=== PATIENT | male | born 1955 | race Hispanic/Latino ===

== ENCOUNTER 2021-12-05 01:24 | Inpatient (IN) | payer OTHER, SELFPAY ==
[2021-12-05] VITALS (15 sets, daily range): BP systolic 96–116; BP diastolic 55–67; PULSE 57–97; RESP 16–18; TEMP 36.2–37.3; O2SAT 12–100; BMI 24.6
--- NOTE | ~2021-12-05 | MR_ITS ---
EXAMINATION: MR brain/brain stem wo con DATE: 12/05/2021 15:30 INDICATION: Aphasia TECHNIQUE: Magnetic resonance imaging (MRI) of the brain and brainstem was performed without intraven ous contrast. Sequences included sagittal and axial T1-weighted SE, axial diffusion-weighted FS SE, a xial T2*-weighted GRE, axial T2-weighted FLAIR, and axial T2-weighted FSE. Apparent diffusion coeffic ient (ADC) maps were created. COMPARISON: Head CT dated 12/05/2021 FINDINGS: Increased white matter T2 signal along the margins of a large region of encephalomalacia in left occi pital lobe consistent with chronic infarct in the left posterior cerebral artery vascular distributio n. There are no areas of restricted diffusion to suggest acute infarction. No intracranial hemorrhage or abnormal intracranial mass lesion. There are a few additional scattered foci of of nonspecific in creased T2-weighted signal intensity in the cerebral white matter, predominantly involving the deep a nd periventricular white matter. There are no intraparenchymal signal abnormalities seen on the other pulse sequences. The ventricles are symmetric and normal in size. There are no abnormal extra-axial fluid collections. Flow voids are seen in the cerebral arteries on the T2-weighted sequences consiste nt with their expected patency. Mild mucoperiosteal thickening in the paranasal sinuses. Tiny bilater al mastoid effusions. Orbits are normal. IMPRESSION: 1. Large region of encephalomalacia involving the left occipital lobe. No acute intracranial process. 2. Mild scattered nonspecific white matter T2 hyperintensity which is within normal limits for age an d may represent sequela of chronic small vessel ischemic disease. Reviewed, dictated and finalized at location A. IMPRESSION: 1. Large region of encephalomalacia involving the left occipital lobe. No acute intracranial process. 2. Mild scattered nonspecific white matter T2 hyperintensity which is within no rmal limits for age and may represent sequela of chronic small vessel ischemic disease.
--- NOTE | ~2021-12-05 | CT_ITS ---
EXAMINATION: CT brain wo con INDICATION: Seizure COMPARISON: None TECHNIQUE: Standard unenhanced head CT. The dose-length product (DLP) was 681.00 mGy-cm. The mA was a djusted according to patient size. Iterative reconstruction technique was employed. FINDINGS: There is no acute intraparenchymal hemorrhage. No evidence of mass lesion. No evidence of a cute infarction. There is an old infarct of the left occipital lobe. There is mild periventricular an d subcortical hypodensity probably related to small vessel ischemic disease. There is mild prominence of the sulci and ventricles related to cerebral atrophy. Intracranial calcified cerebral atheroscler osis is noted. There are no extra-axial collections. There is no mass effect or midline shift. The or bits and soft tissues are unremarkable. There is mild mucosal thickening of the paranasal sinuses. IMPRESSION: 1. No acute intracranial abnormality. 2. Age related findings. Reviewed, dictated and finalized at location A.
--- NOTE | ~2021-12-05 | XR_ITS ---
EXAMINATION: XR chest 1V portable INDICATION: Cough TECHNIQUE: Portable AP chest at 0347 hours COMPARISON: None available FINDINGS: There are minimal airspace opacities of the lung bases. There is no pleural effusion or pne umothorax. The cardiomediastinal silhouette is normal. IMPRESSION: 1. Minimal bibasilar airspace opacities, consistent with atelectasis versus pneumonia. Reviewed, dictated and finalized at location A. IMPRESSION: 1. Minimal bibasilar airspace opacities, consistent with atelectasis versus pne umonia.
--- NOTE | 2021-12-05 01:30 | ECG_ITS ---
Measurements Intervals [place] Rate: 101 P: 66 CT: 177 QRS: -19 QRSD: 104 T: 91 QT: 339 QTc: 439 Interpretive Statements SINUS TACHYCARDIA POSSIBLE LEFT ATRIAL ENLARGEMENT INCOMPLETE RIGHT BUNDLE BRANCH BLOCK LOW QRS VOLTAGE- DIFFUSE LEADS INFERIOR INFARCT, AGE INDETERMINATE ANTERIOR INFARCT, AGE INDETERMINATE BORDERLINE ST-T WAVE ABNORMALITY- LAT/HIGH LAT LEADS BASELINE WANDER- V6 ABNORMAL ECG Electronically Signed On 12-05-2021 9:17:25 CDT by Ric Ratliff D.O.
--- NOTE | 2021-12-05 01:35 | ED.GENADULT ---
HPI - General Adult General Chief complaint: Seizure Stated complaint: SEIZURE Source: family, EMS and RN notes reviewed Mode of arrival: ambulatory Limitations: no limitations History of Present Illness HPI narrative: 66-year-old male with history of CVA and seizure presented [facility] the [facility] department [facility] after having a prolonged seizure. EMS states that the patient had been seizing for approximately 10 minutes prior to their arrival. Patient was treated with 5 of Valium and his tonic-clonic seizures did stop. Patient was extremely diaphoretic and was hypoxic during transport. Patient was placed on 15 L by nonrebreather and this did help his oxygenation. Patient has a prior history of CVA with right-sided deficit. longterm states that patient's baseline he is normally alert and able to have conversations in [place]. Related Data Home Medications Medication Instructions Recorded Confirmed acetaminophen 650 mg PO Q6H PRN 12/05/21 12/05/21 aspirin 81 mg PO DAILY 12/05/21 12/05/21 atorvastatin 80 mg PO HS 12/05/21 12/05/21 calcitriol 0.25 mcg PO WEEKLY 12/05/21 12/05/21 carvedilol 6.25 mg PO BID 12/05/21 12/05/21 citalopram 20 mg PO DAILY 12/05/21 12/05/21 ergocalciferol (vitamin D2) 1,250 mcg PO WEEKLY 12/05/21 12/05/21 [Vitamin D2] levetiracetam 2,000 mg PO BID 12/05/21 12/05/21 lisinopril 10 mg PO DAILY 12/05/21 12/05/21 metformin 500 mg PO DAILY 12/05/21 12/05/21 Allergies Allergy/AdvReac Type Severity Reaction Status Date / Time No Known Allergies Allergy Verified 12/05/21 05:26 Review of Systems Review of Systems: Patient answers yes to all questions ROS unobtainable: Yes unobtainable due to medical condition PMFSH Social History Social History Smoking status: Unknown if ever smoked Alcohol intake: unknown Substance use: unknown Spiritual care concerns: No Exam Narrative: APPEARANCE: Upon arrival patient was diaphoretic with decreased responsiveness. HEAD: normocephalic, atraumatic. EYES: PERRLA/EOMI, conjunctivae clear. NOSE: Normal no drainage EARS:TMS clear with good light reflex. THROAT: Pharynx clear, no exudate. NECK: Supple. No adenopathy, no masses. RESPIRATORY: Airway patent, respirations nonlabored. Clear to auscultation bilaterally, no rales, rhonchi, wheezing. CARDIOVASCULAR: Regular rate and rhythm without murmurs rubs or gallops. ABDOMINAL: Soft, nontender, nondistended, normal bowel sounds MUSCULOSKELETAL: Moves all extremities. NEURO: Postictal upon arrival but did have increased alertness. Does move all limbs SKIN: Warm, dry. Normal Color Course Course Emergency Course: Patient continues to say yes to every question. Attempted to use the training executive and patient says okay and yes to every question. longterm states that the patient is normally conversive in [place]. Due to the patient possibly having a prolonged postictal phase case was discussed and patient was accepted for admission. Neurology was consulted. Consultations Consultation #1: Dr. Phillips was consulted for the prolonged postictal phase after the seizure. He agreed with Siria beasley. He was also comfortable with the plan for the MRI later today. Dr. Phillips will see the patient as consult. Vital Signs Vital signs: Vital Signs Temperature 97.1 F L 12/05/21 01:27 Pulse Rate 97 12/05/21 01:27 Respiratory Rate 17 12/05/21 01:27 Blood Pressure 96/64 L 12/05/21 01:27 Pulse Oximetry 94 12/05/21 01:27 Temperature 98.6 F 12/05/21 04:55 Pulse Rate 78 12/05/21 04:55 Respiratory Rate 18 12/05/21 04:55 Blood Pressure 109/55 L 12/05/21 04:55 Pulse Oximetry 97 12/05/21 04:55 Medical Decision Making Vital Signs Vital Signs: Vital Signs Temperature 97.1 F L 12/05/21 01:27 Pulse Rate 97 12/05/21 01:27 Respiratory Rate 17 12/05/21 01:27 Blood Pressure 96/64 L 12/05/21 01:27 Pulse Oximetry 94 12/05/21 01:27 Tem
[2021-12-05] MEDS: levETIRAcetam 1000MG/NACL100ML 1,000 MG/100 ML BAG 400 MG IVPB (01:39)
[2021-12-05 02:04] LABS: Alanine Aminotransferase 27 U/L (6-50); Albumin Level 4.2 g/dL (3.5-5.1); Alkaline Phosphatase 62 U/L (38-126); Anion Gap 14 mmol/L (8-16); Aspartate Amino Transferase 32 U/L (17-59); Bilirubin,Total 0.5 mg/dL (0.2-1.3); Blood Urea Nitrogen 15 mg/dL (9-20); Carbon Dioxide 19 mmol/L (22-30); Chloride 105 mmol/L (98-107); Estimated CRCL calculation 72 ml/min; Estimated Glomerular Filt Rate > 60; Glucose 140 mg/dL (65-110); Potassium 4.9 mmol/L (3.4-5.0); Sodium 138 mmol/L (137-145)
[2021-12-05 02:17] LABS: Lactic Acid Reflex 8.2 mmol/L (0.7-2.0)
[2021-12-05] MEDS: SODIUM CHLORIDE 0.9% IV 1,000 ML 999 ML IV CONT ×2 (02:24→02:25)
[2021-12-05 02:47] LABS: Basophils Percent Auto 0.2 % (0.2-1.2); Eosinophils Absolute Auto 0.2 K/mm3 (0-0.3); Eosinophils Percent Auto 1.8 % (0-4.4); Hemoglobin 11.9 g/dL (14.0-18.0); Immature Granulocyte Absolute 0.06 K/mm3 (0.00-0.031); Immature Granulocyte Percent A 0.7 % (0-0.5); Immature Platelet Fraction Pct 9.7 % (0.9-11.2); Lymphocytes Percent Auto 8.4 % (18.3-44.2); Mean Corpuscular HGB Conc 31.3 g/dl (32-36); Mean Corpuscular Hemoglobin 29.6 pg (26-34); Mean Corpuscular Volume 94.5 fl (80-100); Mean Platelet Volume 11.8 fl (7.4-10.4); Monocytes Absolute Auto 0.4 K/mm3 (0.1-0.6); Monocytes Percent Auto 4.2 % (2.6-8.5); Neutrophils Absolute Auto 7.1 K/mm3 (1.3-6.7); Neutrophils Percent Auto 84.7 % (45.5-73.1); Platelet Count Result 134 k/mm3 (150-375); Red Blood Count 4.02 M/mm3 (4.6-6.20); Red Cell Distribution Width 13.3 % (11.5-14.5); White Blood Count 8.4 K/mm3 (4.5-10.0)
[2021-12-05 02:49] LABS: Bacteria Urine Trace /hpf; Mucus Urine Rare /lpf; Squamous Epithelial Cell Urine Rare /hpf (Few)
[2021-12-05 02:50] LABS: Add Urine Microscopic? YES; Appearance Urine Clear (Clear); Bilirubin Urine Negative (Negative); Blood Urine 1+ (Negative); Color Urine Yellow (Yellow); Glucose Urine UA Negative (Negative); Ketones Urine Negative (Negative); Leukocyte Esterase Ur Negative LEU/UL (Negative); Nitrate Urine Negative (Negative); Protein Urine 3+ mg/dL (Negative); Specific Grav Ur >= 1.030 (1.001-1.035); Urobilinogen Urine 0.2 mg/dL (<2.0); pH Urine 5.5 (5.0-9.0)
--- NOTE | 2021-12-05 03:27 | PC.NURSE ---
Pt progressively weaned from non rebreather down to room air at this time. Oxygen saturation in the high 90's on room air.
--- NOTE | 2021-12-05 03:41 | PM.IMHP ---
H&P: HPI History of Present Illness Date/Time: 12/05/21 03:41 Chief Complaint: Altered mental status. Narrative: This is a 66-year-old male with past medical history significant for stroke, right-sided hemiparesis, seizure disorder. Patient id lives at a half-way and he was found actively seizing with tonic clonic activity. Patient seized for approximately 10 minutes until EMS arrived and he was given 5 mg of Valium and was brought to our emergency room. Patient initially post ictal but now awake and alert and following commands however patient unable to give any information states mostly okay to all questions. Preliminary workup was significant for a lactic acid of 8. Rest of the preliminary workup has been essentially nonrevealing. In emergency room patient was loaded with Keppra. Decision has been made to place the patient in observation for further evaluation, management and treatment. Review of Systems Review of Systems: ROS unobtainable: Yes other (Patient seems to have aphasia unable to give any history) Meds Vital Signs Vital Signs - 24 hr 12/05/21 01:27 12/05/21 01:36 12/05/21 02:23 Temperature 97.1 F L Pulse Rate 97 83 Respiratory Rate 17 18 Blood Pressure 96/64 L 100/65 Pulse Oximetry 94 12 L 96 12/05/21 03:17 12/05/21 03:26 Temperature Pulse Rate 71 Respiratory Rate 16 Blood Pressure 116/67 Pulse Oximetry 100 98 Exam Narrative: Laying in a stretcher. Const: General: cooperative, comfortable, no acute distress, well developed, alert, awake and ill appearing chronically Nutritional Appearance: average body habitus Orientation/consciousness: oriented to person and oriented to place Other: Aphasia. Right-sided hemiplegia HENMT: Head: normal to inspection, normocephalic and atraumatic Ears: hearing grossly normal bilaterally General nose exam: Normal external nose present Face and sinus: normal facial exam Mouth: Yes Normal oral and palatal mucosa present Teeth and gingiva: edentulous Eyes: General: appearance normal, both eyes and all related structures Alignment and Position: alignment normal Sclera: sclerae normal Pupils: Equal, round and reactive pupils present EOM: EOMs intact bilaterally Neck: Neck: normal visual inspection, full ROM, no lymphadenopathy, supple and no JVD Thyroid: thyroid normal Lymphatic: no lymphadenopathy noted Resp: Effort & Inspection: normal respiratory effort and able to speak in complete sentences Auscultation: clear to auscultation bilaterally, no crackles, no rales, no rhonchi and no wheezes Cardio: Jugular venous distension: no JVD Rate: regular rate Rhythm: regular rhythm Heart sounds: S1 normal heart sound present and S2 normal heart sound present GI: Inspection: normal to inspection GI Palp: Yes Soft to palpation, No Tenderness to palpation present (GI), No Guarding due to palpation present (GI) and Yes No hepatosplenomegaly present : General: Yes deferred Skin: Rashes: no rashes Wounds: no wounds Neuro: General: oriented to person and oriented to place Cranial nerves: Yes CN's II-XII intact bilaterally and Yes Equal, round and reactive pupils present Cognition (Neuro): normal cognition Speech: aphasia and Expressive aphasia present Gait exam (Neuro): Unable to assess gait Motor exam (neuro): Other motor observations present (Right-sided hemiplegia) Extrem: General: normal to inspection, full ROM, no joint enlargement and no pedal edema H&P: Results Labs Labs: Short CBC 12/05/21 Range/Units 02:37 WBC 8.4 (4.5-10.0) K/mm3 Hgb 11.9 L (14.0-18.0) g/dL Hct 38.0 L (42.0-52.0) % Plt Count 134 L (150-375) k/mm3 BMP 12/05/21 01:43 Sodium 138 Potassium 4.9 Chloride 105 Carbon Dioxide 19 L BUN 15 Creatinine 0.90 Glucose 140 H Calcium 9.0 Liver Function 12/05/21 Range/Units 01:43 Total Bilirubin 0.5 (0.2-1.3) mg/dL AST 32 (17-59) U/L ALT 27 (6-50) U/L Alkaline Phosphata
[2021-12-05 04:33] LABS: SARS-CoV-2 RNA PCR Negative
--- NOTE | 2021-12-05 04:48 | ADMGEN ---
This patient, Maldonado Macedo, was admitted to 3 [facility] Surg Room 324-01. Patient/family oriented to hospital policies and general routines including ID bracelet, bed and alarms, visiting hours, pain management, procedures, bathroom and other care routines, personal items, smoking policy, room service/diet, and visiting hours. Information on how to activate the Rapid Response Team has been discussed. Patient/Family are encouraged to report perceived risks to care and to ask questions if they do not understand what they are told or what they should do.
[2021-12-05 04:49] LABS: Reflex Lactic Acid Yes or No Add Lactic
[2021-12-05] MEDS: SODIUM CHLORIDE 0.9% IV 1,000 ML 125 ML IV CONT ×2 (05:02→14:21)
[2021-12-05 06:00] LABS: Lactic Acid 1.2 mmol/L (0.7-2.0)
[2021-12-05 08:14] LABS: Glucose Point of Care 109 mg/dl (65-105)
[2021-12-05] MEDS: levETIRAcetam 500 MG TABLET 2000 MG PO ×2 (10:14→21:01)
[2021-12-05] MEDS: carvediloL 6.25 MG TABLET PO ×2 (10:14→21:01)
[2021-12-05 12:02] LABS: Glucose Point of Care 85 mg/dl (65-105)
--- NOTE | 2021-12-05 14:30 | PC.NURSE ---
call placed to [facility] for records if facility has and documentation on a pacemaker. nurse stated unable to find anything like that due to pt being new still to facility. nurse gave a number from previous discharge of [phone]. another nurse noted that although no documentation on a pacemaker pt does have loop recorder noted in chart, but no documentation on it.
[2021-12-05 17:00] LABS: Glucose Point of Care 95 mg/dl (65-105)
--- NOTE | 2021-12-05 20:32 | PM.IMPN ---
Progress Note: A&P Assessment and Plan (1) Seizure: Code(s): R56.9 - Unspecified convulsions <Bri Serna PA-C - Last Filed: 12/05/21 20:41> Status: Acute <Bri Serna PA-C - Last Filed: 12/05/21 20:41> Assessment and Plan: CT head showed no abnormalities. Patient was loaded with Keppra in the ER. We have continued his home medications and Keppra Vital signs have been stable, labs all within normal limits today. Neurology consult is pending, and we do appreciate their recommendations. Records have been requested from the senior care regarding patient's pacemaker to determine if he is able to undergo MRI. Seizure precautions Some proteinuria and blood noted in the urine, urine culture pending. <Bri Serna PA-C - Last Filed: 12/05/21 20:41> (2) Aphasia: Code(s): R47.01 - Aphasia <Bri Serna PA-C - Last Filed: 12/05/21 20:41> Status: Acute <Bri Serna PA-C - Last Filed: 12/05/21 20:41> Assessment and Plan: Patient has aphasia, and answers only 'yes' or 'okay' to all questions. He follows commands during my exam today. Plan as above. <Bri Serna PA-C - Last Filed: 12/05/21 20:41> (3) Hemiplegia affecting right dominant side: Code(s): G81.91 - Hemiplegia, unspecified affecting right dominant side <Bri Serna PA-C - Last Filed: 12/05/21 20:41> Status: Acute <Bri Serna PA-C - Last Filed: 12/05/21 20:41> Assessment and Plan: Continue cardiac telemetry, neuro checks q.4 hours. Fall precautions as above <Bri Serna PA-C - Last Filed: 12/05/21 20:41> Subjective Date/time seen: 12/05/21 20:32 66-year-old male with past medical history significant for stroke, right-sided hemiparesis, seizure disorder. Patient was found actively seizing for approximately 10 minutes with tonic clonic activity, which was broken after administration of 5 mg of Valium. Patient is alert following commands however he answers only okay and yes to all questions in both [place] and [place] today. Per report provided did to the nursing staff, this is a deviation from his baseline where he is normally conversational in [place]. We have continued his home medications today. CT head showed no acute abnormalities, MRI is pending. Per the nursing staff, patient may have a pacemaker device. They are requesting information on this device to determine if we can MRI. <Bri Serna PA-C - Last Filed: 12/05/21 20:41> Review of Systems Review of Systems: All systems reviewed & are unremarkable except as noted in HPI and below <Bri Serna PA-C - Last Filed: 12/05/21 20:41> Exam Narrative: Laying in a stretcher. <Bri Serna PA-C Last Filed: 12/05/21 20:41> Const: General: cooperative, comfortable, no acute distress, well developed, alert, awake and ill appearing chronically <Bri Serna PA-C Last Filed: 12/05/21 20:41> Nutritional Appearance: average body habitus <Bri Serna PA-C Last Filed: 12/05/21 20:41> Orientation/consciousness: oriented to person and oriented to place <Bri Serna PA-C Last Filed: 12/05/21 20:41> Other: Aphasia. Right-sided hemiplegia <Bri Serna PA-C Last Filed: 12/05/21 20:41> HENMT: Head: normal to inspection, normocephalic and atraumatic <Bri Serna PA-C Last Filed: 12/05/21 20:41> Ears: hearing grossly normal bilaterally <Bri Serna PA-C - Last Filed: 12/05/21 20:41> General nose exam: Normal external nose present <Bri Serna PA-C - Last Filed: 12/05/21 20:41> Face and sinus: normal facial exam <Bri Serna PA-C Last Filed: 12/05/21 20:41> Mouth: Yes Normal oral and palatal mucosa present <Bri Serna PA-C - Last Filed: 12/05/21 20:41> Teeth and gingiva: edentulous <Bri Serna PA-C - Last Filed: 12/05/21 20:41> Eyes: General: appearance normal, both eyes and al
[2021-12-05] MEDS: ATORVASTATIN 40 MG TABLET 80 MG PO (21:01)
[2021-12-05 21:52] LABS: Glucose Point of Care 94 mg/dl (65-105)
[2021-12-06] VITALS (9 sets, daily range): BP systolic 117–133; BP diastolic 58–66; PULSE 50–60; RESP 16–18; TEMP 36.4–37.2; O2SAT 97–99
[2021-12-06] MEDS: SODIUM CHLORIDE 0.9% IV 1,000 ML 125 ML IV CONT ×3 (00:53→16:37)
[2021-12-06 07:17] LABS: Basophils Percent Auto 0.5 % (0.2-1.2); Eosinophils Absolute Auto 0.1 K/mm3 (0-0.3); Hematocrit 34.8 % (42.0-52.0); Hemoglobin 10.8 g/dL (14.0-18.0); Immature Granulocyte Absolute 0.02 K/mm3 (0.00-0.031); Immature Granulocyte Percent A 0.5 % (0-0.5); Lymphocytes Absolute Auto 1.77 K/mm3 (0.9-3.2); Lymphocytes Percent Auto 41.2 % (18.3-44.2); Mean Corpuscular Volume 96.7 fl (80-100); Mean Platelet Volume 12.1 fl (7.4-10.4); Monocytes Absolute Auto 0.4 K/mm3 (0.1-0.6); Monocytes Percent Auto 8.6 % (2.6-8.5); Neutrophils Percent Auto 46.2 % (45.5-73.1); Red Cell Distribution Width 13.2 % (11.5-14.5); White Blood Count 4.3 K/mm3 (4.5-10.0)
[2021-12-06 07:27] LABS: Alanine Aminotransferase 18 U/L (6-50); Alkaline Phosphatase 51 U/L (38-126); Anion Gap 2 mmol/L (8-16); Aspartate Amino Transferase 29 U/L (17-59); Bilirubin,Total 0.6 mg/dL (0.2-1.3); Blood Urea Nitrogen 12 mg/dL (9-20); Calcium 7.9 mg/dL (8.4-10.2); Carbon Dioxide 24 mmol/L (22-30); Chloride 111 mmol/L (98-107); Estimated CRCL calculation 80 ml/min; Estimated Glomerular Filt Rate > 60; Glucose 78 mg/dL (65-110); Platelet Count Result 91 k/mm3 (150-375); Sodium 137 mmol/L (137-145)
[2021-12-06] MEDS: levETIRAcetam 500 MG TABLET 2000 MG PO (08:17)
[2021-12-06] MEDS: ASPIRIN 81 MG CHEWABLE TABLET PO (08:18)
[2021-12-06] MEDS: CITALOPRAM HYDROBROMIDE 20 MG TABLET PO (08:18)
[2021-12-06 08:27] LABS: Glucose Point of Care 81 mg/dl (65-105)
[2021-12-06 10:14] LABS: Creatine Kinase 206 U/L (55-170)
[2021-12-06 12:02] LABS: Glucose Point of Care 94 mg/dl (65-105)
[2021-12-06] MEDS: lisinopriL 10 MG TABLET PO (12:47)
--- NOTE | 2021-12-06 14:15 | WPDNEURCNPN ---
Assessment and Plan Additional Plan 1 status post left hemispheric stroke with right hemiparesis 2 focal seizure with secondary generalization 3 patient receiving Keppra 2000 mg q.12 hours scheduled continued as such with all the seizure precaution Consult date: 12/06/21 HPI: Maldonado Macedo is a 66 year old male admitted to the hospital through the emergency room for the complaints of seizure on transfer from the local correction patient was noted least seizing for [id number] prior to their arrival as per the EMS he received 5 mg of Valium when the generalized tonic clonic activity stopped but he was noted lead diaphoretic and was placed on 15L of oxygen non breather , patient has been receiving levetiracetam 2000 mg b.i.d. reportedly he is not allergic to any medication, initial vital signs were stable though the blood pressure was on the lower side and the routine lab was normal except lactic acid of 8.2, brain MRI has documented large region of encephalomalacia involving the left occipital lobe without evidence of bleed and chest x-ray is negative as well with no aspiration, routine labs without leukocytosis hemoglobin 10.8 platelet count 91 BMP normal and starts COVID negative Review of Systems Review of Systems: All systems reviewed & are unremarkable except as noted in HPI and below PMFSH Social History Social History Smoking status: Unknown if ever smoked Alcohol intake: unknown Substance use: unknown Spiritual care concerns: No Meds Home Medications and Allergies Home Medications Medication Instructions Recorded Confirmed Type acetaminophen 650 mg PO Q6H PRN 12/05/21 12/05/21 History aspirin 81 mg PO DAILY 12/05/21 12/05/21 History atorvastatin 80 mg PO HS 12/05/21 12/05/21 History calcitriol 0.25 mcg PO WEEKLY 12/05/21 12/05/21 History carvedilol 6.25 mg PO BID 12/05/21 12/05/21 History citalopram 20 mg PO DAILY 12/05/21 12/05/21 History ergocalciferol (vitamin D2) 1,250 mcg PO WEEKLY 12/05/21 12/05/21 History [Vitamin D2] levetiracetam 2,000 mg PO BID 12/05/21 12/05/21 History lisinopril 10 mg PO DAILY 12/05/21 12/05/21 History metformin 500 mg PO DAILY 12/05/21 12/05/21 History Allergies Allergy/AdvReac Type Severity Reaction Status Date / Time No Known Allergies Allergy Verified 12/05/21 05:26 Vital Signs Vital Signs - 24 hr 12/05/21 16:00 12/05/21 20:00 12/05/21 21:01 Temperature Pulse Rate 65 57 L 66 Respiratory Rate Blood Pressure Pulse Oximetry 97 12/05/21 22:00 12/06/21 00:00 12/06/21 04:00 Temperature 37.3 C Pulse Rate 66 57 L 53 L Respiratory Rate 16 Blood Pressure 108/55 L Pulse Oximetry 97 12/06/21 06:00 12/06/21 08:00 12/06/21 08:18 Temperature 36.4 C Pulse Rate 60 50 L 50 L Respiratory Rate 16 16 Blood Pressure 117/58 L Pulse Oximetry 99 97 12/06/21 08:22 Temperature Pulse Rate Respiratory Rate Blood Pressure Pulse Oximetry 97 Exam Narrative: revealed him to be awake alert cooperative in no obvious acute distress, head normocephalic with no cranial bruit, ear nose throat examination normal, neck supple with no cervical bruit no thyromegaly no lymphadenopathy, heart regular with no murmur, lungs clear to auscultation with no rhonchi or crepitations, abdomen is soft with no organomegaly with normal bowel sounds, neurological examination revealed him to have normal mental status difficulties in speech pupils round regular feels the vision work questionably live with a field cut on the right side extraocular movements are full face symmetrical tongue midline uvula midline motor examination revealed him to have right hemiparesis with hyperreflexia upgoing plantar Results Labs CBC & Chem 7: 12/06/21 06:34 12/06/21 06:34 Labs: Short CBC 12/06/21 Range/Units 06:34 WBC 4.3 L (4.5-10.0) K/mm3 Hgb 10.8 L (14.0-18.0) g/dL Hct 34
--- NOTE | 2021-12-06 15:19 | PC.NURSE ---
rayne: kayli soto, model LNQ11, serial number: [id number]
--- NOTE | 2021-12-06 15:55 | PM.DS ---
DS: Admitting Diagnosis Discharge Date 12/06/21 1600 <Bri Serna PA-C - Last Filed: 12/06/21 16:07> Admitting Diagnosis Prolonged seizure <Bri Serna PA-C - Last Filed: 12/06/21 16:07> DS: Discharge Diagnosis Discharge Diagnosis (1) Seizure: Code(s): R56.9 - Unspecified convulsions <Bri Serna PA-C - Last Filed: 12/06/21 16:07> Status: Acute <Bri Serna PA-C - Last Filed: 12/06/21 16:07> Assessment and Plan: CT head showed no abnormalities. 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 No acute intracranial process Patient was loaded with Keppra in the ER, will continue his 2000 mg p.o. b.i.d. Keppra upon discharge. Vital signs have been stable, labs all within normal limits today aside from mild pancytopenia and mildly elevated CK, which is to be expected after prolonged seizure activity. Neurology consulted this was a focal seizure with secondary generalization status post left hemispheric stroke with right hemiparesis. He advised to continue current Keppra dosage after discharge Seizure precautions upon discharge Will follow-up with urine culture results Follow up with primary care for repeat CBC <Bri Serna PA-C - Last Filed: 12/06/21 16:07> (2) Aphasia: Code(s): R47.01 - Aphasia <Bri Serna PA-C - Last Filed: 12/06/21 16:07> Status: Acute <Bri Serna PA-C - Last Filed: 12/06/21 16:07> Assessment and Plan: This has resolved as of today, patient is fully conversational and answers all questions in full sentences. He is AO to person, place, time. Plan as above. <Bri Serna PA-C - Last Filed: 12/06/21 16:07> DS: Summary Hospital Course Reason for hospitalization: Focal seizure with secondary generalization <Bri Serna PA-C - Last Filed: 12/06/21 16:07> Hospital Course: See above for full hospital course <Bri Serna PA-C - Last Filed: 12/06/21 16:07> Status at Discharge Overall status at discharge: patient is progressing back to baseline <Bri Serna PA-C - Last Filed: 12/06/21 16:07> Time Spent with Patient Time attestation: Total time spent providing and/or coordinating discharge services: 35 minutes <Bri Serna PA-C - Last Filed: 12/06/21 16:07> Time spent: Greater than 30 minutes <Bri Serna PA-C - Last Filed: 12/06/21 16:07> Exam Narrative: Patient is sitting upright bed smiling. <Bri Serna PA-C - Last Filed: 12/06/21 16:07> Const: General: cooperative, comfortable, no acute distress, well developed, alert, awake and ill appearing chronically <Bri Serna PA-C - Last Filed: 12/06/21 16:07> Nutritional Appearance: average body habitus <Bri Serna PA-C - Last Filed: 12/06/21 16:07> Orientation/consciousness: oriented to person and oriented to place <Bri Serna PA-C - Last Filed: 12/06/21 16:07> Other: Aphasia. Right-sided hemiplegia <Bri Serna PA-C - Last Filed: 12/06/21 16:07> HENMT: Head: normal to inspection, normocephalic and atraumatic <Bri Serna PA-C - Last Filed: 12/06/21 16:07> Ears: hearing grossly normal bilaterally <Bri Serna PA-C - Last Filed: 12/06/21 16:07> General nose exam: Normal external nose present <Bri Serna PA-C - Last Filed: 12/06/21 16:07> Face and sinus: normal facial exam <Bri Serna PA-C - Last Filed: 12/06/21 16:07> Mouth: Yes Normal oral and palatal mucosa present <Bri Serna PA-C - Last Filed: 12/06/21 16:07> Teeth and gingiva: edentulous <JOCELYNE Mcdonald Last Filed: 12/06/21 16:07> Eyes: General: appearance normal, both eyes and all related structures <JOCELYNE Mcdonald Last Filed: 12/06/21 16:07> Alignment and Position: alignment normal <JOCELYNE Mcdonald Last Filed: 12/06/21 16:07> Sclera: sclerae normal <JOCELYNE Mcdonald Filed:
--- NOTE | 2021-12-06 16:21 | PC.NURSE ---
calling report to [facility]
--- NOTE | 2021-12-06 16:27 | PC.NURSE ---
Report called to Tami at [facility].
[2021-12-06 16:33] LABS: Glucose Point of Care 89 mg/dl (65-105)
--- NOTE | 2021-12-06 16:35 | PC.NURSE ---
covid swab sent to lab for analysis.
[2021-12-06 16:55] LABS: EDCOVIDSCREEN Negative (Negative)
--- NOTE | 2021-12-06 17:42 | PC.NURSE ---
UC was collected per computer 12/05/21 see microbiology labs
--- NOTE | 2021-12-06 18:22 | PC.NURSE ---
awaiting ambulance for transport back to [facility].
--- NOTE | 2021-12-10 06:32 | PC.NURSE ---
Urine cx shows mixed genital ginger. Dr. Ant lin.
== END 2021-12-06 19:43 | DRG 57 ==
LOC: ANHED 01:35 → ANH3MEDSUR 04:16
PROVIDERS: Admitting Provider Internal Medicine; Emergency Provider Emergency Medicine; PCP Pediatrics Neonatal-Perinatal Medicine; Visit Provider Student in an Organized Health Care Education/Training Program
DX: I69.398 Other sequelae of cerebral infarction (principal); R47.01 Aphasia; I69.351 Hemiplegia and hemiparesis following cerebral infarction affecting right dominant side; D61.818 Other pancytopenia; G40.409 Other generalized epilepsy and epileptic syndromes, not intractable, without status epilepticus; G93.89 Other specified disorders of brain; Z20.822 Contact with and (suspected) exposure to COVID-19; E11.9 Type 2 diabetes mellitus without complications; I10 Essential (primary) hypertension; Z79.84 Long term (current) use of oral hypoglycemic drugs; Z79.82 Long term (current) use of aspirin
CPT/HCPCS: 36415; 51701; 70450; 70551; 71045; 80053; 81001; 82550; 82948; 83605; 85025; 85055; 87086; 87088; 87426; 93005; 96361; 96365; 99285; A9270; C9803; G0378; G0379; J1953; J7030; U0003; U0005

== ENCOUNTER 2022-03-25 10:39 | Outpatient (CLI) | payer OTHER, SELFPAY ==
--- NOTE | ~2022-03-25 | XR_ITS ---
XR shoulder RT min 2V DATE: 03/25/2022 11:03 INDICATION: Right shoulder pain. No known injury. TECHNIQUE: 4 views COMPARISON: None FINDINGS: Osteopenia. There is moderate right glenohumeral osteoarthritis including joint space narrowing and spurring of t he humeral head and glenoid process. Normal alignment at the glenohumeral and acromioclavicular joint s. No fracture, dislocation, periosteal reaction or bone destruction or abnormal soft tissue calcificati on of the right shoulder is noted. IMPRESSION: Moderate right glenohumeral osteoarthritis Osteopenia Reviewed, dictated and finalized at location B.
--- NOTE | ~2022-03-25 | US_ITS ---
EXAMINATION: US soft tissue head and neck DATE: 03/25/2022 11:21 INDICATION: MASS OF NECK . TECHNIQUE: Grayscale and Doppler ultrasound images of the neck soft tissues were obtained. COMPARISON: None. FINDINGS: The area of the palpable mass in the region of the left submandibular gland was interrogate d. No cystic or solid mass. Left submandibular gland measures 3.7 x 1.6 x 3.7 cm. The right submandib ular gland with similar in size. No lymphadenopathy. IMPRESSION: No sonographic abnormality detected in the area of clinical concern. Reviewed, dictated and finalized at location K.
== END 2022-03-25 10:40 | disposition home or self-care (01) ==
PROVIDERS: PCP Pediatrics Neonatal-Perinatal Medicine; Visit Provider Physician Assistant
DX: M19.011 Primary osteoarthritis, right shoulder (principal); M85.811 Other specified disorders of bone density and structure, right shoulder
CPT/HCPCS: 73030; 76536

== ENCOUNTER 2022-05-12 16:37 | Emergency (ER) | payer OTHER, SELFPAY ==
[2022-05-12] VITALS (16 sets, daily range): BP systolic 93–116; BP diastolic 58–65; PULSE 70–97; RESP 11–18; TEMP 36.2; O2SAT 89–100
--- NOTE | ~2022-05-12 | XR_ITS ---
EXAMINATION: XR chest 1V portable Exam Date/Time: 05/12/2022 17:28 CDT HISTORY: SEIZURE-LIKE ACTIVITY . POOR HISTORIAN. HX CVA AND SEIZURES Comparison: 12/05/2021. RESULT: Lines, tubes, and devices: None. Lungs and pleura: Low volumes with crowding. Linear bibasilar opacities, commonly attributed to atel ectasis. Cardiomediastinal silhouette: Stable. Other: No acute osseous or upper abdominal finding. IMPRESSION: No acute cardiopulmonary process. Reviewed, dictated and finalized at location K.
--- NOTE | ~2022-05-12 | CT_ITS ---
EXAMINATION: CT brain wo con DATE: 05/12/2022 19:27 INDICATION: Seizure, weakness, hx CVA and seizures . TECHNIQUE: Computed tomography (CT) of the head was performed without intravenous contrast. The mA wa s adjusted according to patient size. Iterative reconstruction technique was employed. The dose-lengt h product was 605.33 mGy-cm. COMPARISON: 12/05/2021 FINDINGS: No acute intracranial hemorrhage or extra-axial fluid collection. No hydrocephalus, mass, or herniation. No acute ischemic infarct. Unremarkable dural venous sinus attenuation. No acute osseous abnormality. Minimal aerated secretions in the right posterior ethmoid air cells, air-fluid level in the right max illary sinus, remaining aerated spaces are clear. Mild atrophy and chronic white matter change. Mild atherosclerotic intracranial calcification. Old le ft occipital infarct. IMPRESSION: No acute intracranial process. Right maxillary and right posterior ethmoid sinus findings may reflect acute sinusitis in the appropriate clinical context. Reviewed, dictated and finalized at location K. IMPRESSION: No acute intracranial process. Right maxillary and right posterior ethmoid sinu s findings may reflect acute sinusitis in the appropriate clinical context.
--- NOTE | 2022-05-12 16:52 | ECG_ITS ---
Measurements Intervals [place] Rate: 85 P: 65 ND: 183 QRS: -48 QRSD: 105 T: 90 QT: 366 QTc: 437 Interpretive Statements SINUS RHYTHM WITH SINUS ARRHYTHMIA LOW QRS VOLTAGE [QRS DEFLECTION < 0.5/1.0 mV IN LIMB/CHEST LEADS] INFERIOR MYOCARDIAL INFARCTION , PROBABLY OLD [40+ ms Q WAVE AND/OR ST/T ABNORMALITY IN II/aVF] ANTEROLATERAL MYOCARDIAL INFARCTION , PROBABLY RECENT [40+ ms Q WAVE IN I/aVL/V3-V6] ACUTE [place] ABNORMAL EKG Electronically Signed On 05-13-2022 9:25:45 CDT by Connor Espinoza M.D.
[2022-05-12 17:02] LABS: Basophils Percent Auto 0.4 % (0.2-1.2); Eosinophils Absolute Auto 0.4 K/mm3 (0-0.3); Eosinophils Percent Auto 3.4 % (0-4.4); Hematocrit 41.5 % (42.0-52.0); Hemoglobin 13.5 g/dL (14.0-18.0); Immature Granulocyte Absolute 0.09 K/mm3 (0.00-0.031); Immature Granulocyte Percent A 0.9 % (0-0.5); Lymphocytes Absolute Auto 1.22 K/mm3 (0.9-3.2); Lymphocytes Percent Auto 11.9 % (18.3-44.2); Mean Corpuscular HGB Conc 32.5 g/dl (32-36); Mean Corpuscular Hemoglobin 30.5 pg (26-34); Mean Corpuscular Volume 93.7 fl (80-100); Mean Platelet Volume 10.8 fl (7.4-10.4); Monocytes Absolute Auto 0.4 K/mm3 (0.1-0.6); Neutrophils Absolute Auto 8.1 K/mm3 (1.3-6.7); Neutrophils Percent Auto 79.4 % (45.5-73.1); Platelet Count Result 188 k/mm3 (150-375); Red Blood Count 4.43 M/mm3 (4.6-6.20); Red Cell Distribution Width 13.2 % (11.5-14.5); White Blood Count 10.2 K/mm3 (4.5-10.0)
[2022-05-12 17:12] LABS: Alanine Aminotransferase 43 U/L (6-50); Albumin Level 4.5 g/dL (3.5-5.1); Alkaline Phosphatase 61 U/L (38-126); Anion Gap 14 mmol/L (8-16); Aspartate Amino Transferase 42 U/L (17-59); Bilirubin,Total 0.7 mg/dL (0.2-1.3); Blood Urea Nitrogen 23 mg/dL (9-20); Calcium 9.3 mg/dL (8.4-10.2); Carbon Dioxide 20 mmol/L (22-30); Chloride 104 mmol/L (98-107); Estimated CRCL calculation 75 ml/min; Estimated Glomerular Filt Rate > 60; Glucose 132 mg/dL (65-110); Potassium 4.8 mmol/L (3.4-5.0); Sodium 138 mmol/L (137-145)
--- NOTE | 2022-05-12 18:19 | ED.SEIZURE ---
HPI - Seizure General Chief Complaint: Seizure Stated Complaint: seizure activity Time Seen by Provider: 05/12/22 18:15 Source: EMS and RN notes reviewed Mode of arrival: EMS Limitations: clinical condition History of Present Illness HPI Narrative: 66 years old white male came from long-term by ambulance because of seizure-like activity. The nurse was working by patient room and noted that the patient is jerking all over lasted up to 1 minute then resolved then comes back again. 4-5 times prior to arrival to the emergency room. Patient did not has his regular Keppra today. Currently patient is awake, aphasic, does not look in pain or distress. He is indicating that he is feeling good and he does not have any complaint History of right hemiplegia and aphasia and seizures on Keppra 2 g twice daily Seizure History: Yes Related Data Home Medications Medication Instructions Recorded Confirmed acetaminophen 650 mg tablet 650 mg PO Q6H PRN Pain 12/05/21 12/05/21 aspirin 81 mg chewable tablet 81 mg PO DAILY 12/05/21 12/05/21 atorvastatin 80 mg tablet 80 mg PO HS 12/05/21 12/05/21 calcitriol 0.25 mcg capsule 0.25 mcg PO WEEKLY 12/05/21 12/05/21 carvedilol 6.25 mg tablet 6.25 mg PO BID 12/05/21 12/05/21 citalopram 20 mg tablet 20 mg PO DAILY 12/05/21 12/05/21 ergocalciferol (vitamin D2) 1,250 1,250 mcg PO WEEKLY 12/05/21 12/05/21 mcg (50,000 unit) capsule (Vitamin D2) levetiracetam 1,000 mg tablet 2,000 mg PO BID 12/05/21 12/05/21 lisinopril 10 mg tablet 10 mg PO DAILY 12/05/21 12/05/21 metformin 500 mg tablet 500 mg PO DAILY 12/05/21 12/05/21 Allergies Allergy/AdvReac Type Severity Reaction Status Date / Time No Known Allergies Allergy Verified 05/12/22 16:58 Review of Systems Review of Systems: All systems reviewed & are unremarkable except as noted in HPI and below PMFSH Social History Social History Smoking status: Unknown if ever smoked Alcohol intake: unknown Substance use: unknown Spiritual care concerns: No Exam Narrative: General appearance: Well-developed, well-nourished Skin: Normal color Head: Normocephalic, nontraumatic Eyes: Clear conjunctiva ENT: Oropharynx normal, ears normal, nose normal Neck: Supple, nontender Chest and respiratory: Airway patent, no respiratory distress, no accessory muscle use Heart: Regular rate/rhythm Abdomen: Soft, nontender, no organomegaly, quiet bowel sounds Vascular: Normal peripheral pulses, normal capillary refill. 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 Patient has been in our emergency room for few hours without even 1 seizure. 1 g of Keppra IV given. Consultations Consultation #1: Dr. Phillips Continue home medications Date: 05/12/22 Time: 21:24 Vital Signs Vital signs: Vital Signs Temperature 36.2 C L 05/12/22 16:48 Pulse Rate 97 05/12/22 16:48 Respiratory Rate 18 05/12/22 16:48 Blood Pressure 93/65 L 05/12/22 16:48 Pulse Oximetry 93 05/12/22 16:48 Oxygen Delivery Room Air 05/12/22 16:48 Temperature 36.2 C L 05/12/22 16:48 Pulse Rate 97 05/12/22 16:48 Respiratory Rate 18 05/12/22 16:48 Blood Pressure 93/65 L 05/12/22 16:48 Pulse Oximetry 93 05/12/22 16:48 Oxygen Delivery Room Air 05/12/22 16:48 MDM - Seizure Lab Data Result diagrams: 05/12/22 16:57 05/12/22 16:58 Labs: Lab Results 05/12/22 05/12/22 05/12/22 Range/Units 16:5
[2022-05-12] MEDS: levETIRAcetam 1000MG/NACL100ML 1,000 MG/100 ML BAG 400 MG IVPB (18:30)
[2022-05-12 19:56] LABS: Add Urine Microscopic? YES; Appearance Urine Cloudy (Clear); Bilirubin Urine Negative (Negative); Blood Urine Negative (Negative); Color Urine Yellow (Yellow); Glucose Urine UA Negative (Negative); Ketones Urine Trace mg/dL (Negative); Leukocyte Esterase Ur Negative LEU/UL (Negative); Mucus Urine Rare /lpf; Nitrate Urine Negative (Negative); Protein Urine 2+ mg/dL (Negative); Squamous Epithelial Cell Urine Rare /hpf (Few); Urobilinogen Urine Negative mg/dL (<2.0); WBC Urine 0-3 /hpf
[2022-05-12] MEDS: levETIRAcetam 500 MG TABLET 2000 MG PO (22:11)
[2022-05-15 15:16] LABS: Levetiracetam Keppra 22.4
== END 2022-05-12 22:10 ==
PROVIDERS: Emergency Provider Emergency Medicine; PCP Pediatrics Neonatal-Perinatal Medicine
DX: R56.9 Unspecified convulsions (principal); Z79.82 Long term (current) use of aspirin; Z79.84 Long term (current) use of oral hypoglycemic drugs; R94.31 Abnormal electrocardiogram [ECG] [EKG]
CPT/HCPCS: 36415; 70450; 71045; 80053; 80177; 81001; 85025; 93005; 96365; 99284; A9270; J1953

== ENCOUNTER 2022-11-17 17:30 | Observation (INO) | payer OTHER, SELFPAY ==
[2022-11-17] VITALS (27 sets, daily range): BP systolic 131–186; BP diastolic 64–110; PULSE 67–83; RESP 15–20; TEMP 36.1–36.8; O2SAT 87–98; BMI 30.9; BMI 29.2
--- NOTE | ~2022-11-17 | CT_ITS ---
EXAMINATION: CT brain wo con DATE: 11/17/2022 18:53 INDICATION: seizure . TECHNIQUE: Computed tomography (CT) of the head was performed without intravenous contrast. The mA wa s adjusted according to patient size. Iterative reconstruction technique was employed. The dose-lengt h product was 605.33 mGy-cm. COMPARISON: 05/12/2022. FINDINGS: No acute intracranial hemorrhage or extra-axial fluid collection. No hydrocephalus, mass, or herniation. No acute ischemic infarct. Unremarkable dural venous sinus attenuation. No acute osseous abnormality. Minimal left inferior frontal and bilateral maxillary sinus mucosal thickening, the remaining aerated spaces are clear. Old left occipital infarct. Atherosclerotic intracranial calcifications. Mild atrophy and chronic whi te matter change. IMPRESSION: No acute intracranial process. Reviewed, dictated and finalized at location K.
--- NOTE | ~2022-11-17 | XR_ITS ---
EXAMINATION: XR chest 1V portable Exam Date/Time: 11/17/2022 19:22 CDT HISTORY: seizure Comparison: 05/12/2022. RESULT: Lines, tubes, and devices: None. Lungs and pleura: Low volumes with mild crowding. Minimal streaky bibasilar atelectasis/scar. Cardiomediastinal silhouette: Stable. Persistent left hemidiaphragm elevation. Other: No acute osseous or upper abdominal finding. IMPRESSION: No acute cardiopulmonary process. Reviewed, dictated and finalized at location K.
[2022-11-17] MEDS: LORazepam INJ (*CRX) 2 MG/ML VIAL ×2 (18:37→18:49)
[2022-11-17] MEDS: levETIRAcetam 1000MG/NACL100ML 1,000 MG/100 ML BAG 400 MG IVPB ×2 (18:38→19:22)
--- NOTE | 2022-11-17 18:39 | PC.NURSE ---
Pt received 1mg of Ativan IM and 2mg of Ativan IV per EDP verbal order for active seizure.
--- NOTE | 2022-11-17 18:40 | ED.GENADULT ---
HPI - General Adult General Chief complaint: Seizure Stated complaint: seizure Time Seen by Provider: 11/17/22 18:12 History of Present Illness HPI narrative: 67-year-old male with history of seizures presented to the emergency department for evaluation of seizures. Patient was at [facility], seizure was unwitnessed but patient was postictal when they went to evaluate him. Upon arrival to the ED patient did have a seizure that involve right eye deviation and right arm spasm. Patient was treated with 1 IM Ativan prior to establishing an IV and once an IV was established he was treated with 2 mg of IV Ativan and 1 g of IV Keppra. Patient had not yet received his evening dose of Keppra per the senior living. Past medical history is positive for stroke, right-sided hemiparesis and seizures Related Data Home Medications Medication Instructions Recorded Confirmed atorvastatin 80 mg tablet 80 mg PO HS 12/05/21 11/17/22 calcitriol 0.25 mcg capsule 0.25 mcg PO WEEKLY 12/05/21 11/17/22 carvedilol 6.25 mg tablet 6.25 mg PO BID 12/05/21 11/17/22 citalopram 20 mg tablet 10 mg PO DAILY 12/05/21 11/17/22 levetiracetam 1,000 mg tablet 2,000 mg PO BID 12/05/21 11/17/22 lisinopril 10 mg tablet 10 mg PO DAILY 12/05/21 11/17/22 acetaminophen 325 mg tablet 650 mg PO Q6H PRN Pain 11/17/22 11/17/22 acetaminophen 650 mg 650 mg PO Q8H 11/17/22 11/17/22 tablet,extended release (Arthritis Pain Relief (acetaminophen) ER) aspirin 81 mg chewable tablet 81 mg PO DAILY 11/17/22 11/17/22 cholecalciferol (vitamin D3) 125 125 mcg PO DAILY 11/17/22 11/17/22 mcg (5,000 unit) tablet lorazepam 2 mg/mL injection 0.5 mg IV ONCE PRN Seizure Activity 11/17/22 11/17/22 solution Allergies Allergy/AdvReac Type Severity Reaction Status Date / Time No Known Allergies Allergy Verified 05/12/22 16:58 Review of Systems Review of Systems: ROS unobtainable: Yes unobtainable due to medical condition PMFSH Social History Social History Smoking status: Unknown if ever smoked Alcohol intake: unknown Substance use: unknown Spiritual care concerns: No Exam Narrative: APPEARANCE: Somnolent and postictal on arrival. HEAD: normocephalic, atraumatic. EYES: PERRLA/EOMI, conjunctivae clear. NOSE: Normal no drainage EARS:TMS clear with good light reflex. THROAT: Pharynx clear, no exudate. NECK: Supple. No adenopathy, no masses. RESPIRATORY: Airway patent, respirations nonlabored. Clear to auscultation bilaterally, no rales, rhonchi, wheezing. CARDIOVASCULAR: Regular rate and rhythm without murmurs rubs or gallops. ABDOMINAL: Soft, nontender, nondistended, normal bowel sounds MUSCULOSKELETAL: Moves all extremities. Strength/ROM intact, No edema, No calf tenderness. NEURO: Patient did develop right eye deviation and right arm spasm which resolved with administration of Ativan and Keppra SKIN: Warm, dry. Normal Color Course Course Emergency Course: 67-year-old male presented emerged department for evaluation of seizure. Patient had a prolonged seizure in the emergency department prior to establishing an IV. Once patient was treated with IV Ativan and IV Keppra the seizure did resolve. Patient's head CT was negative for acute intracranial abnormality. Patient's x-ray showed no evidence pneumonia UA showed no evidence of urinary tract infection. Patient was afebrile with no leukocytosis. Patient did have elevated lactic acid and pneumonia but these were both collected while he was actively seizing. Prior to going to the floor patient became more alert and appropriate. Patient declined having any pain and was responsive to voice. Case discussed with hospitalist patient was admitted to the IMU for intractable seizure. Vital Signs Vital signs: Vital Signs Temperature 98.2 F 11/17/22 17:37 Pulse Rate 74 11/17/22 17:37 Respiratory Rate 18 11/17/22 17:37 Blood Pressure 171/96 H
[2022-11-17 18:43] LABS: Basophils Absolute Auto 0.1 K/mm3 (0.0-0.1); Basophils Percent Auto 0.6 % (0.2-1.2); Eosinophils Absolute Auto 0.4 K/mm3 (0-0.3); Eosinophils Percent Auto 5.1 % (0-4.4); Hemoglobin 14.2 g/dL (14.0-18.0); Immature Granulocyte Absolute 0.12 K/mm3 (0.00-0.031); Immature Granulocyte Percent A 1.4 % (0-0.5); Lymphocytes Absolute Auto 2.93 K/mm3 (0.9-3.2); Lymphocytes Percent Auto 34.2 % (18.3-44.2); Mean Corpuscular HGB Conc 32.3 g/dl (32-36); Mean Corpuscular Hemoglobin 29.9 pg (26-34); Mean Corpuscular Volume 92.6 fl (80-100); Mean Platelet Volume 10.8 fl (7.4-10.4); Monocytes Absolute Auto 0.5 K/mm3 (0.1-0.6); Monocytes Percent Auto 5.8 % (2.6-8.5); Neutrophils Absolute Auto 4.5 K/mm3 (1.3-6.7); Neutrophils Percent Auto 52.9 % (45.5-73.1); Platelet Count Result 173 k/mm3 (150-375); Red Blood Count 4.75 M/mm3 (4.6-6.20); Red Cell Distribution Width 12.3 % (11.5-14.5); White Blood Count 8.6 K/mm3 (4.5-10.0)
[2022-11-17 19:01] LABS: Ammonia 60 umol/L (9-30)
[2022-11-17 19:04] LABS: Albumin Level 5.1 g/dL (3.5-5.1); Alkaline Phosphatase 53 U/L (38-126); Anion Gap 19 mmol/L (8-16); Aspartate Amino Transferase 30 U/L (17-59); Bilirubin,Total 0.5 mg/dL (0.2-1.3); Blood Urea Nitrogen 17 mg/dL (9-20); Calcium 9.1 mg/dL (8.4-10.2); Carbon Dioxide 19 mmol/L (22-30); Chloride 102 mmol/L (98-107); Estimated CRCL calculation 102 ml/min; Estimated Glomerular Filt Rate > 60; Glucose 126 mg/dL (65-110); Potassium 3.9 mmol/L (3.4-5.0); Sodium 140 mmol/L (137-145)
[2022-11-17 19:05] LABS: Alanine Aminotransferase 32 U/L (6-50)
[2022-11-17 19:06] LABS: Lactic Acid Reflex 8.5 mmol/L (0.7-2.0)
[2022-11-17 19:23] LABS: INR 1.1; Prothrombin Time 13.6 Seconds (11.1-14.7)
[2022-11-17 19:24] LABS: Partial Thromboplastin Time 29.1 SECONDS (22.3-36.8)
[2022-11-17 19:30] LABS: Thyroid Stimulating Hormone 0.516 uIU/mL (0.465-4.680)
--- NOTE | 2022-11-17 20:08 | PM.IMHP ---
H&P: HPI History of Present Illness Date/Time: 11/17/22 20:08 Chief Complaint: Seizure Narrative: This is a 67-year-old male residential resident past medical history significant for stroke, right-sided hemiplegia, seizure disorder, patient was brought for evaluation to the emergency room after he was found unresponsive post ictal in his room unwitnessed seizure while in the emergency room patient had a prolonged seizure episode. Patient was loaded with Keppra at the time of my visit he was arousable he was able to follow commands but patient has aphasia as baseline unable to communicate clearly but very interactive. Preliminary workup was significant for lactic acid 8.5. A CT of the head was reported as: EXAMINATION: CT brain wo con DATE: 11/17/2022 18:53 INDICATION: seizure . TECHNIQUE: Computed tomography (CT) of the head was performed without intravenous contrast. The mA was adjusted according to patient size. Iterative reconstruction technique was employed. The dose-length product was 605.33 mGy-cm. COMPARISON: 05/12/2022. FINDINGS: No acute intracranial hemorrhage or extra-axial fluid collection. No hydrocephalus, mass, or herniation. No acute ischemic infarct. Unremarkable dural venous sinus attenuation. No acute osseous abnormality. Minimal left inferior frontal and bilateral maxillary sinus mucosal thickening, the remaining aerated spaces are clear. Old left occipital infarct. Atherosclerotic intracranial calcifications. Mild atrophy and chronic white matter change. IMPRESSION:? No acute intracranial process. Chest x-ray was reported as: EXAMINATION:? XR chest 1V portable Exam Date/Time:? 11/17/2022 19:22 CDT HISTORY: seizure ? Comparison:? 05/12/2022. RESULT: Lines, tubes, and devices:? None. Lungs and pleura:? Low volumes with mild crowding. Minimal streaky bibasilar atelectasis/scar. Cardiomediastinal silhouette:? Stable. Persistent left hemidiaphragm elevation. Other:? No acute osseous or upper abdominal finding. ? IMPRESSION: No acute cardiopulmonary process. Patient is been placed in observation for further evaluation management and treatment. Review of Systems Review of Systems: ROS unobtainable: Yes unobtainable due to medical condition (Aphasia in the setting of post ictal stage) PMFSH Social History Social History Smoking status: Unknown if ever smoked Alcohol intake: unknown Substance use: unknown Spiritual care concerns: No Meds Home Medications and Allergies Home Medications Medication Instructions Recorded Confirmed Type acetaminophen 650 mg tablet 650 mg PO Q6H PRN Pain 12/05/21 12/05/21 History atorvastatin 80 mg tablet 80 mg PO HS 12/05/21 12/05/21 History calcitriol 0.25 mcg capsule 0.25 mcg PO WEEKLY 12/05/21 12/05/21 History carvedilol 6.25 mg tablet 6.25 mg PO BID 12/05/21 12/05/21 History citalopram 20 mg tablet 20 mg PO DAILY 12/05/21 12/05/21 History levetiracetam 1,000 mg tablet 2,000 mg PO BID 12/05/21 12/05/21 History lisinopril 10 mg tablet 10 mg PO DAILY 12/05/21 12/05/21 History aspirin 81 mg chewable tablet 81 mg PO DAILY 11/17/22 11/17/22 History cholecalciferol (vitamin D3) 125 125 mcg PO DAILY 11/17/22 11/17/22 History mcg (5,000 unit) tablet Allergies Allergy/AdvReac Type Severity Reaction Status Date / Time No Known Allergies Allergy Verified 05/12/22 16:58 Vital Signs Vital Signs - 24 hr 11/17/22 17:37 11/17/22 17:43 11/17/22 17:43 Temperature 98.2 F Pulse Rate 74 72 Respiratory Rate 18 Blood Pressure 171/96 H Pulse Oximetry 95 95 Oxygen Delivery Room Air Room Air Oxygen Flow Rate 11/17/22 18:52 11/17/22 18:52 11/17/22 18:16 Temperature Pulse Rate 70 Respiratory Rate 16 Blood Pressure 186/84 H Pulse Oximetry 87 L 96 98 Oxygen Delivery Room Air Nasal Cannula Oxygen Flow Rate 4 11/17/22 18:35 Temperature Pulse Rate 83 Res
[2022-11-17] MEDS: SODIUM CHLORIDE 0.9% IV 1,000 ML 100 ML IV CONT (20:25)
[2022-11-17 20:35] LABS: Appearance Urine Clear (Clear); Bacteria Urine None Seen /hpf; Bilirubin Urine Negative (Negative); Blood Urine 1+ (Negative); Color Urine Yellow (Yellow); Glucose Urine UA Negative (Negative); Ketones Urine Negative (Negative); Leukocyte Esterase Ur Negative LEU/UL (Negative); Need Manual Microscopic Reviewed; Nitrate Urine Negative (Negative); Non Pathogenic Casts 0-2; Protein Urine 3+ mg/dL (Negative); Specific Grav Ur 1.019 (1.001-1.035); Squamous Epithelial Cell Urine None seen /hpf (Few); WBC Urine 0-5 /hpf; pH Urine 5.5 (5.0-9.0)
[2022-11-17 20:37] LABS: Add Urine Microscopic? YES
[2022-11-17 20:47] LABS: Glucose Point of Care 139 mg/dl (65-105)
--- NOTE | 2022-11-17 21:01 | ADMGEN ---
This patient, Maldonado Schuler, was admitted to IMU Room 206-02. Patient/family oriented to hospital policies and general routines including ID bracelet, bed and alarms, visiting hours, pain management, procedures, bathroom and other care routines, personal items, smoking policy, room service/diet, and visiting hours. Information on how to activate the Rapid Response Team has been discussed. Patient/Family are encouraged to report perceived risks to care and to ask questions if they do not understand what they are told or what they should do.
[2022-11-17 21:40] LABS: Reflex Lactic Acid Yes or No Add Lactic
[2022-11-17 22:21] LABS: Lactic Acid 1.1 mmol/L (0.7-2.0)
[2022-11-18] VITALS (13 sets, daily range): BP systolic 98–138; BP diastolic 51–65; PULSE 61–74; RESP 6–20; TEMP 36.1–36.6; O2SAT 95–97
[2022-11-18] MEDS: SODIUM CHLORIDE 0.9% IV 1,000 ML 100 ML IV CONT ×2 (07:20→17:07)
[2022-11-18] MEDS: levETIRAcetam 500 MG TABLET 2000 MG PO ×2 (08:38→17:04)
[2022-11-18] MEDS: CHOLECALCIFEROL 1,000 UNITS TABLET 5000 UNITS PO (08:40)
[2022-11-18] MEDS: CITALOPRAM HYDROBROMIDE 10 MG TABLET PO (08:41)
[2022-11-18] MEDS: carvediloL 6.25 MG TABLET PO ×2 (08:41→17:04)
[2022-11-18] MEDS: lisinopriL 10 MG TABLET PO (08:41)
[2022-11-18] MEDS: ASPIRIN 81 MG CHEWABLE TABLET PO (08:41)
--- NOTE | 2022-11-18 11:43 | PM.IMPN ---
Progress Note: A&P Assessment and Plan (1) Breakthrough seizure: Code(s): G40.919 - Epilepsy, unspecified, intractable, without status epilepticus Status: Acute Assessment and Plan: Placed in observation in IMU Loaded with Keppra CT of the head reviewed Seizure precautions Neurology consult (2) Hemiplegia affecting right dominant side: Code(s): G81.91 - Hemiplegia, unspecified affecting right dominant side Status: Acute Assessment and Plan: Fall precautions Round the clock turning schedule (3) Seizure: Code(s): R56.9 - Unspecified convulsions Status: Acute Assessment and Plan: Continue home meds (4) Aphasia: Code(s): R47.01 - Aphasia Status: Acute Assessment and Plan: Patient at baseline has aphasia Supportive care Subjective Date/time seen: 11/18/22 11:43 No complaints Exam Narrative: Patient is laying in a stretcher Const: General: cooperative, comfortable, no acute distress, well developed, patient obtunded, average body habitus and other (Post ictal however easily arousable) Nutritional Appearance: average body habitus Orientation/consciousness: oriented to person, patient oriented x3 and patient obtunded HENMT: Head: normal to inspection, normocephalic and atraumatic Ears: hearing grossly normal bilaterally Face/Nose/Sinus: normal facial exam Face and sinus: normal facial exam Eyes: General: appearance normal, both eyes and all related structures Pupils: Equal, round and reactive pupils present EOM: EOMs intact bilaterally Neck: Neck: full ROM, no lymphadenopathy and no JVD Thyroid: thyroid normal Lymphatic: no lymphadenopathy noted Resp: Effort & Inspection: normal respiratory effort and able to speak in complete sentences Auscultation: clear to auscultation bilaterally Cardio: Jugular venous distension: no JVD Rate: regular rate Rhythm: regular rhythm Heart sounds: S1 normal heart sound present and S2 normal heart sound present : General: Yes deferred Skin: Rashes: no rashes Wounds: no wounds Neuro: General: oriented to person, patient oriented x3, patient obtunded, Unable to assess gait and other (Easily arousable follows commands) Cranial nerves: Yes CN's II-XII intact bilaterally and Yes Equal, round and reactive pupils present Cognition (Neuro): normal cognition Speech: Expressive aphasia present Gait exam (Neuro): Unable to assess gait Motor exam (neuro): Other motor observations present (Right-sided higinio plegia) Extrem: General: normal to inspection, full ROM, no joint enlargement and no pedal edema Objective Data Vital Signs Vital Signs: Vital Signs - 24 hr 11/17/22 17:37 11/17/22 17:43 11/17/22 17:43 Temperature 98.2 F Pulse Rate 74 72 Respiratory Rate 18 Blood Pressure 171/96 H Pulse Oximetry 95 95 Oxygen Delivery Room Air Room Air Oxygen Flow Rate 11/17/22 18:52 11/17/22 18:52 11/17/22 18:16 Temperature Pulse Rate 70 Respiratory Rate 16 Blood Pressure 186/84 H Pulse Oximetry 87 L 96 98 Oxygen Delivery Room Air Nasal Cannula Oxygen Flow Rate 4 11/17/22 18:35 11/17/22 18:36 11/17/22 18:53 Temperature Pulse Rate 83 83 73 Respiratory Rate 16 17 15 Blood Pressure 147/82 H Pulse Oximetry 97 Oxygen Delivery Oxygen Flow Rate 11/17/22 18:54 11/17/22 19:00 11/17/22 19:01 Temperature Pulse Rate 75 76 75 Respiratory Rate 19 17 16 Blood Pressure 142/75 H 150/71 H Pulse Oximetry Oxygen Delivery Oxygen Flow Rate 11/17/22 19:15 11/17/22 19:16 11/17/22 19:30 Temperature Pulse Rate 73 72 71 Respiratory Rate 16 16 19 Blood Pressure 134/77 Pulse Oximetry Oxygen Delivery Oxygen Flow Rate 11/17/22 19:31 11/17/22 19:45 11/17/22 19:46 Temperature Pulse Rate 76 73 Respiratory Rate 17 17 17 Blood Pressure 132/110 H 133/83 Pulse Oximetry Oxygen Delivery Oxygen Flow Rate 11/17/22 20:00
[2022-11-18] MEDS: ACETAMINOPHEN 325 MG TABLET 650 MG PO ×2 (14:41→21:42)
--- NOTE | 2022-11-18 14:42 | WPDNEURCNPN ---
Consult date: 11/18/22 HPI: Maldonado Schuler is a 67 year old male admitted to the hospital through the emergency room for the evaluation of seizures. Patient is at: [facility] where seizure was witnessed but by the time he was brought to the emergency room he was postictal he was documented to had deviation of the right eye and right upper extremity spasms and received Ativan before stab bracing the IV then he given 2 mg of IV and 1 g of Keppra in the ER he has been on multiple medications which include carvedilol 6.25 mg b.i.d., citalopram 10 mg daily, levetiracetam 2000 mg b.i.d., lisinopril 10 mg daily, Ativan 81 mg daily, examination in the emergency room was generally nonfocal except he was in postictal condition his vital signs were stable with blood pressure 171/96 routine lab studies were normal with lactic acid 8.5 and serum ammonia of [address] scan of the head for the bleed negative chest x-ray and current medications include Keppra 2000 mg twice a day in addition to other medications and seizure precaution. [facility] Family History Family History Other Unknown family medical history Social History Social History Smoking packs per day: 0.5 Smoking cigarettes per day: 10.0 Years smoked: 55 Smoking pack-years: 27.50 Smoking status: Current every day smoker Tobacco type: cigarettes Second hand tobacco smoke exposure: No Alcohol intake: unknown Substance use: unknown Substance use type: does not use Lack of Transportation: No Lack of Food: Never True Current Housing: I Have Housing Concerned About Future Housing: No Difficulty Paying Gas/Electric Bills: No Difficulty Paying for Meds: No Currently Unemployed: No Education: Don't Know Difficulty w/ Childcare or Family Care: No Spiritual care concerns: No Meds Home Medications and Allergies Home Medications Medication Instructions Recorded Confirmed Type atorvastatin 80 mg tablet 80 mg PO HS 12/05/21 11/17/22 History calcitriol 0.25 mcg capsule 0.25 mcg PO WEEKLY 12/05/21 11/17/22 History carvedilol 6.25 mg tablet 6.25 mg PO BID 12/05/21 11/17/22 History citalopram 20 mg tablet 10 mg PO DAILY 12/05/21 11/17/22 History levetiracetam 1,000 mg tablet 2,000 mg PO BID 12/05/21 11/17/22 History lisinopril 10 mg tablet 10 mg PO DAILY 12/05/21 11/17/22 History acetaminophen 325 mg tablet 650 mg PO Q6H PRN Pain 11/17/22 11/17/22 History acetaminophen 650 mg 650 mg PO Q8H 11/17/22 11/17/22 History tablet,extended release (Arthritis Pain Relief (acetaminophen) ER) aspirin 81 mg chewable tablet 81 mg PO DAILY 11/17/22 11/17/22 History cholecalciferol (vitamin D3) 125 125 mcg PO DAILY 11/17/22 11/17/22 History mcg (5,000 unit) tablet lorazepam 2 mg/mL injection 0.5 mg IV ONCE PRN Seizure Activity 11/17/22 11/17/22 History solution Allergies Allergy/AdvReac Type Severity Reaction Status Date / Time No Known Allergies Allergy Verified 05/12/22 16:58 Vital Signs Vital Signs - 24 hr 11/17/22 17:37 11/17/22 17:43 11/17/22 17:43 Temperature 36.8 C Pulse Rate 74 72 Respiratory Rate 18 Blood Pressure 171/96 H Pulse Oximetry 95 95 Oxygen Delivery Room Air Room Air Oxygen Flow Rate 11/17/22 18:52 11/17/22 18:52 11/17/22 18:16 Temperature Pulse Rate 70 Respiratory Rate 16 Blood Pressure 186/84 H Pulse Oximetry 87 L 96 98 Oxygen Delivery Room Air Nasal Cannula Oxygen Flow Rate 4 11/17/22 18:35 11/17/22 18:36 11/17/22 18:53 Temperature Pulse Rate 83 83 73 Respiratory Rate 16 17 15 Blood Pressure 147/82 H Pulse Oximetry 97 Oxygen Delivery Oxygen Flow Rate 11/17/22 18:54 11/17/22 19:00 11/17/22 19:01 Temperature Pulse Rate 75 76 75 Respiratory Rate 19 17 16 Blood Pressure 142/75 H 150/71 H Pulse Oximetry Oxygen Delivery Oxygen Flow Rate
--- NOTE | 2022-11-18 15:46 | PC.NURSE ---
This patient, Maldonado Schuler, was transferred to [ [id number]] on 11/18/22 at 1540. Personal belongings sent with patient. Report given to [ALMA Hinson @ 1475 ]. Appropriate documentation sent with patient.
[2022-11-18] MEDS: ATORVASTATIN 40 MG TABLET 80 MG PO (20:04)
[2022-11-19] MEDS: SODIUM CHLORIDE 0.9% IV 1,000 ML 100 ML IV CONT (03:14)
[2022-11-19] MEDS: ACETAMINOPHEN 325 MG TABLET 650 MG PO ×2 (05:12→13:02)
[2022-11-19 05:48] VITALS: BP 135/73; PULSE 60; RESP 18; TEMP 36.1; O2SAT 97
[2022-11-19 08:41] VITALS: PULSE 60
[2022-11-19] MEDS: carvediloL 6.25 MG TABLET PO (08:41)
[2022-11-19] MEDS: lisinopriL 10 MG TABLET PO (08:41)
[2022-11-19] MEDS: CITALOPRAM HYDROBROMIDE 10 MG TABLET PO (08:41)
[2022-11-19] MEDS: levETIRAcetam 500 MG TABLET 2000 MG PO (08:41)
[2022-11-19] MEDS: CHOLECALCIFEROL 1,000 UNITS TABLET 5000 UNITS PO (08:41)
[2022-11-19] MEDS: ASPIRIN 81 MG CHEWABLE TABLET PO (08:42)
--- NOTE | 2022-11-19 10:24 | PM.DS ---
DS: Admitting Diagnosis Discharge Date November 19, 2022 Admitting Diagnosis Seizure DS: Discharge Diagnosis Discharge Diagnosis (1) Breakthrough seizure: Code(s): G40.919 - Epilepsy, unspecified, intractable, without status epilepticus Status: Acute Assessment and Plan: Placed in observation in IMU Loaded with Keppra CT of the head reviewed Seizure precautions Neurology consult (2) Hemiplegia affecting right dominant side: Code(s): G81.91 - Hemiplegia, unspecified affecting right dominant side Status: Acute Assessment and Plan: Fall precautions Round the clock turning schedule (3) Seizure: Code(s): R56.9 - Unspecified convulsions Status: Acute Assessment and Plan: Continue home meds (4) Aphasia: Code(s): R47.01 - Aphasia Status: Acute Assessment and Plan: Patient at baseline has aphasia Supportive care DS: Summary Hospital Course Hospital Course: Admitted for seizure, continue anti seizure medication. FU with neurology Time Spent with Patient Time attestation: Total time spent providing and/or coordinating discharge services: Exam Narrative: Patient is laying in a stretcher Const: General: cooperative, comfortable, no acute distress, well developed, patient obtunded, average body habitus and other (Post ictal however easily arousable) Nutritional Appearance: average body habitus Orientation/consciousness: oriented to person, patient oriented x3 and patient obtunded HENMT: Head: normal to inspection, normocephalic and atraumatic Ears: hearing grossly normal bilaterally Face/Nose/Sinus: normal facial exam Face and sinus: normal facial exam Eyes: General: appearance normal, both eyes and all related structures Pupils: Equal, round and reactive pupils present EOM: EOMs intact bilaterally Neck: Neck: full ROM, no lymphadenopathy and no JVD Thyroid: thyroid normal Lymphatic: no lymphadenopathy noted Resp: Effort & Inspection: normal respiratory effort and able to speak in complete sentences Auscultation: clear to auscultation bilaterally Cardio: Jugular venous distension: no JVD Rate: regular rate Rhythm: regular rhythm Heart sounds: S1 normal heart sound present and S2 normal heart sound present : General: Yes deferred Skin: Rashes: no rashes Wounds: no wounds Neuro: General: oriented to person, patient oriented x3, patient obtunded, Unable to assess gait and other (Easily arousable follows commands) Cranial nerves: Yes CN's II-XII intact bilaterally and Yes Equal, round and reactive pupils present Cognition (Neuro): normal cognition Speech: Expressive aphasia present Gait exam (Neuro): Unable to assess gait Motor exam (neuro): Other motor observations present (Right-sided higinio plegia) Extrem: General: normal to inspection, full ROM, no joint enlargement and no pedal edema Discharge Plan Discharge Attending physician on discharge: Rodger Quigley Consulting providers: Saima Deleon Discharging Clinician: Rodger Quigley Patient Disposition: Home, Self-Care Activity: no preference Diet: as tolerated Patient Instructions: Antibiotic Form, How to Stop Smoking (ED) Stand Alone Forms: General Discharge Information Follow-up/Referrals: Saima Deleon MD [Physician] - Discharge Medications: Continued aspirin 81 mg Tablet,Chewable 81 mg PO DAILY cholecalciferol (vitamin D3) 125 mcg (5,000 unit) Tablet 125 mcg PO DAILY acetaminophen 325 mg Tablet 650 mg PO Q6H PRN (Reason: Pain) Rx Instructions: pain or temp acetaminophen [Arthritis Pain Relief (acetam)] 650 mg Tablet Extended Release 650 mg PO Q8H lorazepam 2 mg/mL Solution 0.5 mg IV ONCE PRN (Reason: Seizure Activity) Rx Instructions: administer 5-20 minutes before start of surgery/procedure as a single dose citalopram 20 mg Tablet 10 mg PO DAILY lisinopril 10 mg Tablet 10 m
[2022-11-19 12:21] LABS: EDCOVIDSCREEN Negative (Negative)
== END 2022-11-19 13:35 | disposition home or self-care (01) ==
LOC: ANHED 20:07 → ANHIMU 11-18 05:05 → ANH3MEDSUR 11-19 10:24 → ANHIMU 11-20 09:52
PROVIDERS: Admitting Provider Internal Medicine; Emergency Provider Emergency Medicine; PCP Internal Medicine; Visit Provider Chiropractor
DX: G40.919 Epilepsy, unspecified, intractable, without status epilepticus (principal); I69.351 Hemiplegia and hemiparesis following cerebral infarction affecting right dominant side; R47.01 Aphasia; Z20.822 Contact with and (suspected) exposure to COVID-19; F17.210 Nicotine dependence, cigarettes, uncomplicated; R40.0 Somnolence; I67.2 Cerebral atherosclerosis; R90.82 White matter disease, unspecified; G31.9 Degenerative disease of nervous system, unspecified; J18.9 Pneumonia, unspecified organism; R74.02 Elevation of levels of lactic acid dehydrogenase [LDH]; Z79.1 Long term (current) use of non-steroidal anti-inflammatories (NSAID); Z79.82 Long term (current) use of aspirin; Z79.899 Other long term (current) drug therapy
CPT/HCPCS: 36415; 70450; 71045; 80053; 81001; 82140; 82948; 83605; 84443; 85025; 85610; 85730; 87426; 96365; 96366; 96375; 99285; A9270; C9803; G0378; J1953; J2060; J7030

== ENCOUNTER 2023-11-13 21:24 | Emergency (ER) | payer OTHER, SELFPAY ==
--- NOTE | ~2023-11-13 | XR_ITS ---
EXAMINATION: XR chest 1V portable DATE: 11/13/2023 21:46 INDICATION: Seizure. TECHNIQUE: A single frontal view of the chest was obtained. COMPARISON: None. FINDINGS: There is mild atelectasis in the lower lung zones. No pleural effusion or pneumothorax. The heart size is normal. IMPRESSION: 1. Mild atelectasis in the lower lung zones. Reviewed, dictated and finalized at location E.
[2023-11-13 21:28] VITALS: BP 134/85; PULSE 99; RESP 23; TEMP 36.6; O2SAT 95
--- NOTE | 2023-11-13 21:30 | ED.SEIZURE ---
HPI - Seizure General Chief Complaint: Seizure Stated Complaint: seizure Time Seen by Provider: 11/13/23 21:24 History of Present Illness HPI Narrative: Patient is a 68-year-old male with history of seizure who presents ER after having a seizure at [facility]. Unknown last dose of antiepileptic medication to. While he was having seizure at the shelter we gave him 1 mg of Ativan. When EMS arrived his still seizing. He had a total of 7 minutes of seizure. They gave him 15 mg of Versed to help break the seizure. He did have brief apnea for 1-2 minutes where they placed a nasal trumpet and provided bag. No history of trauma or infection. EMS reports patient's seizure activity involve the right upper extremity jerking and change in mental status. This appears consistent with his previous seizure history when reviewing his admission from 1 year ago. Seizure History: Yes Related Data Home Medications Medication Instructions Recorded Confirmed atorvastatin 80 mg tablet 80 mg PO HS 12/05/21 11/17/22 calcitriol 0.25 mcg capsule 0.25 mcg PO WEEKLY 12/05/21 11/17/22 carvedilol 6.25 mg tablet 6.25 mg PO BID 12/05/21 11/17/22 citalopram 20 mg tablet 10 mg PO DAILY 12/05/21 11/17/22 levetiracetam 1,000 mg tablet 2,000 mg PO BID 12/05/21 11/17/22 lisinopril 10 mg tablet 10 mg PO DAILY 12/05/21 11/17/22 acetaminophen 325 mg tablet 650 mg PO Q6H PRN Pain 11/17/22 11/17/22 acetaminophen 650 mg 650 mg PO Q8H 11/17/22 11/17/22 tablet,extended release (Arthritis Pain Relief (acetaminophen) ER) aspirin 81 mg chewable tablet 81 mg PO DAILY 11/17/22 11/17/22 cholecalciferol (vitamin D3) 125 125 mcg PO DAILY 11/17/22 11/17/22 mcg (5,000 unit) tablet lorazepam 2 mg/mL injection 0.5 mg IV ONCE PRN Seizure Activity 11/17/22 11/17/22 solution Allergies Allergy/AdvReac Type Severity Reaction Status Date / Time No Known Allergies Allergy Verified 05/12/22 16:58 Review of Systems Review of Systems: ROS unobtainable: Yes unobtainable due to medical condition [facility] Past Medical History Medical History (Updated 11/14/23 @ 00:51 by Bartolo Boothe MD) Epilepsy Hyperlipidemia Hypertension Family History Family History Other Unknown family medical history Social History Social History Smoking packs per day: 0.5 Smoking cigarettes per day: 10.0 Years smoked: 55 Smoking pack-years: 27.50 Smoking status: Current every day smoker Tobacco type: cigarettes Second hand tobacco smoke exposure: No Alcohol intake: unknown Substance use: unknown Substance use type: does not use Lack of Transportation: No Lack of Food: Never True Current Housing: I Have Housing Concerned About Future Housing: No Difficulty Paying Gas/Electric Bills: No Difficulty Paying for Meds: No Currently Unemployed: No Education: Don't Know Difficulty w/ Childcare or Family Care: No Spiritual care concerns: No Exam Narrative: GENERAL: Chronically ill-appearing, obese, and in no acute distress. HEAD: Normocephalic, atraumatic. EYES: PERRL and EOMI. ENT: Nares clear, no rhinorrhea or epistaxis. Mucous membranes moist. NECK: Supple. CHEST: Clear to auscultation. No respiratory distress. HEART: Regular rate and rhythm. Normal peripheral pulses. ABDOMEN: Soft, nontender, nondistended. EXTREMITIES: Normal range of motion. No edema. SKIN: Warm, dry, no rash. NEURO: Sedated, tries to speak with very minor stimuli when rubbing chest. Moves all extremities. Course Course Emergency Course: Patient is now waking up. He is moving his right side and speaking. Will continue to observe him and seizure-free and then discharged back to the facility. His urine does have bacteria and a few white blood cells so he will be started on antibiotic. Vital Signs Vital signs: Vital Signs Dow
[2023-11-13] MEDS: SODIUM CHLORIDE 0.9% IV 1,000 ML 999 ML IV CONT (21:50)
--- NOTE | 2023-11-13 22:00 | PC.NURSE ---
[facility] RN states the patient received his Keppra at 2034; 2000 mg PO. Patient also received 1 mg Ativan IM at 2044 due to seizure activity.
[2023-11-13 22:50] LABS: Basophils Percent Auto 0.2 % (0.2-1.2); Eosinophils Absolute Auto 0.4 K/mm3 (0-0.3); Eosinophils Percent Auto 4.1 % (0-4.4); Hematocrit 36.9 % (42.0-52.0); Immature Granulocyte Absolute 0.08 K/mm3 (0.00-0.031); Immature Granulocyte Percent A 0.9 % (0-0.5); Lymphocytes Absolute Auto 1.74 K/mm3 (0.9-3.2); Lymphocytes Percent Auto 19.4 % (18.3-44.2); Mean Corpuscular HGB Conc 32.5 g/dl (32-36); Mean Corpuscular Hemoglobin 29.8 pg (26-34); Mean Corpuscular Volume 91.6 fl (80-100); Monocytes Absolute Auto 0.5 K/mm3 (0.1-0.6); Monocytes Percent Auto 5.3 % (2.6-8.5); Neutrophils Absolute Auto 6.3 K/mm3 (1.3-6.7); Neutrophils Percent Auto 70.1 % (45.5-73.1); Platelet Count Result 160 k/mm3 (150-375); Red Blood Count 4.03 M/mm3 (4.6-6.20); Red Cell Distribution Width 12.2 % (11.5-14.5)
[2023-11-13 23:04] LABS: Alanine Aminotransferase 22 U/L (6-50); Alkaline Phosphatase 64 U/L (38-126); Anion Gap 5 mmol/L (4-12); Aspartate Amino Transferase 22 U/L (17-59); Bilirubin,Total 0.5 mg/dL (0.2-1.3); Blood Urea Nitrogen 17 mg/dL (9-20); Calcium 9.1 mg/dL (8.4-10.2); Carbon Dioxide 25 mmol/L (22-30); Chloride 108 mmol/L (98-107); Estimated Glomerular Filt Rate > 60; Glucose 150 mg/dL (65-110); Potassium 4.5 mmol/L (3.4-5.0); Sodium 138 mmol/L (137-145)
[2023-11-13 23:07] VITALS: BP 126/74; PULSE 78; RESP 20; O2SAT 97
--- NOTE | 2023-11-13 23:07 | PC.NURSE ---
While starting IV this RN noted that pt right arm was flaccid with no response to pain. EDP notified and EDP tells me that this is normal for the patient. Will continue to monitor.
[2023-11-13 23:35] LABS: Appearance Urine Clear (Clear); Bacteria Urine 3+ /hpf; Bilirubin Urine Negative (Negative); Blood Urine 1+ (Negative); Color Urine Yellow (Yellow); Glucose Urine UA Negative (Negative); Ketones Urine Negative (Negative); Leukocyte Esterase Ur Negative LEU/UL (Negative); Nitrate Urine Negative (Negative); Non Pathogenic Casts 0-2; Protein Urine 2+ mg/dL (Negative); RBC Urine 0-2 /hpf (0-2); Specific Grav Ur 1.021 (1.001-1.035); Squamous Epithelial Cell Urine None Seen /hpf (Few); Urobilinogen Urine 0.2 mg/dL (<2.0); pH Urine 5.5 (5.0-9.0)
[2023-11-13 23:41] LABS: Add Urine Microscopic? YES
--- NOTE | 2023-11-14 00:13 | PC.NURSE ---
I was informed by another RN that this pt woke up confused and removed his IV and all monitoring equipment. Upon arrival to room bleeding has been controlled from IV site by said RN. Pt more alert now but still not answering questions appropriately. EDP aware.
[2023-11-14 00:14] VITALS: BP 135/75; PULSE 78; RESP 18; O2SAT 99
[2023-11-14] MEDS: cefuroxime axetiL 250 MG TABLET 500 MG PO (01:13)
[2023-11-14 01:16] VITALS: BP 139/68; PULSE 75; RESP 16; O2SAT 99
== END 2023-11-14 04:14 | disposition home or self-care (01) ==
PROVIDERS: Emergency Provider Emergency Medicine
DX: G40.909 Epilepsy, unspecified, not intractable, without status epilepticus (principal); N39.0 Urinary tract infection, site not specified; E78.5 Hyperlipidemia, unspecified; I10 Essential (primary) hypertension; Z79.82 Long term (current) use of aspirin; F17.210 Nicotine dependence, cigarettes, uncomplicated
CPT/HCPCS: 36415; 71045; 80053; 81001; 85025; 87086; 96360; 99283; A9270; J7030

== ENCOUNTER 2024-11-08 16:27 | Emergency (ER) | payer OTHER, SELFPAY ==
[2024-11-08] VITALS (68 sets, daily range): BP systolic 72–173; BP diastolic 57–94; PULSE 39–88; RESP 15–24; TEMP 36.7; O2SAT 95–100
--- NOTE | ~2024-11-08 | XR_ITS ---
XR chest ET placement Ordering provider: David Lambert MD History: 69 years Male with . s/p tube adjustment . Comparison: 11/08/2024 FINDINGS: MEDIASTINUM: The cardiac silhouette is slightly enlarged. Endotracheal tube is seen above the geovani by about 4.5 cm. Nasogastric tube is extending into the stomach. LUNGS: No pneumothorax. Blunting of the left costophrenic angle with adjacent opacity suggestive of a telectasis versus focal pneumonia with minimal effusion. OTHER: No free air under the diaphragm. IMPRESSION: Normal position of endotracheal tube. Left basilar atelectasis versus pneumonia with minimal effusion near to the costophrenic angle. Reviewed, dictated and finalized at location A. IMPRESSION: Normal position of endotracheal tube. Left basilar atelectasis versus pneumonia with minimal effusion near to the cos tophrenic angle.
--- NOTE | ~2024-11-08 | XR_ITS ---
XR abdomen gastric tube insert Ordering provider: David Garner History: . OG PLACEMENT. REVIEWED BY DR GARNER. . Comparison: None. FINDINGS/impression: Nasogastric tube with the tip in the body of the stomach. Distended stomach with gases is noted. Reviewed, dictated and finalized at location A.
--- NOTE | ~2024-11-08 | XR_ITS ---
XR chest port-a-cath/central Ordering provider: David Lambert MD History: 69 years Male with . central line placement . Comparison: November 08, 2024 FINDINGS: MEDIASTINUM: The cardiac silhouette is not enlarged. Endotracheal and nasogastric tubes unchanged fro m previous examination. Left central line with the tip overlying superior vena cava. LUNGS: No pneumothorax. Minimal effusion the left costophrenic angle with adjacent atelectasis. OTHER: No free air under the diaphragm. IMPRESSION: Left central line with the tip overlying the superior vena cava. Other appearances are unchanged from previous examination. Reviewed, dictated and finalized at location A. IMPRESSION: Left central line with the tip overlying the superior vena cava. Other appearan rocio are unchanged from previous examination.
--- NOTE | ~2024-11-08 | CT_ITS ---
History: Seizure PROCEDURE: CT head without contrast. COMPARISON: 05/12/2022 TECHNIQUE: Axial imaging of the head performed from the skull base to the vertex without IV contrast. Sagittal a nd coronal reformations obtained. DLP: 681 mGy-cm FINDINGS: Encephalomalacia and gliosis within the left occipital lobe with ex vacuo dilatation of the posterior horn of the left lateral ventricle. The remainder of the ventricles are otherwise normal in size, shape and position. There is no mass, mass effect or midline shift. There is no abnormal extra-axial fluid collection or intracranial hemorrhage. Visualized paranasal sinuses are clear. The mastoid air cells are well aerated. No acute displaced fractures within the overlying cranium. Impression: Prior cerebral infarction within the left occipital lobe (unchanged) without acute intracranial hemor rhage or suspicious mass effect. Reviewed, dictated and finalized at location A. Impression: Prior cerebral infarction within the left occipital lobe (unchanged) without ac [place] intracranial hemorrhage or suspicious mass effect.
--- NOTE | ~2024-11-08 | XR_ITS ---
XR chest ET placement Ordering provider: David Garner MD History: 69 years Male with . ETT PLACEMEMT. REVIEWED BY DR GARNER. . Comparison: November 13, 2023 FINDINGS: MEDIASTINUM: The cardiac silhouette is slightly enlarged. Endotracheal tube is seen with the position not well demonstrated in the relation with the geovani. A repeat exam with more penetration is advise d. Nasogastric tube is seen with the tip in the stomach. Prominent both gris. LUNGS: No infiltrates, effusions or pneumothorax. OTHER: No free air under the diaphragm. IMPRESSION: Position of the endotracheal tube is not clear and may be in the esophagus or in the trachea. A repea t exam with more penetration is advised. No acute cardiopulmonary pathology. Reviewed, dictated and finalized at location A. IMPRESSION: Position of the endotracheal tube is not clear and may be in the esophagus or i n the trachea. A repeat exam with more penetration is advised. No acute cardiopulmonary pathology.
[2024-11-08] MEDS: LORazepam INJ (*CRX) 2 MG/ML VIAL IV PUSH (16:33)
[2024-11-08] MEDS: levETIRAcetam 1000MG/NACL100ML 1,000 MG/100 ML BAG 100 MG (16:35)
[2024-11-08] MEDS: levETIRAcetam 1500MG/NACL100ML 1,500 MG/100 ML BAG 100 MG (16:36)
--- NOTE | 2024-11-08 16:40 | ED.GENADULT ---
HPI - General Adult General Chief complaint: Seizure Stated complaint: seizures Time Seen by Provider: 11/08/24 16:40 History of Present Illness HPI narrative: This is a 69-year-old male with history of seizure disorder and CVA presenting for seizures. EMS was called and found in actively seizing. Patient was having his typical seizure which is a focal tonic clonic seizure of the right arm and neck. He received 10 mg of Valium from EMS with out resolution of the seizure. He did become apneic at that time and required to be bagged. When he arrived here he was being bagged and provide no information to the interview. Seizure time at arrival had been 40 minutes. Related Data Home Medications ?Medication ?Instructions ?Recorded ?Confirmed ?Last Taken ?Type atorvastatin 80 mg tablet 80 mg PO HS 12/05/21 11/17/22 Unknown History calcitriol 0.25 mcg capsule 0.25 mcg PO WEEKLY 12/05/21 11/17/22 Unknown History carvedilol 6.25 mg tablet 6.25 mg PO BID 12/05/21 11/17/22 Unknown History citalopram 20 mg tablet 10 mg PO DAILY 12/05/21 11/17/22 Unknown History levetiracetam 1,000 mg tablet 2,000 mg PO BID 12/05/21 11/17/22 Unknown History lisinopril 10 mg tablet 10 mg PO DAILY 12/05/21 11/17/22 Unknown History acetaminophen 325 mg tablet 650 mg PO Q6H PRN Pain 11/17/22 11/17/22 Unknown History acetaminophen 650 mg 650 mg PO Q8H 11/17/22 11/17/22 Unknown History tablet,extended release (Arthritis Pain Relief (acetaminophen) ER) aspirin 81 mg chewable tablet 81 mg PO DAILY 11/17/22 11/17/22 Unknown History cholecalciferol (vitamin D3) 125 125 mcg PO DAILY 11/17/22 11/17/22 Unknown History mcg (5,000 unit) tablet lorazepam 2 mg/mL injection 0.5 mg IV ONCE PRN Seizure Activity 11/17/22 11/17/22 Unknown History solution Allergies Allergy/AdvReac Type Severity Reaction Status Date / Time No Known Allergies Allergy Verified 05/12/22 16:58 [facility] Past Medical History Medical History (Updated 11/08/24 @ 19:59 by David Lambert MD) Epilepsy Hyperlipidemia Hypertension Family History Family History Other Unknown family medical history Social History Social History Smoking packs per day: 0.5 Smoking cigarettes per day: 10.0 Years smoked: 55 Smoking pack-years: 27.50 Smoking status: Current every day smoker Tobacco type: cigarettes Second hand tobacco smoke exposure: No Alcohol intake: unknown Substance use: unknown Substance use type: does not use Lack of Transportation: No Lack of Food: Never True Current Housing: I Have Housing Concerned About Future Housing: No Difficulty Paying Gas/Electric Bills: No Difficulty Paying for Meds: No Currently Unemployed: No Education: Don't Know Difficulty w/ Childcare or Family Care: No Spiritual care concerns: No Exam Narrative: APPEARANCE: Patient is actively seizing, not responding to questions or pain Head: atraumatic. EYES: EOMI, NOSE: Atraumatic NECK: Trachea midline RESPIRATORY: Apneic, actively being bagged CARDIOVASCULAR: RRR, ABDOMINAL: Non-distended MUSCULOSKELETAl: No obvious deformities NEURO: Seizing Tonic clonic movements of the right arm and neck SKIN:: Warm, dry. Normal color PSYCHIATRIC: Unresponsive Course Vital Signs Vital signs: Vital Signs Pulse Oximetry 100 11/08/24 16:29 Oxygen Delivery BiPAP 11/08/24 16:29 Pulse Rate 75 11/08/24 18:41 Respiratory Rate 18 11/08/24 18:41 Blood Pressure 91/64 L 11/08/24 18:41 Pulse Oximetry 97 11/08/24 18:41 Oxygen Delivery Mechanical Ventilation 11/08/24 17:40 Fraction of Inspired Oxygen 30 11/08/24 17:40 Medical Decision Making [facility] Narrative Medical decision making narrative: -Course: 61-year-old male presenting in status epilepticus. He had been seizing for 40 minutes by time he arrived in the emergency department. He had received 10 mg of Valium from EMS. He was loaded with 4500 mg of Keppra. He was given another 4 mg of Ativan. He was then intubated using etomidate and succinate for status epilepticus. Patient was then sedated using propofol and fentanyl drip. Workup significant for white count 11.11. Hemoglobin 12.7. Kidney function at baseline. Potassium 5.1 without EKG changes. Urine with 6-10 white blood cells trace leuk esterase. Chest x-ray with atelectasis versus consolidation. Will be started on ceftriaxone and doxy to cover UTI or possible pneumonia. ABG @ 16/450/40/5 - 7.3/48.2/143.5/23.5 . Metabolic acidosis with hypoxia. Oxygen decreased to 30%. Respiratory rate increased to 18. On re-evaluation patient's heart rate and blood pressure have normalized. Patient was hypotensive despite 2 L of normal saline. A left subclavian placed without complication and norepi is on standby. Patient was accepted by Dr. Green at [facility] Neuro ICU. Vital Signs Vital Signs: Vital Signs Pulse Oximetry 100 11/08/24 16:29 Oxygen Delivery BiPAP 11/08/24 16:29 Pulse Rate 75 11/08/24 18:41 Respiratory Rate 18 11/08/24 18:41 Blood Pressure 91/64 L 11/08/24 18:41 Pulse Oximetry 97 11/08/24 18:41 Oxygen Delivery Mechanical Ventilation 11/08/24 17:40 Fraction of Inspired Oxygen 30 11/08/24 17:40 Lab Data 11/08/24 18:11 11/08/24 18:11 Labs: Lab Results 11/08/24 11/08/24 Range/Units 16:59 18:11 WBC 11.1 H (4.5-10.0) K/mm3 RBC 4.35 L (4.6-6.20) M/mm3 Hgb 12.7 L (14.0-18.0) g/dL Hct 39.8 L (42.0-52.0) % MCV 91.5 (80-100) fl MCH 29.2 (26-34) pg MCHC 31.9 L (32-36) g/dl RDW 12.7 (11.5-14.5) % Plt Count 198 (150-375) k/mm3 MPV 11.1 H (7.4-10.4) fl Immature Gran % (Auto) 0.6 H (0-0.5) % Neut % (Auto) 77.1 H (45.5-73.1) % Lymph % (Auto) 16.3 L (18.3-44.2) % Brantley % (Auto) 3.9 (2.6-8.5) % Eos % (Auto) 1.8 (0-4.4) % Baso % (Auto) 0.3 (0.2-1.2) % Lymph # (Auto) 1.82 (0.9-3.2) K/mm3 Brantley # (Auto) 0.4 (0.1-0.6) K/mm3 Eos # (Auto) 0.2 (0-0.3) K/mm3 Baso # (Auto) 0.0 (0.0-0.1) K/mm3 Abs Immat Gran (auto) 0.07 H (0.00-0.031) K/mm3 Absolute Neuts (auto) 8.6 H (1.3-6.7) K/mm3 Absolute Nucleated RBC 0.000 (0.0-0.012) K/mm3 Nucleated RBC % 0.0 (0.0-0.2) % PT 13.5 (11.1-14.7) Seconds INR 1.0 APTT 28.8 (22.3-36.8) Seconds Minute Volume Not Reportable Vent Mode Cmv Tidal Volume 450 ml PEEP 5 cmH2O Peak Inspir Pressure Not Reportable Pressure Support Not Reportable Sodium 136 L (137-145) mmol/L Potassium 5.1 H (3.4-5.0) mmol/L Chloride 105 (98-107) mmol/L Carbon Dioxide 23 (22-30) mmol/L Anion Gap 8 (4-12) mmol/L BUN 20 (9-20) mg/dL Creatinine 0.92 (0.7-1.3) mg/dL Estim Creat Clear Calc Not Reportable Estimated GFR > 60 (59 - ) Glucose 139 H (65-110) mg/dL Lactic Acid 1.2 (0.7-2.0) mmol/L Calcium 9.0 (8.4-10.2) mg/dL Phosphorus 3.2 (2.5-4.5) mg/dL Magnesium 1.7 (1.6-2.3) mg/dL Total Bilirubin 1.0 (0.2-1.3) mg/dL AST 29 (17-59) U/L ALT 27 (6-50) U/L Alkaline Phosphatase 65 (38-126) U/L Total Creatine Kinase 86 (55-170) U/L Total Protein 7.0 (6.3-8.2) g/dL Albumin 4.4 (3.5-5.1) g/dL Triglycerides 110 (<150) mg/dL Lipase 138 (23-300) U/L Urine Color Yellow (Yellow) Urine Appearance Clear (Clear) Urine pH 5.5 (5.0-9.0) Ur Specific [place] 1.012 (1.001-1.035) Urine Protein 1+ H (Negative) mg/dL Urine Glucose (UA) Negative (Negative) mg/dL Urine Ketones Negative (Negative) mg/dL Ur Blood (Man) 2+ H (Negative) Urine Nitrate Negative (Negative) Urine Bilirubin Negative (Negative) Urine Urobilinogen 1.0 (<2.0) mg/dL Leukocyte Esterase Rfl Trace H (Negative) CHRISTIAN/UL Urine RBC 6-10 H (0-2) /hpf Urine WBC 6-10 H (0-3) /hpf Ur Squamous Epith Cells None seen (Few) /hpf Urine Bacteria 1+ H /hpf Urine Casts 0-2 Urine Opiates Screen Negative (Negative) Urine Methadone Screen Negative (Negative) Ur Barbiturates Screen Negative (Negative) Ur Phencyclidine Scrn Negative (Negative) Ur Amphetamine Screen Negative (Negative) U Benzodiazepines Scrn Negative (Negative) Urine Cocaine Screen Negative (Negative) U Cannabinoids Screen Negative (Negative) Influenza A (RT-PCR) Negative (Negative) Influenza B (RT-PCR) Negative (Negative) RSV (RT-PCR) Negative (Negative) SARS-CoV-2 RNA (RT-PCR) Negative (Negative) ABG Data ABG results: 11/08/24 16:59 Puncture Site Left radial ABG pH 7.306 L ABG pCO2 48.2 H ABG pO2 143.5 H ABG PO2/FiO2 Ratio 2.87 ABG HCO3 23.5 ABG O2 Saturation 98.6 ABG O2 Content 19.0 ABG Base Excess -3.1 A-a Gradient 158.8 Oxyhemoglobin 96.8 Total Hemoglobin 13.8 O2 Delivery Device Ventilator O2 Liters/Min Not Reportable Vent Rate 16 FiO2 50 Discharge Plan Discharge Clinical Impression: Seizure, Status epilepticus Patient Disposition: Acute Care Hospital Condition: Guarded Prognosis Patient Language: Belarusian Prescriptions: No Action aspirin 81 mg Tablet,Chewable 81 mg PO DAILY cholecalciferol (vitamin D3) 125 mcg (5,000 unit) Tablet 125 mcg PO DAILY acetaminophen 325 mg Tablet 650 mg PO Q6H PRN (Reason: Pain) Rx Instructions: pain or temp acetaminophen [Arthritis Pain Relief (acetam)] 650 mg Tablet Extended Release 650 mg PO Q8H lorazepam 2 mg/mL Solution 0.5 mg IV ONCE PRN (Reason: Seizure Activity) Rx Instructions: administer 5-20 minutes before start of surgery/procedure as a single dose citalopram 20 mg Tablet 10 mg PO DAILY lisinopril 10 mg Tablet 10 mg PO DAILY calcitriol 0.25 mcg Capsule 0.25 mcg PO WEEKLY Rx Instructions: administer on Friday atorvastatin 80 mg Tablet 80 mg PO HS carvedilol 6.25 mg Tablet 6.25 mg PO BID levetiracetam 1,000 mg Tablet 2,000 mg PO BID cefuroxime axetil 500 mg tablet 500 mg PO BID Qty: 14 0RF Follow-up/Referrals: PHYSICIAN,MOLD SANDER [Non-Staff] -
[2024-11-08] MEDS: HYDROmorphone HCL INJ (*CRX) 1 MG/ML SYR (16:46)
[2024-11-08] MEDS: PROPOFOL IV EMULSION 100 ML 20.16 MG IV CONT (16:47)
[2024-11-08] MEDS: LORazepam INJ (*CRX) 2 MG/ML VIAL (16:50)
[2024-11-08] MEDS: FENTANYL 2,500MCG/NS250ML(*CRX 2,500 MCG/250 ML BAG IV CONT (16:55)
[2024-11-08 17:12] LABS: Alveolar/Arterial O2 Gradient 158.8 mmHg; Base Excess ABG -3.1 mEq/l (+/-2.0); Fractional Inspired Oxygen 50 %; HCO3 ABG 23.5 mEq/l (22.0-26.0); Oxygen Saturation ABG 98.6 % (95.0-100.0); Oxyhemoglobin 96.8 % THb (90.0-100.0); PCO2 ABG 48.2 mmHg (35.0-45.0); PO2 ABG 143.5 mmHg (80.0-100.0); PO2 FiO2 Ratio Arterial Blood 2.87 %; Total Hemoglobin 13.8 g/dL (12.0-18.0); pH ABG 7.306 (7.350-7.450)
[2024-11-08 17:47] LABS: Device VENTILATOR; Modified Allen's Test Pass; Site Drawn LEFT RADIAL
[2024-11-08 17:48] LABS: Arterial Blood Gas PEEP 5 cmH2O; Arterial Blood Gas Tidal Volume 450 ml; Arterial Blood Gas Vent Mode CMV; Arterial Blood Gas Ventilator rate 16 /MIN
--- OUTSIDE RECORDS SUMMARY | 2024-11-08 17:50 | XMS_ITS | Clinical Summary ---
Author Organization [facility] Address [address] [place] [address] Care Team Providers Care Button Decorating Machine Operator Name Role Phone Nieves Patterson MD Unavailable [phone] Britney Woods RN Unavailable [phone] Marlene Mendoza PA-C Primary Care Provider Source Comments [facility],non-owned Affiliates and Associated Physician Practices is amultiple site organization consisting of ambulatory clinics and hospital sitesin [place], [place], [place] and [place]. This disclosure is being madepursuant to the Care Everywhere program and may not contain all information available regarding this patient. Last updated 18.[facility] Medications * Be aware that medications may not be up to date on this document. Alwaysverify current medications with the patient. atorvastatin (LIPITOR) 80 MG tablet Take 1 Tab by mouth at bedtime. 30 Tab 0 5 Active carvedilol (COREG) 6.25 MG tablet Take 1 Tab by mouth 2 times daily with morning and evening meal. 60 Tab 0 5 Active nicotine (NICODERM CQ) 21 MG/24HR patchIndication s:Nicotine Dependence Apply 1 patch to skin once daily Reasons: Nicotine Addiction Active levETIRAcetam (KEPPRA) 1000 MG tablet Take 1.5 tablets by mouth 2 times daily 60 tablet 3 7 Active pyridoxine 50 MG Take 2 tablets by mouth once daily 30 tablet 7 Active aspirin (ASPIRIN) 81 MG tablet Take 1 tablet by mouth once daily 60 tablet 2 7 Active lacosamide (VIMPAT) 100 MG tablet Take 1 tablet by mouth 2 times daily 60 tablet 2 7 Active levETIRAcetam (KEPPRA) 750 MG tablet Take 2 tablets by mouth 2 times daily 60 tablet 1 9 Active lisinopril (PRINIVIL; ZESTRIL) 10 MG tablet Take 1 tablet by mouth once daily 9 Active atorvastatin (LIPITOR) 40 MG tablet Take 1 tablet by mouth at bedtime 9 Active aspirin (ASPIRIN) 81 MG chew tablet Take 1 tablet by mouth once daily 9 Active carvedilol (COREG) 6.25 MG tablet Take 1 tablet by mouth 2 times daily with morning and evening meal 9 Active Active Problems Problem Noted Date Diagnosed Date Seizures 05/17/2019 Partial idiopathic epilepsy with seizures of localized onset, not intractable, without status epilepticus 06/04/2017 CAD (coronary artery disease) 12/23/2014 Assessment & Plan (12/24/2014 11:11 AM CDT): Has moderate to large infarct on apex and anterior wall on marley scan. No ischemia. - on asprin, statin, BB - might need cath outpatient Mural thrombus of heart 12/22/2014 Assessment & Plan (12/26/2014 10:55 AM CDT): With focal akinesis of ventricular wall suggesting a recent NE resulting in mural thrombus. INR 2.2 today and is therapeutic. - discontinue lovenox - will discharge of 5mg of warfarin - will need INR check on Friday on discahrge Systolic heart failure 12/22/2014 Assessment & Plan (12/24/2014 11:10 AM CDT): EF 40% with focal akinesis. Marley scan shows no ischemia but moderate to large area of infarct on apical and anterior wall. Euvolemic. - started on coreg and deirdre. Increased lisinopril to 10mg. Left occipital stroke 12/21/2014 Assessment & Plan (12/26/2014 10:55 AM CDT): Presented with headache and R homonymous hemianopsia with macular sparing. MRI confirmed L occipital stroke. Echo shows mural thrombus which is likely cause of stroke. Therapeutic on warfarin HTN (hypertension) 12/21/2014 Assessment & Plan (12/22/2014 2:38 PM CDT): - consulted [facility] for assistance obtaining primary care Smoker 12/21/2014 Assessment & Plan (12/21/2014 5:25 AM CDT): 40 pack/year smoking hx. Pt counseled and states ready to quit. Type 2 diabetes mellitus 12/21/2014 Assessment & Plan (12/26/2014 10:54 AM CDT): Blood glucose 197 at admission. Pt previously not diagnosed with DM. hgba1c 10.6. - SSI - DM education - started on lantus 15U -> increased to 20U-> 25 U - startting on metformin on discharge Immunizations Immunization Administration Dates Next Due INFLUENZA VACCINE, QUADR. (F LUZONE; FLULAVAL; FLUARIX; AFLURIA QUADRIVALENT; 6MO+), 0.5 ML (IIV4) 06/07/2017 PNEUMOCOCCAL PPSV23 12/22/2014 Social History Tobacco Use Types Packs/Day Years Used Date Smoking Tobacco: Every Day Cigarettes 1 40 Smokeless Tobacco: Never Tobacco Cessation:Ready to Q uit: No; Counseling Given: Yes Alcohol Use Standard Drinks/Week Comments No 0 (1 standard drink = 0.6 oz pur e alcohol) Sex and Gender Information Value Date Recorded Sex Assigned at Not on file Legal Sex Male 8:45 PM CDT Gender Identity Not on file Sexual Orientation Not on file Last Filed Vital Signs Vital Sign Reading Time Taken Comments Blood Pressure 113/67 05/19/2019 7:44 PM CDT Pulse 67 05/19/2019 7:44 PM CDT Temperature 37.4 C (99.3 F) 05/19/2019 7:44 PM CDT Respiratory Rate 18 05/19/2019 7:44 PM CDT Oxygen Saturation 99% 05/19/2019 7:44 PM CDT Inhaled Oxygen Concentration - - Weight 80.4 kg (177 lb 3.2 oz) 05/18/2019 2:18 A M CDT Height 172.7 cm (5' 8 ) 06/04/2017 7:35 AM LEARNING DESIGN SPECIALIST Body Mass Index 26.94 06/04/2017 7:35 AM LEARNING DESIGN SPECIALIST Plan of Treatment Health Maintenance Due Date Last Done Comments COLOGUARD (AGES 45-75) - COLON CA SCREENING 1955 COLON MONITORING 1955 COLONOSCOPY - COLON CA SCREENING 1956 CT COLONOGRAPHY - COLON CA SCREENING 1955 Colorectal Cancer Screening 1955 FIT - COLON CA SCREENING 1955 FLEX SIG - COLON CA SCREENING 1955 MEDICARE AWV 12 MONTHS 1955 HEPATITIS C SCREENING 07/09/1974 DTAP/TDAP/TD VACCINES (1 - Tdap) 1975 ZOSTER VACCINE (1 of 2) 2006 PNEUMOCOCCAL VACCINE 50+ (2 of 2 - PCV) 12/23/2015 12/22/2014 DIABETES RETINOPATHY SCREENING 08/06/2019 DIABETES-FOOT EXAM WITH MONOFILAMENT 08/06/2019 DIABETES-HGB A1C 10/10/2020 04/12/2020, , 05/23/2018, Additional history exists AAA SCREENING 2021 DIABETES-SERUM CREATININE 06/14/20222020, 06/14/2021, 04/13/2020, Additional history exists COVID-19 VACCINE ( - season) 2024 DEPRESSION SCREENING 07/28/2024 DIABETES - URINE PROTEIN SCREENING 07/28/2024 INFLUENZA VACCINE (Season Ended) 2025 06/07/2017 Respiratory Syncytial Virus (RSV) Vaccine Pt: or over 60 yrs (1 - 1-dose 75+ series) 2031 HEPATITIS B VACCINE Aged Out No longe r eligible based on patient's age to complete this topic HIB VACCINE Aged Out No longer eligi ble based on patient's age to complete this topic HPV VACCINE Aged Out No longer eligi ble based on patient's age to complete this topic MENINGOCOCCAL (Group B) VACCINE SHARED DECISION-MAKING Aged Out No longer eligible based on patient's age to complete this topic MENINGOCOCCAL GROUPS A/C/Y/W VACCINE Aged Out No longer eligible based on patient's age to complete this topic Procedures Procedure Name Priority Date/Time Associated Diagnosis Comments BASIC METABOLIC PANEL (CALCIUM TOTAL) Routine 05/19/2019 7:00 AM CDT HEMOGLOBIN A1C ZENOBIA 05/18/2019 4:41 AM CDT Seizures Type 2 diabetes mellitus without complication, without long-term current use of insulin from Last 3 Months or Most Recently Relevant to Health Maintenance Results * (ABNORMAL) BASIC METABOLIC PANEL (CALCIUM TOTAL) (05/19/2019 7:00 AM CDT) BUN 12 7 - 26 mg/dL 05/19/2019 8:06 AM [facility] Creatinine 0.8 0.6 - 1.2 mg/dL 05/19/2019 8:06 AM [facility] Sodium 142 136 - 145 mmol/L 05/19/2019 8:06 AM [facility] Potassium 3.6 3.5 - 4.5 mmol/L 05/19/2019 8:06 AM [facility] Chloride 110(H) 98 - 107 mmol/L 05/19/2019 8:06 AM [facility] CO2 25 22 - 29 mmol/L 05/19/2019 8:06 AM [facility] Glucose 85 70 - 115 mg/dL 05/19/2019 8:06 AM [facility] Calcium 8.6 8.4 - 10.2 mg/dL 05/19/2019 8:06 AM [facility] Anion Gap 11 8 - 18 05/19/2019 8:06 AM [facility] BUN/Creatinine Ratio 15 7 - 23 05/19/2019 8:06 AM [facility] Osmolality Calculated 293 270 - 300 mOsm/kg 05/19/2019 8:06 AM [facility] eGFR >60 >60 mL/min/1.7 3 m2 05/19/2019 8:06 AM [facility] Blood BLOOD SPECIMEN / Unknown Lab Venipuncture / Unknown 05/19/2019 7:00 AM CDT 05/19/2019 7:40 AM CDT Vinny Oconnor MD LAB - CHEMISTRY ORDERABLES Final Result [facility] [address] [phone] * HEMOGLOBIN A1C (05/18/2019 4:41 AM CDT) Hemoglobin A1c 4.4 4.4 - 6.3 % 05/18/2019 10:45 AM CDT [facility] Estimated Average Glucose 80 mg/dL 05/18/2019 10:45 AM CDT [facility] Comment: HbA1c Interpretation: Treatment target values recommended by ADA and other clinical organizations should be used to evaluate metabolic control in patients. Treatment Target Values: Normal : < 5.7% Pre-diabetes: 5.7-6.4% Diabetes: Equal to or greater than 6.5% Reference: [place] [employer] Association Standards of Care in Diabetes -2014 In patients 70 years and older consider HbA1c target range of 7.0-7.5% Reference: Diabetes Mellitus in Older People: Position Statement on behalf of the International Association of Gerontology and Geriatrics (IAGG), the Diabetes Working Alliance Party for Older People (EDWPOP), and the International Task Force of Experts in Diabetes. Leonel Meraz, et al. J [place] [employer] Association. 2012 Test results diagnostic of diabetes should be repeated for confirmation. The Sebia Capillary 2 assay for the measurement of HbA1c is a National Glycohemoglobin Standardization Program (NGSP)certified method. Blood BLOOD SPECIMEN / Unknown Lab Venipuncture / Unknown 05/18/2019 4:41 AM CDT 05/18/2019 5:13 AM CDT us Vinny Oconnor MD LAB - CHEMISTRY ORDERABLES Final Result [address] [phone] from Last 3 Months or Most Recently Relevant to Health Maintenance Insurance MEDICARE MEDICAID [place] BENEFIT - [place] MEDICARE [facility] MEDICARE ADVANTAGE GENERIC * Guarantor: MALDONADO HARMON Account Type Relation to Patient Date of Phone Billing Address Personal/Family 1955 [address] [place] [id number] MEDICAID - OUT OF STATE MEDICAID LIMITED BENEFIT - [place] MEDICARE SELF PAY NO INSURANCE Member Subscriber Plan / Payer (Ef fective for All Dates) Name:Maldonado Harmon Relation to Subscriber:Self Name:Maldonado Harmon Payer ID:Not on file Group ID:Not on file Type:Self Pay Address: [place], [place] MEDICAID - PENDING MEDICAID - PENDING Advance Directives * Full Code (Latest Code Status on File) Date Activated Date Inactivated Comments 05/17/2019 7:41 PM 05/20/2019 1:57 AM * Full Code Date Activated Date Inactivated Comments 05/17/2019 7:37 PM 05/17/2019 7:41 PM * Full Code Date Activated Date Inactivated Comments 06/04/2017 8:26 AM 06/07/2017 1:22 PM * Full Code Date Activated Date Inactivated Comments 12/21/2014 2:55 AM 12/26/2014 4:55 PM Care Teams Button Decorating Machine Operator Relationship Specialty Start Date End Date Marlene Mendoza PA-C [address] [place] [phone] PCP - General 11/14/21 Nieves Patterson MD [address] [place] [phone] Family Medicine 05/25/19 Britney Woods RN Office Coordinator Receptionist 12/21/14
--- OUTSIDE RECORDS SUMMARY | 2024-11-08 17:51 | XMS_ITS | CONTINUITY OF CARE DOCUMENT ---
Author Name ivonne, ivonne Address Unknown Organization [facility] Address [address] [place] [address] Phone [phone] Care Team Providers Care Polymer Scientist Name Role Phone Kali CHARLES, Fabian Unavailable SIERRA AMADO MD Unavailable SIERRA AMADO MD Unavailable PROBLEMS Condition Status Date Provider Notes Cancer - lung active Darlin Duran S/P [employer] (MRI Safe) REVEAL/LinQ active Darlin Duran Stroke active Fabian Bass MD HTN active Fabian Bass MD Diabetes mellitus active Fabian Bass MD CVA active Fabian Bass MD Hyperlipidemia active Fabian Bass MD Cardiomyopathy ef 50% active Fabian Krishna Seizure disorder active Fabian Bsas MD ENCOUNTERS Date Type Provider Location Encounter Diag nosis - In-person encounter Office Visit Fabian Bass MD [facility] Cardiomyopathy ef 50% - In-person encounter Office Visit Fabian Bass MD [facility] Seizure disorder - In-person encounter Office Visit Fabian Bass MD [facility] - In-person encounter Office Visit Fabian Bass MD [facility] Cardiomyopathy ef 50% - In-person encounter Office Visit Fabian Bass MD [facility] HTNDiabetes mellitusCVAHyperlipidemia VITAL SIGNS Date Observation Value Provider Body Mass Index (Ratio) 28.20 kg/m2 Cortes Bass MD blood pressure, diastolic 74 mm[Hg] Zana Figueroa blood pressure, systolic 130 mm[Hg] Princess Figueroa oxygen saturation, oximetry 98 % Jadyn Figueroa pulse rate 62 /min Jadyn James blood pressure, resting Yes Alberto Figueroa weight E&M 191 [lb_av] Jadyn James height E&M 69 [in_i] Jadyn James Body Mass Index (Ratio) 26.58 kg/m2 Cortes Bass MD blood pressure, cuff size regular Cy ruperto Srivastava blood pressure, diastolic 70 mm[Hg] Cy ruperto Srivastava blood pressure, systolic 120 mm[Hg] Shell scot Atif oxygen saturation, oximetry 97 % Bhavna Srivastava respiratory rate E&M 16 /min Bhavna Srivastava pulse rate 87 /min Bhavna Campbel l weight E&M 180 [lb_av] Bhavna Campbel l height E&M 69 [in_i] Bhavna Campbel l Body Mass Index (Ratio) 25.54 kg/m2 Cortes Bass MD blood pressure, cuff size regular Ke rri Eugeniouenenfkasia blood pressure, diastolic 79 mm[Hg] Ke rri Gruenenfkasia blood pressure, systolic 143 mm[Hg] Germania De La O oxygen saturation, oximetry 98 % Massiel De La O respiratory rate E&M 18 /min Massiel kulkarni pulse rate 69 /min Massiel Allen lder weight E&M 173 [lb_av] Massiel Allen lder height E&M 69 [in_i] Massiel Allen lder Body Mass Index (Ratio) 25.90 kg/m2 Cortes Bass MD blood pressure, diastolic 63 mm[Hg] Nehemiah Romero blood pressure, systolic 113 mm[Hg] Ann Marie Romero oxygen saturation, oximetry 97 % Jacki Romero respiratory rate E&M 18 /min Sepideh Romero pulse rate 73 /min Jacki encarnacion weight E&M 175.4 [lb_av] Jacki bustamanteon height E&M 69 [in_i] Jacki encarnacion Body Mass Index (Ratio) 25.69 kg/m2 Chaparro Woodard blood pressure, cuff size regular Ke rri Jairon blood pressure, diastolic 80 mm[Hg] Ke rri Jairon blood pressure, systolic 118 mm[Hg] Germania De La O oxygen saturation, oximetry 97 % Massiel De La O respiratory rate E&M 18 /min Massiel kulkarni pulse rate 77 /min Massiel Allen lder weight E&M 174 [lb_av] Massiel Allen lder height E&M 69 [in_i] Massiel Allen lder ALLERGIES No Known Drug Allergies RESULTS Date Observation Value Provider Reference Range Interpretation Location international normalized ratio (INR) 1.4 Massiel De La O Normal prothrombin time (patient) 16.6 s Massiel De La O HISTORY OF MEDICATION USE Medication Status Instructions Dates Provider Indications Com ments METFORMIN HCL 500 MG ORAL TABLET active TAke 1 tablet twice daily Bhavna Srivastava LISINOPRIL 10 MG ORAL TABLET active Take one tablet daily Bhavna Srivastava NICODERM CQ PATCH 24 HOUR completed 1 patch once daily - Bhavna Srivastava PYRIDOXINE HCL 50 MG ORAL TABLET completed 2 tabs once daily - Bhavna Atif VIMPAT 100 MG ORAL TABLET completed 1 tab twice daily - Bhavna Srivastava ASPIRIN ADULT LOW DOSE 81 MG ORAL TABLET DELAYED RELEASE active One Tab By Mouth Daily Jacki Romero ELIQUIS 5 MG ORAL TABLET completed one tab once daily - Fabian Bass MD LIPITOR 80 MG ORAL TABLET active ONE TAB. DAILY Massiel Cabezaser COREG 6.25 MG ORAL TABLET active ONE TAB. TWICE DAILY Massiel De La O LISINOPRIL 10 MG ORAL TABLET completed ONE TAB. DAILY - Jacki Romero COUMADIN 1 MG ORAL TABLET completed as directed - Fabian Bass MD KEPPRA 750 MG ORAL TABLET active one tab twice daily Jadyn Figueroa METFORMIN HCL 500 MG ORAL TABLET completed take one pill twice a day - Fabian Bass MD #60, 30 days supply, Filled 05/06/2017 SOCIAL HISTORY Date Observation Value Provider social history E&M S moking History: P urmila currently smokes every day. P atcindi has been counseled to quit. Fabian Bass MD smoking/tobacco cess ation, patient education and counseling yes Fabian Bass MD social history reviewed E&M revi ewed - no changes required Fabian Bass MD number of years as a smoker 48 a Jadyn Figueroa smoking history, tot al pack/day 1 ppd Jadyn Figueroa cigarette use yes Jadyn Zimmer smoking status Current every day smoker E mandy Figueroa social history reviewed E&M revi ewed - no changes required Fabian Bass MD number of years as a smoker 48 a Bhavna Srivastava smoking history, tot al pack/day 1 ppd Bhavna Srivastava cigarette use yes Bhavna singh smoking status Current every day smoker Brenda Srivastava social history reviewed E&M revi ewed - no changes required Fabian Bass MD number of years as a smoker 48 a Massiel Beckeradriajessicamichellezana smoking history, tot al pack/day 1 ppd Massiel Beckergage cigarette use yes Massiel Beckeralena pedroza smoking status Current every day smoker K rene Jairon number of grandchildren Fabian Bass MD T reinaldo Bass MD social history reviewed E&M revi ewed - no changes required Fabian Bass MD number of years as a smoker 48 a Jacki Romero smoking history, tot al pack/day 1 ppd Jacki Romero cigarette use yes Jacki spann smoking status Current every day smoker M Meaghan Romero social history reviewed E&M revi ewed - no changes required Fabian Bass MD number of years as a smoker 48 a Massiel Beckergage smoking history, tot al pack/day 1 ppd Massiel Beckergage cigarette use yes Massiel pedroza smoking status Current every day smoker K rene Reyesmichellezana FAMILY HISTORY Family Member Condition Father Negative FH of Coron ronnie Artery Disease Mother Negative FH of Coron ronnie Artery Disease INSURANCE PROVIDERS Payer name Policy type / Coverage type [facility] ID [place] MEDICARE OF [place] Medicare 3000 [id number] ADVANCE DIRECTIVES Name Date DISCUSSED - NO DECISION MADE TREATMENT PLAN Date Name Performer Cardiology Fabian Bass MD Cardiology Fabian Bass MD Cardiology Fabian Bass MD Cardiology Fabian Bass MD Cardiology Fabian Bass MD Cardiology follow up Fabian falk MD Cardiology follow up Fabian falk MD Cardiology follow up Fabian falk MD Cardiology follow up Fabian falk MD Cardiology follow up Fabian falk MD Cardiology Hospital Follow up To ryan Bass MD Cardiology Hospital Follow up To ryan Bass MD Cardiology Hospital Follow up To ryan Bass MD Cardiology Fabian Bass MD Cardiology Fabian Bass MD Cardiology:h/o multi ple seizures since then , schedule with neuro Faiban Bass MD Cardiology Fabian Bass MD Cardiology New Patient Fabian recinos MD Cardiology New Patient Fabian recinos MD Cardiology New Patient Fabian recinos MD Cardiology New Patient Fabian recinos MD Date Name Device Removal - GC CCM, 20 min HISTORY OF PROCEDURES Procedure Date Procedure Name Provider Procedure Notes S tatus EKG Fabian Bass MD completed Loop Recorder Interrogation, Remote Fabian Bass MD INTERROGATION EVALUATION REMOTE </30 D ILR SYS completed ICM Interrogation, Remote (Tech) Fabian Bass MD INTERROGATION EVAL REMOTE </30 D TECH REVIEW completed Loop Recorder Interrogation, Remote Fabian Bass MD INTERROGATION EVALUATION REMOTE </30 D ILR SYS completed ICM Interrogation, Remote (Tech) Fabian Bass MD INTERROGATION EVAL REMOTE </30 D TECH REVIEW completed Loop Recorder Interrogation, Remote Fabian Bass MD INTERROGATION EVALUATION REMOTE </30 D ILR SYS completed ICM Interrogation, Remote (Tech) Fabian Bass MD INTERROGATION EVAL REMOTE </30 D TECH REVIEW completed Loop Recorder Interrogation, Remote Fabian Bass MD INTERROGATION EVALUATION REMOTE </30 D ILR SYS completed ICM Interrogation, Remote (Tech) Fabian Bass MD INTERROGATION EVAL REMOTE </30 D TECH REVIEW completed Loop Recorder Interrogation, Remote Fabian Bass MD INTERROGATION EVALUATION REMOTE </30 D ILR SYS completed ICM Interrogation, Remote (Tech) Fabian Bass MD INTERROGATION EVAL REMOTE </30 D TECH REVIEW completed Loop Recorder Interrogation, Remote Fabian Bass MD INTERROGATION EVALUATION REMOTE </30 D ILR SYS completed ICM Interrogation, Remote (Tech) Fabian Bass MD INTERROGATION EVAL REMOTE </30 D TECH REVIEW completed Loop Recorder Interrogation, Remote Fabian Bass MD INTERROGATION EVALUATION REMOTE </30 D ILR SYS completed ICM Interrogation, Remote (Tech) Fabian Bass MD INTERROGATION EVAL REMOTE </30 D TECH REVIEW completed Loop Recorder Interrogation, Remote Fabian Bass MD INTERROGATION EVALUATION REMOTE </30 D ILR SYS completed ICM Interrogation, Remote (Tech) Fabian Bass MD INTERROGATION EVAL REMOTE </30 D TECH REVIEW completed Loop Recorder Interrogation, Remote Fabian Bass MD INTERROGATION EVALUATION REMOTE </30 D ILR SYS completed ICM Interrogation, Remote (Tech) Fabian Bass MD INTERROGATION EVAL REMOTE </30 D TECH REVIEW completed Loop Recorder Interrogation, Remote Fabian Bass MD INTERROGATION EVALUATION REMOTE </30 D ILR SYS completed ICM Interrogation, Remote (Tech) Fabian Bass MD INTERROGATION EVAL REMOTE </30 D TECH REVIEW completed Loop Recorder Interrogation, Remote Fabian Bass MD INTERROGATION EVALUATION REMOTE </30 D ILR SYS completed ICM Interrogation, Remote (Tech) Fabian Bass MD INTERROGATION EVAL REMOTE </30 D TECH REVIEW completed Loop Recorder Interrogation, Remote Fabian Bass MD INTERROGATION EVALUATION REMOTE </30 D ILR SYS completed ICM Interrogation, Remote (Tech) Fabian Bass MD INTERROGATION EVAL REMOTE </30 D TECH REVIEW completed SNOMED-CT: 27463432 Physical Exam, Performed: Pulse Exam of Foot Fabian Bass MD completed SNOMED-CT: 82989567 Physical Exam, Performed: Pulse Exam of Foot Fabian Bass MD completed SNOMED-CT: 351229204253744 Current Medications Documented Fabian Bass MD completed Loop Recorder Interrogation, Remote Fabian Bass MD INTERROGATION EVALUATION REMOTE </30 D ILR SYS completed ICM Interrogation, Remote (Tech) Fabian Bass MD INTERROGATION EVAL REMOTE </30 D TECH REVIEW completed SNOMED-CT: 928284127916355 Current Medications Documented Fabian Bass MD completed SNOMED-CT: 04940256 Physical Exam, Performed: Pulse Exam of Foot Fabian Bass MD completed Protime Fabian Bass MD completed EKG Fabian Bass MD completed SNOMED-CT: 506877563043620 Current Medications Documented Fabian Bass MD completed
[2024-11-08] MEDS: levETIRAcetam 1500MG/NACL100ML 1,500 MG/100 ML BAG 600 MG IVPB (18:15)
[2024-11-08 18:18] LABS: Basophils Percent Auto 0.3 % (0.2-1.2); Eosinophils Absolute Auto 0.2 K/mm3 (0-0.3); Eosinophils Percent Auto 1.8 % (0-4.4); Hematocrit 39.8 % (42.0-52.0); Hemoglobin 12.7 g/dL (14.0-18.0); Immature Granulocyte Absolute 0.07 K/mm3 (0.00-0.031); Immature Granulocyte Percent A 0.6 % (0-0.5); Lymphocytes Absolute Auto 1.82 K/mm3 (0.9-3.2); Lymphocytes Percent Auto 16.3 % (18.3-44.2); Mean Corpuscular HGB Conc 31.9 g/dl (32-36); Mean Corpuscular Hemoglobin 29.2 pg (26-34); Mean Corpuscular Volume 91.5 fl (80-100); Mean Platelet Volume 11.1 fl (7.4-10.4); Monocytes Absolute Auto 0.4 K/mm3 (0.1-0.6); Monocytes Percent Auto 3.9 % (2.6-8.5); Neutrophils Absolute Auto 8.6 K/mm3 (1.3-6.7); Neutrophils Percent Auto 77.1 % (45.5-73.1); Platelet Count Result 198 k/mm3 (150-375); Red Blood Count 4.35 M/mm3 (4.6-6.20); Red Cell Distribution Width 12.7 % (11.5-14.5); White Blood Count 11.1 K/mm3 (4.5-10.0)
[2024-11-08 18:28] LABS: Prothrombin Time 13.5 Seconds (11.1-14.7)
[2024-11-08 18:29] LABS: Partial Thromboplastin Time 28.8 Seconds (22.3-36.8)
--- NOTE | 2024-11-08 18:29 | PC.NURSE ---
2nd set of blood cultures obtained from ultrasound IV started by EDP DR. Lambert
[2024-11-08 18:30] LABS: Add Urine Microscopic? YES; Appearance Urine Clear (Clear); Bacteria Urine 1+ /hpf; Bilirubin Urine Negative (Negative); Blood Urine 2+ (Negative); Color Urine Yellow (Yellow); Glucose Urine UA Negative (Negative); Ketones Urine Negative (Negative); Leukocyte Esterase Ur Trace LEU/UL (Negative); Nitrate Urine Negative (Negative); Non Pathogenic Casts 0-2; Protein Urine 1+ mg/dL (Negative); Specific Grav Ur 1.012 (1.001-1.035); Squamous Epithelial Cell Urine None Seen /hpf (Few); pH Urine 5.5 (5.0-9.0)
[2024-11-08 18:33] LABS: Alanine Aminotransferase 27 U/L (6-50); Albumin Level 4.4 g/dL (3.5-5.1); Alkaline Phosphatase 65 U/L (38-126); Anion Gap 8 mmol/L (4-12); Aspartate Amino Transferase 29 U/L (17-59); Blood Urea Nitrogen 20 mg/dL (9-20); Carbon Dioxide 23 mmol/L (22-30); Chloride 105 mmol/L (98-107); Creatine Kinase 86 U/L (55-170); Estimated Glomerular Filt Rate > 60; Glucose 139 mg/dL (65-110); Lipase 138 U/L (23-300); Magnesium 1.7 mg/dL (1.6-2.3); Phosphorus 3.2 mg/dL (2.5-4.5); Potassium 5.1 mmol/L (3.4-5.0); Sodium 136 mmol/L (137-145)
[2024-11-08 18:34] LABS: Lactic Acid Reflex 1.2 mmol/L (0.7-2.0); Triglycerides 110 mg/dL (<150)
[2024-11-08 18:42] LABS: Amphetamine Screen Urine Negative (Negative); Barbiturate Screen Urine Negative (Negative); Benzodiazepines Screen Urine Negative (Negative); Cannabinoid Screen Urine Negative (Negative); Cocaine Screen Urine Negative (Negative); Methadone Screen Urine Negative (Negative); Opiate Screen Urine Negative (Negative); Phencyclidine Screen Urine Negative (Negative)
[2024-11-08] MEDS: SODIUM CHLORIDE 0.9% IV 2,000 ML 999 ML IV CONT (18:43)
[2024-11-08 19:04] LABS: Influenza A QL RT-PCR Negative (Negative); Influenza B QL RT-PCR Negative (Negative); RSV RNA, RT-PCR Negative (Negative); SARS-CoV-2 RNA PCR Negative (Negative)
[2024-11-08] MEDS: NOREPINEPHRINE 8 MG/D5W 250 ML 8 MG/250 ML BAG 9.38 MG IV CONT (20:14)
--- NOTE | 2024-11-08 20:30 | ECG_ITS ---
Test Date: 2024-11-08 20:38:10 Measurements Intervals [place] Rate: 51 P: 36 UT: 180 QRS: -28 QRSD: 105 T: 85 QT: 471 QTc: 434 Interpretive Statements SINUS BRADYCARDIA LOW QRS VOLTAGE IN PRECORDIAL LEADS CONSIDER INFERIOR INFARCT, AGE INDETERMINATE EXTENSIVE ANTERIOR INFARCT, AGE INDETERMINATE BORDERLINE T WAVE ABNORMALITY- HIGH LATERAL LEADS ABNORMAL ECG No previous ECG available for comparison Electronically Signed On 11-09-2024 06:18:14 CDT by Ric Ratliff D.O.
[2024-11-08] MEDS: DOXYCYCLINE 100 MG/NS 100 ML 100 MG/100 ML BAG IVPB (20:44)
[2024-11-08 21:54] LABS: Ethanol < 10 mg/dL (<10)
--- NOTE | 2024-11-08 23:18 | PC.NURSE ---
This Rn assumed care of pt @2300. At 2300 no propofol was running, Previous RN stated she was planning to grab the next bag. This RN in room to start propofol and questioned why propofol was running at the high rate, previous Rn unsure why the rate was so high. This RN went to EDP Dr. Gabriel and received verbal order to start propofol per protocol due to there being no documentation on why pt was needing the high rate. titration protocols did not appear to be followed. Pt also was recently started on Norepi by previous nurse, EDP Dr. Gabriel questioned why this was running if map had not dropped below 70. This RN stopped Norepi due to pt not meeting criteria for medication to be running.
[2024-11-08] MEDS: PROPOFOL IV EMULSION 100 ML 3.36 MG IV CONT (23:20)
--- NOTE | 2024-11-08 23:45 | PC.NURSE ---
Central Line was not documented upon this RN assuming care of pt. This RN charted central line and moved sedation medications from peripheral lines to central line.
== END 2024-11-09 00:27 | disposition short-term general hospital (02) ==
PROVIDERS: Emergency Provider Emergency Medicine
DX: G40.901 Epilepsy, unspecified, not intractable, with status epilepticus (principal); Z11.52 Encounter for screening for COVID-19; I10 Essential (primary) hypertension; E78.5 Hyperlipidemia, unspecified; F17.210 Nicotine dependence, cigarettes, uncomplicated; Z86.73 Personal history of transient ischemic attack (TIA), and cerebral infarction without residual deficits; Z79.82 Long term (current) use of aspirin; Z79.899 Other long term (current) drug therapy; R00.1 Bradycardia, unspecified; R94.31 Abnormal electrocardiogram [ECG] [EKG]
CPT/HCPCS: 31500; 36415; 36556; 36600; 70450; 80053; 80307; 81001; 82077; 82550; 82805; 83605; 83690; 83735; 84100; 84478; 85018; 85025; 85610; 85730; 87040; 87086; 87637; 93005; 94002; 96361; 96365; 96366; 96367; 96368; 96375; 99285; C1751; J0330; J0696; J1171; J1953; J2060; J2704; J3010; J7030

== ENCOUNTER 2024-12-27 18:36 | Inpatient (IN) | payer OTHER, SELFPAY ==
[2024-12-27] VITALS (15 sets, daily range): BP systolic 114–129; BP diastolic 56–79; PULSE 77–108; RESP 15–25; TEMP 37.6; O2SAT 91–100; BMI 32.3
--- NOTE | ~2024-12-27 | XR_ITS ---
EXAMINATION: XR chest 1V portable Exam Date/Time: 12/27/2024 19:05 CDT HISTORY: seizure; hx stroke Comparison: 11/08/2024. RESULT: Lines, tubes, and devices: None. Lungs and pleura: Streaky subsegmental left basilar airspace disease. Mild left costophrenic angle b lunting. Cardiomediastinal silhouette: Stable. Other: No acute osseous or upper abdominal finding. IMPRESSION: Persistent/recurrent subsegmental left basilar atelectasis/consolidation and small left pleural effus ion versus pleural scar. Reviewed, dictated and finalized at location K. IMPRESSION: Persistent/recurrent subsegmental left basilar atelectasis/consolidation and sm all left pleural effusion versus pleural scar.
--- NOTE | ~2024-12-27 | CT_ITS ---
EXAMINATION: CT brain wo con DATE: 12/27/2024 20:54 INDICATION: seizure, recurrent . TECHNIQUE: Computed tomography (CT) of the head was performed without intravenous contrast. The mA wa s adjusted according to patient size. Iterative reconstruction technique was employed. The dose-lengt h product was 681.00 mGy-cm. COMPARISON: 11/08/2024. FINDINGS: No acute intracranial hemorrhage or extra-axial fluid collection. No hydrocephalus, mass, or herniation. No acute ischemic infarct. Unremarkable dural venous sinus attenuation. No acute osseous abnormality. Ethmoid mucosal thickening, the remaining aerated spaces are clear. Left medial occipital lobe encephalomalacia. IMPRESSION: No acute intracranial process. Reviewed, dictated and finalized at location K.
--- NOTE | 2024-12-27 18:52 | PC.NURSE ---
Pt had seizure like activity with secretions coming from mouth, pt suctioned and placed on his side. This activity started at 1848 and lasted 45 seconds to 1 minute. EDP at bedside. Seizure precautions continued.
--- NOTE | 2024-12-27 18:53 | ECG_ITS ---
Test Date: 2024-12-27 18:52:21 Measurements Intervals [place] Rate: 109 P: 75 WI: 168 QRS: -50 QRSD: 108 T: 78 QT: 329 QTc: 443 Interpretive Statements SINUS TACHYCARDIA WITH OCCASIONAL VENTRICULAR PREMATURE COMPLEXES LOW QRS VOLTAGE- DIFFUSE LEADS LEFT ANTERIOR FASCICULAR BLOCK EXTENSIVE ANTERIOR INFARCT, AGE INDETERMINATE CONSIDER INFERIOR INFARCT, AGE INDETERMINATE BASELINE ARTIFACT- V1 ABNORMAL ECG Compared to ECG 11/08/2024 20:38:10 HEART RATE HAS INCREASED Electronically Signed On 12-28-2024 07:52:04 CDT by Ric Ratliff D.O.
--- OUTSIDE RECORDS SUMMARY | 2024-12-27 19:04 | XMS_ITS | Clinical Summary ---
Author Organization [facility] Address [address] [place] [address] Care Team Providers Care Textile Machine Maintenance Mechanic Name Role Phone Nieves Patterson MD Unavailable [phone] Britney Woods RN Unavailable [phone] Marlene Mendoza PA-C Primary Care Provider Source Comments [facility],non-owned Affiliates and Associated Physician Practices is amultiple site organization consisting of ambulatory clinics and hospital sitesin [place], [place], [place] and [place]. This disclosure is being madepursuant to the Care Everywhere program and may not contain all information available regarding this patient. Last updated 18.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 WORKER Body Mass Index 26.94 06/04/2017 7:35 AM MEAT COUNTER WORKER Plan of Treatment Health Maintenance Due Date [...] 7 - 26 mg/dL 05/19/2019 8:06 AM [facility] Creatinine 0.8 0.6 - 1.2 mg/dL 05/19/2019 8:06 AM [facility] Sodium 142 136 - 145 mmol/L 05/19/2019 8:06 AM [facility] Potassium 3.6 3.5 - 4.5 mmol/L 05/19/2019 8:06 AM [facility] Chloride 110(H) 98 - 107 mmol/L 05/19/2019 8:06 AM [facility] CO2 25 22 - 29 mmol/L 05/19/2019 8:06 AM [facility] Glucose 85 70 - 115 mg/dL 05/19/2019 8:06 AM [facility] Calcium 8.6 8.4 - 10.2 mg/dL 05/19/2019 8:06 AM [facility] Anion Gap 11 8 - 18 05/19/2019 8:06 AM [facility] BUN/Creatinine Ratio 15 7 - 23 05/19/2019 8:06 AM [facility] Osmolality Calculated 293 270 - 300 mOsm/kg 05/19/2019 8:06 AM [facility] eGFR >60 >60 mL/min/1.7 3 m2 05/19/2019 8:06 AM [facility] Blood BLOOD SPECIMEN / Unknown Lab Venipuncture / Unknown 05/19/2019 7:00 AM CDT 05/19/2019 7:40 AM CDT Vinny Oconnor MD LAB - CHEMISTRY ORDERABLES Final Result [facility] [id number] [phone] * HEMOGLOBIN A1C (05/18/2019 4:41 AM CDT) Hemoglobin A1c 4.4 4.4 - 6.3 % 05/18/2019 10:45 AM CDT [facility] Estimated Average Glucose 80 mg/dL 05/18/2019 10:45 AM CDT [facility] Comment: HbA1c Interpretation: Treatment target values recommended by ADA and other clinical organizations should be used to evaluate metabolic control in patients. Treatment Target Values: Normal : < 5.7% Pre-diabetes: 5.7-6.4% Diabetes: Equal to or greater than 6.5% Reference: [place] Diabetes Association Standards of Care in Diabetes -2014 In patients 70 years and older consider HbA1c target range of 7.0-7.5% Reference: Diabetes Mellitus in Older People: Position Statement on behalf of the International Association of Gerontology and Geriatrics (IAGG), the Diabetes Working Green Party for Older People (EDWPOP), and the International Task Force of Experts in Diabetes. Leonel Meraz, et al. J [place] [employer] Association. 2012 Test results diagnostic of diabetes should be repeated for confirmation. The Sebia Capillary 2 assay for the measurement of HbA1c is a National Glycohemoglobin Standardization Program (NGSP)certified method. Blood BLOOD SPECIMEN / Unknown Lab Venipuncture / Unknown 05/18/2019 4:41 AM CDT 05/18/2019 5:13 AM CDT us Vinny Oconnor MD LAB - CHEMISTRY ORDERABLES Final Result [place] [id number] [phone] from Last 3 Months or Most Recently Relevant to Health Maintenance Insurance MEDICARE MEDICAID LIMITED BENEFIT - [place] MEDICARE [facility] MEDICARE ADVANTAGE GENERIC MEDICAID - OUT OF STATE MEDICAID LIMITED BENEFIT - [place] MEDICARE SELF PAY NO INSURANCE Member Subscriber Plan / Payer (Ef fective for All Dates) Name:Maldonado Harmon Relation to Subscriber:Self Name:Maldonado Harmon Payer ID:Not on file Group ID:Not on file Type:Self Pay Address: [place], [place] MEDICAID - PENDING MEDICAID - PENDING [...] 2:55 AM 12/26/2014 4:55 PM Care Teams Textile Machine Maintenance Mechanic Relationship Specialty Start Date End Date Marlene Mendoza PA-C [address] [place] [phone] PCP - General 11/14/21 Nieves Patterson MD [address] [place] [phone] Family Medicine 05/25/19 Britney Woods RN Public Relations Consultant 12/21/14
--- OUTSIDE RECORDS SUMMARY | 2024-12-27 19:04 | XMS_ITS | CONTINUITY OF CARE DOCUMENT ---
Author Name ivonne, ivonne Address Unknown Organization [facility] Address [address] [place] [address] Phone [phone] Care Team Providers Care Senior Housekeeper Name Role Phone Kali CHARLES, Fabian Unavailable [phone] SIERRA AMADO MD Unavailable SIERRA AMADO MD Unavailable [phone] PROBLEMS Condition Status Date Provider Notes Cancer - lung active Darlin Duran S/P [employer] (MRI Safe) REVEAL/LinQ active Darlin Duran Stroke active Fabian Bass MD HTN active Fabian Bass MD Diabetes mellitus active Fabian Bass MD CVA active Fabian Bass MD Hyperlipidemia active Fabian Bass MD Cardiomyopathy ef 50% active Fabian Krishna Seizure disorder active Fabian Bass MD ENCOUNTERS Date Type Provider Location Encounter Diag nosis - In-person encounter Office Visit Fabian Bass MD [facility] Cardiomyopathy ef 50% - In-person encounter Office Visit Fabian Bass MD [facility] Seizure disorder - In-person encounter Office Visit Fabian Bass MD [facility] - In-person encounter Office Visit Fabian Bass MD [facility] Cardiomyopathy ef 50% - In-person encounter Office Visit Fabian Bass MD [facility] HTNDiabetes mellitusCVAHyperlipidemia VITAL SIGNS Date Observation [...] Payer name Policy type / Coverage type [facility] [employer] [place] Medicare 3000 [id number] ADVANCE DIRECTIVES Name Date DISCUSSED - NO DECISION MADE TREATMENT PLAN Date Name Performer Cardiology Faiban Bass MD Cardiology Fabian Bass MD Cardiology Fabian Bass MD Cardiology Fabian Bass MD Cardiology Fabian Bass MD Cardiology follow up Fabian falk MD Cardiology follow up Fabian falk MD Cardiology follow up Fabian falk MD Cardiology follow up Fabian falk MD Cardiology follow up Fbaian falk MD Card[facility] Follow up To ryan Bass MD Cardiology Hospital Follow up To ryan Bass MD Cardiology Hospital Follow up To ryan Bass MD Cardiology Fabian Bass MD Cardiology Fabian Bass MD Cardiology:h/o multi ple seizures since then , schedule with neuro Fabian Bass MD Cardiology Fabian Bass MD [...] REVIEW completed Loop Recorder Interrogation, Remote Fabian aBss MD INTERROGATION EVALUATION REMOTE </30 D ILR [...] REMOTE </30 D TECH REVIEW completed SNOMED-CT: 96103093 Physical Exam, Performed: Pulse Exam of Foot Fabian Bass MD completed SNOMED-CT: 68209384 Physical Exam, Performed: Pulse Exam of Foot Fabian Bass MD completed SNOMED-CT: [id number] Current Medications Documented Fabian Bass MD completed Loop Recorder Interrogation, Remote Fabian Bass MD INTERROGATION EVALUATION REMOTE </30 D ILR SYS completed ICM Interrogation, Remote (Tech) Fabian Bass MD INTERROGATION EVAL REMOTE </30 D TECH REVIEW completed SNOMED-CT: [id number] Current Medications Documented Fabian Bass MD completed SNOMED-CT: [id number] Physical Exam, Performed: Pulse Exam of Foot Fabian Bass MD completed Protime Fabian Bass MD completed EKG Fabian Bass MD completed SNOMED-CT: [id number] Current Medications Documented Fabian Bass MD completed
[2024-12-27] MEDS: SODIUM CHLORIDE 0.9% IV 1,000 ML 999 ML IV CONT (19:15)
--- NOTE | 2024-12-27 19:29 | PC.NURSE ---
Received report from ALMA De La Cruz for cont. of care. Pt lying on stretcher on 2L via NC with oxygen saturation of 100% post seizure. Pt GCS 8, response to painful stimuli. Refer to MAR for medication administration.
[2024-12-27 19:30] LABS: Basophils Percent Auto 0.2 % (0.2-1.2); Eosinophils Absolute Auto 0.1 K/mm3 (0-0.3); Eosinophils Percent Auto 0.9 % (0-4.4); Hematocrit 41.6 % (42.0-52.0); Hemoglobin 13.3 g/dL (14.0-18.0); Immature Granulocyte Absolute 0.06 K/mm3 (0.00-0.031); Immature Granulocyte Percent A 0.6 % (0-0.5); Lymphocytes Absolute Auto 0.55 K/mm3 (0.9-3.2); Lymphocytes Percent Auto 5.5 % (18.3-44.2); Mean Corpuscular Hemoglobin 29.3 pg (26-34); Mean Corpuscular Volume 91.6 fl (80-100); Mean Platelet Volume 10.9 fl (7.4-10.4); Monocytes Absolute Auto 0.4 K/mm3 (0.1-0.6); Monocytes Percent Auto 4.3 % (2.6-8.5); Neutrophils Absolute Auto 8.9 K/mm3 (1.3-6.7); Neutrophils Percent Auto 88.5 % (45.5-73.1); Platelet Count Result 167 k/mm3 (150-375); Red Blood Count 4.54 M/mm3 (4.6-6.20); Red Cell Distribution Width 12.2 % (11.5-14.5)
[2024-12-27] MEDS: levETIRAcetam IV 2,000 MG in DEXTROSE 5% 100 ML 720 MG IVPB (19:33)
[2024-12-27 19:38] LABS: INR 1.1; Lactic Acid Reflex 1.5 mmol/L (0.7-2.0); Prothrombin Time 13.9 Seconds (11.1-14.7)
[2024-12-27 19:39] LABS: Alanine Aminotransferase 24 U/L (6-50); Albumin Level 4.5 g/dL (3.5-5.1); Alkaline Phosphatase 63 U/L (38-126); Anion Gap 10 mmol/L (4-12); Aspartate Amino Transferase 26 U/L (17-59); Bilirubin,Total 0.4 mg/dL (0.2-1.3); Blood Urea Nitrogen 23 mg/dL (9-20); Calcium 9.2 mg/dL (8.4-10.2); Carbon Dioxide 24 mmol/L (22-30); Chloride 106 mmol/L (98-107); Estimated CRCL calculation 94 ml/min; Estimated Glomerular Filt Rate > 60; Glucose 151 mg/dL (65-110); Partial Thromboplastin Time 27.3 Seconds (22.3-36.8); Potassium 4.4 mmol/L (3.4-5.0); Sodium 140 mmol/L (137-145)
--- NOTE | 2024-12-27 20:14 | ED.GENADULT ---
HPI - General Adult General Chief complaint: Seizure Stated complaint: SEIZURE Time Seen by Provider: 12/27/24 18:53 History of Present Illness HPI narrative: Patient is a 69-year-old male who presents to the ER seizing. Patient has history of epilepsy. He also has recent history of CVA causing hemiparesis. Patient on chart review takes Keppra 2 g twice a day. Received 10 mg of Versed intramuscularly from EMS. He has had a 30 second seizure here. Per EMS history patient has had 2 other seizures today at his care facility. Related Data Home Medications ?Medication ?Instructions ?Recorded ?Confirmed ?Last Taken ?Type atorvastatin 80 mg tablet 80 mg PO HS 12/05/21 11/17/22 Unknown History calcitriol 0.25 mcg capsule 0.25 mcg PO WEEKLY 12/05/21 11/17/22 Unknown History carvedilol 6.25 mg tablet 6.25 mg PO BID 12/05/21 11/17/22 Unknown History citalopram 20 mg tablet 10 mg PO DAILY 12/05/21 11/17/22 Unknown History levetiracetam 1,000 mg tablet 2,000 mg PO BID 12/05/21 11/17/22 Unknown History lisinopril 10 mg tablet 10 mg PO DAILY 12/05/21 11/17/22 Unknown History acetaminophen 325 mg tablet 650 mg PO Q6H PRN Pain 11/17/22 11/17/22 Unknown History acetaminophen 650 mg 650 mg PO Q8H 11/17/22 11/17/22 Unknown History tablet,extended release (Arthritis Pain Relief (acetaminophen) ER) aspirin 81 mg chewable tablet 81 mg PO DAILY 11/17/22 11/17/22 Unknown History cholecalciferol (vitamin D3) 125 125 mcg PO DAILY 11/17/22 11/17/22 Unknown History mcg (5,000 unit) tablet lorazepam 2 mg/mL injection 0.5 mg IV ONCE PRN Seizure Activity 11/17/22 11/17/22 Unknown History solution Allergies Allergy/AdvReac Type Severity Reaction Status Date / Time No Known Allergies Allergy Verified 12/27/24 19:03 Review of Systems Review of Systems: ROS unobtainable: Yes unobtainable due to medical condition PMFSH Past Medical History Medical History (Updated 12/27/24 @ 22:15 by Bartolo Boothe MD) Hemiparesis CVA (cerebral vascular accident) Epilepsy Hyperlipidemia Hypertension Family History Family History Other Unknown family medical history Social History Social History Smoking packs per day: 0.5 Smoking cigarettes per day: 10.0 Years smoked: 55 Smoking pack-years: 27.50 Smoking status: Current every day smoker Tobacco type: cigarettes Second hand tobacco smoke exposure: No Alcohol intake: unknown Substance use: unknown Substance use type: does not use Lack of Transportation: No Lack of Food: Never True Current Housing: I Have Housing Concerned About Future Housing: No Difficulty Paying Gas/Electric Bills: No Difficulty Paying for Meds: No Currently Unemployed: No Education: Don't Know Difficulty w/ Childcare or Family Care: No Spiritual care concerns: No Exam Narrative: GENERAL: Ill-appearing, well-nourished. HEAD: Normocephalic, atraumatic. ENT: Mucous membranes moist. CHEST: Clear to auscultation. No respiratory distress. HEART: Regular rate and rhythm. Normal peripheral pulses. ABDOMEN: Soft, nontender, nondistended. EXTREMITIES: No deformity of the upper/lower extremities. Moving all extremities after seizure. SKIN: Warm, dry, no rash. NEURO: Awake and alert, Responds to speech. he is not speaking or following commands. Course Course Emergency Course: Discussed with neurology. Recommends increasing Lacosamide to 150 mg BID. Admit to hospitalist service. Vital Signs Vital signs: Vital Signs Pulse Rate 106 H 12/27/24 18:34 Respiratory Rate 18 12/27/24 18:34 Blood Pressure 114/56 L 12/27/24 18:34 Pulse Oximetry 91 12/27/24 18:34 Oxygen Delivery Room Air 12/27/24 18:34 Temperature 99.6 F 12/27/24 19:31 Pulse Rate 100 12/27/24 19:31 Respiratory Rate 24 H 12/27/24 19:31 Blood Pressure 125/70 12/27/24 19:31 Pulse Oximetry 100 12/27/24 19:31 Oxygen Delivery Nasal Cannula 12/27/24 18:54 Oxygen Flow Rate 4 12/27/24 18:54 Medical Decision Making Vital Signs Vital Signs: Vital Signs Pulse Rate 106 H 12/27/24 18:34 Respiratory Rate 18 12/27/24 18:34 Blood Pressure 114/56 L 12/27/24 18:34 Pulse Oximetry 91 12/27/24 18:34 Oxygen Delivery Room Air 12/27/24 18:34 Temperature 99.6 F 12/27/24 19:31 Pulse Rate 100 12/27/24 19:31 Respiratory Rate 24 H 12/27/24 19:31 Blood Pressure 125/70 12/27/24 19:31 Pulse Oximetry 100 12/27/24 19:31 Oxygen Delivery Nasal Cannula 12/27/24 18:54 Oxygen Flow Rate 4 12/27/24 18:54 Lab Data 12/27/24 19:19 12/27/24 19:19 Labs: Lab Results 12/27/24 Range/Units 19:19 WBC 10.0 (4.5-10.0) K/mm3 RBC 4.54 L (4.6-6.20) M/mm3 Hgb 13.3 L (14.0-18.0) g/dL Hct 41.6 L (42.0-52.0) % MCV 91.6 (80-100) fl MCH 29.3 (26-34) pg MCHC 32.0 (32-36) g/dl RDW 12.2 (11.5-14.5) % Plt Count 167 (150-375) k/mm3 MPV 10.9 H (7.4-10.4) fl Immature Gran % (Auto) 0.6 H (0-0.5) % Neut % (Auto) 88.5 H (45.5-73.1) % Lymph % (Auto) 5.5 L (18.3-44.2) % [place] % (Auto) 4.3 (2.6-8.5) % Eos % (Auto) 0.9 (0-4.4) % Baso % (Auto) 0.2 (0.2-1.2) % Lymph # (Auto) 0.55 L (0.9-3.2) K/mm3 [place] # (Auto) 0.4 (0.1-0.6) K/mm3 Eos # (Auto) 0.1 (0-0.3) K/mm3 Baso # (Auto) 0.0 (0.0-0.1) K/mm3 Abs Immat Gran (auto) 0.06 H (0.00-0.031) K/mm3 Absolute Neuts (auto) 8.9 H (1.3-6.7) K/mm3 Absolute Nucleated RBC 0.000 (0.0-0.012) K/mm3 Nucleated RBC % 0.0 (0.0-0.2) % PT 13.9 (11.1-14.7) Seconds INR 1.1 APTT 27.3 (22.3-36.8) Seconds Sodium 140 (137-145) mmol/L Potassium 4.4 (3.4-5.0) mmol/L Chloride 106 (98-107) mmol/L Carbon Dioxide 24 (22-30) mmol/L Anion Gap 10 (4-12) mmol/L BUN 23 H (9-20) mg/dL Creatinine 0.81 (0.7-1.3) mg/dL Estim Creat Clear Calc 94 ml/min Estimated GFR > 60 (59 - ) Glucose 151 H (65-110) mg/dL Lactic Acid 1.5 (0.7-2.0) mmol/L Calcium 9.2 (8.4-10.2) mg/dL Total Bilirubin 0.4 (0.2-1.3) mg/dL AST 26 (17-59) U/L ALT 24 (6-50) U/L Alkaline Phosphatase 63 (38-126) U/L Total Protein 7.0 (6.3-8.2) g/dL Albumin 4.5 (3.5-5.1) g/dL Discharge Plan Discharge Clinical Impression: Seizure Patient Disposition: Still a Patient Condition: Stable Patient Language: Romanian Prescriptions: No Action aspirin 81 mg Tablet,Chewable 81 mg PO DAILY cholecalciferol (vitamin D3) 125 mcg (5,000 unit) Tablet 125 mcg PO DAILY acetaminophen 325 mg Tablet 650 mg PO Q6H PRN (Reason: Pain) Rx Instructions: pain or temp acetaminophen [Arthritis Pain Relief (acetam)] 650 mg Tablet Extended Release 650 mg PO Q8H lorazepam 2 mg/mL Solution 0.5 mg IV ONCE PRN (Reason: Seizure Activity) Rx Instructions: administer 5-20 minutes before start of surgery/procedure as a single dose citalopram 20 mg Tablet 10 mg PO DAILY lisinopril 10 mg Tablet 10 mg PO DAILY calcitriol 0.25 mcg Capsule 0.25 mcg PO WEEKLY Rx Instructions: administer on Friday atorvastatin 80 mg Tablet 80 mg PO HS carvedilol 6.25 mg Tablet 6.25 mg PO BID levetiracetam 1,000 mg Tablet 2,000 mg PO BID cefuroxime axetil 500 mg tablet 500 mg PO BID Qty: 14 0RF Follow-up/Referrals: UNKNOWN,DOCTOR [Primary Care Provider] -
--- NOTE | 2024-12-27 20:54 | PC.NURSE ---
Pt taken to CT on monitor by this RN. No seizure activity noted.
--- NOTE | 2024-12-27 21:13 | PC.NURSE ---
Spoke to ALMA Shannon from [facility] to fax pt current medication list.
[2024-12-27 21:22] LABS: Add Urine Microscopic? YES; Appearance Urine Clear (Clear); Bacteria Urine None Seen /hpf; Bilirubin Urine Negative (Negative); Blood Urine Negative (Negative); Color Urine Yellow (Yellow); Glucose Urine UA Negative (Negative); Ketones Urine Trace mg/dL (Negative); Leukocyte Esterase Ur Trace LEU/UL (Negative); Nitrate Urine Negative (Negative); Non Pathogenic Casts 0-2; Protein Urine 2+ mg/dL (Negative); RBC Urine 0-2 /hpf (0-2); Specific Grav Ur 1.029 (1.001-1.035); Squamous Epithelial Cell Urine None Seen /hpf (Few); pH Urine 5.5 (5.0-9.0)
--- NOTE | 2024-12-27 22:25 | P.HP_ITS ---
H&P: HPI History of Present Illness Date/Time: 12/27/24 21:30 Chief Complaint: Seizure. Narrative: This is a 61-year-old male with history of seizures, cerebrovascular accident with right-sided weakness, hypertension, and hyperlipidemia who presented to the emergency department via EMS from [facility] for evaluation after a seizure. He is alert and oriented to self at the time my evaluation and thus a majority the following history is obtained via a review of his electronic medical records. He is only able to tell me his name and does not really answer questions or follow commands at this time. It is my understanding that he had 2 seizures today, 1 this morning lasting about 30 seconds and another evening which lasted about 10 minutes. Of note, he was transferred to neuro [facility] ICU on 11/08/[address] atus epilepticus. There were no reports of falls, head trauma, fever, vomiting, or diarrhea. In the ED: He was afebrile on arrival with stable vital signs. Labs were pretty unremarkable and similar to his baseline. Lactic acid level was normal. Head CT showed no acute findings. He was given levetiracetam 2000 mg and lorazepam 4 mg and he is being admitted in this setting for close monitoring to ensure that he does not have a recurrent seizure overnight. ED physician spoke with on-call neurologist Dr. Leach and he recommended increasing his lacosamide dose. Review of Systems Review of Systems: Unable to obtain accurately given postictal state. [facility] Past Medical History Medical History (Updated 12/27/24 @ 22:49 by Rosina Hauser PA-C) Depression Hypertension Cerebrovascular accident left occipital lobe stroke with right hemiparesis Epilepsy Hyperlipidemia Family History Family History Other Unknown family medical history Social History Social History (Updated 12/27/24 @ 22:44 by Rosina Hauser PA-C) Social History: Surrogate medical decision maker: Aisha Macedo, daughter ([phone]). Code status: Full code. Smoking packs per day: 0.5 Smoking cigarettes per day: 10.0 Years smoked: 55 Smoking pack-years: 27.50 Smoking status: Smoker, status unknown Alcohol intake: unknown Substance use: unknown Substance use type: unknown Lack of Transportation: No Lack of Food: Never True Current Housing: I Have Housing Concerned About Future Housing: No Difficulty Paying Gas/Electric Bills: No Difficulty Paying for Meds: No Currently Unemployed: No Education: Don't Know Difficulty w/ Childcare or Family Care: No Living arrangements: senior living Additional living arrangements comments: [facility]. Spiritual care concerns: No Meds Home Medications and Allergies Home Medications ?Medication ?Instructions ?Recorded ?Confirmed ?Type atorvastatin 80 mg tablet 80 mg PO HS 12/05/21 12/28/24 History calcitriol 0.25 mcg capsule 0.25 mcg PO WEEKLY 12/05/21 12/28/24 History levetiracetam 1,000 mg tablet 2,000 mg PO BID 12/05/21 12/28/24 History lisinopril 10 mg tablet 10 mg PO DAILY 12/05/21 12/28/24 History acetaminophen 325 mg tablet 650 mg PO TID PRN Pain 11/17/22 12/28/24 History aspirin 81 mg chewable tablet 81 mg PO DAILY 11/17/22 12/28/24 History cholecalciferol (vitamin D3) 125 125 mcg PO DAILY 11/17/22 12/28/24 History mcg (5,000 unit) tablet lacosamide 100 mg tablet 100 mg PO Q12H 12/28/24 12/28/24 History sertraline 25 mg tablet 25 mg PO Q24H 12/28/24 12/28/24 History Allergies Allergy/AdvReac Type Severity Reaction Status Date / Time No Known Allergies Allergy Verified 12/27/24 19:03 Vital Signs Vital Signs - 24 hr 12/27/24 18:34 12/27/24 18:54 12/27/24 18:54 Temperature Pulse Rate 106 H 108 H Respiratory Rate 18 Blood Pressure 114/56 L Pulse Oximetry 91 97 Oxygen Delivery Room Air Nasal Cannula Oxygen Flow Rate 4 12/27/24 18:54 12/27/24 19:31 Temperature 99.6 F Pulse Rate 100 Respiratory Rate 24 H Blood Pressure 125/70 Pulse Oximetry 97 100 Oxygen Delivery Nasal Cannula Oxygen Flow Rate 4 Exam Narrative: General: Moderately ill-appearing gentleman the semi-Batista position in bed. Weight: 109 kg. BMI: 34.5. HEENT: Normocephalic, atraumatic. Pupils are approximately 4 mm and are react ghassan. Conjunctiva mildly injected. Tacky mucous membranes. Neck: Supple. No midline vertebral tenderness. Respiratory: Respirations are nonlabored. Lung sounds are a bit diminished due to poor effort but otherwise sound clear to auscultation. Cardiovascular: Regular rate and rhythm with S1-S2. Gastrointestinal: Abdomen is soft, nontender, and nondistended with positive bowel sounds. Skin: Warm and dry. Extremities: No cyanosis, clubbing, or significant edema. Radial and pedal pulses intact. Neurological: Alert to self. He attempts to answer questions. Does not follow commands. Cranial nerves 2-12 are grossly intact. No facial asymmetry. Seems to have right-sided weakness. Psychiatric: Postictal but alert and cooperative. H&P: Results Labs Labs: Short CBC 12/27/24 Range/Units 19:19 WBC 10.0 (4.5-10.0) K/mm3 Hgb 13.3 L (14.0-18.0) g/dL Hct 41.6 L (42.0-52.0) % Plt Count 167 (150-375) k/mm3 BMP 12/27/24 19:19 Sodium 140 Potassium 4.4 Chloride 106 Carbon Dioxide 24 BUN 23 H Creatinine 0.81 Glucose 151 H Calcium 9.2 Liver Function 12/27/24 Range/Units 19:19 Total Bilirubin 0.4 (0.2-1.3) mg/dL AST 26 (17-59) U/L ALT 24 (6-50) U/L Alkaline Phosphatase 63 (38-126) U/L Albumin 4.5 (3.5-5.1) g/dL Urine 12/27/24 Range/Units 21:15 Urine Color Yellow (Yellow) Urine Appearance Clear (Clear) Urine pH 5.5 (5.0-9.0) Ur Specific [place] 1.029 (1.001-1.035) Urine Protein 2+ H (Negative) mg/dL Urine Glucose (UA) Negative (Negative) mg/dL Imaging Chest X-Ray 12/27/24 19:18 IMPRESSION: Persistent/recurrent subsegmental left basilar atelectasis/consolidation and small left pleural effusion versus pleural scar. Head CT 12/27/24 21:07 IMPRESSION: No acute intracranial process. Assessment and Plan Assessment and plan (1) Breakthrough seizure: Code(s): G40.919 - Epilepsy, unspecified, intractable, without status epilepticus Status: Acute (2) Hypertension: Code(s): I10 - Essential (primary) hypertension Status: Acute (3) Hyperlipidemia: Code(s): E78.5 - Hyperlipidemia, unspecified Status: Acute (4) Depression: Code(s): F32.A - Depression, unspecified Status: Acute Plan The patient presented to the emergency department for evaluation of 2 seizures today, the most recent lasting approximately 10 minutes, as detailed in HPI. Labs, imaging, EKG, and all reports were personally reviewed. He was loaded with levetiracetam 2000 mg and was given lorazepam 4 mg and he has not had any further seizure activity. Last month he was in status epilepticus and he is being admitted overnight to ensure that he remains seizure-free. Dr. Leach recommends increasing his lacosamide dose and neurology will see the patient tomorrow. Vital signs have been stable. Chronic conditions including depression and hyperlipidemia are without issues. His home medications will be reviewed and resumed as appropriate. The patient's medical management will be taken over by the hospitalist team in a.m. Quality VTE Prophylaxis VTE prophylaxis: mechanical ordered If No VTE Prophylaxis Answer both mechanical and pharmacologic: Reason no pharmacologic proph: medical contraindication (fall risk) The patient has been admitted under observation status. Hospitalist MIPS Advance Care Plan I have confirmed that the patient's Advanced Care Plan is present, code status is documented, or surrogate decision maker is listed in patient medical record.: Yes Medication Reconciliation I have utilized all available resources to obtain, update and review the pa anabels current medications (includes all prescriptions, OTC, herbals, cannabis, and nutritional supplements).: Yes
[2024-12-27] MEDS: LACOSAMIDE (*CRX) 50 MG TABLET 150 MG PO (22:43)
--- NOTE | 2024-12-27 23:52 | ADMGEN ---
This patient, Maldonado Schuler, was admitted to 2 Medical Room 255-01. Patient/family oriented to hospital policies and general routines including ID bracelet, bed and alarms, visiting hours, pain management, procedures, bathroom and other care routines, personal items, smoking policy, room service/diet, and visiting hours. Information on how to activate the Rapid Response Team has been discussed. Patient/Family are encouraged to report perceived risks to care and to ask questions if they do not understand what they are told or what they should do.
[2024-12-28] VITALS (11 sets, daily range): BP systolic 121–126; BP diastolic 56–65; PULSE 71–82; RESP 16–20; TEMP 36.5–36.8; O2SAT 97–100
[2024-12-28 05:24] LABS: Hematocrit 38.5 % (42.0-52.0); Hemoglobin 12.2 g/dL (14.0-18.0); Mean Corpuscular HGB Conc 31.7 g/dl (32-36); Mean Corpuscular Hemoglobin 29.2 pg (26-34); Mean Corpuscular Volume 92.1 fl (80-100); Platelet Count Result 148 k/mm3 (150-375); Red Blood Count 4.18 M/mm3 (4.6-6.20); Red Cell Distribution Width 12.3 % (11.5-14.5); White Blood Count 6.2 K/mm3 (4.5-10.0)
[2024-12-28 05:39] LABS: Anion Gap 8 mmol/L (4-12); Blood Urea Nitrogen 19 mg/dL (9-20); Calcium 8.7 mg/dL (8.4-10.2); Carbon Dioxide 25 mmol/L (22-30); Chloride 105 mmol/L (98-107); Estimated CRCL calculation 92 ml/min; Estimated Glomerular Filt Rate > 60; Glucose 115 mg/dL (65-110); Magnesium 1.6 mg/dL (1.6-2.3); Potassium 3.9 mmol/L (3.4-5.0); Sodium 138 mmol/L (137-145)
--- NOTE | 2024-12-28 08:20 | P.PNIM_ITS ---
Progress Note: A&P Assessment and Plan (1) Breakthrough seizure: Code(s): G40.919 - Epilepsy, unspecified, intractable, without status epilepticus Status: Acute Assessment and Plan: Pt to the ED after evaluation of 2 seizures on 12/27 at [place], the most recent lasting approximately 10 minutes -Pt loaded with levetiracetam 2000 mg in the ED and was given lorazepam 4 mg and he has not had any further seizure activity -Of note: October 2024 he was in status epilepticus and transferred to [facility]. Pt is being admitted overnight to ensure that he remains seizure-free. -Per neuro: Dr. Leach recommends increasing his lacosamide dose and neurology will see the patient 12/28 As of today, 12/28, per nursing no more seizure like activity. -Dr. Phillips came into the room while I was finishing my exam and he said the p roma was to continue on with his 2g Keppra BID and with the increased lacosamide dose of 100mg. Agrees with the plan for overnight observation since increasing lacosamide dose. Plan for D/C back to [facility] tomorrow if overnight goes well. (2) Hypertension: Code(s): I10 - Essential (primary) hypertension Status: Acute Assessment and Plan: VSS, will continue to monitor -Continue home meds (3) Hyperlipidemia: Code(s): E78.5 - Hyperlipidemia, unspecified Status: Acute Assessment and Plan: Continue home meds (4) Depression: Code(s): F32.A - Depression, unspecified Status: Acute Assessment and Plan: Continue home meds Plan Overnight observation since increase in medication, likely D/C back to [facility] tomorrow. Subjective Date/time seen: 12/28/24 1240 Interval history: Per admitting hospitalist: This is a 61-year-old male with history of seizures, cerebrovascular accident with right-sided weakness, hypertension, and hyperlipidemia who presented to the emergency department via EMS from [facility] for evaluation after a seizure. He is alert and oriented to self at the time my evaluation and thus a majority the following history is obtained via a review of his electronic medical records. He is only able to tell me his name and does not really answer questions or follow commands at this time. It is my understanding that he had 2 seizures today, 1 this morning lasting about 30 seconds and another evening which lasted about 10 minutes. Of note, he was transferred to neuro [facility] ICU on 11/08/2024 with status epilepticus. There were no reports of falls, head trauma, fever, vomiting, or diarrhea. In the ED: He was afebrile on arrival with stable vital signs. Labs were pretty unremarkable and similar to his baseline. Lactic acid level was normal. Head CT showed no acute findings. He was given levetiracetam 2000 mg and lorazepam 4 mg and he is being admitted in this setting for close monitoring to ensure that he does not have a recurrent seizure overnight. ED physician spoke with on-call neurologist Dr. Leach and he recommended increasing his lacosamide dose. 6/3 AM: Pt extremely cheerful upon walking into his room quickly asking if he could go home to see my babies. Unable to determine if he is at his baseline or not. He is able to tell me who he is, where he is, and where he lives, but not why he is here. Slight weakness in the RUE and LLE, 4/5, sensation intact. Pt denies being in any pain. Dr. Phillips came into the room while I was finishing my exam and he said the plan was to continue on with his 2g Keppra BID and with the increased lacosamide dose of 100mg. Agrees with the plan for overnight observation since increasing lacosamide dose. Plan for D/C back to [facility] tomorrow. Review of Systems Review of Systems: Unable to obtain accurately given postictal state. Exam Const: General: comfortable and no acute distress Other: Disheveled HENMT: Face/Nose/Sinus: Normal nares present Mouth: Yes moist mucous membranes Eyes: Other: Conjunctiva injected bilaterally Pupils are approximately 3 mm and are reactive. Neck: Neck: supple and no JVD Carotids: no bruits Resp: Effort & Inspection: normal respiratory effort Auscultation: diminished lung sounds (mildly throughout) Cardio: Rate: regular rate Rhythm: regular rhythm GI: Inspection: non-distended Auscultation: normal bowel sounds Other: Round abd Skin: General skin exam: normal color and no rashes or lesions noted Neuro: Other: Unable to determine if he is at his baseline or not. He is able to tell me who he is, where he is, and where he lives, but not why he is here. Slight weakness in the RUE and LLE, 4/5, sensation intact. Follows commands. Extrem: General: normal to inspection, no edema and no pedal edema Psych: Affect: normal affect Other: Awake and alert, oriented x2-3 Objective Data Vital Signs Vital Signs: Vital Signs - 24 hr 12/27/24 18:34 12/27/24 18:54 12/27/24 18:54 Temperature Pulse Rate 106 H 108 H Respiratory Rate 18 Blood Pressure 114/56 L Pulse Oximetry 91 97 Oxygen Delivery Room Air Nasal Cannula Oxygen Flow Rate 4 12/27/24 18:54 12/27/24 19:17 12/27/24 19:31 Temperature 99.6 F Pulse Rate 99 100 Respiratory Rate 25 H 24 H Blood Pressure 127/74 125/70 Pulse Oximetry 97 100 100 Oxygen Delivery Nasal Cannula Oxygen Flow Rate 4 12/27/24 20:31 12/27/24 21:30 12/27/24 21:31 Temperature Pulse Rate 85 78 82 Respiratory Rate 21 H 17 18 Blood Pressure 129/79 117/64 Pulse Oximetry 100 100 99 Oxygen Delivery Oxygen Flow Rate 12/27/24 22:01 12/27/24 22:02 12/27/24 22:15 Temperature Pulse Rate 86 82 79 Respiratory Rate 17 17 15 Blood Pressure 122/74 Pulse Oximetry 100 99 94 Oxygen Delivery Oxygen Flow Rate 12/27/24 22:16 12/27/24 22:30 12/27/24 22:31 Temperature Pulse Rate 79 79 78 Respiratory Rate 16 17 18 Blood Pressure 122/65 120/63 Pulse Oximetry 100 100 100 Oxygen Delivery Oxygen Flow Rate 12/27/24 22:45 12/27/24 22:46 12/28/24 00:00 Temperature Pulse Rate 77 81 73 Respiratory Rate 15 16 Blood Pressure 129/73 Pulse Oximetry 97 100 Oxygen Delivery Oxygen Flow Rate 12/28/24 00:41 12/28/24 04:00 12/28/24 06:00 Temperature 97.7 F 97.9 F Pulse Rate 75 73 80 Respiratory Rate 20 20 Blood Pressure 122/56 L 122/56 L Pulse Oximetry 100 97 Oxygen Delivery Oxygen Flow Rate Intake/Output Intake/Output: Intake & Output 12/25/24 12/26/24 12/27/24 12/28/24 23:59 23:59 23:59 23:59 Intake Total 120 50 Output Total 200 Balance 120 -150 Meds/Results Medications: Active Medications Generic Name Dose Route Start Last Admin Trade Name Freq PRN Reason Stop Dose Admin Acetaminophen 650 mg 12/27/24 21:44 Acetaminophen 325 Mg Tablet PO Q4H PRN Mild Pain (1-3) or Fever Aspirin 81 mg 12/28/24 08:00 Aspirin 81 Mg Chewable Tablet PO DAILY@0800 COUNTS INCLUDE 234 BEDS AT THE [facility] Atorvastatin Calcium 80 mg 12/28/24 21:00 Atorvastatin 40 Mg Tablet PO HS COUNTS INCLUDE 234 BEDS AT THE [facility] Calcitriol 0.25 mcg 12/29/24 09:00 Calcitriol 0.25 Mcg Capsule PO WEEKLY COUNTS INCLUDE 234 BEDS AT THE [facility] Lacosamide 150 mg 12/28/24 09:00 Lacosamide (*Crx) 50 Mg Tablet PO Q12HR COUNTS INCLUDE 234 BEDS AT THE [facility] Levetiracetam 2,000 mg 12/28/24 09:00 Levetiracetam 500 Mg Tablet PO Q12HR COUNTS INCLUDE 234 BEDS AT THE [facility] Lisinopril 10 mg 12/28/24 09:00 Lisinopril 10 Mg Tablet PO DAILY COUNTS INCLUDE 234 BEDS AT THE [facility] Lorazepam 2 mg 12/27/24 22:51 Lorazepam (*Crx) 1 Mg Tablet PO Q2H PRN Seizure Activity Ondansetron HCl 4 mg 12/27/24 21:44 Ondansetron Inj 4 Mg/2 Ml Vial IV PUSH Q4H PRN Nausea Sertraline HCl 25 mg 12/28/24 09:00 Sertraline Hcl 25 Mg Tablet PO DAILY COUNTS INCLUDE 234 BEDS AT THE [facility] Vitamin D 125 mcg 12/28/24 09:00 Cholecalciferol (Vitamin D3) 125 Mcg (5,000 Units) Tablet PO DAILY COUNTS INCLUDE 234 BEDS AT THE [facility] Radiology Results: ITS Impressions Chest X-Ray 12/27/24 19:18 IMPRESSION: Persistent/recurrent subsegmental left basilar atelectasis/consolidation and small left pleural effusion versus pleural scar. Head CT 12/27/24 21:07 IMPRESSION: No acute intracranial process. Labs Labs: Laboratory Results - last 24 hr 12/27/24 12/27/24 12/28/24 19:19 21:15 05:09 WBC 10.0 6.2 RBC 4.54 L 4.18 L Hgb 13.3 L 12.2 L Hct 41.6 L 38.5 L MCV 91.6 92.1 MCH 29.3 29.2 MCHC 32.0 31.7 L RDW 12.2 12.3 Plt Count 167 148 L MPV 10.9 H 11.0 H Immature Gran % (Auto) 0.6 H Neut % (Auto) 88.5 H Lymph % (Auto) 5.5 L [place] % (Auto) 4.3 Eos % (Auto) 0.9 Baso % (Auto) 0.2 Lymph # (Auto) 0.55 L [place] # (Auto) 0.4 Eos # (Auto) 0.1 Baso # (Auto) 0.0 Abs Immat Gran (auto) 0.06 H Absolute Neuts (auto) 8.9 H Absolute Nucleated RBC 0.000 Nucleated RBC % 0.0 PT 13.9 INR 1.1 APTT 27.3 Sodium 140 138 Potassium 4.4 3.9 Chloride 106 105 Carbon Dioxide 24 25 Anion Gap 10 8 BUN 23 H 19 Creatinine 0.81 0.80 Estim Creat Clear Calc 94 92 Estimated GFR > 60 > 60 Glucose 151 H 115 H Lactic Acid 1.5 Calcium 9.2 8.7 Magnesium 1.6 Total Bilirubin 0.4 AST 26 ALT 24 Alkaline Phosphatase 63 Total Protein 7.0 Albumin 4.5 Urine Color Yellow Urine Appearance Clear Urine pH 5.5 Ur Specific [place] 1.029 Urine Protein 2+ H Urine Glucose (UA) Negative Urine Ketones Trace H Ur Blood (Man) Negative Urine Nitrate Negative Urine Bilirubin Negative Urine Urobilinogen 1.0 Leukocyte Esterase Rfl Trace H Urine RBC 0-2 Urine WBC 6-10 H Ur Squamous Epith Cells None seen Urine Bacteria None seen Urine Casts 0-2 Quality VTE Prophylaxis VTE prophylaxis: mechanical ordered
[2024-12-28] MEDS: levETIRAcetam 500 MG TABLET 2000 MG PO ×2 (08:28→20:12)
[2024-12-28] MEDS: CHOLECALCIFEROL (VITAMIN D3) 125 MCG (5,000 UNITS) TABLET PO (08:28)
[2024-12-28] MEDS: ASPIRIN 81 MG CHEWABLE TABLET PO (08:29)
[2024-12-28] MEDS: lisinopriL 10 MG TABLET PO (08:29)
[2024-12-28] MEDS: SERTRALINE HCL 25 MG TABLET PO (08:29)
[2024-12-28] MEDS: LACOSAMIDE (*CRX) 50 MG TABLET 150 MG PO ×2 (09:25→20:12)
--- NOTE | 2024-12-28 11:08 | WPDNEURCNPN ---
Assessment and Plan Assessment and plan (1) Breakthrough seizure: Code(s): G40.919 - Epilepsy, unspecified, intractable, without status epilepticus Status: Acute (2) Hemiplegia affecting right dominant side: Code(s): G81.91 - Hemiplegia, unspecified affecting right dominant side Status: Acute Plan 1 likely focal with secondary generalization because of the stroke and right hemiparesis. Patient has already been taking Keppra ,received the Versed by the EMS and subsequent ER visit has been continued on his medication that is Keppra and I have been told that he has been started on 2nd anticonvulsant by . Treatment will be continued as such. Consult date: 12/28/24 HPI: Maldonado Schuler is a 69 year old male admitted to the hospital through the emergency room where he presented actively seizing in addition to history of being epileptic and also history of recent cerebrovascular accident resulting in the hemiparesis. As per the information available he was receiving Keppra 2g twice a day, subsequently received 10mg Versed intramuscularly from EMS and reportedly had a 2nd seizure , he has had 2 other seizures at the facility. His medications included atorvastatin 80mg at night, calcitriol 0.25mcg p.o. weekly, carvedilol 6.25mg b.i.d., citalopram 10mg daily, levetiracetam 2000mg twice a day, lisinopril 10mg daily, and p.r.n. lorazepam, as mentioned above he has history of cerebrovascular accident with resultant hemiparesis and seizure disorder. History of years smoked 55 and currently being everyday smoker and on initial examination in the ER he was ill appearing was not able to communicate. His vital signs were with pulse of 106 respiration 18 blood pressure 114/56 CBC was normal ,BMP was normal ,and master scan was normal, CT scan of the head was negative for the bleed and chest x-ray was positive for persistent current subsegmental left basilar atelectasis and consolidation with small left pleural effusion. Review of Systems Review of Systems: All systems reviewed & are unremarkable except as noted in HPI and below PMFSH Past Medical History Medical History Depression Hypertension Cerebrovascular accident left occipital lobe stroke with right hemiparesis Epilepsy Hyperlipidemia Family History Family History Other Unknown family medical history Social History Social History Social History: Surrogate medical decision maker: Aisha Macedo, daughter ([phone]). Code status: Full code. Smoking packs per day: 0.5 Smoking cigarettes per day: 10.0 Years smoked: 55 Smoking pack-years: 27.50 Smoking status: Smoker, status unknown Alcohol intake: unknown Substance use: unknown Substance use type: unknown Lack of Transportation: No Lack of Food: Never True Current Housing: I Have Housing Concerned About Future Housing: No Difficulty Paying Gas/Electric Bills: No Difficulty Paying for Meds: No Currently Unemployed: No Education: Don't Know Difficulty w/ Childcare or Family Care: No Living arrangements: skilled nursing Additional living arrangements comments: [facility]. Spiritual care concerns: No Meds Home Medications and Allergies Home Medications ?Medication ?Instructions ?Recorded ?Confirmed ?Type atorvastatin 80 mg tablet 80 mg PO HS 12/05/21 12/28/24 History calcitriol 0.25 mcg capsule 0.25 mcg PO WEEKLY 12/05/21 12/28/24 History levetiracetam 1,000 mg tablet 2,000 mg PO BID 12/05/21 12/28/24 History lisinopril 10 mg tablet 10 mg PO DAILY 12/05/21 12/28/24 History acetaminophen 325 mg tablet 650 mg PO TID PRN Pain 11/17/22 12/28/24 History aspirin 81 mg chewable tablet 81 mg PO DAILY 11/17/22 12/28/24 History cholecalciferol (vitamin D3) 125 125 mcg PO DAILY 11/17/22 12/28/24 History mcg (5,000 unit) tablet lacosamide 100 mg tablet 100 mg PO Q12H 12/28/24 12/28/24 History sertraline 25 mg tablet 25 mg PO Q24H 12/28/24 12/28/24 History Allergies Allergy/AdvReac Type Severity Reaction Status Date / Time No Known Allergies Allergy Verified 12/27/24 19:03 Vital Signs Vital Signs - 24 hr 12/27/24 18:34 12/27/24 18:54 12/27/24 18:54 Temperature Pulse Rate 106 H 108 H Respiratory Rate 18 Blood Pressure 114/56 L Pulse Oximetry 91 97 Oxygen Delivery Room Air Nasal Cannula Oxygen Flow Rate 4 12/27/24 18:54 12/27/24 19:17 12/27/24 19:31 Temperature 37.6 C Pulse Rate 99 100 Respiratory Rate 25 H 24 H Blood Pressure 127/74 125/70 Pulse Oximetry 97 100 100 Oxygen Delivery Nasal Cannula Oxygen Flow Rate 4 12/27/24 20:31 12/27/24 21:30 12/27/24 21:31 Temperature Pulse Rate 85 78 82 Respiratory Rate 21 H 17 18 Blood Pressure 129/79 117/64 Pulse Oximetry 100 100 99 Oxygen Delivery Oxygen Flow Rate 12/27/24 22:01 12/27/24 22:02 12/27/24 22:15 Temperature Pulse Rate 86 82 79 Respiratory Rate 17 17 15 Blood Pressure 122/74 Pulse Oximetry 100 99 94 Oxygen Delivery Oxygen Flow Rate 12/27/24 22:16 12/27/24 22:30 12/27/24 22:31 Temperature Pulse Rate 79 79 78 Respiratory Rate 16 17 18 Blood Pressure 122/65 120/63 Pulse Oximetry 100 100 100 Oxygen Delivery Oxygen Flow Rate 12/27/24 22:45 12/27/24 22:46 12/28/24 00:00 Temperature Pulse Rate 77 81 73 Respiratory Rate 15 16 Blood Pressure 129/73 Pulse Oximetry 97 100 Oxygen Delivery Oxygen Flow Rate 12/28/24 00:41 12/28/24 04:00 12/28/24 06:00 Temperature 36.5 C 36.6 C Pulse Rate 75 73 80 Respiratory Rate 20 20 Blood Pressure 122/56 L 122/56 L Pulse Oximetry 100 97 Oxygen Delivery Oxygen Flow Rate 12/28/24 08:03 12/28/24 08:29 Temperature Pulse Rate 71 Respiratory Rate 20 Blood Pressure Pulse Oximetry 97 Oxygen Delivery Nasal Cannula Oxygen Flow Rate 3 Exam Narrative: reveals him head normocephalic with no bruit, ear nose throat examination normal, neck supple with no meningeal signs ,,heart regular with no murmur lungs clear to auscultation with no rhonchi or crepitations ,abdomen soft nontender, neurologically was easily awake arousable, was unable to understand the verbal commands, because of language problem ,pupils were round regular ,alonso of the vision were full to threat stimuli ,extraocular movements were full with no spontaneous nystagmus, facial sensation intact ,face symmetrical ,tongue midline motor examination revealed him to have right hemiparesis with hyperreflexia and upgoing plantar responses. He was unable to cooperate for the cerebellar exam he moved upper and lower extremities spontaneously there was no spontaneous ataxia. Results Labs 12/28/24 05:09 12/28/24 05:09 Labs: Short CBC 12/27/24 12/28/24 Range/Units 19:19 05:09 WBC 10.0 6.2 (4.5-10.0) K/mm3 Hgb 13.3 L 12.2 L (14.0-18.0) g/dL Hct 41.6 L 38.5 L (42.0-52.0) % Plt Count 167 148 L (150-375) k/mm3 BMP 12/27/24 12/28/24 19:19 05:09 Sodium 140 138 Potassium 4.4 3.9 Chloride 106 105 Carbon Dioxide 24 25 BUN 23 H 19 Creatinine 0.81 0.80 Glucose 151 H 115 H Calcium 9.2 8.7 Liver Function 12/27/24 Range/Units 19:19 Total Bilirubin 0.4 (0.2-1.3) mg/dL AST 26 (17-59) U/L ALT 24 (6-50) U/L Alkaline Phosphatase 63 (38-126) U/L Albumin 4.5 (3.5-5.1) g/dL Urine 12/27/24 Range/Units 21:15 Urine Color Yellow (Yellow) Urine Appearance Clear (Clear) Urine pH 5.5 (5.0-9.0) Ur Specific [place] 1.029 (1.001-1.035) Urine Protein 2+ H (Negative) mg/dL Urine Glucose (UA) Negative (Negative) mg/dL
[2024-12-28 19:13] LABS: Thyroid Stimulating Hormone Reflex 0.225 uIU/mL (0.465-4.68)
[2024-12-28] MEDS: ATORVASTATIN 40 MG TABLET 80 MG PO (20:12)
[2024-12-29 00:04] VITALS: PULSE 79
[2024-12-29 04:02] VITALS: PULSE 72
[2024-12-29 05:31] VITALS: BP 135/67; PULSE 83; RESP 20; TEMP 36.4; O2SAT 96
[2024-12-29 08:00] VITALS: PULSE 71
[2024-12-29] MEDS: calcitrioL 0.25 MCG CAPSULE PO (08:24)
[2024-12-29] MEDS: lisinopriL 10 MG TABLET PO (08:24)
[2024-12-29] MEDS: levETIRAcetam 500 MG TABLET 2000 MG PO (08:24)
[2024-12-29] MEDS: SERTRALINE HCL 25 MG TABLET PO (08:24)
[2024-12-29] MEDS: CHOLECALCIFEROL (VITAMIN D3) 125 MCG (5,000 UNITS) TABLET PO (08:24)
[2024-12-29] MEDS: ASPIRIN 81 MG CHEWABLE TABLET PO (08:24)
[2024-12-29] MEDS: LACOSAMIDE (*CRX) 50 MG TABLET 150 MG PO (08:24)
[2024-12-29 10:05] LABS: Basophils Percent Auto 0.3 % (0.2-1.2); Eosinophils Absolute Auto 0.3 K/mm3 (0-0.3); Eosinophils Percent Auto 4.4 % (0-4.4); Hematocrit 38.7 % (42.0-52.0); Hemoglobin 12.3 g/dL (14.0-18.0); Immature Granulocyte Absolute 0.05 K/mm3 (0.00-0.031); Immature Granulocyte Percent A 0.8 % (0-0.5); Immature Platelet Fraction Pct 6.6 % (0.9-11.2); Lymphocytes Absolute Auto 1.78 K/mm3 (0.9-3.2); Lymphocytes Percent Auto 28.8 % (18.3-44.2); Mean Corpuscular HGB Conc 31.8 g/dl (32-36); Mean Corpuscular Hemoglobin 28.9 pg (26-34); Mean Corpuscular Volume 91.1 fl (80-100); Mean Platelet Volume 11.2 fl (7.4-10.4); Monocytes Absolute Auto 0.6 K/mm3 (0.1-0.6); Neutrophils Absolute Auto 3.4 K/mm3 (1.3-6.7); Neutrophils Percent Auto 55.7 % (45.5-73.1); Platelet Count Result 148 k/mm3 (150-375); Red Blood Count 4.25 M/mm3 (4.6-6.20); Red Cell Distribution Width 12.6 % (11.5-14.5); White Blood Count 6.2 K/mm3 (4.5-10.0)
[2024-12-29 10:21] LABS: Alanine Aminotransferase 26 U/L (6-50); Alkaline Phosphatase 57 U/L (38-126); Anion Gap 7 mmol/L (4-12); Aspartate Amino Transferase 32 U/L (17-59); Bilirubin,Total 0.4 mg/dL (0.2-1.3); Blood Urea Nitrogen 15 mg/dL (9-20); Calcium 9.3 mg/dL (8.4-10.2); Carbon Dioxide 24 mmol/L (22-30); Chloride 105 mmol/L (98-107); Estimated CRCL calculation 102 ml/min; Estimated Glomerular Filt Rate > 60; Glucose 154 mg/dL (65-110); Magnesium 1.7 mg/dL (1.6-2.3); Potassium 3.9 mmol/L (3.4-5.0); Sodium 136 mmol/L (137-145); Total Protein 6.8 g/dL (6.3-8.2)
--- NOTE | 2024-12-29 11:55 | P.PNIM_ITS ---
Subjective Date/time seen: 12/29/24 11:55 Review of Systems Review of Systems: All systems reviewed & are unremarkable except as noted in HPI and below Objective Data Vital Signs Vital Signs: Vital Signs - 24 hr 12/28/24 12:03 12/28/24 14:00 12/28/24 16:03 Temperature 97.7 F Pulse Rate 71 82 79 Respiratory Rate 16 Blood Pressure 121/57 L Pulse Oximetry 99 Oxygen Delivery 12/28/24 19:31 12/28/24 20:00 12/28/24 20:01 Temperature 98.2 F Pulse Rate 73 72 Respiratory Rate 20 Blood Pressure 126/65 Pulse Oximetry 98 Oxygen Delivery Room Air 12/29/24 00:04 12/29/24 04:02 12/29/24 05:31 Temperature 97.6 F Pulse Rate 79 72 83 Respiratory Rate 20 Blood Pressure 135/67 Pulse Oximetry 96 Oxygen Delivery 12/29/24 08:00 Temperature Pulse Rate 71 Respiratory Rate Blood Pressure Pulse Oximetry Oxygen Delivery Intake/Output Intake/Output: Intake & Output 12/26/24 12/27/24 12/28/24 12/29/24 23:59 23:59 23:59 23:59 Intake Total 120 1130 630 Output Total 1250 600 Balance 120 -120 30 Meds/Results Medications: Active Medications Generic Name Dose Route Start Last Admin Trade Name Vinceq PRN Reason Stop Dose Admin Acetaminophen 650 mg 12/27/24 21:44 Acetaminophen 325 Mg Tablet PO Q4H PRN Mild Pain (1-3) or Fever Aspirin 81 mg 12/28/24 08:00 12/29/24 08:24 Aspirin 81 Mg Chewable Tablet PO 81 mg DAILY@0800 EMIL Administration Atorvastatin Calcium 80 mg 12/28/24 21:00 12/28/24 20:12 Atorvastatin 40 Mg Tablet PO 80 mg HS EMIL Administration Calcitriol 0.25 mcg 12/29/24 09:00 12/29/24 08:24 Calcitriol 0.25 Mcg Capsule PO 0.25 mcg WEEKLY EMIL Administration Lacosamide 150 mg 12/28/24 09:00 12/29/24 08:24 Lacosamide (*Crx) 50 Mg Tablet PO 150 mg Q12HR EMIL Administration Levetiracetam 2,000 mg 12/28/24 09:00 12/29/24 08:24 Levetiracetam 500 Mg Tablet PO 2,000 mg Q12HR EMIL Administration Lisinopril 10 mg 12/28/24 09:00 12/29/24 08:24 Lisinopril 10 Mg Tablet PO 10 mg DAILY EMIL Administration Lorazepam 2 mg 12/27/24 22:51 Lorazepam (*Crx) 1 Mg Tablet PO Q2H PRN Seizure Activity Ondansetron HCl 4 mg 12/27/24 21:44 Ondansetron Inj 4 Mg/2 Ml Vial IV PUSH Q4H PRN Nausea Sertraline HCl 25 mg 12/28/24 09:00 12/29/24 08:24 Sertraline Hcl 25 Mg Tablet PO 25 mg DAILY EMIL Administration Vitamin D 125 mcg 12/28/24 09:00 12/29/24 08:24 Cholecalciferol (Vitamin D3) 125 Mcg (5,000 Units) Tablet PO 125 mcg DAILY EMIL Administration Radiology Results: ITS Impressions Chest X-Ray 12/27/24 19:18 IMPRESSION: Persistent/recurrent subsegmental left basilar atelectasis/consolidation and small left pleural effusion versus pleural scar. Head CT 12/27/24 21:07 IMPRESSION: No acute intracranial process. Labs Labs: Laboratory Results - last 24 hr 12/28/24 12/29/24 05:08 09:51 WBC 6.2 RBC 4.25 L Hgb 12.3 L Hct 38.7 L MCV 91.1 MCH 28.9 MCHC 31.8 L RDW 12.6 Plt Count 148 L MPV 11.2 H Immature Gran % (Auto) 0.8 H Neut % (Auto) 55.7 Lymph % (Auto) 28.8 [place] % (Auto) 10.0 H Eos % (Auto) 4.4 Baso % (Auto) 0.3 Lymph # (Auto) 1.78 [place] # (Auto) 0.6 Eos # (Auto) 0.3 Baso # (Auto) 0.0 Abs Immat Gran (auto) 0.05 H Absolute Neuts (auto) 3.4 Absolute Nucleated RBC 0.000 Nucleated RBC % 0.0 % Immature Plt Fraction 6.6 Sodium 136 L Potassium 3.9 Chloride 105 Carbon Dioxide 24 Anion Gap 7 BUN 15 Creatinine 0.73 Estim Creat Clear Calc 102 Estimated GFR > 60 Glucose 154 H Calcium 9.3 Magnesium 1.7 Total Bilirubin 0.4 AST 32 ALT 26 Alkaline Phosphatase 57 Total Protein 6.8 Albumin 4.0 TSH (Reflex) 0.225 L Free T4 1.20 Total T3 1.10
[2024-12-29 12:00] VITALS: PULSE 76
--- NOTE | 2024-12-29 13:41 | P.DS_ITS ---
DS: Admitting Diagnosis Discharge Date 12/29/2024 Admitting Diagnosis Seizure DS: Discharge Diagnosis Discharge Diagnosis (1) Seizure: Code(s): R56.9 - Unspecified convulsions Status: Acute (2) Hypertension: Code(s): I10 - Essential (primary) hypertension Status: Acute (3) Hyperlipidemia: Code(s): E78.5 - Hyperlipidemia, unspecified Status: Acute (4) Depression: Code(s): F32.A - Depression, unspecified Status: Acute DS: Summary Hospital Course Hospital Course: In the ED: He was afebrile on arrival with stable vital signs. Labs were pretty unremarkable and similar to his baseline. Lactic acid level was normal. Chest X- ray: Persistent/recurrent subsegmental left basilar atelectasis/consolidation and small left pleural effusion versus pleural scar. Head CT showed no acute findings. He was given levetiracetam 2000 mg and lorazepam 4 mg and he was admitted in this setting for close monitoring to ensure that he does not have a recurrent seizure overnight. ED physician spoke with on-call neurologist Dr. Leach and he recommended increasing his lacosamide dose. Patient tolerating dose increase of Lacosamide. Patient to follow up with Dr. Leach outpatient. Status at Discharge Overall status at discharge: patient is progressing back to baseline Time Spent with Patient Time attestation: Total time spent providing and/or coordinating discharge services: Time spent: Greater than 30 minutes Exam Const: General: comfortable and no acute distress Resp: Effort & Inspection: normal respiratory effort Auscultation: diminished lung sounds Cardio: Rate: regular rate Rhythm: regular rhythm Other: Telemetry- SR 78 GI: GI Palp: Yes Soft to palpation Auscultation: normal bowel sounds Extrem: General: no pedal edema Psych: Affect: normal affect Other: Oriented x 2. DS: Data Data Completed and Pending Labs on day of discharge: Labs from last 24 hours 12/29/24 12/28/24 09:51 05:08 WBC 6.2 RBC 4.25 L Hgb 12.3 L Hct 38.7 L MCV 91.1 MCH 28.9 MCHC 31.8 L RDW 12.6 Plt Count 148 L MPV 11.2 H Immature Gran % (Auto) 0.8 H Neut % (Auto) 55.7 Lymph % (Auto) 28.8 Casey % (Auto) 10.0 H Eos % (Auto) 4.4 Baso % (Auto) 0.3 Lymph # (Auto) 1.78 Casey # (Auto) 0.6 Eos # (Auto) 0.3 Baso # (Auto) 0.0 Abs Immat Gran (auto) 0.05 H Absolute Neuts (auto) 3.4 Absolute Nucleated RBC 0.000 Nucleated RBC % 0.0 % Immature Plt Fraction 6.6 Sodium 136 L Potassium 3.9 Chloride 105 Carbon Dioxide 24 Anion Gap 7 BUN 15 Creatinine 0.73 Estim Creat Clear Calc 102 Estimated GFR > 60 Glucose 154 H Calcium 9.3 Magnesium 1.7 Total Bilirubin 0.4 AST 32 ALT 26 Alkaline Phosphatase 57 Total Protein 6.8 Albumin 4.0 TSH (Reflex) 0.225 L Free T4 1.20 Total T3 1.10 Discharge Plan Discharge Attending physician on discharge: Eliu Hahn Consulting providers: Lorena Leach Discharging Clinician: Christy Johnson Anticipated Discharge Date/Time: 12/29/24 14:30 Patient Disposition: NH Group Home/Asst Living Activity: may shower and as tolerated Diet: heart healthy Discharge Instructions: * Follow up with Neurologist Dr. Leach outpatient. * Take medication as prescribed. * Report any new seizures to Dr. Leach's office. Thank you for entrusting [facility] with your healthcare! Patient Instructions: Antibiotic Form, Heart Healthy Diet (DC), Recurrent Seizures in Adults (DC) Patient Language: Czech Stand Alone Forms: General Discharge Information Follow-up/Referrals: Lorena Leach MD [Physician] - 2 Weeks Discharge Medications: New lacosamide [Vimpat] 150 mg tablet 150 mg PO Q12HR Qty: 60 0RF Continued aspirin 81 mg Tablet,Chewable 81 mg PO DAILY cholecalciferol (vitamin D3) 125 mcg (5,000 unit) Tablet 125 mcg PO DAILY acetaminophen 325 mg Tablet 650 mg PO TID PRN (Reason: Pain) Rx Instructions: pain or temp lisinopril 10 mg Tablet 10 mg PO DAILY calcitriol 0.25 mcg Capsule 0.25 mcg PO WEEKLY Rx Instructions: administer on Friday atorvastatin 80 mg Tablet 80 mg PO HS levetiracetam 1,000 mg Tablet 2,000 mg PO BID sertraline 25 mg tablet 25 mg PO Q24H Discontinued lacosamide 100 mg tablet 100 mg PO Q12H Date of admission: 12/28/24 08:41 Primary Care Provider: UNKNOWN,DOCTOR Admitting Provider: Enedina Arellano Attending physician on admission: Gabriella Radford Condition: Improved Hospitalist MIPS Heart Failure (Exclusion) Patient has history of Heart Transplant or Left Ventricular Assistive Device?: No IF YES, STOP HERE Heart Failure (Qualifier) Patient has current or prior documentation of LVEF less than or equal to 40%, or mod/servere depressed LVSF?: No IF NO, STOP HERE
[2024-12-29 14:00] VITALS: BP 114/60; PULSE 80; RESP 18; TEMP 36.4; O2SAT 96
== END 2024-12-29 16:15 | DRG 101 ==
LOC: ANHED 22:15 → ANH2MED 22:16
PROVIDERS: Physician Assistant; Admitting Provider Internal Medicine; Emergency Provider Emergency Medicine; Visit Provider Nurse Practitioner Family
DX: G40.909 Epilepsy, unspecified, not intractable, without status epilepticus (principal); I69.351 Hemiplegia and hemiparesis following cerebral infarction affecting right dominant side; I10 Essential (primary) hypertension; E78.5 Hyperlipidemia, unspecified; F32.A Depression, unspecified; F17.210 Nicotine dependence, cigarettes, uncomplicated
CPT/HCPCS: 36415; 70450; 71045; 80048; 80053; 81001; 83605; 83735; 84439; 84443; 84480; 85025; 85027; 85055; 85610; 85730; 87086; 93005; 96361; 96374; 96375; 99285; A9270; G0378; J1953; J2060; J7030

== ENCOUNTER 2025-02-15 17:01 | Inpatient (IN) | payer OTHER, SELFPAY ==
[2025-02-15] VITALS (43 sets, daily range): BP systolic 84–140; BP diastolic 59–128; PULSE 85–162; RESP 16–40; TEMP 38.1–40.1; O2SAT 90–100; BMI 31.1
--- NOTE | ~2025-02-15 | XR_ITS ---
EXAMINATION: XR chest port-a-cath/central Exam Date/Time: 02/15/2025 20:30 CDT HISTORY: CENTRAL LINE PLACEMENT Comparison: Same date at 5:42 PM. RESULT: Lines, tubes, and devices: Stable endotracheal tube terminating 1.2 cm above the geovani. Subdiaphrag matic NG tube. New left subclavian central line terminating at the junction of the superior vena cava and brachiocephalic veins. Lungs and pleura: Bilateral dependent consolidation, slightly increased in the left medial base. Cardiomediastinal silhouette: Stable. Other: No acute osseous or upper abdominal finding. IMPRESSION: New left subclavian central line terminating at the junction of the brachycephalic vein and superior vena cava. No pneumothorax. Stable endotracheal tube. Subdiaphragmatic NG tube. Slightly increased segmental left medial basilar consolidation. Stable subsegmental right medial basi lar consolidation. Reviewed, dictated and finalized at location K. IMPRESSION: New left subclavian central line terminating at the junction of the brachycepha lic vein and superior vena cava. No pneumothorax. Stable endotracheal tube. Subdiaphragmatic NG tube. Slightly increased segmental left medial basilar consolidation. Stable subsegme ntal right medial basilar consolidation.
--- NOTE | ~2025-02-15 | XR_ITS ---
CHEST RADIOGRAPH CLINICAL HISTORY: Seizure, ET TUBE PLACEMENT . COMPARISON: 11/08/2024 TECHNIQUE: Single portable view of the chest. FINDINGS Endotracheal tube identified with its tip projecting on 11.2 mm above the base of the geovani for whic h withdrawal approximately 2.5 cm is recommended for optimal radiographic placement. The remainder of the cardiomediastinal silhouette is otherwise unremarkable. Blunting of the left costophrenic sulcus is present suggesting a left-sided pleural effusion. The remainder of the lungs are clear. IMPRESSION: Endotracheal tube tip projecting on 11.2 mm above the base of the geovani for which withdrawal of appr oximately 2.5 cm is recommended for optimal radiographic placement. Left-sided pleural effusion. The remainder of the lungs are clear. Reviewed, dictated and finalized at location A. IMPRESSION: Endotracheal tube tip projecting on 11.2 mm above the base of the geovani for wh ich withdrawal of approximately 2.5 cm is recommended for optimal radiographic placement. Left-sided pleural effusion. The remainder of the lungs are clear.
--- NOTE | ~2025-02-15 | CT_ITS ---
EXAMINATION: CT cervical spine wo con DATE: 02/15/2025 19:32 INDICATION: seizure TECHNIQUE: Computed tomography (CT) of the cervical spine was performed with intravenous contrast. Au tomated exposure control and iterative reconstruction technique were employed. The dose-length produc t was 555.87 mGy-cm. COMPARISON: None. FINDINGS: Vertebral Body Alignment: Intact. Craniocervical and atlantoaxial alignment: Mild degenerative change. Alignment intact. Osseous structures/fracture: No evidence of a lytic or blastic process in the visualized spine. No e vidence of acute fracture. Cervical soft tissues: The paraspinal soft tissues planes are maintained. A nasogastric tube coils in the oropharynx, continues inferiorly, terminating out of the [id number]. Endotracheal tube, termi nating out of the [id number]. Degenerative changes: Degenerative changes, without severe neural foraminal or central canal narrowin g. IMPRESSION: No acute fracture or traumatic malalignment in the cervical spine. Partially visualized endotracheal and nasogastric tubes. The nasogastric tube coils in the oropharynx . Reviewed, dictated and finalized at location K. IMPRESSION: No acute fracture or traumatic malalignment in the cervical spine. Partially visualized endotracheal and nasogastric tubes. The nasogastric tube c oils in the oropharynx.
--- NOTE | ~2025-02-15 | CT_ITS ---
EXAMINATION: CT brain wo con DATE: 02/15/2025 19:32 INDICATION: ams, sz . TECHNIQUE: Computed tomography (CT) of the head was performed without intravenous contrast. The mA wa s adjusted according to patient size. Iterative reconstruction technique was employed. The dose-lengt h product was 756.67 mGy-cm. COMPARISON: 12/27/2024. FINDINGS: No acute intracranial hemorrhage or extra-axial fluid collection. No hydrocephalus, mass, or herniation. No acute ischemic infarct. Unremarkable dural venous sinus attenuation. No acute osseous abnormality. Aerated secretions in the bilateral frontal and maxillary sinuses, pansinus mucosal thickening, small air-fluid level in the sphenoid sinus, the remaining aerated spaces are clear. Paranasal sinus fluid likely related to intubation. Left occipital encephalomalacia. IMPRESSION: No acute intracranial process. Reviewed, dictated and finalized at location K.
--- NOTE | ~2025-02-15 | XR_ITS ---
XR chest 1V portable 02/17/2025 06:49 Indication: Respiratory failure Procedure: AP portable chest Comparison: Comparison to multiple prior studies sequentially, with oldest reviewed study dated 02/15. Findings: NG tube in the stomach. Left subclavian central line tip in the SVC. Endotracheal tube tip 6.3 cm above the geovani. Cardiomegaly with mild interstitial edema without significant change. Focal consolidation in the left lung base. Small left pleural effusion. No pneumothorax. No acute osseous a bnormality. Impression: 1: Cardiomegaly with mild interstitial edema without significant change. 2: Focal consolidation left lung base may relate to edema, pneumonia and/or atelectasis. 3: Small left pleural effusion. Reviewed, dictated and finalized at location A. Impression: 1: Cardiomegaly with mild interstitial edema without significant change. 2: Focal consolidation left lung base may relate to edema, pneumonia and/or at electasis. 3: Small left pleural effusion.
--- NOTE | ~2025-02-15 | XR_ITS ---
XR chest 1V portable 02/18/2025 05:58 Indication: Respiratory failure Procedure: AP portable chest Comparison: Comparison to multiple prior studies sequentially, with oldest reviewed study dated 02/15. Findings: Left subclavian central line tip in the SVC. Cardiomegaly. Persistent unchanged interstitia l edema. Small pleural effusions. No pneumothorax. Persistent consolidation left lung base which may reflect edema or underlying pneumonia. Interval removal of endotracheal and NG tubes. Impression: 1: Stable chest. No significant interval change. Reviewed, dictated and finalized at location A. Impression: 1: Stable chest. No significant interval change.
--- NOTE | ~2025-02-15 | XR_ITS ---
XR chest 1V portable 02/16/2025 05:34 Indication: Respiratory failure Procedure: AP portable chest Comparison: Comparison to multiple prior studies sequentially, with oldest reviewed study dated 08/2024. Findings: Heart size upper normal. Mild interstitial edema. Small left pleural effusion. No pneumotho rax. Endotracheal tube tip 3.2 cm above the geovani. Central line tip in the SVC. NG tube tip in the s tomach. Impression: 1: Progression of interstitial edema. Stable small left effusion. Reviewed, dictated and finalized at location A. Impression: 1: Progression of interstitial edema. Stable small left effusion.
--- NOTE | ~2025-02-15 | CT_ITS ---
EXAMINATION: CTA chest PE abdomen pel DATE: 02/15/2025 19:49 INDICATION: ams, seizure, respiratory, fever TECHNIQUE: Computed tomography angiography (CTA) of the chest was performed with 100 mL Omnipaque-350 intravenous contrast timed to evaluate the pulmonary arteries, followed by portal venous phase imagi ng of the abdomen and pelvis. Coronal maximum intensity projection 3D-reconstructions were created by the technologist. The dose-length product (DLP) was 2294.14 mGy-cm. Automated exposure control and i terative reconstruction technique were employed. COMPARISON: CT C-spine, same date. FINDINGS: Examination limited by beam hardening from arm down positioning. CHEST: Lung parenchyma and airways: Moderate motion artifact. Bilateral dependent lower lobe consolidation, greater in the left lower lobe, with air bronchograms. Endotracheal tube terminates 1.7 cm above the geovani. Pleura: Unremarkable. Thoracic inlet, axillae and chest wall: No thyroid or soft tissue mass. Thoracic aorta: No significant dilation. No dissection. Bovine arch. Mild arch calcifications. Mediastinum: An NG tube terminates in the distal esophagus. No mediastinal lymphadenopathy. Ovoid low -density collection with circumscribed margins adjacent to the right lower esophagus, may represent a portion of a hiatal hernia, duodenal diverticulum, or duplication cyst. Heart and pericardium: Normal. Coronary artery calcifications: Moderate. Thoracic bones: No acute osseous finding. Pulmonary arteries: Study quality: Limited evaluation of the bilateral lower lobe segmental and subse gmental arteries secondary to motion and beam hardening. No pulmonary emboli detected in the adequate ly visualized vessels. ABDOMEN/PELVIS: Liver: Normal. Biliary/Gallbladder: Gallbladder is absent. No bile duct dilation. Pancreas: No mass or duct dilation. Spleen: Normal. Adrenals:No mass. Kidneys: No suspicious mass, obstructing stone, or hydronephrosis. Exophytic left lower pole simple c yst. Additional bilateral hypodensities, too small to characterize but most likely represent cysts. GI tract: No small or large bowel dilation. Normal appendix. Diverticulosis without diverticulitis. Mesentery/Peritoneum: No ascites, mass, or free air. Retroperitoneum: No mass. Pelvis: The urinary bladder is emptied by a Spencer catheter. Moderate urinary bladder wall thickening. Marked prostatomegaly. Soft Tissues: Small uncomplicated fat-containing umbilical and bilateral inguinal hernias Abdominopelvic bones: No acute osseous finding. Grade 1 anterolisthesis at L5-S1 with bilateral pars defects. IMPRESSION: Endotracheal tube terminates 1.7 cm above the geovani. Shallow positioned NG tube, consider advancing. Coiling of the tube noted in the oropharynx in the pr ior C-spine CT. Motion limited evaluation of the segmental and subsegmental bilateral lower lobe pulmonary arteries. No CT evidence of acute pulmonary embolus in the remaining adequately visualized vessels. Segmental bilateral medial and dependent consolidations, may represent pneumonia. A component of aspi ration may be present based on distribution. Lateral urinary bladder wall thickening may represent cystitis or chronic outlet obstruction from mar ked prostatomegaly. Reviewed, dictated and finalized at location K. IMPRESSION: Endotracheal tube terminates 1.7 cm above the geovani. Shallow positioned NG tube, consider advancing. Coiling of the tube noted in th e oropharynx in the prior C-spine CT. Motion limited evaluation of the segmental and subsegmental bilateral lower lob e pulmonary arteries. No CT evidence of acute pulmonary embolus in the remainin g adequately visualized vessels. Segmental bilateral medial and dependent consolidations, may represent pneumoni a. A component of aspiration may be present based on distribution. Lateral urinary bladder wall thickening may represent cystitis or chronic outle t obstruction from marked prostatomegaly.
--- NOTE | ~2025-02-15 | XR_ITS ---
EXAMINATION: XR chest ET placement Exam Date/Time: 02/15/2025 23:00 CDT HISTORY: ETT Repositioning Comparison: X-ray chest, same date at 8:36 PM and 5:42 PM; CT cap, same date. RESULT: Lines, tubes, and devices: Endotracheal tube now terminates 3.7 cm above the geovani. Stable left sub clavian central line. Subdiaphragmatic NG tube, in good position. Lungs and pleura: Unchanged segmental left medial basilar consolidation. Mild left costophrenic angl e blunting. Cardiomediastinal silhouette: Stable. Other: No acute osseous or upper abdominal finding. IMPRESSION: Endotracheal tube terminates 3.7 cm above the geovani. Stable left subclavian central line. NG tube, terminating over the stomach. Stable left medial basilar consolidation. Left costophrenic angle blunting may represent a developing small pleural effusion. Reviewed, dictated and finalized at location K.
--- NOTE | ~2025-02-15 | XR_ITS ---
EXAM: XR abdomen gastric tube insert DATE: 02/15/2025 20:09 HISTORY: OG placement . COMPARISON: 11/08/2024; CT cap, 02/13/2025. FINDINGS: Segmental right basilar medial consolidation. Partially visualized unremarkable bowel gas pattern. No organomegaly. No abnormal abdominal calcification. Regional bones and soft tissues normal for age. The NG tube tip projects over the fundus with the side-port just below the GE junction. IMPRESSION: NG tube, in good position. Reviewed, dictated and finalized at location K. IMPRESSION: NG tube, in good position.
[2025-02-15] MEDS: levETIRAcetam 500MG/NACL 100ML 500 MG/100 ML BAG 999 MG (17:08)
[2025-02-15] MEDS: levETIRAcetam 1000MG/NACL100ML 1,000 MG/100 ML BAG 999 MG (17:08)
--- OUTSIDE RECORDS SUMMARY | 2025-02-15 17:12 | XMS_ITS | Clinical Summary ---
Author Organization [facility] Address [address] [place] [address] Care Team Providers Care Automobile Wrecker Name Role Phone Nieves Patterson MD Unavailable [phone] Britney Woods RN Unavailable [phone] Marlene Mendoza PA-C Primary Care Provider Source Comments [facility],non-owned Affiliates and Associated Physician Practices is amultiple site organization consisting of ambulatory clinics and hospital sitesin [place], [place], [place] and [place]. This disclosure is being madepursuant to the Care Everywhere program and may not contain all information available regarding this patient. Last updated 18.[facility] Medications * Be aware that medications may [...] akinesis of ventricular wall suggesting a recent MA resulting in mural thrombus. 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 Plan of Treatment Health Maintenance Due Date [...] Additional history exists COVID-19 VACCINE ( - 2023- season) 2024 DEPRESSION SCREENING 07/28/2024 DIABETES - URINE PROTEIN SCREENING 07/28/2024 INFLUENZA VACCINE (#1) 2025 06/07/2017 Respiratory Syncytial Virus (RSV) Vaccine [...] 7 - 26 mg/dL 05/19/2019 8:06 AM [facility] Creatinine 0.8 0.6 - 1.2 mg/dL 05/19/2019 8:06 AM [facility] Sodium 142 136 - 145 mmol/L 05/19/2019 8:06 AM [facility] Potassium 3.6 3.5 - 4.5 mmol/L 05/19/2019 8:06 AM [facility] Chloride 110(H) 98 - 107 mmol/L 05/19/2019 8:06 AM [facility] CO2 25 22 - 29 mmol/L 05/19/2019 8:06 AM [facility] Glucose 85 70 - 115 mg/dL 05/19/2019 8:06 AM [facility] Calcium 8.6 8.4 - 10.2 mg/dL 05/19/2019 8:06 AM [facility] Anion Gap 11 8 - 18 05/19/2019 8:06 AM [facility] BUN/Creatinine Ratio 15 7 - 23 05/19/2019 8:06 AM [facility] Osmolality Calculated 293 270 - 300 mOsm/kg 05/19/2019 8:06 AM [facility] eGFR >60 >60 mL/min/1.7 3 m2 05/19/2019 8:06 AM [facility] Blood BLOOD SPECIMEN / Unknown Lab Venipuncture / Unknown 05/19/2019 7:00 AM CDT 05/19/2019 7:40 AM CDT Vinny Oconnor MD LAB - CHEMISTRY ORDERABLES Final Result [facility] [id number] [phone] * HEMOGLOBIN A1C (05/18/2019 4:41 AM CDT) Hemoglobin A1c 4.4 4.4 - 6.3 % 05/18/2019 10:45 AM CDT [facility] Estimated Average Glucose 80 mg/dL 05/18/2019 10:45 AM CDT [facility] Comment: HbA1c Interpretation: Treatment target values recommended by ADA and other clinical organizations should be used to evaluate metabolic control in patients. Treatment Target Values: Normal : < 5.7% Pre-diabetes: 5.7-6.4% Diabetes: Equal to or greater than 6.5% Reference: [place] [employer] Standards of Care in Diabetes -2014 In patients 70 years and older consider HbA1c target range of 7.0-7.5% Reference: Diabetes Mellitus in Older People: Position Statement on behalf of the International Association of Gerontology and Geriatrics (IAGG), the Diabetes Working Democrat for Older People (EDWPOP), and the International Task Force of Experts in Diabetes. Leonel Meraz, et al. J [place] [employer]. 2012 Test results diagnostic of diabetes should be repeated for confirmation. The Sebia Capillary 2 assay for the measurement of HbA1c is a National Glycohemoglobin Standardization Program (NGSP)certified method. Blood BLOOD SPECIMEN / Unknown Lab Venipuncture / Unknown 05/18/2019 4:41 AM CDT 05/18/2019 5:13 AM CDT us Vinny Oconnor MD LAB - CHEMISTRY ORDERABLES Final Result [place] [id number] [phone] from Last 3 Months or Most Recently Relevant to Health Maintenance Insurance MEDICARE MEDICAID [place]IT - [place] MEDICARE [facility] MEDICARE ADVANTAGE GENERIC MEDICAID - OUT OF STATE MEDICAID LIMITED BENEFIT - [place] MEDICARE SELF PAY NO INSURANCE Member Subscriber Plan / Payer (Ef fective for All Dates) Name:Maldonado Harmon Relation to Subscriber:Self Name:Maldonado Harmon Payer ID:Not on file Group ID:Not on file Type:Self Pay Address: [place], [place] MEDICAID - PENDING MEDICAID - PENDING [...] 2:55 AM 12/26/2014 4:55 PM Care Teams Automobile Wrecker Relationship Specialty Start Date End Date Marlene Mendoza PA-C [address] [place] [phone] PCP - General 11/14/21 Nieves Patterson MD [address] [place] [phone] Family Medicine 05/25/19 Britney Woods RN Certified Nurse 12/21/14
[2025-02-15] MEDS: LORazepam INJ (*CRX) 2 MG/ML VIAL 4 MG (17:13)
--- NOTE | 2025-02-15 17:14 | ECG_ITS ---
Test Date: 2025-02-15 17:09:45 Measurements Intervals [place] Rate: 161 P: 258 WI: 120 QRS: -72 QRSD: 107 T: 71 QT: 314 QTc: 514 Interpretive Statements UNCERTAIN REGULAR TACHYCARDIA LEFT AXIS DEVIATION [QRS AXIS < -30] LOW QRS VOLTAGE [QRS DEFLECTION < 0.5/1.0 mV IN LIMB/CHEST LEADS] ANTEROLATERAL MYOCARDIAL INFARCTION , OF INDETERMINATE AGE [40+ ms Q WAVE IN I/aVL/V3-V6] INFERIOR MYOCARDIAL INFARCTION, AGE UNDETERMINED ABNORMAL ECG Electronically Signed On 02-16-2025 09:59:10 CDT by Connor Espinoza M.D.
--- NOTE | 2025-02-15 17:47 | ED_ITS ---
HPI - Seizure General Chief Complaint: Seizure <Marlin Gabriel MD - Last Filed: 02/15/25 20:26> Stated Complaint: status epileptic <Marlin Gabriel MD - Last Filed: 02/15/25 20:26> Source: EMS <Marlin Gabriel MD - Last Filed: 02/15/25 20:26> Mode of arrival: EMS <Marlin Gabriel MD - Last Filed: 02/15/25 20:26> Limitations: clinical condition <Marlin Gabriel MD - Last Filed: 02/15/25 20:26> History of Present Illness HPI Narrative: Patient presents from [facility]. EMS was called for a code; when they got there they were told the patient was unresponsive and that he had a history of seizures and respiratory issues. He received 10mg IN Versed given he was nearly apneic/agonally breathing and was assisted with bag valve mask ventilation. He required a lot of suctioning and a 36Fr NPA was placed. BP 160/80 and BG 190mg/dL. He was incontinent of urine and feels warm to the touch. <Marlin Gabriel MD - Last Filed: 02/15/25 20:26> Seizure History: Yes <Marlin Gabriel MD - Last Filed: 02/15/25 20:26> Related Data Home Medications: Home Medications ?Medication ?Instructions ?Recorded ?Confirmed ?Last Taken ?Type atorvastatin 80 mg tablet 80 mg PO HS 12/05/21 12/28/24 Unknown History calcitriol 0.25 mcg capsule 0.25 mcg PO WEEKLY 12/05/21 12/28/24 Unknown History levetiracetam 1,000 mg tablet 2,000 mg PO BID 12/05/21 12/28/24 Unknown History lisinopril 10 mg tablet 10 mg PO DAILY 12/05/21 12/28/24 Unknown History acetaminophen 325 mg tablet 650 mg PO TID PRN Pain 11/17/22 12/28/24 Unknown History aspirin 81 mg chewable tablet 81 mg PO DAILY 11/17/22 12/28/24 Unknown History cholecalciferol (vitamin D3) 125 125 mcg PO DAILY 11/17/22 12/28/24 Unknown History mcg (5,000 unit) tablet sertraline 25 mg tablet 25 mg PO Q24H 12/28/24 12/28/24 Unknown History <Marlin Gabriel MD - Last Filed: 02/15/25 20:26> Allergies/Adverse Reactions: Allergies Allergy/AdvReac Type Severity Reaction Status Date / Time No Known Allergies Allergy Verified 12/27/24 19:03 <Marlin Gabriel MD - Last Filed: 02/15/25 20:26> PMFSH Past Medical History Medical History: Medical History Paroxysmal A-fib Vitamin D deficiency Depression Hypertension 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 Code status: Full code. Smoking packs per day: 0.5 Smoking cigarettes per day: 10.0 Years smoked: 55 Smoking pack-years: 27.50 Smoking status: Smoker, status unknown Alcohol intake: unknown Substance use: unknown Substance use type: unknown Lack of Transportation: No Lack of Food: Never True Current Housing: I Have Housing Concerned About Future Housing: No Difficulty Paying Gas/Electric Bills: No Difficulty Paying for Meds: No Currently Unemployed: No Education: Don't Know Difficulty w/ Childcare or Family Care: No Living arrangements: residential Additional living arrangements comments: [facility]. Spiritual care concerns: No <Marlin Gabriel MD - Last Filed: 02/15/25 20:26> Exam 2 Narrative: GENERAL: well-nourished; feels warm to the touch HEAD: Normocephalic, atraumatic. EYES: Non injected, non icteric. 4mm R pupil and 3mm L pupil, both reactive. ENT: Nares clear, no rhinorrhea or epistaxis. Frothy sputum in oropharynx. Upper dentures. NECK: No obvious deformity or marked swelling. CHEST: Being assisted with respirations by BVM but breathing at a rate in the 30s-40s. Coarse bilateral breath sounds. HEART: Tachycardic rate and rhythm. ABDOMEN: Soft, nondistended. No rigidity or guarding. Not peritoneal. EXTREMITIES: No lower extremity edema. SKIN: Warm, dry, no rash. : Normal external male genitalia NEURO: Unresponsive to painful stimuli. <Marlin Gabriel MD - Last Filed: 02/15/25 20:26> Course Course Emergency Course: Patient care signed over to me by previous provider at 7:00 p.m.. Patient initially came in with concerns for respiratory failure requiring intubation with history of epilepsy. No epileptic activity was reported by EMS or previous provider but patient did have frothy pulmonary secretions during BVM and during endotracheal intubation with concern for respiratory failure from possibly aspiration versus pneumonia versus heart failure exacerbation. BNP is negative, patient is septic appearing, elevated white count, tachypnea, febrile at 40.1? C. He was given rectal ibuprofen and additional IV Caldalor as he was having elevated temperatures. He is on broad-spectrum antibiotics at this time. Fluid resuscitation ordered as there is no clinical concern at this time for volume overload with his clinical exam findings showing dehydration, clinical hypovolemia, low BNP. Given patient's multiple medication requirements, additional sedation medications with Versed being added as propofol. A central venous catheter was placed for additional access. Left subclavian placed without difficulty. Confirmed on chest x-ray. Awaiting CT scans for final disposition admission to the ICU. Patient has multifocal pneumonia on the CT scan possibly component of aspiration per radiology read., cystitis seen. Patient is on broad-spectrum vancomycin and cefepime for antibiotics. Spoke to the ICU Dr. Long and we went over patient's clinical exam, historical features, current interventions and plan of care as well as history of seizures with consult with Neurology and their discussion. Patient was accepted to the ICU here. Awaiting discussion with the hospitalist. Discussed with the hospitalist with additional recommendations to send a manual urine culture as the Jang catheter that we inserted here was contaminated. Patient was accepted to the ICU at this time, placed on norepinephrine for blood pressures in the upper 80s low 90s. Adequate sedation achieved with propofol and Versed. Fluids given with additional L ordered. Patient transported upstairs to the ICU without further issue. <Jose Trivedi MD - Last Filed: 02/15/25 22:28> Vital Signs Vital signs: Vital Signs Pulse Rate 162 H 02/15/25 17:55 Pulse Oximetry 90 02/15/25 17:55 Oxygen Delivery Mechanical Ventilation 02/15/25 17:55 Fraction of Inspired Oxygen 60 02/15/25 17:55 Temperature 39.6 C H 02/15/25 20:46 Pulse Rate 108 H 02/15/25 22:03 Respiratory Rate 25 H 02/15/25 21:38 Blood Pressure 86/59 L 02/15/25 22:03 Pulse Oximetry 96 02/15/25 21:58 Oxygen Delivery Mechanical Ventilation 02/15/25 21:58 Fraction of Inspired Oxygen 40 02/15/25 21:58 <Marlin Gabriel MD - Last Filed: 02/15/25 20:26> Vital Signs Pulse Rate 162 H 02/15/25 17:55 Pulse Oximetry 90 02/15/25 17:55 Oxygen Delivery Mechanical Ventilation 02/15/25 17:55 Fraction of Inspired Oxygen 60 02/15/25 17:55 Temperature 39.6 C H 02/15/25 20:46 Pulse Rate 108 H 02/15/25 22:03 Respiratory Rate 25 H 02/15/25 21:38 Blood Pressure 86/59 L 02/15/25 22:03 Pulse Oximetry 96 02/15/25 21:58 Oxygen Delivery Mechanical Ventilation 02/15/25 21:58 Fraction of Inspired Oxygen 40 02/15/25 21:58 <Jose Trivedi MD - Last Filed: 02/15/25 22:28> Procedures Central Line Placement Left SC: Central Line Date: 02/15/25 <Jose Trivedi MD - Last Filed: 02/15/25 22:28> Central Line Time: 20:37 <Jose Trivedi MD - Last Filed: 02/15/25 22:28> Performed Emergently - Given emergent patient condition, temporal constraints may have precluded informed consent.: Yes <Jose Trivedi MD - Last Filed: 02/15/25 22:28> Time Out Performed: Yes <Jose Trivedi MD - Last Filed: 02/15/25 22:28> Patient Placed on Monitor/Pulse Ox: Yes <Jose Trivedi MD - Last Filed: 02/15/25 22:28> Max. Sterile Barrier Technique: Caps, large sterile sheet and hand hygiene <Jose Trivedi MD - Last Filed: 02/15/25 22:28> Central Line Prep: 2% chlorhexidine scrub and sterile drapes applied <Jose Trivedi MD - Last Filed: 02/15/25 22:28> Emergently Placed, Full Sterile: prep not done <Jose Trivedi MD - Last Filed: 02/15/25 22:28> Technique: seldinger <Jose Trivedi MD - Last Filed: 02/15/25 22:28> Local Anesthetic: lidocaine 1% <Jose Trivedi MD - Last Filed: 02/15/25 22:28> Amount of anesthesia used (mL): 3 <Jose Trivedi MD - Last Filed: 02/15/25 22:28> Ultrasound Used for Placement: Yes <Jose Trivedi MD - Last Filed: 02/15/25 22:28> Central Line Lumen Inserted: triple <Jose Trivedi MD - Last Filed: 02/15/25 22:28> Post Procedure: sutured in place, good blood return, all ports aspirated, flushed, capped and sterile dressing applied <Jose Trivedi MD - Last Filed: 02/15/25 22:28> Post Procedure X-Ray: tip of catheter in good position and no pneumothorax seen < Jose Trivedi MD - Last Filed: 02/15/25 22:28> Patient Tolerated Procedure: well and no complications <Jose Trivedi MD - Last Filed: 02/15/25 22:28> Complications: none <Jose Trivedi MD - Last Filed: 02/15/25 22:28> Intubation Intubation #1: Intubation Date: 02/15/25 <Marlin Gabriel MD - Last Filed: 02/15/25 20:26> Intubation Time: 17:25 <Marlin Gabriel MD - Last Filed: 02/15/25 20:26> Time out performed: Yes <Marlin Gabriel MD - Last Filed: 02/15/25 20:26> sedative: other (propofol) <Marlin Gabriel MD - Last Filed: 02/15/25 20:26> Mg Given: 200 <Marlin Garbiel MD - Last Filed: 02/15/25 20:26> paralytic: Rocuronium <Marlin Gabriel MD - Last Filed: 02/15/25 20:26> Mg Given: 75 <Marlin Gabriel MD - Last Filed: 02/15/25 20:26> Laryngoscope: Jamilah (4.5) <Marlin Gabriel MD - Last Filed: 02/15/25 20:26> Tube Size (cm): 7.5 <Marlin Gabriel MD - Last Filed: 02/15/25 20:26> Method of Intubation: orotracheal <Marlin Gabriel MD - Last Filed: 02/15/25 20:26> Number of Attempts: 1 <Marlin Gabriel MD - Last Filed: 02/15/25 20:26> Tube Secured Depth (cm): 27 <Marlin Gabriel MD - Last Filed: 02/15/25 20:26> Tube Secured Location: teeth <Marlin Gabriel MD - Last Filed: 02/15/25 20:26> Tube Placement Confirmation: visualized tube passing through cords, no breath sounds over epigastrium and confirmation by capnometry <Marlin Gabriel MD - Last Filed: 02/15/25 20:26> Patient Tolerated Procedure: well and no complications <Marlin Gabriel MD - Last Filed: 02/15/25 20:26> Intubation Complications: none <Marlin Gabriel MD - Last Filed: 02/15/25 20:26> MDM - Seizure MDM Narrative Medical decision making narrative: Patient presents unresponsive via EMS. It was reported that patient has a history of epilepsy with prior status epilepticus. It was also reported that patient has a history of a rash respiratory issues although these are not listed in the residential documentation or in the EMR and no medications that support this. It is listed that he has paroxysmal atrial fibrillation although is not on anticoagulation, potentially due to his seizure disorder and evaluation of risk/benefit. He also does not appear to be on a rate-controlling agent (only lisionpril). Patient has presented unresponsive thus it is unclear whether he had a breakthrough seizure versus status epilepticus versus numerous other etiologies. [facility] given 2nd line benzo (4mg Ativan) followed by 60mg/kg max 4500 Keppra here and then intubated for airway protection given still unresponsive and not protecting airway. Jang inserted and patient on ventiltor. Temp sensing jang confirms febrile. I am concerned for sepsis given fever, tachycardia, and tacypnea thus lactic, blood cultures, and CRP are ordered as is broad spectrum abx cefepime and vanc in addition to rectal Tylenol Initailly deferring 30cc/kg fluid administration given the degree of coarse breath sounds and frothy sputum which includes pink frothy sputum initially concerning for possible heart failure. I spoke with Dr Phillips while patient's work up is process who believes he may require/benefit from consideration of transfer if the ultimate concern is for status epilepticus although, again, multiple other etiolgies are being considered and in fact possibly favored since he was not witnessed to have a seizure, lactic acid is only mildly elevated, and he is febrile thus infectious etiology far more likely. He has a leukocytosis and normocytic anemia. Anemia stable from previous. He is hypocalcemic , only correct to 7.9 in the setting of albumin. Only mild hyperglycemia without an anion gap and not frankly acidotic. Only slight degree of partial pseudohyponatremia, corrects to 131 given glucose but still not to a degree to suggest etiology for symptoms. BNP not elevated to a degree to suggest acute heart failure. He does have evidence of a UTI. Mildly elevated CRP. Given he does not appear to have heart failure, but is febrile and tachycardic, will . He tests positive for covid. Patient signed out out to oncoming ED physician pending rest of work up , primarily CT of chest abd/pelvis. == Critical Care: 1 or more vital organ systems impaired with a high probability of imminent or life-threatening deterioration in the patient's condition requiring frequent personal assessment and manipulation of the patient's condition. This included time spent evaluating the patient, speaking with EMS pre-hospital personnel and family, reviewing/interpreting laboratory/imaging studies, discussing the case with consultants or admitting teams, retrieving data and reviewing charts, monitoring for decompensation, documenting the visit, and performing bundled procedures exclusive of separately billed procedures. <Marlin Gabriel MD - Last Filed: 02/15/25 20:26> Differential Diagnosis Differential diagnosis: Likely intractable seizure disorder, epileptic seizure, status epilepticus and other (acute respiratory failure; intracranial hemorrhage; heart failure; infection (intrathoracic, intra-abdominal, urinary tract infection, pneumonia, cellulitis); thyroid dysfunction; trauma) <Marlin Gabriel MD - Last Filed: 02/15/25 20:26> Lab Data Attestation: I reviewed the patient's lab results. <Marlin Gabriel MD - Last Filed: 02/15/25 20:26> Result diagrams: 02/15/25 18:09 02/15/25 17:16 <Marlin Gabriel MD - Last Filed: 02/15/25 20:26> Labs: Lab Results 02/15/25 02/15/25 02/15/25 Range/Units 17:09 17:16 17:41 WBC (4.5-10.0) K/mm3 RBC (4.6-6.20) M/mm3 Hgb (14.0-18.0) g/dL Hct (42.0-52.0) % MCV (80-100) fl MCH (26-34) pg MCHC (32-36) g/dl RDW (11.5-14.5) % Plt Count (150-375) k/mm3 MPV (7.4-10.4) fl Immature Gran % (Auto) (0-0.5) % Neut % (Auto) (45.5-73.1) % Lymph % (Auto) (18.3-44.2) % Cochran % (Auto) (2.6-8.5) % Eos % (Auto) (0-4.4) % Baso % (Auto) (0.2-1.2) % Lymph # (Auto) (0.9-3.2) K/mm3 Cochran # (Auto) (0.1-0.6) K/mm3 Eos # (Auto) (0-0.3) K/mm3 Baso # (Auto) (0.0-0.1) K/mm3 Abs Immat Gran (auto) (0.00-0.031) K/mm3 Absolute Neuts (auto) (1.3-6.7) K/mm3 Absolute Nucleated RBC (0.0-0.012) K/mm3 Nucleated RBC % (0.0-0.2) % PT (11.1-14.7) Seconds INR APTT (22.3-36.8) Seconds Minute Volume Not Reportable Vent Mode Cmv Tidal Volume 450 ml PEEP 5 cmH2O Peak Inspir Pressure Not Reportable Pressure Support Not Reportable Sodium 130 L (137-145) mmol/L Potassium 4.2 (3.4-5.0) mmol/L Chloride 101 (98-107) mmol/L Carbon Dioxide 20 L (22-30) mmol/L Anion Gap 9 (4-12) mmol/L BUN 13 (9-20) mg/dL Creatinine 0.79 (0.7-1.3) mg/dL Estim Creat Clear Calc Not Reportable Estimated GFR > 60 (59 - ) Glucose 159 H (65-110) mg/dL POC Capillary Glucose 193 H (65-105) mg/dl Lactic Acid 2.2 H (0.7-2.0) mmol/L Calcium 7.5 L (8.4-10.2) mg/dL Total Bilirubin 0.5 (0.2-1.3) mg/dL AST 27 (17-59) U/L ALT 19 (6-50) U/L Alkaline Phosphatase 67 (38-126) U/L Ammonia (9-30) umol/L Total Creatine Kinase (55-170) U/L Troponin I < 0.012 (0.000-0.034) ng/mL C-Reactive Protein (<1.0) mg/dL NT-Pro-B Natriuret Pep 176 H (19.9-100) pg/mL Total Protein 6.0 L (6.3-8.2) g/dL Albumin 3.5 (3.5-5.1) g/dL Triglycerides (<150) mg/dL Lipase (23-300) U/L TSH (0.465-4.680) uIU/mL Urine Color (Yellow) Urine Appearance (Clear) Urine pH (5.0-9.0) Ur Specific [place] (1.001-1.035) Urine Protein (Negative) mg/dL Urine Glucose (UA) (Negative) mg/dL Urine Ketones (Negative) mg/dL Ur Blood (Man) (Negative) Urine Nitrate (Negative) Urine Bilirubin (Negative) Urine Urobilinogen (<2.0) mg/dL Add Ur Microanalysis Leukocyte Esterase Rfl (Negative) CHRISTIAN/UL Urine RBC (0-2) /hpf Urine WBC (0-3) /hpf Ur Squamous Epith Cells (Few) /hpf Urine Bacteria /hpf Urine Casts Hyaline Casts (None) /lpf Urine Mucus /lpf Salicylates (2-20) mg/dL Urine Opiates Screen (Negative) Urine Methadone Screen (Negative) Acetaminophen (10-30) ug/mL Ur Barbiturates Screen (Negative) Lacosamide Level Levetiracetam Ur Phencyclidine Scrn (Negative) Ur Amphetamine Screen (Negative) U Benzodiazepines Scrn (Negative) Urine Cocaine Screen (Negative) U Cannabinoids Screen (Negative) Influenza A (RT-PCR) (Negative) Influenza B (RT-PCR) (Negative) RSV (RT-PCR) (Negative) SARS-CoV-2 RNA (RT-PCR) (Negative) Miscellaneous Test 02/15/25 02/15/25 02/15/25 Range/Units 18:08 18:09 18:33 WBC 15.0 H (4.5-10.0) K/mm3 RBC 4.59 L (4.6-6.20) M/mm3 Hgb 13.1 L (14.0-18.0) g/dL Hct 40.5 L (42.0-52.0) % MCV 88.2 (80-100) fl MCH 28.5 (26-34) pg MCHC 32.3 (32-36) g/dl RDW 12.3 (11.5-14.5) % Plt Count 170 (150-375) k/mm3 MPV 11.3 H (7.4-10.4) fl Immature Gran % (Auto) 0.6 H (0-0.5) % Neut % (Auto) 87.8 H (45.5-73.1) % Lymph % (Auto) 5.9 L (18.3-44.2) % Cochran % (Auto) 4.9 (2.6-8.5) % Eos % (Auto) 0.5 (0-4.4) % Baso % (Auto) 0.3 (0.2-1.2) % Lymph # (Auto) 0.88 L (0.9-3.2) K/mm3 Cochran # (Auto) 0.7 H (0.1-0.6) K/mm3 Eos # (Auto) 0.1 (0-0.3) K/mm3 Baso # (Auto) 0.0 (0.0-0.1) K/mm3 Abs Immat Gran (auto) 0.09 H (0.00-0.031) K/mm3 Absolute Neuts (auto) 13.2 H (1.3-6.7) K/mm3 Absolute Nucleated RBC 0.000 (0.0-0.012) K/mm3 Nucleated RBC % 0.0 (0.0-0.2) % PT 14.5 (11.1-14.7) Seconds INR 1.1 APTT 29.1 (22.3-36.8) Seconds Minute Volume Vent Mode Tidal Volume ml PEEP cmH2O Peak Inspir Pressure Pressure Support Sodium (137-145) mmol/L Potassium (3.4-5.0) mmol/L Chloride (98-107) mmol/L Carbon Dioxide (22-30) mmol/L Anion Gap (4-12) mmol/L BUN (9-20) mg/dL Creatinine (0.7-1.3) mg/dL Estim Creat Clear Calc Estimated GFR (59 - ) Glucose (65-110) mg/dL POC Capillary Glucose (65-105) mg/dl Lactic Acid (0.7-2.0) mmol/L Calcium (8.4-10.2) mg/dL Total Bilirubin (0.2-1.3) mg/dL AST (17-59) U/L ALT (6-50) U/L Alkaline Phosphatase (38-126) U/L Ammonia (9-30) umol/L Total Creatine Kinase (55-170) U/L Troponin I (0.000-0.034) ng/mL C-Reactive Protein 1.8 H (<1.0) mg/dL NT-Pro-B Natriuret Pep (19.9-100) pg/mL Total Protein (6.3-8.2) g/dL Albumin (3.5-5.1) g/dL Triglycerides 70 (<150) mg/dL Lipase 85 (23-300) U/L TSH (0.465-4.680) uIU/mL Urine Color Yellow (Yellow) Urine Appearance Cloudy H (Clear) Urine pH 5.5 (5.0-9.0) Ur Specific [place] 1.022 (1.001-1.035) Urine Protein 4+ H (Negative) mg/dL Urine Glucose (UA) Negative (Negative) mg/dL Urine Ketones Trace H (Negative) mg/dL Ur Blood (Man) 2+ H (Negative) Urine Nitrate Negative (Negative) Urine Bilirubin Negative (Negative) Urine Urobilinogen 1.0 (<2.0) mg/dL Add Ur Microanalysis Reviewed Leukocyte Esterase Rfl Trace H (Negative) CHRISTIAN/UL Urine RBC 21-50 H (0-2) /hpf Urine WBC 21-50 H (0-3) /hpf Ur Squamous Epith Cells Moderate (Few) /hpf Urine Bacteria 4+ H /hpf Urine Casts >20 Hyaline Casts Present (None) /lpf Urine Mucus Present /lpf Salicylates (2-20) mg/dL Urine Opiates Screen Negative (Negative) Urine Methadone Screen Negative (Negative) Acetaminophen (10-30) ug/mL Ur Barbiturates Screen Negative (Negative) Lacosamide Level Cancelled Levetiracetam Pending Ur Phencyclidine Scrn Negative (Negative) Ur Amphetamine Screen Negative (Negative) U Benzodiazepines Scrn Positive A (Negative) Urine Cocaine Screen Negative (Negative) U Cannabinoids Screen Negative (Negative) Influenza A (RT-PCR) Negative (Negative) Influenza B (RT-PCR) Negative (Negative) RSV (RT-PCR) Negative (Negative) SARS-CoV-2 RNA (RT-PCR) Positive A (Negative) Miscellaneous Test Pending 02/15/25 02/15/25 Range/Units 19:55 20:33 WBC (4.5-10.0) K/mm3 RBC (4.6-6.20) M/mm3 Hgb (14.0-18.0) g/dL Hct (42.0-52.0) % MCV (80-100) fl MCH (26-34) pg MCHC (32-36) g/dl RDW (11.5-14.5) % Plt Count (150-375) k/mm3 MPV (7.4-10.4) fl Immature Gran % (Auto) (0-0.5) % Neut % (Auto) (45.5-73.1) % Lymph % (Auto) (18.3-44.2) % [place]chran % (Auto) (2.6-8.5) % Eos % (Auto) (0-4.4) % Baso % (Auto) (0.2-1.2) % Lymph # (Auto) (0.9-3.2) K/mm3 [place] # (Auto) (0.1-0.6) K/mm3 Eos # (Auto) (0-0.3) K/mm3 Baso # (Auto) (0.0-0.1) K/mm3 Abs Immat Gran (auto) (0.00-0.031) K/mm3 Absolute Neuts (auto) (1.3-6.7) K/mm3 Absolute Nucleated RBC (0.0-0.012) K/mm3 Nucleated RBC % (0.0-0.2) % PT (11.1-14.7) Seconds INR APTT (22.3-36.8) Seconds Minute Volume Vent Mode Tidal Volume ml PEEP cmH2O Peak Inspir Pressure Pressure Support Sodium (137-145) mmol/L Potassium (3.4-5.0) mmol/L Chloride (98-107) mmol/L Carbon Dioxide (22-30) mmol/L Anion Gap (4-12) mmol/L BUN (9-20) mg/dL Creatinine (0.7-1.3) mg/dL Estim Creat Clear Calc Estimated GFR (59 - ) Glucose (65-110) mg/dL POC Capillary Glucose (65-105) mg/dl Lactic Acid 1.3 (0.7-2.0) mmol/L Calcium (8.4-10.2) mg/dL Total Bilirubin (0.2-1.3) mg/dL AST (17-59) U/L ALT (6-50) U/L Alkaline Phosphatase (38-126) U/L Ammonia < 9 L (9-30) umol/L Total Creatine Kinase 68 (55-170) U/L Troponin I (0.000-0.034) ng/mL C-Reactive Protein (<1.0) mg/dL NT-Pro-B Natriuret Pep (19.9-100) pg/mL Total Protein (6.3-8.2) g/dL Albumin (3.5-5.1) g/dL Triglycerides (<150) mg/dL Lipase (23-300) U/L TSH 0.314 L (0.465-4.680) uIU/mL Urine Color (Yellow) Urine Appearance (Clear) Urine pH (5.0-9.0) Ur Specific [place] (1.001-1.035) Urine Protein (Negative) mg/dL Urine Glucose (UA) (Negative) mg/dL Urine Ketones (Negative) mg/dL Ur Blood (Man) (Negative) Urine Nitrate (Negative) Urine Bilirubin (Negative) Urine Urobilinogen (<2.0) mg/dL Add Ur Microanalysis Leukocyte Esterase Rfl (Negative) CHRISTIAN/UL Urine RBC (0-2) /hpf Urine WBC (0-3) /hpf Ur Squamous Epith Cells (Few) /hpf Urine Bacteria /hpf Urine Casts Hyaline Casts (None) /lpf Urine Mucus /lpf Salicylates < 1.0 L (2-20) mg/dL Urine Opiates Screen (Negative) Urine Methadone Screen (Negative) Acetaminophen < 10 L (10-30) ug/mL Ur Barbiturates Screen (Negative) Lacosamide Level Levetiracetam Ur Phencyclidine Scrn (Negative) Ur Amphetamine Screen (Negative) U Benzodiazepines Scrn (Negative) Urine Cocaine Screen (Negative) U Cannabinoids Screen (Negative) Influenza A (RT-PCR) (Negative) Influenza B (RT-PCR) (Negative) RSV (RT-PCR) (Negative) SARS-CoV-2 RNA (RT-PCR) (Negative) Miscellaneous Test <Marlin Gabriel MD - Last Filed: 02/15/25 20:26> Lab Results 02/15/25 02/15/25 02/15/25 Range/Units 17:09 17:16 17:41 WBC (4.5-10.0) K/mm3 RBC (4.6-6.20) M/mm3 Hgb (14.0-18.0) g/dL Hct (42.0-52.0) % MCV (80-100) fl MCH (26-34) pg MCHC (32-36) g/dl RDW (11.5-14.5) % Plt Count (150-375) k/mm3 MPV (7.4-10.4) fl Immature Gran % (Auto) (0-0.5) % Neut % (Auto) (45.5-73.1) % Lymph % (Auto) (18.3-44.2) % [place] % (Auto) (2.6-8.5) % Eos % (Auto) (0-4.4) % Baso % (Auto) (0.2-1.2) % Lymph # (Auto) (0.9-3.2) K/mm3 [place] # (Auto) (0.1-0.6) K/mm3 Eos # (Auto) (0-0.3) K/mm3 Baso # (Auto) (0.0-0.1) K/mm3 Abs Immat Gran (auto) (0.00-0.031) K/mm3 Absolute Neuts (auto) (1.3-6.7) K/mm3 Absolute Nucleated RBC (0.0-0.012) K/mm3 Nucleated RBC % (0.0-0.2) % PT (11.1-14.7) Seconds INR APTT (22.3-36.8) Seconds Minute Volume Not Reportable Vent Mode Cmv Tidal Volume 450 ml PEEP 5 cmH2O Peak Inspir Pressure Not Reportable Pressure Support Not Reportable Sodium 130 L (137-145) mmol/L Potassium 4.2 (3.4-5.0) mmol/L Chloride 101 (98-107) mmol/L Carbon Dioxide 20 L (22-30) mmol/L Anion Gap 9 (4-12) mmol/L BUN 13 (9-20) mg/dL Creatinine 0.79 (0.7-1.3) mg/dL Estim Creat Clear Calc Not Reportable Estimated GFR > 60 (59 - ) Glucose 159 H (65-110) mg/dL POC Capillary Glucose 193 H (65-105) mg/dl Lactic Acid 2.2 H (0.7-2.0) mmol/L Calcium 7.5 L (8.4-10.2) mg/dL Total Bilirubin 0.5 (0.2-1.3) mg/dL AST 27 (17-59) U/L ALT 19 (6-50) U/L Alkaline Phosphatase 67 (38-126) U/L Ammonia (9-30) umol/L Total Creatine Kinase (55-170) U/L Troponin I < 0.012 (0.000-0.034) ng/mL C-Reactive Protein (<1.0) mg/dL NT-Pro-B Natriuret Pep 176 H (19.9-100) pg/mL Total Protein 6.0 L (6.3-8.2) g/dL Albumin 3.5 (3.5-5.1) g/dL Triglycerides (<150) mg/dL Lipase (23-300) U/L TSH (0.465-4.680) uIU/mL Urine Color (Yellow) Urine Appearance (Clear) Urine pH (5.0-9.0) Ur Specific [place] (1.001-1.035) Urine Protein (Negative) mg/dL Urine Glucose (UA) (Negative) mg/dL Urine Ketones (Negative) mg/dL Ur Blood (Man) (Negative) Urine Nitrate (Negative) Urine Bilirubin (Negative) Urine Urobilinogen (<2.0) mg/dL Add Ur Microanalysis Leukocyte Esterase Rfl (Negative) CHRISTIAN/UL Urine RBC (0-2) /hpf Urine WBC (0-3) /hpf Ur Squamous Epith Cells (Few) /hpf Urine Bacteria /hpf Urine Casts Hyaline Casts (None) /lpf Urine Mucus /lpf Salicylates (2-20) mg/dL Urine Opiates Screen (Negative) Urine Methadone Screen (Negative) Acetaminophen (10-30) ug/mL Ur Barbiturates Screen (Negative) Lacosamide Level Levetiracetam Ur Phencyclidine Scrn (Negative) Ur Amphetamine Screen (Negative) U Benzodiazepines Scrn (Negative) Urine Cocaine Screen (Negative) U Cannabinoids Screen (Negative) Influenza A (RT-PCR) (Negative) Influenza B (RT-PCR) (Negative) RSV (RT-PCR) (Negative) SARS-CoV-2 RNA (RT-PCR) (Negative) Miscellaneous Test 02/15/25 02/15/25 02/15/25 Range/Units 18:08 18:09 18:33 WBC 15.0 H (4.5-10.0) K/mm3 RBC 4.59 L (4.6-6.20) M/mm3 Hgb 13.1 L (14.0-18.0) g/dL Hct 40.5 L (42.0-52.0) % MCV 88.2 (80-100) fl MCH 28.5 (26-34) pg MCHC 32.3 (32-36) g/dl RDW 12.3 (11.5-14.5) % Plt Count 170 (150-375) k/mm3 MPV 11.3 H (7.4-10.4) fl Immature Gran % (Auto) 0.6 H (0-0.5) % Neut % (Auto) 87.8 H (45.5-73.1) % Lymph % (Auto) 5.9 L (18.3-44.2) % [place] % (Auto) 4.9 (2.6-8.5) % Eos % (Auto) 0.5 (0-4.4) % Baso % (Auto) 0.3 (0.2-1.2) % Lymph # (Auto) 0.88 L (0.9-3.2) K/mm3 [place] # (Auto) 0.7 H (0.1-0.6) K/mm3 Eos # (Auto) 0.1 (0-0.3) K/mm3 Baso # (Auto) 0.0 (0.0-0.1) K/mm3 Abs Immat Gran (auto) 0.09 H (0.00-0.031) K/mm3 Absolute Neuts (auto) 13.2 H (1.3-6.7) K/mm3 Absolute Nucleated RBC 0.000 (0.0-0.012) K/mm3 Nucleated RBC % 0.0 (0.0-0.2) % PT 14.5 (11.1-14.7) Seconds INR 1.1 APTT 29.1 (22.3-36.8) Seconds Minute Volume Vent Mode Tidal Volume ml PEEP cmH2O Peak Inspir Pressure Pressure Support Sodium (137-145) mmol/L Potassium (3.4-5.0) mmol/L Chloride (98-107) mmol/L Carbon Dioxide (22-30) mmol/L Anion Gap (4-12) mmol/L BUN (9-20) mg/dL Creatinine (0.7-1.3) mg/dL Estim Creat Clear Calc Estimated GFR (59 - ) Glucose (65-110) mg/dL POC Capillary Glucose (65-105) mg/dl Lactic Acid (0.7-2.0) mmol/L Calcium (8.4-10.2) mg/dL Total Bilirubin (0.2-1.3) mg/dL AST (17-59) U/L ALT (6-50) U/L Alkaline Phosphatase (38-126) U/L Ammonia (9-30) umol/L Total Creatine Kinase (55-170) U/L Troponin I (0.000-0.034) ng/mL C-Reactive Protein 1.8 H (<1.0) mg/dL NT-Pro-B Natriuret Pep (19.9-100) pg/mL Total Protein (6.3-8.2) g/dL Albumin (3.5-5.1) g/dL Triglycerides 70 (<150) mg/dL Lipase 85 (23-300) U/L TSH (0.465-4.680) uIU/mL Urine Color Yellow (Yellow) Urine Appearance Cloudy H (Clear) Urine pH 5.5 (5.0-9.0) Ur Specific [place] 1.022 (1.001-1.035) Urine Protein 4+ H (Negative) mg/dL Urine Glucose (UA) Negative (Negative) mg/dL Urine Ketones Trace H (Negative) mg/dL Ur Blood (Man) 2+ H (Negative) Urine Nitrate Negative (Negative) Urine Bilirubin Negative (Negative) Urine Urobilinogen 1.0 (<2.0) mg/dL Add Ur Microanalysis Reviewed Leukocyte Esterase Rfl Trace H (Negative) CHRISTIAN/UL Urine RBC 21-50 H (0-2) /hpf Urine WBC 21-50 H (0-3) /hpf Ur Squamous Epith Cells Moderate (Few) /hpf Urine Bacteria 4+ H /hpf Urine Casts >20 Hyaline Casts Present (None) /lpf Urine Mucus Present /lpf Salicylates (2-20) mg/dL Urine Opiates Screen Negative (Negative) Urine Methadone Screen Negative (Negative) Acetaminophen (10-30) ug/mL Ur Barbiturates Screen Negative (Negative) Lacosamide Level Cancelled Levetiracetam Pending Ur Phencyclidine Scrn Negative (Negative) Ur Amphetamine Screen Negative (Negative) U Benzodiazepines Scrn Positive A (Negative) Urine Cocaine Screen Negative (Negative) U Cannabinoids Screen Negative (Negative) Influenza A (RT-PCR) Negative (Negative) Influenza B (RT-PCR) Negative (Negative) RSV (RT-PCR) Negative (Negative) SARS-CoV-2 RNA (RT-PCR) Positive A (Negative) Miscellaneous Test Pending 02/15/25 02/15/25 Range/Units 19:55 20:33 WBC (4.5-10.0) K/mm3 RBC (4.6-6.20) M/mm3 Hgb (14.0-18.0) g/dL Hct (42.0-52.0) % MCV (80-100) fl MCH (26-34) pg MCHC (32-36) g/dl RDW (11.5-14.5) % Plt Count (150-375) k/mm3 MPV (7.4-10.4) fl Immature Gran % (Auto) (0-0.5) % Neut % (Auto) (45.5-73.1) % Lymph % (Auto) (18.3-44.2) % [place] % (Auto) (2.6-8.5) % Eos % (Auto) (0-4.4) % Baso % (Auto) (0.2-1.2) % Lymph # (Auto) (0.9-3.2) K/mm3 [place] # (Auto) (0.1-0.6) K/mm3 Eos # (Auto) (0-0.3) K/mm3 Baso # (Auto) (0.0-0.1) K/mm3 Abs Immat Gran (auto) (0.00-0.031) K/mm3 Absolute Neuts (auto) (1.3-6.7) K/mm3 Absolute Nucleated RBC (0.0-0.012) K/mm3 Nucleated RBC % (0.0-0.2) % PT (11.1-14.7) Seconds INR APTT (22.3-36.8) Seconds Minute Volume Vent Mode Tidal Volume ml PEEP cmH2O Peak Inspir Pressure Pressure Support Sodium (137-145) mmol/L Potassium (3.4-5.0) mmol/L Chloride (98-107) mmol/L Carbon Dioxide (22-30) mmol/L Anion Gap (4-12) mmol/L BUN (9-20) mg/dL Creatinine (0.7-1.3) mg/dL Estim Creat Clear Calc Estimated GFR (59 - ) Glucose (65-110) mg/dL POC Capillary Glucose (65-105) mg/dl Lactic Acid 1.3 (0.7-2.0) mmol/L Calcium (8.4-10.2) mg/dL Total Bilirubin (0.2-1.3) mg/dL AST (17-59) U/L ALT (6-50) U/L Alkaline Phosphatase (38-126) U/L Ammonia < 9 L (9-30) umol/L Total Creatine Kinase 68 (55-170) U/L Troponin I (0.000-0.034) ng/mL C-Reactive Protein (<1.0) mg/dL NT-Pro-B Natriuret Pep (19.9-100) pg/mL Total Protein (6.3-8.2) g/dL Albumin (3.5-5.1) g/dL Triglycerides (<150) mg/dL Lipase (23-300) U/L TSH 0.314 L (0.465-4.680) uIU/mL Urine Color (Yellow) Urine Appearance (Clear) Urine pH (5.0-9.0) Ur Specific [place] (1.001-1.035) Urine Protein (Negative) mg/dL Urine Glucose (UA) (Negative) mg/dL Urine Ketones (Negative) mg/dL Ur Blood (Man) (Negative) Urine Nitrate (Negative) Urine Bilirubin (Negative) Urine Urobilinogen (<2.0) mg/dL Add Ur Microanalysis Leukocyte Esterase Rfl (Negative) CHRISTIAN/UL Urine RBC (0-2) /hpf Urine WBC (0-3) /hpf Ur Squamous Epith Cells (Few) /hpf Urine Bacteria /hpf Urine Casts Hyaline Casts (None) /lpf Urine Mucus /lpf Salicylates < 1.0 L (2-20) mg/dL Urine Opiates Screen (Negative) Urine Methadone Screen (Negative) Acetaminophen < 10 L (10-30) ug/mL Ur Barbiturates Screen (Negative) Lacosamide Level Levetiracetam Ur Phencyclidine Scrn (Negative) Ur Amphetamine Screen (Negative) U Benzodiazepines Scrn (Negative) Urine Cocaine Screen (Negative) U Cannabinoids Screen (Negative) Influenza A (RT-PCR) (Negative) Influenza B (RT-PCR) (Negative) RSV (RT-PCR) (Negative) SARS-CoV-2 RNA (RT-PCR) (Negative) Miscellaneous Test <Jose Trivedi MD - Last Filed: 02/15/25 22:28> ABG Data ABG results: 02/15/25 17:41 Puncture Site Left brachial ABG pH 7.310 L ABG pCO2 48.7 H ABG pO2 66.7 L ABG PO2/FiO2 Ratio 1.67 ABG HCO3 24.0 ABG O2 Saturation 91.4 L ABG O2 Content 17.7 ABG Base Excess -2.7 A-a Gradient 162.5 Oxyhemoglobin 89.0 L Total Hemoglobin 14.1 O2 Delivery Device Ventilator O2 Liters/Min Not Reportable Vent Rate 16 FiO2 40 <Marlin Gabriel MD - Last Filed: 02/15/25 20:26> 02/15/25 17:41 Puncture Site Left brachial ABG pH 7.310 L ABG pCO2 48.7 H ABG pO2 66.7 L ABG PO2/FiO2 Ratio 1.67 ABG HCO3 24.0 ABG O2 Saturation 91.4 L ABG O2 Content 17.7 ABG Base Excess -2.7 A-a Gradient 162.5 Oxyhemoglobin 89.0 L Total Hemoglobin 14.1 O2 Delivery Device Ventilator O2 Liters/Min Not Reportable Vent Rate 16 FiO2 40 <Jose Trivedi MD - Last Filed: 02/15/25 22:28> Imaging Data Radiologist's impression: Impressions Chest X-Ray 02/15/25 18:24 IMPRESSION: Endotracheal tube tip projecting on 11.2 mm above the base of the geovani for which withdrawal of approximately 2.5 cm is recommended for optimal radiographic placement. Left-sided pleural effusion. The remainder of the lungs are clear. Head CT 02/15/25 19:38 IMPRESSION: No acute intracranial process. Cervical Spine CT 02/15/25 19:47 IMPRESSION: No acute fracture or traumatic malalignment in the cervical spine. Partially visualized endotracheal and nasogastric tubes. The nasogastric tube coils in the oropharynx. <Marlin Gabriel MD - Last Filed: 02/15/25 20:26> ECG Data EKG #1: Attestation: I personally reviewed and interpreted this ECG as follows: < Marlin Gabriel MD - Last Filed: 02/15/25 20:26> ECG completion date: 02/15/25 <Marlin Gabriel MD - Last Filed: 02/15/25 20:26> ECG completion time: 17:09 <Marlin Gabriel MD - Last Filed: 02/15/25 20:26> Interpretation: Unclear rhythm at a rate of 161 beats per minute no concerning for junctional tachycardia verses atrial fibrillation possibly with a 2-1 conduction. There is left axis deviation. SD interval is 120 milliseconds. QRS 107. QT/QTC 314/403. Poor R-wave progression across the precordial leads. No T-wave inversions <Marlin Gabriel MD - Last Filed: 02/15/25 20:26> Critical Care Time Critical Care Time Critical Care Time: Yes <Marlin Gabriel MD - Last Filed: 02/15/25 20:26> Yes <Jose Trivedi MD - Last Filed: 02/15/25 22:28> Total Critical Care Time: 45 <Marlin Gabriel MD - Last Filed: 02/15/25 20:26> 75 (Critical care is exclusive of the separately billable procedures above) <Jose Trivedi MD - Last Filed: 02/15/25 22:28> Discharge Plan Discharge Clinical Impression: Septic shock, Normocytic anemia, Leukocytosis, Altered mental status, Unresponsive state, Hypocalcemia, Pleural effusion, UTI (urinary tract infection), COVID-19, Febrile, Pneumonia <Marlin Gabriel MD - Last Filed: 02/15/25 20:26> Patient Disposition: Still a Patient <Marlin Gabriel MD - Last Filed: 02/15/25 20:26> Condition: Critical <Marlin Gabriel MD - Last Filed: 02/15/25 20:26> Time of Disposition: 22:28 <Marlin Gabriel MD - Last Filed: 02/15/25 20:26> 22:28 <Jose Trivedi MD - Last Filed: 02/15/25 22:28>
[2025-02-15 17:53] LABS: Alveolar/Arterial O2 Gradient 162.5 mmHg; Fractional Inspired Oxygen 40 %; HCO3 ABG 24.0 mEq/l (22.0-26.0); Oxygen Content ABG 17.7 %vol (16.0-22.0); Oxygen Saturation ABG 91.4 % (95.0-100.0); PCO2 ABG 48.7 mmHg (35.0-45.0); PO2 ABG 66.7 mmHg (80.0-100.0); PO2 FiO2 Ratio Arterial Blood 1.67 %
[2025-02-15 17:53] LABS: Alanine Aminotransferase 19 U/L (6-50); Albumin Level 3.5 g/dL (3.5-5.1); Alkaline Phosphatase 67 U/L (38-126); Anion Gap 9 mmol/L (4-12); Aspartate Amino Transferase 27 U/L (17-59); Bilirubin,Total 0.5 mg/dL (0.2-1.3); Blood Urea Nitrogen 13 mg/dL (9-20); Calcium 7.5 mg/dL (8.4-10.2); Carbon Dioxide 20 mmol/L (22-30); Chloride 101 mmol/L (98-107); Estimated Glomerular Filt Rate > 60; Glucose 159 mg/dL (65-110); Potassium 4.2 mmol/L (3.4-5.0); Sodium 130 mmol/L (137-145); Total Protein 6.0 g/dL (6.3-8.2)
[2025-02-15 17:54] LABS: Arterial Blood Gas Tidal Volume 450 ml; Arterial Blood Gas Ventilator rate 16 /MIN; Site Drawn LEFT BRACHIAL
[2025-02-15] MEDS: Please enter patient height and weight for medication dosing 1 EACH XX (17:59)
[2025-02-15 18:03] LABS: NT Pro B Type Natriuretic Pept 176 pg/mL (19.9-100); Troponin I < 0.012 ng/mL (0.000-0.034)
[2025-02-15] MEDS: PROPOFOL IV EMULSION 100 ML 3.29 MG IV CONT (18:11)
[2025-02-15] MEDS: RAPID SEQUENCE INTUBATION KIT 1 EACH (18:12)
[2025-02-15 18:14] LABS: Hematocrit 40.5 % (42.0-52.0); Hemoglobin 13.1 g/dL (14.0-18.0); Immature Granulocyte Percent A 0.6 % (0-0.5); Lymphocytes Absolute Auto 0.88 K/mm3 (0.9-3.2); Mean Corpuscular HGB Conc 32.3 g/dl (32-36); Mean Corpuscular Hemoglobin 28.5 pg (26-34); Mean Corpuscular Volume 88.2 fl (80-100); Nucleated Red Blood Cells Absolute Auto 0.000 K/mm3 (0.0-0.012); Nucleated Red Blood Cells Perc 0.0 % (0.0-0.2); Platelet Count Result 170 k/mm3 (150-375); Red Blood Count 4.59 M/mm3 (4.6-6.20); White Blood Count 15.0 K/mm3 (4.5-10.0)
--- NOTE | 2025-02-15 18:27 | PC.NURSE ---
Pt arrived unresponsive with EDP at bedside. Pt has hx of epilepsy and had seizure for longer than 5 minutes. EMS gave 5mg of Versed in route. When pt arrived EDP, Nery gave verbal order for 4500mg Keppra and 4mg ativan to be given, Keppra given at 1708 and Ativan given at 1713. Dr. Gabriel called for patient to be intubated, respiratory called to room. timeout performed at 17:25 verifying patient and procedure to be done. Intubation medications were 200mg propofol given at 1726 and 75mg rocuronium given at 1728. Pt was intubated with 7.5 tube, 27 at the lip at 1730. temp sensing jang placed as well as NG tube after intubation.
[2025-02-15 18:37] LABS: CRP 1.8 mg/dL (<1.0); Lipase 85 U/L (23-300); Triglycerides 70 mg/dL (<150)
[2025-02-15] MEDS: CEFEPIME 2 GM in SODIUM CHLORIDE 0.9% IV 50 ML 100 ML IVPB (18:41)
[2025-02-15] MEDS: ACETAMINOPHEN 650 MG SUPPOSITORY RECTAL (18:42)
[2025-02-15 18:44] LABS: INR 1.1; Prothrombin Time 14.5 Seconds (11.1-14.7)
[2025-02-15 18:45] LABS: Partial Thromboplastin Time 29.1 Seconds (22.3-36.8)
[2025-02-15 19:03] LABS: Add Urine Microscopic? YES; Appearance Urine Cloudy (Clear); Glucose Urine UA Negative (Negative); Leukocyte Esterase Ur Trace LEU/UL (Negative); Need Manual Microscopic Reviewed; Nitrate Urine Negative (Negative); Non Pathogenic Casts >20; Specific Grav Ur 1.022 (1.001-1.035)
[2025-02-15 19:11] LABS: Cannabinoid Screen Urine Negative (Negative)
[2025-02-15 19:17] LABS: Influenza A QL RT-PCR Negative (Negative); Influenza B QL RT-PCR Negative (Negative); RSV RNA, RT-PCR Negative (Negative); SARS-CoV-2 RNA PCR Positive (Negative)
--- NOTE | 2025-02-15 20:03 | PC.NURSE ---
New og placed at bedside, 55 at the lip.
[2025-02-15] MEDS: MIDAZOLAM 100MG/NS 100ML(*CRX) 100 MG/100 ML BAG IV CONT (20:30)
[2025-02-15] MEDS: IBUPROFEN IV 800 MG/200 ML 800 MG/200 ML BAG 400 MG IVPB (20:46)
[2025-02-15] MEDS: VANCOMYCIN 1,500 MG/NS 500 ML 1,500 MG/500 ML BAG 250 MG IVPB (20:49)
[2025-02-15 20:50] LABS: Acetaminophen < 10 ug/mL (10-30); Ammonia < 9 umol/L (9-30); Creatine Kinase 68 U/L (55-170); Salicylate < 1.0 mg/dL (2-20)
[2025-02-15] MEDS: SODIUM CHLORIDE 0.9% IV 1,000 ML 999 ML IV CONT ×3 (20:53→22:41)
--- NOTE | 2025-02-15 21:01 | PC.NURSE ---
Altagracia given update on patient.
[2025-02-15 21:22] LABS: Thyroid Stimulating Hormone 0.314 uIU/mL (0.465-4.680)
[2025-02-15] MEDS: CALCIUM GLUCONATE 1,000 MG/10 ML VIAL 1000 MG IV PUSH (21:58)
[2025-02-15] MEDS: NOREPINEPHRINE 8 MG/D5W 250 ML 8 MG/250 ML BAG 9.38 MG IV CONT (22:03)
--- NOTE | 2025-02-15 22:23 | P.HP_ITS ---
H&P: HPI History of Present Illness Date/Time: 02/15/25 22:23 Chief Complaint: Seizure Narrative: 69-year-old male with a past medical history of seizure disorder, CVA with residual right-sided deficits, hypertension, hyperlipidemia who presented to the ER from [facility] due to seizure. Nursing staff found the patient unresponsive and in respiratory distress. When EMS arrived to the facility they administered 10 mg of IM Versed when he was noted to be having seizure. He developed agonal respirations requiring bag-mask ventilation. The patient had at large amount of secretions that were frothy noted. He was incontinent of urine and was warm to touch. On arrival to the ER the patient was noted to be febrile with a temperature 104.1. The patient required 4 mg of Ativan on arrival to the ER and was given a 60 milligram/kilogram bolus of Keppra. He was intubated for airway protection. His labs demonstrated leukocytosis mild hypo calcemia and mild lactic acidosis. His urine was suspicious for UTI. His COVID PCR was positive. CTA of the chest abdomen pelvis demonstrated no evidence of PE, bilateral medial independent consolidations may represent pneumonia component of aspiration may be present, lateral bladder wall thickening may represent cystitis or chronic outlet obstruction from marked prostatomegaly, ET tube was only 1.7 cm from the geovani, NG tube was shallow insertion with coiling of the tube noted in the oropharynx on the CT of the cervical spine. The patient was placed on a ventilator with initial settings of tidal volume 450 peep of 5 rate of 16 and 40% FiO2. ABG demonstrated mild respiratory acidosis. Patient received 20 mL/kilos fluid bolus initially. Post intubation the patient had been placed on propofol. He did develop some hypotension and subsequently the ER provider placed a left subclavian central line in the patient was started norepinephrine. Patient had been placed on empiric antibiotic therapy with cefepime and vancomycin. Blood cultures were obtained and are pending. Review of Systems 2 Review of Systems: ROS unobtainable: Yes unobtainable due to endotracheal tube PMFSH Past Medical History Medical History (Updated 02/15/25 @ 22:56 by Enedina Arellano, ) BPH (benign prostatic hyperplasia) Noted on imaging Paroxysmal A-fib Vitamin D deficiency Depression Hypertension Cerebrovascular accident left occipital lobe stroke with right hemiparesis Epilepsy Hyperlipidemia Surgical History Surgical History (Updated 02/15/25 @ 22:42 by Enedina Arellano DO) Surgical history unknown Family History Family History Other Unknown family medical history Social History Social History (Updated 02/15/25 @ 22:42 by Enedina Arellano DO) Social History: Surrogate medical decision maker: Aisha Macedo, daughter ([phone]). Code status: Full code. Smoking packs per day: 0.5 Smoking cigarettes per day: 10.0 Years smoked: 55 Smoking pack-years: 27.50 Smoking status: Unknown if ever smoked Alcohol intake: former Substance use: unknown Substance use type: unknown Lack of Transportation: No Lack of Food: Never True Current Housing: I Have Housing Concerned About Future Housing: No Difficulty Paying Gas/Electric Bills: No Difficulty Paying for Meds: No Currently Unemployed: No Education: Don't Know Difficulty w/ Childcare or Family Care: No Living arrangements: prison Additional living arrangements comments: [facility]. Spiritual care concerns: No Meds Home Medications and Allergies Home Medications ?Medication ?Instructions ?Recorded ?Confirmed ?Type atorvastatin 80 mg tablet 80 mg PO HS 12/05/21 02/15/25 History calcitriol 0.25 mcg capsule 0.25 mcg PO WEEKLY 12/05/21 02/15/25 History levetiracetam 1,000 mg tablet 2,000 mg PO BID 12/05/21 02/15/25 History lisinopril 10 mg tablet 10 mg PO DAILY 12/05/21 02/15/25 History aspirin 81 mg chewable tablet 81 mg PO DAILY 11/17/22 02/15/25 History cholecalciferol (vitamin D3) 125 125 mcg PO DAILY 11/17/22 02/15/25 History mcg (5,000 unit) tablet lacosamide 150 mg tablet (Vimpat) 150 mg PO Q12HR #60 tabs 12/29/24 02/15/25 Rx lorazepam 2 mg/mL injection 1 mg IM ONCE PRN seizure 02/15/25 02/15/25 History solution (Ativan) Allergies Allergy/AdvReac Type Severity Reaction Status Date / Time No Known Allergies Allergy Verified 12/27/24 19:03 Vital Signs Vital Signs - 24 hr 02/15/25 17:55 02/15/25 18:06 02/15/25 18:09 Temperature 104.1 F H Pulse Rate 162 H 147 H Respiratory Rate 40 H Blood Pressure 118/66 Pulse Oximetry 90 100 100 Oxygen Delivery Mechanical Ventilation Room Air Room Air Fraction of Inspired Oxygen 60 02/15/25 18:11 02/15/25 18:20 02/15/25 18:47 Temperature Pulse Rate 147 H 157 H 150 H Respiratory Rate 40 H 17 29 H Blood Pressure Pulse Oximetry Oxygen Delivery Fraction of Inspired Oxygen 02/15/25 19:12 02/15/25 19:20 02/15/25 20:30 Temperature 102.7 F H Pulse Rate 153 H 150 H Respiratory Rate 28 H 21 H Blood Pressure Pulse Oximetry Oxygen Delivery Fraction of Inspired Oxygen 02/15/25 20:37 02/15/25 20:46 02/15/25 20:49 Temperature 103.2 F H Pulse Rate 127 H 127 H Respiratory Rate 23 H 30 H Blood Pressure Pulse Oximetry Oxygen Delivery Fraction of Inspired Oxygen 02/15/25 20:58 02/15/25 21:38 02/15/25 21:58 Temperature Pulse Rate 126 H 112 H 109 H Respiratory Rate 30 H 25 H Blood Pressure Pulse Oximetry 96 Oxygen Delivery Mechanical Ventilation Fraction of Inspired Oxygen 40 02/15/25 22:03 Temperature Pulse Rate 108 H Respiratory Rate Blood Pressure 86/59 L Pulse Oximetry Oxygen Delivery Fraction of Inspired Oxygen Exam 2 Narrative: Weight 109.6 kg BMI 33.7 Const: Other: Acutely ill-appearing, obese, intubated and sedated head of bed at 30? HENMT: Other: Head is normocephalic atraumatic, pupils are constricted but equal, no conjunctival pallor, no scleral icterus, copious amounts of drooling, edentulous in upper and lower jaw, a 0.0 ET tube measuring 26 at the lip, OG present Neck: Other: Large neck circumference, no JVD Resp: Other: Clear to auscultation bilaterally, ventilated assisted respirations decreased breath sounds at the bases Cardio: Other: Regular rate, regular rhythm on palpation, 2+ bilateral radial and pedal pulses, no murmur, no JVD GI: Other: Obese, soft, nontender : Other: Spencer catheter in place with cloudy pale yellow urine Skin: Other: Hot to touch, diaphoretic, 3-4 second cap refill Neuro: Other: Patient withdrawals from pain with the left upper extremity, the pupils are constricted but equal, patient is intubated and sedated, gag reflex present Extrem: Other: No clubbing, cyanosis or edema Psych: Other: Unable to assess due to patient condition H&P: Results Labs Labs: Laboratory Tests 02/15/25 18:09 02/15/25 17:16 02/15/25 02/15/25 02/15/25 17:09 17:16 17:41 WBC RBC Hgb Hct MCV MCH MCHC RDW Plt Count MPV Immature Gran % (Auto) Neut % (Auto) Lymph % (Auto) [place] % (Auto) Eos % (Auto) Baso % (Auto) Lymph # (Auto) [place] # (Auto) Eos # (Auto) Baso # (Auto) Abs Immat Gran (auto) Absolute Neuts (auto) Absolute Nucleated RBC Nucleated RBC % PT INR APTT Puncture Site Left brachial ABG pH 7.310 L ABG pCO2 48.7 H ABG pO2 66.7 L ABG PO2/FiO2 Ratio 1.67 ABG HCO3 24.0 ABG O2 Saturation 91.4 L ABG O2 Content 17.7 ABG Base Excess -2.7 A-a Gradient 162.5 Oxyhemoglobin 89.0 L Total Hemoglobin 14.1 O2 Delivery Device Ventilator O2 Liters/Min Not Reportable Minute Volume Not Reportable Vent Rate 16 Vent Mode Cmv FiO2 40 Tidal Volume 450 PEEP 5 Peak Inspir Pressure Not Reportable Pressure Support Not Reportable Sodium 130 L Potassium 4.2 Chloride 101 Carbon Dioxide 20 L Anion Gap 9 BUN 13 Creatinine 0.79 Estim Creat Clear Calc Not Reportable Estimated GFR > 60 Glucose 159 H POC Capillary Glucose 193 H Lactic Acid 2.2 H Calcium 7.5 L Total Bilirubin 0.5 AST 27 ALT 19 Alkaline Phosphatase 67 Ammonia Total Creatine Kinase Troponin I < 0.012 C-Reactive Protein NT-Pro-B Natriuret Pep 176 H Total Protein 6.0 L Albumin 3.5 Triglycerides Lipase TSH Urine Color Urine Appearance Urine pH Ur Specific [place] Urine Protein Urine Glucose (UA) Urine Ketones Ur Blood (Man) Urine Nitrate Urine Bilirubin Urine Urobilinogen Add Ur Microanalysis Leukocyte Esterase Rfl Urine RBC Urine WBC Ur Squamous Epith Cells Urine Bacteria Urine Casts Hyaline Casts Urine Mucus Nasal MRSA (PCR) Salicylates Urine Opiates Screen Urine Methadone Screen Acetaminophen Ur Barbiturates Screen Lacosamide Level Levetiracetam Ur Phencyclidine Scrn Ur Amphetamine Screen U Benzodiazepines Scrn Urine Cocaine Screen U Cannabinoids Screen Influenza A (RT-PCR) Influenza B (RT-PCR) RSV (RT-PCR) SARS-CoV-2 RNA (RT-PCR) Miscellaneous Test 02/15/25 02/15/25 02/15/25 18:08 18:09 18:33 WBC 15.0 H RBC 4.59 L Hgb 13.1 L Hct 40.5 L MCV 88.2 MCH 28.5 MCHC 32.3 RDW 12.3 Plt Count 170 MPV 11.3 H Immature Gran % (Auto) 0.6 H Neut % (Auto) 87.8 H Lymph % (Auto) 5.9 L [place] % (Auto) 4.9 Eos % (Auto) 0.5 Baso % (Auto) 0.3 Lymph # (Auto) 0.88 L [place] # (Auto) 0.7 H Eos # (Auto) 0.1 Baso # (Auto) 0.0 Abs Immat Gran (auto) 0.09 H Absolute Neuts (auto) 13.2 H Absolute Nucleated RBC 0.000 Nucleated RBC % 0.0 PT 14.5 INR 1.1 APTT 29.1 Puncture Site ABG pH ABG pCO2 ABG pO2 ABG PO2/FiO2 Ratio ABG HCO3 ABG O2 Saturation ABG O2 Content ABG Base Excess A-a Gradient Oxyhemoglobin Total Hemoglobin O2 Delivery Device O2 Liters/Min Minute Volume Vent Rate Vent Mode FiO2 Tidal Volume PEEP Peak Inspir Pressure Pressure Support Sodium Potassium Chloride Carbon Dioxide Anion Gap BUN Creatinine Estim Creat Clear Calc Estimated GFR Glucose POC Capillary Glucose Lactic Acid Calcium Total Bilirubin AST ALT Alkaline Phosphatase Ammonia Total Creatine Kinase Troponin I C-Reactive Protein 1.8 H NT-Pro-B Natriuret Pep Total Protein Albumin Triglycerides 70 Lipase 85 TSH Urine Color Yellow Urine Appearance Cloudy H Urine pH 5.5 Ur Specific [place] 1.022 Urine Protein 4+ H Urine Glucose (UA) Negative Urine Ketones Trace H Ur Blood (Man) 2+ H Urine Nitrate Negative Urine Bilirubin Negative Urine Urobilinogen 1.0 Add Ur Microanalysis Reviewed Leukocyte Esterase Rfl Trace H Urine RBC 21-50 H Urine WBC 21-50 H Ur Squamous Epith Cells Moderate Urine Bacteria 4+ H Urine Casts >20 Hyaline Casts Present Urine Mucus Present Nasal MRSA (PCR) Salicylates Urine Opiates Screen Negative Urine Methadone Screen Negative Acetaminophen Ur Barbiturates Screen Negative Lacosamide Level Cancelled Levetiracetam Pending Ur Phencyclidine Scrn Negative Ur Amphetamine Screen Negative U Benzodiazepines Scrn Positive A Urine Cocaine Screen Negative U Cannabinoids Screen Negative Influenza A (RT-PCR) Negative Influenza B (RT-PCR) Negative RSV (RT-PCR) Negative SARS-CoV-2 RNA (RT-PCR) Positive A Miscellaneous Test Pending 02/15/25 02/15/25 02/15/25 19:55 20:33 21:51 WBC RBC Hgb Hct MCV MCH MCHC RDW Plt Count MPV Immature Gran % (Auto) Neut % (Auto) Lymph % (Auto) [place] % (Auto) Eos % (Auto) Baso % (Auto) Lymph # (Auto) [place] # (Auto) Eos # (Auto) Baso # (Auto) Abs Immat Gran (auto) Absolute Neuts (auto) Absolute Nucleated RBC Nucleated RBC % PT INR APTT Puncture Site ABG pH ABG pCO2 ABG pO2 ABG PO2/FiO2 Ratio ABG HCO3 ABG O2 Saturation ABG O2 Content ABG Base Excess A-a Gradient Oxyhemoglobin Total Hemoglobin O2 Delivery Device O2 Liters/Min Minute Volume Vent Rate Vent Mode FiO2 Tidal Volume PEEP Peak Inspir Pressure Pressure Support Sodium Potassium Chloride Carbon Dioxide Anion Gap BUN Creatinine Estim Creat Clear Calc Estimated GFR Glucose POC Capillary Glucose Lactic Acid 1.3 Calcium Total Bilirubin AST ALT Alkaline Phosphatase Ammonia < 9 L Total Creatine Kinase 68 Troponin I C-Reactive Protein NT-Pro-B Natriuret Pep Total Protein Albumin Triglycerides Lipase TSH 0.314 L Urine Color Urine Appearance Urine pH Ur Specific [place] Urine Protein Urine Glucose (UA) Urine Ketones Ur Blood (Man) Urine Nitrate Urine Bilirubin Urine Urobilinogen Add Ur Microanalysis Leukocyte Esterase Rfl Urine RBC Urine WBC Ur Squamous Epith Cells Urine Bacteria Urine Casts Hyaline Casts Urine Mucus Nasal MRSA (PCR) Pending Salicylates < 1.0 L Urine Opiates Screen Urine Methadone Screen Acetaminophen < 10 L Ur Barbiturates Screen Lacosamide Level Levetiracetam Ur Phencyclidine Scrn Ur Amphetamine Screen U Benzodiazepines Scrn Urine Cocaine Screen U Cannabinoids Screen Influenza A (RT-PCR) Influenza B (RT-PCR) RSV (RT-PCR) SARS-CoV-2 RNA (RT-PCR) Miscellaneous Test Impressions Chest X-Ray 02/15/25 18:24 IMPRESSION: Endotracheal tube tip projecting on 11.2 mm above the base of the geovani for which withdrawal of approximately 2.5 cm is recommended for optimal radiographic placement. Left-sided pleural effusion. The remainder of the lungs are clear. Head CT 02/15/25 19:38 IMPRESSION: No acute intracranial process. Cervical Spine CT 02/15/25 19:47 IMPRESSION: No acute fracture or traumatic malalignment in the cervical spine. Partially visualized endotracheal and nasogastric tubes. The nasogastric tube coils in the oropharynx. Chest/Abdomen/Pelvis CTA 02/15/25 20:05 IMPRESSION: Endotracheal tube terminates 1.7 cm above the geovani. Shallow positioned NG tube, consider advancing. Coiling of the tube noted in the oropharynx in the prior C-spine CT. Motion limited evaluation of the segmental and subsegmental bilateral lower lobe pulmonary arteries. No CT evidence of acute pulmonary embolus in the remaining adequately visualized vessels. Segmental bilateral medial and dependent consolidations, may represent pneumonia. A component of aspiration may be present based on distribution. Lateral urinary bladder wall thickening may represent cystitis or chronic outlet obstruction from marked prostatomegaly. Abdomen X-Ray 02/15/25 20:27 IMPRESSION: NG tube, in good position. Chest X-Ray 02/15/25 20:55 IMPRESSION: New left subclavian central line terminating at the junction of the brachycephalic vein and superior vena cava. No pneumothorax. Stable endotracheal tube. Subdiaphragmatic NG tube. Slightly increased segmental left medial basilar consolidation. Stable subsegmental right medial basilar consolidation. All imaging and EKGs personally reviewed and interpreted. And unless stated otherwise agree with radiologic and cardiology interpretation. Assessment and Plan Assessment and plan (1) Septic shock: Code(s): A41.9 - Sepsis, unspecified organism; R65.21 - Severe sepsis with septic shock Status: Acute (2) Acute respiratory failure with hypoxia and hypercapnia: Code(s): J96.01 - Acute respiratory failure with hypoxia; J96.02 - Acute respiratory failure with hypercapnia Status: Acute (3) Pneumonia: Qualifiers: Laterality: bilateral Lung location: lower lobe of lung Pneumonia type: due to unspecified organism Qualified Code(s): J18.9 - Pneumonia, unspecified organism Code(s): J18.9 - Pneumonia, unspecified organism Status: Acute (4) Pneumonia due to COVID-19 virus: Code(s): U07.1 - COVID-19; J12.82 - Pneumonia due to coronavirus disease 2018 Status: Acute (5) UTI (urinary tract infection): Qualifiers: Hematuria presence: with hematuria Urinary tract infection type: acute cystitis Qualified Code(s): N30.01 - Acute cystitis with hematuria Code(s): N39.0 - Urinary tract infection, site not specified Status: Acute (6) Breakthrough seizure: Code(s): G40.919 - Epilepsy, unspecified, intractable, without status epilepticus Status: Acute Plan Patient presents with acute hypoxic hypercapnic respiratory failure due to pneumonia resulting in septic shock. Patient been placed on empiric antibiotic therapy with cefepime and vancomycin. Patient's pneumonia is likely multifactorial due due to a component of aspiration and COVID. Will add Remdesivir and Decadron per protocol. Will monitor inflammatory markers and repeat CBC and CMP in a.m.. Will trend liver enzymes and monitor coag panel Q 48 hours per protocol. Patient is on ventilator. Initial ABG post intubation demonstrated hypoxia and mild hypercapnia with respiratory acidosis. I made ventilator changes and repeat ABG is pending. Will use low tidal volume strategy is to reduce barotrauma. Daily ABGs and chest x-rays have been ordered. Will add scheduled DuoNebs. Sputum culture with Gram stain has been ordered. Will continue antibiotic therapy with cefepime and vancomycin. Blood cultures have been obtained and are pending. Patient also has a abnormal urinalysis and bladder findings on CT to suggest possible UTI. Urine specimen had moderate squamous cells subsequently a separate urine culture has been ordered. The patient's urine specimen came from the Spencer catheter that was placed in the ER. Patient did receive 2 L fluid bolus in the ER I at in an additional L to meet the patient's 30 mL/kilos fluid requirement. Will continue maintenance IV fluids thereafter. Will monitor strict I&O's. Patient likely had a breakthrough seizure due to fever and sepsis. Will switch patient's Keppra to liquid formulation per OG tube. The patients Vimpat cannot be crushed for NG administration. Pharmacy states that it will take 2 days to get liquid formulation which has been ordered. Patient is on propofol for sedation. Protonix ordered for GI prophylaxis. Patient's case was discussed with the electrolysis investigator and is agreeable consult. 70 minute spent in critical care activities. Due to a high probability of clinically significant, life threatening deterioration, the patient required my highest level of preparedness to intervene emergently and I personally spent this critical care time directly and personally managing the patient. This critical care time included obtaining a history; examining the patient; pulse oximetry; ordering and review of studies; arranging urgent treatment with development of a management plan; evaluation of patient's response to treatment; frequent reassessment; and discussions with other providers. It was exclusive of separately billable procedures and treating other patients and teaching time. Please see Assessment and Plan section and the rest of the note for further information on patient assessment and treatment. Quality VTE Prophylaxis VTE prophylaxis: pharmacologic ordered (Lovenox 40 mg subQ daily.) Hospitalist [facility] Advance Care Plan I have confirmed that the patient's Advanced Care Plan is present, code status is documented, or surrogate decision maker is listed in patient medical record.: Yes Medication Reconciliation I have utilized all available resources to obtain, update and review the patients current medications (includes all prescriptions, OTC, herbals, cannabis, and nutritional supplements).: Yes
[2025-02-15] MEDS: PROPOFOL IV EMULSION 100 ML 19.73 MG IV CONT (22:25)
[2025-02-15] MEDS: dexAMETHasone SOD PHOS INJ 10 MG/ML 1 ML VIAL 6 MG IV PUSH (22:42)
[2025-02-15] MEDS: LACTATED RINGERS 1,000 ML 125 ML IV CONT (22:42)
[2025-02-15 23:05] LABS: MRSA (PCR) NOT DETECTED (NOT DETECTE)
[2025-02-15 23:10] LABS: Alveolar/Arterial O2 Gradient 165.8 mmHg; Carboxyhemoglobin 0.3 % THb (0-2.0); Fractional Inspired Oxygen 40 %; HCO3 ABG 20.6 mEq/l (22.0-26.0); Methemoglobin ABG 0.1 %THb (0-1.5); Modified Allen's Test Pass; Oxygen Content ABG 16.9 %vol (16.0-22.0); Oxygen Saturation ABG 96.8 % (95.0-100.0); PCO2 ABG 30.9 mmHg (35.0-45.0); PO2 ABG 83.9 mmHg (80.0-100.0); PO2 FiO2 Ratio Arterial Blood 2.10 %; Reduced Hemoglobin 3.7 %THb (0-5.0); Site Drawn RIGHT RADIAL
[2025-02-15 23:11] LABS: Arterial Blood Gas Tidal Volume 400 ml; Arterial Blood Gas Ventilator rate 26 /MIN
[2025-02-15] MEDS: REMDESIVIR 200 MG/NS 250 ML 200 MG/250 ML BAG 250 MG IVPB (23:15)
--- NOTE | 2025-02-15 23:24 | ADMGEN ---
This patient, Maldonado Schuler, was admitted to Intensive Care Unit-3. Patient/family oriented to hospital policies and general routines including ID bracelet, bed and alarms, visiting hours, pain management, procedures, bathroom and other care routines, personal items, smoking policy, room service/diet, and visiting hours. Information on how to activate the Rapid Response Team has been discussed. Patient/Family are encouraged to report perceived risks to care and to ask questions if they do not understand what they are told or what they should do.
[2025-02-16] VITALS (49 sets, daily range): BP systolic 89–117; BP diastolic 50–70; PULSE 66–108; RESP 18–24; TEMP 36–40; O2SAT 93–100; BMI 33.0
--- NOTE | 2025-02-16 00:51 | PC.NURSE ---
Ring removed from patient's left ring finger by Dr. Arellano. Placed in biohazard bag with patient label and placed with patient's belongings in ICU room 3
[2025-02-16] MEDS: IPRATROPIUM 0.5 MG/ALBUTEROL SULFATE 2.5 MG AMPUL.NEB 3 ML INHALATION ×4 (02:33→19:31)
[2025-02-16 04:54] LABS: Alveolar/Arterial O2 Gradient 118.9 mmHg; Carboxyhemoglobin 0.4 % THb (0-2.0); Fractional Inspired Oxygen 35 %; HCO3 ABG 21.8 mEq/l (22.0-26.0); Methemoglobin ABG 0.2 %THb (0-1.5); Oxygen Content ABG 17.5 %vol (16.0-22.0); Oxygen Saturation ABG 96.5 % (95.0-100.0); PCO2 ABG 37.7 mmHg (35.0-45.0); PO2 ABG 86.8 mmHg (80.0-100.0); PO2 FiO2 Ratio Arterial Blood 2.48 %; Reduced Hemoglobin 3.8 %THb (0-5.0)
[2025-02-16 04:55] LABS: Arterial Blood Gas Tidal Volume 400 ml; Arterial Blood Gas Ventilator rate 20 /MIN; Modified Allen's Test Pass; Site Drawn RIGHT RADIAL
[2025-02-16 05:45] LABS: Hematocrit 37.3 % (42.0-52.0); Hemoglobin 12.0 g/dL (14.0-18.0); Immature Granulocyte Percent A 0.5 % (0-0.5); Immature Platelet Fraction Pct 6.3 % (0.9-11.2); Lymphocytes Absolute Auto 0.73 K/mm3 (0.9-3.2); Mean Corpuscular HGB Conc 32.2 g/dl (32-36); Mean Corpuscular Hemoglobin 28.6 pg (26-34); Mean Corpuscular Volume 88.8 fl (80-100); Nucleated Red Blood Cells Absolute Auto 0.000 K/mm3 (0.0-0.012); Nucleated Red Blood Cells Perc 0.0 % (0.0-0.2); Platelet Count Result 134 k/mm3 (150-375); Red Blood Count 4.20 M/mm3 (4.6-6.20); White Blood Count 13.7 K/mm3 (4.5-10.0)
[2025-02-16 06:04] LABS: Alanine Aminotransferase 23 U/L (6-50); Albumin Level 3.2 g/dL (3.5-5.1); Alkaline Phosphatase 68 U/L (38-126); Anion Gap 8 mmol/L (4-12); Aspartate Amino Transferase 27 U/L (17-59); Bilirubin,Total 0.5 mg/dL (0.2-1.3); Blood Urea Nitrogen 15 mg/dL (9-20); Calcium 8.4 mg/dL (8.4-10.2); Carbon Dioxide 20 mmol/L (22-30); Chloride 109 mmol/L (98-107); Estimated CRCL calculation 80 ml/min; Estimated Glomerular Filt Rate > 60; Glucose 243 mg/dL (65-110); Potassium 3.9 mmol/L (3.4-5.0); Sodium 137 mmol/L (137-145); Total Protein 5.8 g/dL (6.3-8.2)
[2025-02-16] MEDS: LACTATED RINGERS 1,000 ML 125 ML IV CONT (06:12)
[2025-02-16 06:30] LABS: Magnesium 1.5 mg/dL (1.6-2.3)
[2025-02-16 06:39] LABS: Ferritin 77.20 ng/mL (11.1-264)
[2025-02-16] MEDS: MAGNESIUM SULF 2 GM/WATER 50ML 2 GM/50 ML BAG IVPB (07:43)
[2025-02-16] MEDS: PROPOFOL IV EMULSION 100 ML 9.86 MG IV CONT ×2 (07:49→16:46)
--- NOTE | 2025-02-16 08:23 | P.CONIN_ITS ---
Assessment and Plan Assessment and plan (1) Seizure: Code(s): R56.9 - Unspecified convulsions Status: Acute Assessment and Plan: Patient presented with altered mental status likely related to seizure activity and possible postictal state -has a history of seizures, does take Keppra and lacosamide at the alf -patient was loaded with Keppra in the ER -continue Keppra and lacosamide -neurology has been consulted -EEG per Neurology 02/15: CT brain did not show any acute intracranial process except left occipital encephalomalacia 02/15: CT cervical spine did not show any fracture, traumatic malalignment omegaly (2) Acute respiratory failure with hypoxia and hypercapnia: Code(s): J96.01 - Acute respiratory failure with hypoxia; J96.02 - Acute respiratory failure with hypercapnia Status: Acute Assessment and Plan: Acute respiratory failure likely related to altered mental status, airway protection and possible aspiration along with fevers 104F current night which have abated -02/15: intubated in the ER -remains on mechanical ventilation, CMV mode, peep of 5 and 35% FiO2 -chest x-ray and ABGs reviewed, ventilator adjusted -continue bronchodilators -sedated with propofol and Versed infusion, maintain RASS of 0--2, daily SBT and SAT 02/15: CT chest abdomen and pelvis showed no evidence of acute pulmonary embolism. Segmental bilateral median dependent consolidations may represent pneumonia. A component of aspiration may be present based on its distribution. Lateral urinary bladder wall thickening where represent cystitis or chronic outlet obstruction from marked prostat (3) Septic shock: Code(s): A41.9 - Sepsis, unspecified organism; R65.21 - Severe sepsis with septic shock Status: Acute Assessment and Plan: Post intubation, patient dropped his blood pressures, could be related to sedation, positive-pressure ventilation and/OR infection secondary to COVID-19 pneumonia, UTI -initial lactic acid was 2.2, patient received 3 L IV fluid bolus -repeat lactic acid was 1.3 -02/15: Left subclavian line inserted in the ER -patient started on Levophed, will be in to maintain MAP > 65 mmHg at all times for adequate end organ perfusion -patient started on cefepime and vancomycin (02/15) -02/15: Blood cultures have been obtained and pending -02/15: Urine cultures have been obtained and pending -02/15: Sputum cultures have been obtained and pending (4) Pneumonia due to COVID-19 virus: Code(s): U07.1 - COVID-19; J12.82 - Pneumonia due to coronavirus disease 2018 Status: Acute Assessment and Plan: Patient with COVID pneumonia, Continue dexamethasone (02/15) and remdesivir (02/15) -CRP was 1.8 -contact and droplet isolation and precautions (5) UTI (urinary tract infection): Qualifiers: Hematuria presence: with hematuria Urinary tract infection type: acute cystitis Qualified Code(s): N30.01 - Acute cystitis with hematuria Code(s): N39.0 - Urinary tract infection, site not specified Status: Acute Assessment and Plan: UA revealed possible UTI -cultures have been obtained and pending -continue antibiotics as above Plan DVT prophylaxis: Lovenox Stress ulcer prophylaxis: Protonix Nutrition: Will start tube feeds Code Status: Full code Critical Care Time Spent: 51 minutes Due to a high probability of clinically significant, life threatening deterioration, the patient required my highest level of preparedness to intervene emergently and I personally spent this critical care time directly and personally managing the patient. This critical care time included obtaining a history; examining the patient; pulse oximetry; ordering and review of studies; arranging urgent treatment with development of a management plan; evaluation of patient's response to treatment; frequent reassessment; and discussions with other providers. It was exclusive of separately billable procedures and treating other patients and teaching time. Please see Assessment and Plan section and the rest of the note for further information on patient assessment and treatment This dictation may have been done utilizing a voice recognition system. Attempts have been made to correct errors. However, there may be uncorrected grammatical, spelling, and recognitions errors present. 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 According to the medical records patient likely had a seizure activity, upon EMS arrival to the nursing facility the administered Versed 10 mg IM as patient was noted to be seizing. Bag-mask ventilation was applied due to agonal respirations, large amount of frothy secretions were noted. Patient was also incontinent of urine was warm to touch, in the ER patient's body temperature was 104.1? F. Ativan 4 mg was given in the ER along with a bolus of Keppra. Patient was intubated for airway protection in the ER. Pertinent labs in the ED were: WBC 15.0, hemoglobin 13.1, platelets 170. INR 1.1. Sodium 130, potassium 4.2, CO2 20, BUN 13, creatinine 0.79, glucose 159, lactic acid was 2.2, repeat was 1.3 LFTs were within normal limits, troponin < 0.012.. C-reactive protein 1.8, proBNP of 176. TSH 0.314. Triglyceride 70 and lipase 85. UA was positive for 4+ protein, 2+ blood, trace leukocyte esterase, urine WBC 21-50, 4+ bacteria. Salicylates and acetaminophen levels were within normal limits. Urine drug screen was positive for benzodiazepines (likely what patient received by EMS and in the ER upon arrival). RSV, influenza negative, SARS-CoV-2 PCR was positive -CT brain did not show any acute intracranial process except left occipital encephalomalacia -CT cervical spine did not show any fracture, traumatic malalignment -CT chest abdomen and pelvis showed no evidence of acute pulmonary embolism. Segmental bilateral median dependent consolidations may represent pneumonia. A component of aspiration may be present based on its distribution. Lateral urinary bladder wall thickening where represent cystitis or chronic outlet obstruction from marked prostatomegaly Patient was given 3 L IV a fluid bolus, started on cefepime and vancomycin, central line was inserted in the left subclavian, started on Levophed and transferred to the ICU for further management. Patient was sedated Versed and propofol 02/16/2025: Patient seen and examined this morning in the ICU, remains intubated on CMV mode of ventilation, peep of 5 with 85% FiO2 with adequate O2 sats. Sedated with propofol and Versed infusion, patient did open his eyes, did not follow any commands. Urine output has been adequate, afebrile. On Levophed 2 mcg/min. Remains on maintenance IV fluids, LR at 125 mL/hr. Review of Systems 2 Review of Systems: ROS unobtainable: Yes unobtainable due to endotracheal tube and unobtainable due to medical condition [facility] Past Medical History Medical History (Updated 02/15/25 @ 22:56 by Enedina Arellano DO) BPH (benign prostatic hyperplasia) Noted on imaging Paroxysmal A-fib Vitamin D deficiency Depression Hypertension Cerebrovascular accident left occipital lobe stroke with right hemiparesis Epilepsy Hyperlipidemia Surgical History Surgical History (Updated 02/15/25 @ 22:42 by Enedina Arellano DO) Surgical history unknown Family History Family History Other Unknown family medical history Social History Social History (Updated 02/15/25 @ 22:42 by Enedina Arellano DO) Social History: Surrogate medical decision maker: Aisha Macedo, daughter ([phone]). Code status: Full code. Smoking packs per day: 0.5 Smoking cigarettes per day: 10.0 Years smoked: 55 Smoking pack-years: 27.50 Smoking status: Unknown if ever smoked Alcohol intake: former Substance use: unknown Substance use type: unknown Lack of Transportation: No Lack of Food: Never True Current Housing: I Have Housing Concerned About Future Housing: No Difficulty Paying Gas/Electric Bills: No Difficulty Paying for Meds: No Currently Unemployed: No Education: Don't Know Difficulty w/ Childcare or Family Care: No Living arrangements: alf Additional living arrangements comments: [facility]. Spiritual care concerns: No Meds Home Medications and Allergies Home Medications ?Medication ?Instructions ?Recorded ?Confirmed ?Type atorvastatin 80 mg tablet 80 mg PO HS 12/05/21 02/15/25 History calcitriol 0.25 mcg capsule 0.25 mcg PO WEEKLY 12/05/21 02/15/25 History levetiracetam 1,000 mg tablet 2,000 mg PO BID 12/05/21 02/15/25 History lisinopril 10 mg tablet 10 mg PO DAILY 12/05/21 02/15/25 History aspirin 81 mg chewable tablet 81 mg PO DAILY 11/17/22 02/15/25 History cholecalciferol (vitamin D3) 125 125 mcg PO DAILY 11/17/22 02/15/25 History mcg (5,000 unit) tablet lacosamide 150 mg tablet (Vimpat) 150 mg PO Q12HR #60 tabs 12/29/24 02/15/25 Rx lorazepam 2 mg/mL injection 1 mg IM ONCE PRN seizure 02/15/25 02/15/25 History solution (Ativan) Allergies Allergy/AdvReac Type Severity Reaction Status Date / Time No Known Allergies Allergy Verified 12/27/24 19:03 Vital Signs Vital Signs - 24 hr 02/15/25 17:44 02/15/25 17:47 02/15/25 17:55 Temperature 103.8 F H 103.7 F H Pulse Rate 155 H 157 H 162 H Respiratory Rate 16 16 Blood Pressure 129/75 Pulse Oximetry 99 96 90 Oxygen Delivery Mechanical Ventilation Fraction of Inspired Oxygen 60 02/15/25 18:02 02/15/25 18:06 02/15/25 18:09 Temperature 103.4 F H 104.1 F H Pulse Rate 160 H 147 H Respiratory Rate 16 40 H Blood Pressure 125/74 118/66 Pulse Oximetry 92 100 100 Oxygen Delivery Room Air Room Air Fraction of Inspired Oxygen 02/15/25 18:11 02/15/25 18:20 02/15/25 18:32 Temperature 103.1 F H Pulse Rate 147 H 157 H 156 H Respiratory Rate 40 H 17 21 H Blood Pressure 121/74 Pulse Oximetry Oxygen Delivery Fraction of Inspired Oxygen 02/15/25 18:47 02/15/25 18:47 02/15/25 19:12 Temperature 103.0 F H 102.7 F H Pulse Rate 150 H 150 H Respiratory Rate 29 H 31 H Blood Pressure 114/75 Pulse Oximetry Oxygen Delivery Fraction of Inspired Oxygen 02/15/25 19:20 02/15/25 20:07 02/15/25 20:11 Temperature 102.8 F H 102.9 F H Pulse Rate 153 H 127 H 127 H Respiratory Rate 28 H 31 H 35 H Blood Pressure 113/74 108/70 Pulse Oximetry 100 Oxygen Delivery Fraction of Inspired Oxygen 02/15/25 20:16 02/15/25 20:22 02/15/25 20:27 Temperature 102.9 F H 103.0 F H 103.1 F H Pulse Rate 128 H 135 H 131 H Respiratory Rate 31 H 31 H 35 H Blood Pressure 115/70 140/128 H 117/73 Pulse Oximetry 100 100 Oxygen Delivery Fraction of Inspired Oxygen 02/15/25 20:30 02/15/25 20:31 02/15/25 20:36 Temperature 103.2 F H 103.2 F H Pulse Rate 150 H 128 H 127 H Respiratory Rate 21 H 33 H 25 H Blood Pressure 107/68 105/68 Pulse Oximetry 98 Oxygen Delivery Fraction of Inspired Oxygen 02/15/25 20:37 02/15/25 20:41 02/15/25 20:46 Temperature 103.3 F H 103.2 F H Pulse Rate 127 H 127 H Respiratory Rate 23 H 31 H Blood Pressure 109/68 Pulse Oximetry 99 Oxygen Delivery Fraction of Inspired Oxygen 02/15/25 20:46 02/15/25 20:49 02/15/25 20:56 Temperature 103.2 F H 103.2 F H Pulse Rate 127 H 127 H 126 H Respiratory Rate 28 H 30 H 26 H Blood Pressure 104/67 91/66 L Pulse Oximetry 99 Oxygen Delivery Fraction of Inspired Oxygen 02/15/25 20:58 02/15/25 21:06 02/15/25 21:11 Temperature 103.0 F H 102.9 F H Pulse Rate 126 H 125 H 124 H Respiratory Rate 30 H 28 H 29 H Blood Pressure 84/65 L 91/64 L Pulse Oximetry 98 97 Oxygen Delivery Fraction of Inspired Oxygen 02/15/25 21:16 02/15/25 21:38 02/15/25 21:51 Temperature 102.7 F H 101.2 F H Pulse Rate 120 H 112 H 108 H Respiratory Rate 25 H 25 H 19 Blood Pressure 94/65 L 92/62 L Pulse Oximetry 100 98 Oxygen Delivery Fraction of Inspired Oxygen 02/15/25 21:56 02/15/25 21:58 02/15/25 22:01 Temperature 101.1 F H 101.1 F H Pulse Rate 110 H 109 H 108 H Respiratory Rate 18 26 H Blood Pressure 91/61 L 86/59 L Pulse Oximetry 98 96 97 Oxygen Delivery Mechanical Ventilation Fraction of Inspired Oxygen 40 02/15/25 22:03 02/15/25 22:25 02/15/25 22:25 Temperature Pulse Rate 108 H 95 95 Respiratory Rate 26 H 26 H Blood Pressure 86/59 L Pulse Oximetry Oxygen Delivery Fraction of Inspired Oxygen 02/15/25 22:25 02/15/25 22:30 02/15/25 22:30 Temperature 100.6 F H Pulse Rate 97 97 97 Respiratory Rate 26 H 26 H Blood Pressure 106/67 106/67 Pulse Oximetry 99 Oxygen Delivery Fraction of Inspired Oxygen 02/15/25 22:45 02/15/25 22:50 02/15/25 22:59 Temperature 100.7 F H Pulse Rate 93 90 90 Respiratory Rate 26 H 26 H Blood Pressure 86/66 L Pulse Oximetry 97 97 Oxygen Delivery Mechanical Ventilation Fraction of Inspired Oxygen 40 02/15/25 23:00 02/15/25 23:15 02/15/25 23:25 Temperature 100.5 F H Pulse Rate 89 89 Respiratory Rate 26 H 26 H Blood Pressure 98/60 L Pulse Oximetry 98 98 Oxygen Delivery Mechanical Ventilation Fraction of Inspired Oxygen 40 40 02/15/25 23:31 02/16/25 00:00 02/16/25 00:00 Temperature 99 F Pulse Rate 85 79 79 Respiratory Rate 26 H 20 Blood Pressure 107/64 Pulse Oximetry 99 Oxygen Delivery Fraction of Inspired Oxygen 02/16/25 00:00 02/16/25 00:00 02/16/25 00:00 Temperature Pulse Rate 81 81 74 Respiratory Rate 20 20 Blood Pressure 107/64 Pulse Oximetry Oxygen Delivery Fraction of Inspired Oxygen 02/16/25 01:00 02/16/25 01:00 02/16/25 01:15 Temperature 98.6 F 98.6 F Pulse Rate 79 79 66 Respiratory Rate 20 20 Blood Pressure 117/70 117/70 94/60 L Pulse Oximetry 97 99 Oxygen Delivery Fraction of Inspired Oxygen 02/16/25 02:00 02/16/25 02:00 02/16/25 02:00 Temperature 98.3 F Pulse Rate 70 71 69 Respiratory Rate 20 20 Blood Pressure 112/63 Pulse Oximetry 100 Oxygen Delivery Fraction of Inspired Oxygen 02/16/25 02:00 02/16/25 02:02 02/16/25 02:16 Temperature 98.3 F Pulse Rate 71 70 75 Respiratory Rate 20 20 Blood Pressure 112/63 94/59 L Pulse Oximetry 98 Oxygen Delivery Fraction of Inspired Oxygen 02/16/25 02:22 02/16/25 02:33 02/16/25 02:42 Temperature Pulse Rate 73 75 74 Respiratory Rate 20 20 Blood Pressure Pulse Oximetry 99 Oxygen Delivery Mechanical Ventilation Fraction of Inspired Oxygen 40 02/16/25 03:30 02/16/25 03:30 02/16/25 03:45 Temperature 97.7 F 97.7 F Pulse Rate 78 85 81 Respiratory Rate 20 20 Blood Pressure 104/59 L 104/59 L 107/60 Pulse Oximetry 96 96 Oxygen Delivery Fraction of Inspired Oxygen 02/16/25 04:00 02/16/25 04:00 02/16/25 04:00 Temperature 97.7 F Pulse Rate 78 80 80 Respiratory Rate 20 20 20 Blood Pressure 104/62 Pulse Oximetry 98 Oxygen Delivery Fraction of Inspired Oxygen 02/16/25 04:00 02/16/25 04:00 02/16/25 04:00 Temperature Pulse Rate 80 80 Respiratory Rate Blood Pressure 104/62 Pulse Oximetry Oxygen Delivery Fraction of Inspired Oxygen 40 02/16/25 04:20 02/16/25 04:45 02/16/25 04:46 Temperature 97.6 F Pulse Rate 80 83 83 Respiratory Rate 20 20 Blood Pressure 106/60 106/60 Pulse Oximetry 97 98 Oxygen Delivery Mechanical Ventilation Fraction of Inspired Oxygen 35 02/16/25 04:56 02/16/25 05:00 02/16/25 06:00 Temperature 97.8 F Pulse Rate 79 86 86 Respiratory Rate 24 H Blood Pressure 109/67 Pulse Oximetry 98 97 Oxygen Delivery Mechanical Ventilation Fraction of Inspired Oxygen 35 02/16/25 06:00 02/16/25 06:00 02/16/25 06:00 Temperature 97.2 F L Pulse Rate 83 87 86 Respiratory Rate 20 20 Blood Pressure 93/56 L 93/56 L Pulse Oximetry 96 Oxygen Delivery Fraction of Inspired Oxygen 02/16/25 06:00 02/16/25 06:45 02/16/25 06:48 Temperature 97 F L Pulse Rate 86 81 80 Respiratory Rate 20 20 Blood Pressure 89/55 L 89/56 L Pulse Oximetry 96 Oxygen Delivery Fraction of Inspired Oxygen 02/16/25 07:35 02/16/25 07:35 02/16/25 07:45 Temperature Pulse Rate 78 83 78 Respiratory Rate 20 20 Blood Pressure Pulse Oximetry 97 Oxygen Delivery Mechanical Ventilation Fraction of Inspired Oxygen 35 02/16/25 07:49 02/16/25 07:49 02/16/25 08:00 Temperature 97.2 F L Pulse Rate 72 72 73 Respiratory Rate 20 20 21 H Blood Pressure 112/58 L Pulse Oximetry 97 Oxygen Delivery Fraction of Inspired Oxygen 02/16/25 08:05 02/16/25 08:16 Temperature Pulse Rate 79 80 Respiratory Rate 21 H Blood Pressure 112/58 L Pulse Oximetry Oxygen Delivery Fraction of Inspired Oxygen Exam 2 Narrative: General: Patient is intubated, sedated in no acute distress HEENT:? Pupils equal and reactive, sclera is clear, ETT in place, no nystagmus noted Neck:? Supple Respiratory:? Coarse breath sounds at bases Rt > Lt, no wheezing, adequate air entry Cardiac:? S1-S2 normal, regular rate and rhythm Abdomen:? Soft, nontender, nondistended, obese, hypoactive bowel sounds Extremities:? Trace edema, palpable pedal pulses Neuro:? Patient is intubated, sedated, opens his eyes but does not follow simple commands Skin:? No skin lesions were noted, Psych:? Unable to assess at this time Results Labs 02/16/25 05:26 02/16/25 05:26 Labs: Short CBC 02/15/25 02/16/25 Range/Units 18:09 05:26 WBC 15.0 H 13.7 H (4.5-10.0) K/mm3 Hgb 13.1 L 12.0 L (14.0-18.0) g/dL Hct 40.5 L 37.3 L (42.0-52.0) % Plt Count 170 134 L (150-375) k/mm3 BMP 02/15/25 02/16/25 17:16 05:26 Sodium 130 L 137 Potassium 4.2 3.9 Chloride 101 109 H Carbon Dioxide 20 L 20 L BUN 13 15 Creatinine 0.79 0.97 Glucose 159 H 243 H Calcium 7.5 L 8.4 Cardiac Enzymes 02/15/25 02/15/25 Range/Units 17:16 20:33 Total Creatine Kinase 68 (55-170) U/L Troponin I < 0.012 (0.000-0.034) ng/mL Liver Function 02/15/25 02/16/25 Range/Units 17:16 05:26 Total Bilirubin 0.5 0.5 (0.2-1.3) mg/dL AST 27 27 (17-59) U/L ALT 19 23 (6-50) U/L Alkaline Phosphatase 67 68 (38-126) U/L Albumin 3.5 3.2 L (3.5-5.1) g/dL Urine 02/15/25 Range/Units 18:33 Urine Color Yellow (Yellow) Urine Appearance Cloudy H (Clear) Urine pH 5.5 (5.0-9.0) Ur Specific [place] 1.022 (1.001-1.035) Urine Protein 4+ H (Negative) mg/dL Urine Glucose (UA) Negative (Negative) mg/dL Quality VTE Prophylaxis VTE prophylaxis: pharmacologic ordered Hospitalist MIPS Advance Care Plan I have confirmed that the patient's Advanced Care Plan is present, code status is documented, or surrogate decision maker is listed in patient medical record.: Yes Medication Reconciliation I have utilized all available resources to obtain, update and review the patients current medications (includes all prescriptions, OTC, herbals, cannabis, and nutritional supplements).: Yes
[2025-02-16] MEDS: MINERAL OIL/WHITE PETROLATUM OINTMENT 1 APPLIC EACH EYE ×2 (08:30→20:46)
[2025-02-16] MEDS: ENOXAPARIN 40 MG/0.4 ML SYRINGE SUB-Q (09:39)
[2025-02-16] MEDS: ASPIRIN 81 MG CHEWABLE TABLET PO (09:39)
[2025-02-16] MEDS: PANTOPRAZOLE SODIUM IV 40 MG VIAL IV PUSH (09:39)
[2025-02-16] MEDS: VANCOMYCIN 1,500 MG/NS 500 ML 1,500 MG/500 ML BAG 250 MG IVPB (09:42)
[2025-02-16] MEDS: levETIRAcetam ORAL SOL 500 MG/5 ML UDC 2000 MG FEED TUBE ×2 (09:42→20:45)
[2025-02-16] MEDS: DOXYCYCLINE IV 100 MG in SODIUM CHLORIDE 0.9% IV 100 ML IVPB ×2 (11:00→22:26)
[2025-02-16] MEDS: AMPICILLIN SODIUM/SULBACTAM 3 GM in SODIUM CHLORIDE 0.9% IV 100 ML 200 ML IVPB (11:03)
[2025-02-16] MEDS: INSULIN ASPART (*BKC) 100 UNITS/ML SUB-Q ×3 (11:35→23:29)
[2025-02-16] MEDS: CENTRAL LINE FLUSH 10 ML IV PUSH ×2 (14:33→22:26)
--- NOTE | 2025-02-16 16:50 | PM.IMPN ---
Progress Note: A&P Assessment and Plan (1) Septic shock: Code(s): A41.9 - Sepsis, unspecified organism; R65.21 - Severe sepsis with septic shock Status: Acute (2) Acute respiratory failure with hypoxia and hypercapnia: Code(s): J96.01 - Acute respiratory failure with hypoxia; J96.02 - Acute respiratory failure with hypercapnia Status: Acute (3) Pneumonia: Qualifiers: Laterality: bilateral Lung location: lower lobe of lung Pneumonia type: due to unspecified organism Qualified Code(s): J18.9 - Pneumonia, unspecified organism Code(s): J18.9 - Pneumonia, unspecified organism Status: Acute (4) Pneumonia due to COVID-19 virus: Code(s): U07.1 - COVID-19; J12.82 - Pneumonia due to coronavirus disease 2018 Status: Acute (5) UTI (urinary tract infection): Qualifiers: Hematuria presence: with hematuria Urinary tract infection type: acute cystitis Qualified Code(s): N30.01 - Acute cystitis with hematuria Code(s): N39.0 - Urinary tract infection, site not specified Status: Acute (6) Breakthrough seizure: Code(s): G40.919 - Epilepsy, unspecified, intractable, without status epilepticus Status: Acute Plan Patient presents with acute hypoxic hypercapnic respiratory failure due to pneumonia resulting in septic shock. Patient been placed on empiric antibiotic therapy with cefepime and vancomycin. Patient's pneumonia is likely multifactorial due due to a component of aspiration and COVID. Will add Remdesivir and Decadron per protocol. Will monitor inflammatory markers and repeat CBC and CMP in a.m.. Will trend liver enzymes and monitor coag panel Q 48 hours per protocol. Patient is on ventilator. Initial ABG post intubation demonstrated hypoxia and mild hypercapnia with respiratory acidosis. I made ventilator changes and repeat ABG is pending. Will use low tidal volume strategy is to reduce barotrauma. Daily ABGs and chest x-rays have been ordered. Will add scheduled DuoNebs. Sputum culture with Gram stain has been ordered. Will continue antibiotic therapy with cefepime and vancomycin. Blood cultures have been obtained and are pending. Patient also has a abnormal urinalysis and bladder findings on CT to suggest possible UTI. Urine specimen had moderate squamous cells subsequently a separate urine culture has been ordered. The patient's urine specimen came from the Spencer catheter that was placed in the ER. Patient did receive 2 L fluid bolus in the ER I at in an additional L to meet the patient's 30 mL/kilos fluid requirement. Will continue maintenance IV fluids thereafter. Will monitor strict I&O's. Patient likely had a breakthrough seizure due to fever and sepsis. Will switch patient's Keppra to liquid formulation per G tube. The patients Vimpat cannot be crushed for NG administration. Pharmacy states that it will take 2 days to get liquid formulation which has been ordered. Patient is on propofol for sedation. Patient is admitted in ICU and currently sedated as patient is post ictal. he is positive for COVID was started on Remdesivir and Dexamethasone, patient will be seen by refrigeration insulator and neurologist and further recommendation to follow. Protonix ordered for GI prophylaxis. Subjective Date/time seen: 02/16/25 16:50 Interval history: H&P-narrative Patient presents with acute hypoxic hypercapnic respiratory failure due to pneumonia resulting in septic shock. Patient been placed on empiric antibiotic therapy with cefepime and vancomycin. Patient's pneumonia is likely multifactorial due due to a component of aspiration and COVID. Will add Remdesivir and Decadron per protocol. Will monitor inflammatory markers and repeat CBC and CMP in a.m.. Will trend liver enzymes and monitor coag panel Q 48 hours per protocol. Patient is on ventilator. Initial ABG post intubation demonstrated hypoxia and mild hypercapnia with respiratory acidosis. I made ventilator changes and repeat ABG is pending. Will use low tidal volume strategy is to reduce barotrauma. Daily ABGs and chest x-rays have been ordered. Will add scheduled DuoNebs. Sputum culture with Gram stain has been ordered. Will continue antibiotic therapy with cefepime and vancomycin. Blood cultures have been obtained and are pending. Patient also has a abnormal urinalysis and bladder findings on CT to suggest possible UTI. Urine specimen had moderate squamous cells subsequently a separate urine culture has been ordered. The patient's urine specimen came from the Spencer catheter that was placed in the ER. Patient did receive 2 L fluid bolus in the ER I at in an additional L to meet the patient's 30 mL/kilos fluid requirement. Will continue maintenance IV fluids thereafter. Will monitor strict I&O's. Patient likely had a breakthrough seizure due to fever and sepsis. Will switch patient's Keppra to liquid formulation per G tube. The patients Vimpat cannot be crushed for NG administration. Pharmacy states that it will take 2 days to get liquid formulation which has been ordered. Patient is on propofol for sedation. Patient is admitted in ICU and currently sedated as patient is post ictal. he is positive for COVID was started on Remdesivir and Dexamethasone, patient will be seen by refrigeration insulator and neurologist and further recommendation to follow. Review of Systems Review of Systems: ROS unobtainable: Yes unobtainable due to endotracheal tube and unobtainable due to medical condition Exam Narrative: Patient is comfortable, NAD HEENT: eyes are clear and none icteric LUNGS:no retraction ABD: distended Lower: edema SKIN: nonjaundiced Neuro: sedated Objective Data Vital Signs Vital Signs: Vital Signs - 24 hr 02/15/25 17:44 02/15/25 17:47 02/15/25 17:55 Temperature 39.9 C H 39.8 C H Pulse Rate 155 H 157 H 162 H Respiratory Rate 16 16 Blood Pressure 129/75 Pulse Oximetry 99 96 90 Oxygen Delivery Mechanical Ventilation Fraction of Inspired Oxygen 60 02/15/25 18:02 02/15/25 18:06 02/15/25 18:09 Temperature 39.7 C H 40.1 C H Pulse Rate 160 H 147 H Respiratory Rate 16 40 H Blood Pressure 125/74 118/66 Pulse Oximetry 92 100 100 Oxygen Delivery Room Air Room Air Fraction of Inspired Oxygen 02/15/25 18:11 02/15/25 18:20 02/15/25 18:32 Temperature 39.5 C H Pulse Rate 147 H 157 H 156 H Respiratory Rate 40 H 17 21 H Blood Pressure 121/74 Pulse Oximetry Oxygen Delivery Fraction of Inspired Oxygen 02/15/25 18:47 02/15/25 18:47 02/15/25 19:12 Temperature 39.4 C H 39.3 C H Pulse Rate 150 H 150 H Respiratory Rate 29 H 31 H Blood Pressure 114/75 Pulse Oximetry Oxygen Delivery Fraction of Inspired Oxygen 02/15/25 19:20 02/15/25 20:07 02/15/25 20:11 Temperature 39.3 C H 39.4 C H Pulse Rate 153 H 127 H 127 H Respiratory Rate 28 H 31 H 35 H Blood Pressure 113/74 108/70 Pulse Oximetry 100 Oxygen Delivery Fraction of Inspired Oxygen 02/15/25 20:16 02/15/25 20:22 02/15/25 20:27 Temperature 39.4 C H 39.4 C H 39.5 C H Pulse Rate 128 H 135 H 131 H Respiratory Rate 31 H 31 H 35 H Blood Pressure 115/70 140/128 H 117/73 Pulse Oximetry 100 100 Oxygen Delivery Fraction of Inspired Oxygen 02/15/25 20:30 02/15/25 20:31 02/15/25 20:36 Temperature 39.6 C H 39.6 C H Pulse Rate 150 H 128 H 127 H Respiratory Rate 21 H 33 H 25 H Blood Pressure 107/68 105/68 Pulse Oximetry 98 Oxygen Delivery Fraction of Inspired Oxygen 02/15/25 20:37 02/15/25 20:41 02/15/25 20:46 Temperature 39.6 C H 39.6 C H Pulse Rate 127 H 127 H Respiratory Rate 23 H 31 H Blood Pressure 109/68 Pulse Oximetry 99 Oxygen Delivery Fraction of Inspired Oxygen 02/15/25 20:46 02/15/25 20:49 02/15/25 20:56 Temperature 39.6 C H 39.6 C H Pulse Rate 127 H 127 H 126 H Respiratory Rate 28 H 30 H 26 H Blood Pressure 104/67 91/66 L Pulse Oximetry 99 Oxygen Delivery Fraction of Inspired Oxygen 02/15/25 20:58 02/15/25 21:06 02/15/25 21:11 Temperature 39.4 C H 39.4 C H Pulse Rate 126 H 125 H 124 H Respiratory Rate 30 H 28 H 29 H Blood Pressure 84/65 L 91/64 L Pulse Oximetry 98 97 Oxygen Delivery Fraction of Inspired Oxygen 02/15/25 21:16 02/15/25 21:38 02/15/25 21:51 Temperature 39.3 C H 38.4 C H Pulse Rate 120 H 112 H 108 H Respiratory Rate 25 H 25 H 19 Blood Pressure 94/65 L 92/62 L Pulse Oximetry 100 98 Oxygen Delivery Fraction of Inspired Oxygen 02/15/25 21:56 02/15/25 21:58 02/15/25 22:01 Temperature 38.4 C H 38.4 C H Pulse Rate 110 H 109 H 108 H Respiratory Rate 18 26 H Blood Pressure 91/61 L 86/59 L Pulse Oximetry 98 96 97 Oxygen Delivery Mechanical Ventilation Fraction of Inspired Oxygen 40 02/15/25 22:03 02/15/25 22:25 02/15/25 22:25 Temperature Pulse Rate 108 H 95 95 Respiratory Rate 26 H 26 H Blood Pressure 86/59 L Pulse Oximetry Oxygen Delivery Fraction of Inspired Oxygen 02/15/25 22:25 02/15/25 22:30 02/15/25 22:30 Temperature 38.1 C H Pulse Rate 97 97 97 Respiratory Rate 26 H 26 H Blood Pressure 106/67 106/67 Pulse Oximetry 99 Oxygen Delivery Fraction of Inspired Oxygen 02/15/25 22:45 02/15/25 22:50 02/15/25 22:59 Temperature 38.2 C H Pulse Rate 93 90 90 Respiratory Rate 26 H 26 H Blood Pressure 86/66 L Pulse Oximetry 97 97 Oxygen Delivery Mechanical Ventilation Fraction of Inspired Oxygen 40 02/15/25 23:00 02/15/25 23:15 02/15/25 23:25 Temperature 38.1 C H Pulse Rate 89 89 Respiratory Rate 26 H 26 H Blood Pressure 98/60 L Pulse Oximetry 98 98 Oxygen Delivery Mechanical Ventilation Fraction of Inspired Oxygen 40 40 02/15/25 23:31 02/16/25 00:00 02/16/25 00:00 Temperature 37.2 C Pulse Rate 85 79 79 Respiratory Rate 26 H 20 Blood Pressure 107/64 Pulse Oximetry 99 Oxygen Delivery Fraction of Inspired Oxygen 02/16/25 00:00 02/16/25 00:00 02/16/25 00:00 Temperature Pulse Rate 81 81 74 Respiratory Rate 20 20 Blood Pressure 107/64 Pulse Oximetry Oxygen Delivery Fraction of Inspired Oxygen 02/16/25 01:00 02/16/25 01:00 02/16/25 01:15 Temperature 37.0 C 37.0 C Pulse Rate 79 79 66 Respiratory Rate 20 20 Blood Pressure 117/70 117/70 94/60 L Pulse Oximetry 97 99 Oxygen Delivery Fraction of Inspired Oxygen 02/16/25 02:00 02/16/25 02:00 02/16/25 02:00 Temperature 36.8 C Pulse Rate 70 71 69 Respiratory Rate 20 20 Blood Pressure 112/63 Pulse Oximetry 100 Oxygen Delivery Fraction of Inspired Oxygen 02/16/25 02:00 02/16/25 02:02 02/16/25 02:16 Temperature 36.8 C Pulse Rate 71 70 75 Respiratory Rate 20 20 Blood Pressure 112/63 94/59 L Pulse Oximetry 98 Oxygen Delivery Fraction of Inspired Oxygen 02/16/25 02:22 02/16/25 02:33 02/16/25 02:42 Temperature Pulse Rate 73 75 74 Respiratory Rate 20 20 Blood Pressure Pulse Oximetry 99 Oxygen Delivery Mechanical Ventilation Fraction of Inspired Oxygen 40 02/16/25 03:30 02/16/25 03:30 02/16/25 03:45 Temperature 36.5 C 36.5 C Pulse Rate 78 85 81 Respiratory Rate 20 20 Blood Pressure 104/59 L 104/59 L 107/60 Pulse Oximetry 96 96 Oxygen Delivery Fraction of Inspired Oxygen 02/16/25 04:00 02/16/25 04:00 02/16/25 04:00 Temperature 36.5 C Pulse Rate 78 80 80 Respiratory Rate 20 20 20 Blood Pressure 104/62 Pulse Oximetry 98 Oxygen Delivery Fraction of Inspired Oxygen 02/16/25 04:00 02/16/25 04:00 02/16/25 04:00 Temperature Pulse Rate 80 80 Respiratory Rate Blood Pressure 104/62 Pulse Oximetry Oxygen Delivery Fraction of Inspired Oxygen 40 02/16/25 04:20 02/16/25 04:45 02/16/25 04:46 Temperature 36.4 C Pulse Rate 80 83 83 Respiratory Rate 20 20 Blood Pressure 106/60 106/60 Pulse Oximetry 97 98 Oxygen Delivery Mechanical Ventilation Fraction of Inspired Oxygen 35 02/16/25 04:56 02/16/25 05:00 02/16/25 06:00 Temperature 36.6 C Pulse Rate 79 86 86 Respiratory Rate 24 H Blood Pressure 109/67 Pulse Oximetry 98 97 Oxygen Delivery Mechanical Ventilation Fraction of Inspired Oxygen 35 02/16/25 06:00 02/16/25 06:00 02/16/25 06:00 Temperature 36.2 C L Pulse Rate 83 87 86 Respiratory Rate 20 20 Blood Pressure 93/56 L 93/56 L Pulse Oximetry 96 Oxygen Delivery Fraction of Inspired Oxygen 02/16/25 06:00 02/16/25 06:45 02/16/25 06:48 Temperature 36.1 C L Pulse Rate 86 81 80 Respiratory Rate 20 20 Blood Pressure 89/55 L 89/56 L Pulse Oximetry 96 Oxygen Delivery Fraction of Inspired Oxygen 02/16/25 07:35 02/16/25 07:35 02/16/25 07:45 Temperature Pulse Rate 78 83 78 Respiratory Rate 20 20 Blood Pressure Pulse Oximetry 97 Oxygen Delivery Mechanical Ventilation Fraction of Inspired Oxygen 35 02/16/25 07:49 02/16/25 07:49 02/16/25 08:00 Temperature Pulse Rate 72 72 Respiratory Rate 20 20 Blood Pressure Pulse Oximetry Oxygen Delivery Fraction of Inspired Oxygen 35 02/16/25 08:00 02/16/25 08:00 02/16/25 08:00 Temperature 36.2 C L Pulse Rate 73 73 Respiratory Rate 21 H 21 H Blood Pressure 112/58 L Pulse Oximetry 97 Oxygen Delivery Mechanical Ventilation Fraction of Inspired Oxygen 35 02/16/25 08:00 02/16/25 08:05 02/16/25 08:16 Temperature Pulse Rate 74 79 80 Respiratory Rate 21 H Blood Pressure 112/58 L Pulse Oximetry Oxygen Delivery Fraction of Inspired Oxygen 02/16/25 08:29 02/16/25 10:00 02/16/25 10:00 Temperature 36.1 C L Pulse Rate 89 80 80 Respiratory Rate 20 20 Blood Pressure 104/52 L 98/55 L Pulse Oximetry 95 Oxygen Delivery Fraction of Inspired Oxygen 02/16/25 10:00 02/16/25 10:00 02/16/25 10:00 Temperature Pulse Rate 80 80 80 Respiratory Rate 20 Blood Pressure 98/55 L Pulse Oximetry Oxygen Delivery Fraction of Inspired Oxygen 02/16/25 11:15 02/16/25 12:00 02/16/25 12:00 Temperature Pulse Rate 78 79 79 Respiratory Rate 20 20 Blood Pressure Pulse Oximetry 97 Oxygen Delivery Mechanical Ventilation Fraction of Inspired Oxygen 35 02/16/25 12:00 02/16/25 12:00 02/16/25 12:00 Temperature Pulse Rate 79 Respiratory Rate Blood Pressure 97/53 L Pulse Oximetry Oxygen Delivery Mechanical Ventilation Fraction of Inspired Oxygen 35 35 02/16/25 12:00 02/16/25 12:00 02/16/25 14:00 Temperature 36.0 C L Pulse Rate 78 78 80 Respiratory Rate 20 Blood Pressure 97/53 L Pulse Oximetry 96 Oxygen Delivery Fraction of Inspired Oxygen 02/16/25 14:00 02/16/25 14:00 02/16/25 14:00 Temperature 36.2 C L Pulse Rate 80 79 79 Respiratory Rate 20 20 Blood Pressure 93/56 L 93/56 L Pulse Oximetry 93 Oxygen Delivery Fraction of Inspired Oxygen 02/16/25 14:00 02/16/25 14:55 02/16/25 14:55 Temperature Pulse Rate 79 80 80 Respiratory Rate 20 20 Blood Pressure Pulse Oximetry 97 Oxygen Delivery Mechanical Ventilation Fraction of Inspired Oxygen 35 02/16/25 15:05 02/16/25 16:00 02/16/25 16:00 Temperature Pulse Rate 83 99 99 Respiratory Rate 20 20 20 Blood Pressure Pulse Oximetry Oxygen Delivery Fraction of Inspired Oxygen 02/16/25 16:00 02/16/25 16:00 02/16/25 16:00 Temperature Pulse Rate 99 Respiratory Rate Blood Pressure 97/50 L Pulse Oximetry Oxygen Delivery Mechanical Ventilation Fraction of Inspired Oxygen 35 35 02/16/25 16:00 02/16/25 16:00 02/16/25 16:46 Temperature 36.4 C Pulse Rate 99 99 96 Respiratory Rate 20 20 Blood Pressure 97/50 L Pulse Oximetry 96 Oxygen Delivery Fraction of Inspired Oxygen 02/16/25 16:46 Temperature Pulse Rate 96 Respiratory Rate 20 Blood Pressure Pulse Oximetry Oxygen Delivery Fraction of Inspired Oxygen Intake/Output Intake/Output: Intake & Output 02/13/25 02/14/25 02/15/25 02/16/25 23:59 23:59 23:59 23:59 Intake Total 4045.5 2417.5 Output Total 1500 Balance 4045.5 917.5 Meds/Results Medications: Active Medications Generic Name Dose Route Start Last Admin Trade Name Freq PRN Reason Stop Dose Admin Acetaminophen 650 mg 02/15/25 21:52 Acetaminophen Elixir 325 Mg/10.15 Ml Udc FEED TUBE Q4H PRN Mild Pain (1-3) or Fever Albuterol/Ipratropium 3 ml 02/16/25 02:00 02/16/25 14:56 Ipratropium 0.5 Mg/Albuterol Sulfate 2.5 Mg Ampul.Neb 3 Ml INHALATION 3 ml Q6HRT EMIL Administration Aspirin 81 mg 02/16/25 09:00 02/16/25 09:39 Aspirin 81 Mg Chewable Tablet PO 81 mg DAILY EMIL Administration Atorvastatin Calcium 80 mg 02/16/25 21:00 Atorvastatin 40 Mg Tablet PO HS EMIL Dexamethasone Sodium Phosphate 6 mg 02/15/25 21:45 02/15/25 22:42 Dexamethasone Sod Phos Inj 10 Mg/Ml 1 Ml Vial IV PUSH 02/24/25 21:01 6 mg HS EMIL Administration Dextrose 12.5 gm 02/15/25 22:39 Dextrose 50% 25 Gm/50 Ml Syringe IV PUSH PRN PRN Hypoglycemia Protocol Enoxaparin Sodium 40 mg 02/16/25 09:00 02/16/25 09:39 Enoxaparin 40 Mg/0.4 Ml Syringe SUB-Q 40 mg DAILY EMIL Administration Glucagon 1 mg 02/15/25 22:39 Glucagon For Inj 1 Mg Vial IM PRN PRN Hypoglycemia Protocol Glucose 15 gm 02/15/25 22:39 Glucose Oral Gel 15 Gm Of Glucse In 37.5 Gm Tube PO PRN PRN Hypoglycemia Protocol Propofol 100 mls @ 9.864 mls/hr 02/15/25 17:50 02/16/25 16:46 Diprivan IV CONT 15 mcg/kg/min .Q10H9M EMIL 9.86 mls/hr Administration Protocol 15 MCG/KG/MIN Midazolam HCl 100 mg in 100 mls @ 0 mls/hr 02/15/25 20:05 02/16/25 16:00 Versed 100 Mg/Ns 100 Ml IV CONT 0 mg/hr .Q0M EMIL 0 mls/hr Titration Protocol Norepinephrine Bitartrate 8 mg in 250 mls @ 0 mls/hr 02/15/25 21:10 02/16/25 16:00 Levophed 8 Mg/D5w 250 Ml IV CONT 0 mcg/min .Q0M EMIL 0 mls/hr Titration Protocol Lactated Ringer's 1,000 mls @ 75 mls/hr 02/15/25 21:45 02/16/25 08:16 Lr - Lactated Ringers Iv IV CONT 75 mls/hr .[id number] EMIL Infusion Remdesivir 100 mg in 250 mls @ 250 mls/hr 02/16/25 22:00 IVPB 02/19/25 22:59 Q24H EMIL Dextrose 1,000 mls @ 100 mls/hr 02/15/25 22:39 Dextrose 5% 1,000 Ml IVPB PRN PRN Hypoglycemia Protocol Doxycycline Hyclate 100 mg/ 100 mls @ 100 mls/hr 02/16/25 10:00 02/16/25 12:00 Sodium Chloride IVPB Infused Q12H EMIL Infusion Lacosamide 150 mg/ Sodium 100 mls @ 200 mls/hr 02/16/25 21:00 Chloride IVPB Q12H EMIL Insulin Aspart 4 - 8 units 02/16/25 12:00 02/16/25 11:35 Insulin Aspart (*Bkc) 100 Units/Ml SUB-Q 4 units Q6HR EMIL Administration Protocol Levetiracetam 2,000 mg 02/16/25 09:00 02/16/25 09:42 Levetiracetam Oral Flor 500 Mg/5 Ml Udc FEED TUBE 2,000 mg Q12HR EMIL Administration Multi-Ingred Cream/Lotion/Oil/Oint 1 applic 02/15/25 21:00 02/16/25 08:30 Mineral Oil/White Petrolatum Ointment EACH EYE 1 applic Q12HR EMIL Administration Pantoprazole Sodium 40 mg 02/16/25 09:00 02/16/25 09:39 Pantoprazole Sodium Iv 40 Mg Vial IV PUSH 40 mg DAILY EMIL Administration Sodium Chloride 10 ml 02/16/25 14:00 02/16/25 14:33 Central Line Flush IV PUSH 10 ml Q8HR EMIL Administration Sodium Chloride 20 ml 02/16/25 06:05 Central Line Flush IV PUSH PRN PRN after blood draws Radiology Results: ITS Impressions Head CT 02/15/25 19:38 IMPRESSION: No acute intracranial process. Cervical Spine CT 02/15/25 19:47 IMPRESSION: No acute fracture or traumatic malalignment in the cervical spine. Partially visualized endotracheal and nasogastric tubes. The nasogastric tube coils in the oropharynx. Chest/Abdomen/Pelvis CTA 02/15/25 20:05 IMPRESSION: Endotracheal tube terminates 1.7 cm above the geovani. Shallow positioned NG tube, consider advancing. Coiling of the tube noted in the oropharynx in the prior C-spine CT. Motion limited evaluation of the segmental and subsegmental bilateral lower lobe pulmonary arteries. No CT evidence of acute pulmonary embolus in the remaining adequately visualized vessels. Segmental bilateral medial and dependent consolidations, may represent pneumonia. A component of aspiration may be present based on distribution. Lateral urinary bladder wall thickening may represent cystitis or chronic outlet obstruction from marked prostatomegaly. Abdomen X-Ray 02/15/25 20:27 IMPRESSION: NG tube, in good position. Chest X-Ray 02/16/25 05:44 Impression: 1: Progression of interstitial edema. Stable small left effusion. Labs Labs: Laboratory Results - last 24 hr 0702/15/25 02/15/25 17:09 17:16 17:41 WBC RBC Hgb Hct MCV MCH MCHC RDW Plt Count MPV Immature Gran % (Auto) Neut % (Auto) Lymph % (Auto) Stanton % (Auto) Eos % (Auto) Baso % (Auto) Lymph # (Auto) Stanton # (Auto) Eos # (Auto) Baso # (Auto) Abs Immat Gran (auto) Absolute Neuts (auto) Absolute Nucleated RBC Nucleated RBC % % Immature Plt Fraction PT INR APTT Puncture Site Left brachial ABG pH 7.310 L ABG pCO2 48.7 H ABG pO2 66.7 L ABG PO2/FiO2 Ratio 1.67 ABG HCO3 24.0 ABG O2 Saturation 91.4 L ABG O2 Content 17.7 ABG Base Excess -2.7 A-a Gradient 162.5 Oxyhemoglobin 89.0 L Carboxyhemoglobin Methemoglobin Reduced Hemoglobin Total Hemoglobin 14.1 O2 Delivery Device Ventilator O2 Liters/Min Not Reportable Minute Volume Not Reportable Vent Rate 16 Vent Mode Cmv FiO2 40 Tidal Volume 450 PEEP 5 Peak Inspir Pressure Not Reportable Pressure Support Not Reportable Sodium 130 L Potassium 4.2 Chloride 101 Carbon Dioxide 20 L Anion Gap 9 BUN 13 Creatinine 0.79 Estim Creat Clear Calc Not Reportable Estimated GFR > 60 Glucose 159 H POC Capillary Glucose 193 H Lactic Acid 2.2 H Calcium 7.5 L Phosphorus Magnesium Ferritin Total Bilirubin 0.5 AST 27 ALT 19 Alkaline Phosphatase 67 Ammonia Total Creatine Kinase Troponin I < 0.012 C-Reactive Protein NT-Pro-B Natriuret Pep 176 H Total Protein 6.0 L Albumin 3.5 Triglycerides Lipase TSH Urine Color Urine Appearance Urine pH Ur Specific [place] Urine Protein Urine Glucose (UA) Urine Ketones Ur Blood (Man) Urine Nitrate Urine Bilirubin Urine Urobilinogen Add Ur Microanalysis Leukocyte Esterase Rfl Urine RBC Urine WBC Ur Squamous Epith Cells Urine Bacteria Urine Casts Hyaline Casts Urine Mucus Nasal MRSA (PCR) Salicylates Urine Opiates Screen Urine Methadone Screen Acetaminophen Ur Barbiturates Screen Lacosamide Level Ur Phencyclidine Scrn Ur Amphetamine Screen U Benzodiazepines Scrn Urine Cocaine Screen U Cannabinoids Screen Influenza A (RT-PCR) Influenza B (RT-PCR) RSV (RT-PCR) SARS-CoV-2 RNA (RT-PCR) 02/15/25 02/15/25 02/15/25 18:09 18:33 19:55 WBC 15.0 H RBC 4.59 L Hgb 13.1 L Hct 40.5 L MCV 88.2 MCH 28.5 MCHC 32.3 RDW 12.3 Plt Count 170 MPV 11.3 H Immature Gran % (Auto) 0.6 H Neut % (Auto) 87.8 H Lymph % (Auto) 5.9 L Stanton % (Auto) 4.9 Eos % (Auto) 0.5 Baso % (Auto) 0.3 Lymph # (Auto) 0.88 L Stanton # (Auto) 0.7 H Eos # (Auto) 0.1 Baso # (Auto) 0.0 Abs Immat Gran (auto) 0.09 H Absolute Neuts (auto) 13.2 H Absolute Nucleated RBC 0.000 Nucleated RBC % 0.0 % Immature Plt Fraction PT 14.5 INR 1.1 APTT 29.1 Puncture Site ABG pH ABG pCO2 ABG pO2 ABG PO2/FiO2 Ratio ABG HCO3 ABG O2 Saturation ABG O2 Content ABG Base Excess A-a Gradient Oxyhemoglobin Carboxyhemoglobin Methemoglobin Reduced Hemoglobin Total Hemoglobin O2 Delivery Device O2 Liters/Min Minute Volume Vent Rate Vent Mode FiO2 Tidal Volume PEEP Peak Inspir Pressure Pressure Support Sodium Potassium Chloride Carbon Dioxide Anion Gap BUN Creatinine Estim Creat Clear Calc Estimated GFR Glucose POC Capillary Glucose Lactic Acid 1.3 Calcium Phosphorus Magnesium Ferritin Total Bilirubin AST ALT Alkaline Phosphatase Ammonia Total Creatine Kinase Troponin I C-Reactive Protein 1.8 H NT-Pro-B Natriuret Pep Total Protein Albumin Triglycerides 70 Lipase 85 TSH Urine Color Yellow Urine Appearance Cloudy H Urine pH 5.5 Ur Specific [place] 1.022 Urine Protein 4+ H Urine Glucose (UA) Negative Urine Ketones Trace H Ur Blood (Man) 2+ H Urine Nitrate Negative Urine Bilirubin Negative Urine Urobilinogen 1.0 Add Ur Microanalysis Reviewed Leukocyte Esterase Rfl Trace H Urine RBC 21-50 H Urine WBC 21-50 H Ur Squamous Epith Cells Moderate Urine Bacteria 4+ H Urine Casts >20 Hyaline Casts Present Urine Mucus Present Nasal MRSA (PCR) Salicylates Urine Opiates Screen Negative Urine Methadone Screen Negative Acetaminophen Ur Barbiturates Screen Negative Lacosamide Level Cancelled Ur Phencyclidine Scrn Negative Ur Amphetamine Screen Negative U Benzodiazepines Scrn Positive A Urine Cocaine Screen Negative U Cannabinoids Screen Negative Influenza A (RT-PCR) Negative Influenza B (RT-PCR) Negative RSV (RT-PCR) Negative SARS-CoV-2 RNA (RT-PCR) Positive A 02/15/25 02/15/25 02/15/25 20:33 21:51 22:59 WBC RBC Hgb Hct MCV MCH MCHC RDW Plt Count MPV Immature Gran % (Auto) Neut % (Auto) Lymph % (Auto) Stanton % (Auto) Eos % (Auto) Baso % (Auto) Lymph # (Auto) Stanton # (Auto) Eos # (Auto) Baso # (Auto) Abs Immat Gran (auto) Absolute Neuts (auto) Absolute Nucleated RBC Nucleated RBC % % Immature Plt Fraction PT INR APTT Puncture Site Right radial ABG pH 7.441 ABG pCO2 30.9 L ABG pO2 83.9 ABG PO2/FiO2 Ratio 2.10 ABG HCO3 20.6 L ABG O2 Saturation 96.8 ABG O2 Content 16.9 ABG Base Excess -2.6 A-a Gradient 165.8 Oxyhemoglobin 95.9 Carboxyhemoglobin 0.3 Methemoglobin 0.1 Reduced Hemoglobin 3.7 Total Hemoglobin 12.5 O2 Delivery Device Ventilator O2 Liters/Min Not Reportable Minute Volume Not Reportable Vent Rate 26 Vent Mode Cmv FiO2 40 Tidal Volume 400 PEEP 5 Peak Inspir Pressure Not Reportable Pressure Support Not Reportable Sodium Potassium Chloride Carbon Dioxide Anion Gap BUN Creatinine Estim Creat Clear Calc Estimated GFR Glucose POC Capillary Glucose Lactic Acid Calcium Phosphorus Magnesium Ferritin Total Bilirubin AST ALT Alkaline Phosphatase Ammonia < 9 L Total Creatine Kinase 68 Troponin I C-Reactive Protein NT-Pro-B Natriuret Pep Total Protein Albumin Triglycerides Lipase TSH 0.314 L Urine Color Urine Appearance Urine pH Ur Specific [place] Urine Protein Urine Glucose (UA) Urine Ketones Ur Blood (Man) Urine Nitrate Urine Bilirubin Urine Urobilinogen Add Ur Microanalysis Leukocyte Esterase Rfl Urine RBC Urine WBC Ur Squamous Epith Cells Urine Bacteria Urine Casts Hyaline Casts Urine Mucus Nasal MRSA (PCR) Not detected Salicylates < 1.0 L Urine Opiates Screen Urine Methadone Screen Acetaminophen < 10 L Ur Barbiturates Screen Lacosamide Level Ur Phencyclidine Scrn Ur Amphetamine Screen U Benzodiazepines Scrn Urine Cocaine Screen U Cannabinoids Screen Influenza A (RT-PCR) Influenza B (RT-PCR) RSV (RT-PCR) SARS-CoV-2 RNA (RT-PCR) 02/16/25 02/16/25 02/16/25 00:34 04:43 05:26 WBC 13.7 H RBC 4.20 L Hgb 12.0 L Hct 37.3 L MCV 88.8 MCH 28.6 MCHC 32.2 RDW 12.6 Plt Count 134 L MPV 11.0 H Immature Gran % (Auto) 0.5 Neut % (Auto) 90.9 H Lymph % (Auto) 5.3 L Stanton % (Auto) 3.1 Eos % (Auto) 0.0 Baso % (Auto) 0.2 Lymph # (Auto) 0.73 L Stanton # (Auto) 0.4 Eos # (Auto) 0.0 Baso # (Auto) 0.0 Abs Immat Gran (auto) 0.07 H Absolute Neuts (auto) 12.4 H Absolute Nucleated RBC 0.000 Nucleated RBC % 0.0 % Immature Plt Fraction 6.3 PT INR APTT Puncture Site Right radial ABG pH 7.380 ABG pCO2 37.7 ABG pO2 86.8 ABG PO2/FiO2 Ratio 2.48 ABG HCO3 21.8 L ABG O2 Saturation 96.5 ABG O2 Content 17.5 ABG Base Excess -2.9 A-a Gradient 118.9 Oxyhemoglobin 95.6 Carboxyhemoglobin 0.4 Methemoglobin 0.2 Reduced Hemoglobin 3.8 Total Hemoglobin 13.0 O2 Delivery Device Ventilator O2 Liters/Min Not Reportable Minute Volume Not Reportable Vent Rate 20 Vent Mode Cmv FiO2 35 Tidal Volume 400 PEEP 5 Peak Inspir Pressure Not Reportable Pressure Support Not Reportable Sodium 137 Potassium 3.9 Chloride 109 H Carbon Dioxide 20 L Anion Gap 8 BUN 15 Creatinine 0.97 Estim Creat Clear Calc 80 Estimated GFR > 60 Glucose 243 H POC Capillary Glucose 229 H Lactic Acid Calcium 8.4 Phosphorus 2.7 Magnesium 1.5 L Ferritin 77.20 Total Bilirubin 0.5 AST 27 ALT 23 Alkaline Phosphatase 68 Ammonia Total Creatine Kinase Troponin I C-Reactive Protein NT-Pro-B Natriuret Pep Total Protein 5.8 L Albumin 3.2 L Triglycerides Lipase TSH Urine Color Urine Appearance Urine pH Ur Specific [place] Urine Protein Urine Glucose (UA) Urine Ketones Ur Blood (Man) Urine Nitrate Urine Bilirubin Urine Urobilinogen Add Ur Microanalysis Leukocyte Esterase Rfl Urine RBC Urine WBC Ur Squamous Epith Cells Urine Bacteria Urine Casts Hyaline Casts Urine Mucus Nasal MRSA (PCR) Salicylates Urine Opiates Screen Urine Methadone Screen Acetaminophen Ur Barbiturates Screen Lacosamide Level Ur Phencyclidine Scrn Ur Amphetamine Screen U Benzodiazepines Scrn Urine Cocaine Screen U Cannabinoids Screen Influenza A (RT-PCR) Influenza B (RT-PCR) RSV (RT-PCR) SARS-CoV-2 RNA (RT-PCR) 02/16/25 02/16/25 07:19 11:32 WBC RBC Hgb Hct MCV MCH MCHC RDW Plt Count MPV Immature Gran % (Auto) Neut % (Auto) Lymph % (Auto) Stanton % (Auto) Eos % (Auto) Baso % (Auto) Lymph # (Auto) Stanton # (Auto) Eos # (Auto) Baso # (Auto) Abs Immat Gran (auto) Absolute Neuts (auto) Absolute Nucleated RBC Nucleated RBC % % Immature Plt Fraction PT INR APTT Puncture Site ABG pH ABG pCO2 ABG pO2 ABG PO2/FiO2 Ratio ABG HCO3 ABG O2 Saturation ABG O2 Content ABG Base Excess A-a Gradient Oxyhemoglobin Carboxyhemoglobin Methemoglobin Reduced Hemoglobin Total Hemoglobin O2 Delivery Device O2 Liters/Min Minute Volume Vent Rate Vent Mode FiO2 Tidal Volume PEEP Peak Inspir Pressure Pressure Support Sodium Potassium Chloride Carbon Dioxide Anion Gap BUN Creatinine Estim Creat Clear Calc Estimated GFR Glucose POC Capillary Glucose 270 H 243 H Lactic Acid Calcium Phosphorus Magnesium Ferritin Total Bilirubin AST ALT Alkaline Phosphatase Ammonia Total Creatine Kinase Troponin I C-Reactive Protein NT-Pro-B Natriuret Pep Total Protein Albumin Triglycerides Lipase TSH Urine Color Urine Appearance Urine pH Ur Specific [place] Urine Protein Urine Glucose (UA) Urine Ketones Ur Blood (Man) Urine Nitrate Urine Bilirubin Urine Urobilinogen Add Ur Microanalysis Leukocyte Esterase Rfl Urine RBC Urine WBC Ur Squamous Epith Cells Urine Bacteria Urine Casts Hyaline Casts Urine Mucus Nasal MRSA (PCR) Salicylates Urine Opiates Screen Urine Methadone Screen Acetaminophen Ur Barbiturates Screen Lacosamide Level Ur Phencyclidine Scrn Ur Amphetamine Screen U Benzodiazepines Scrn Urine Cocaine Screen U Cannabinoids Screen Influenza A (RT-PCR) Influenza B (RT-PCR) RSV (RT-PCR) SARS-CoV-2 RNA (RT-PCR) Quality VTE Prophylaxis VTE prophylaxis: pharmacologic ordered
[2025-02-16] MEDS: LACTATED RINGERS 1,000 ML 75 ML IV CONT (17:52)
[2025-02-16] MEDS: SODIUM CHLORIDE 0.9% IVPB (20:45)
[2025-02-16] MEDS: LACOSAMIDE IVPB (20:45)
[2025-02-16] MEDS: dexAMETHasone SOD PHOS INJ 10 MG/ML 1 ML VIAL 6 MG IV PUSH (20:45)
[2025-02-16] MEDS: ATORVASTATIN 40 MG TABLET 80 MG PO (20:46)
[2025-02-16] MEDS: REMDESIVIR 100 MG/NS 250 ML 100 MG/250 ML BAG 250 MG IVPB (22:24)
[2025-02-16] MEDS: PROPOFOL IV EMULSION 100 ML 13.15 MG IV CONT (22:30)
[2025-02-17] VITALS (48 sets, daily range): BP systolic 96–143; BP diastolic 50–75; PULSE 53–106; RESP 14–28; TEMP 35.7–36.8; O2SAT 93–99
[2025-02-17] MEDS: IPRATROPIUM 0.5 MG/ALBUTEROL SULFATE 2.5 MG AMPUL.NEB 3 ML INHALATION ×4 (01:29→21:19)
[2025-02-17 05:02] LABS: Hematocrit 32.5 % (42.0-52.0); Hemoglobin 10.5 g/dL (14.0-18.0); Immature Granulocyte Percent A 0.6 % (0-0.5); Lymphocytes Absolute Auto 0.57 K/mm3 (0.9-3.2); Mean Corpuscular HGB Conc 32.3 g/dl (32-36); Mean Corpuscular Hemoglobin 28.8 pg (26-34); Mean Corpuscular Volume 89.3 fl (80-100); Nucleated Red Blood Cells Absolute Auto 0.000 K/mm3 (0.0-0.012); Nucleated Red Blood Cells Perc 0.0 % (0.0-0.2); Platelet Count Result 117 k/mm3 (150-375); Red Blood Count 3.64 M/mm3 (4.6-6.20); White Blood Count 7.8 K/mm3 (4.5-10.0)
[2025-02-17 05:19] LABS: INR 1.4; Prothrombin Time 16.7 Seconds (11.1-14.7)
[2025-02-17 05:20] LABS: Alveolar/Arterial O2 Gradient 127.1 mmHg; Carboxyhemoglobin 0.4 % THb (0-2.0); Fractional Inspired Oxygen 35 %; HCO3 ABG 22.0 mEq/l (22.0-26.0); Methemoglobin ABG 0.1 %THb (0-1.5); Oxygen Content ABG 15.8 %vol (16.0-22.0); Oxygen Saturation ABG 95.7 % (95.0-100.0); PCO2 ABG 37.3 mmHg (35.0-45.0); PO2 ABG 79.1 mmHg (80.0-100.0); PO2 FiO2 Ratio Arterial Blood 2.26 %; Reduced Hemoglobin 4.8 %THb (0-5.0)
[2025-02-17 05:22] LABS: Modified Allen's Test Pass; Site Drawn RIGHT RADIAL
[2025-02-17 05:23] LABS: Arterial Blood Gas Tidal Volume 400 ml; Arterial Blood Gas Ventilator rate 20 /MIN
[2025-02-17 05:27] LABS: Alanine Aminotransferase 18 U/L (6-50); Albumin Level 2.7 g/dL (3.5-5.1); Alkaline Phosphatase 58 U/L (38-126); Anion Gap 6 mmol/L (4-12); Aspartate Amino Transferase 23 U/L (17-59); Bilirubin,Total 0.2 mg/dL (0.2-1.3); Blood Urea Nitrogen 20 mg/dL (9-20); Calcium 8.3 mg/dL (8.4-10.2); Carbon Dioxide 21 mmol/L (22-30); Chloride 111 mmol/L (98-107); Estimated CRCL calculation 96 ml/min; Estimated Glomerular Filt Rate > 60; Glucose 266 mg/dL (65-110); Magnesium 2.0 mg/dL (1.6-2.3); Potassium 4.4 mmol/L (3.4-5.0); Sodium 138 mmol/L (137-145); Total Protein 5.1 g/dL (6.3-8.2)
[2025-02-17] MEDS: INSULIN ASPART (*BKC) 100 UNITS/ML SUB-Q ×3 (06:15→17:48)
[2025-02-17] MEDS: PROPOFOL IV EMULSION 100 ML 9.86 MG IV CONT (06:15)
[2025-02-17] MEDS: CENTRAL LINE FLUSH 10 ML IV PUSH ×3 (06:16→22:29)
[2025-02-17] MEDS: LACTATED RINGERS 1,000 ML 75 ML IV CONT (07:16)
[2025-02-17] MEDS: dexmedeTOMIDine 400 MCG/100 ML 400 MCG/100 ML BAG 5.41 MCG IV CONT (09:01)
[2025-02-17] MEDS: MINERAL OIL/WHITE PETROLATUM OINTMENT 1 APPLIC EACH EYE (09:06)
[2025-02-17] MEDS: DOXYCYCLINE IV 100 MG in SODIUM CHLORIDE 0.9% IV 100 ML IVPB ×2 (09:06→22:28)
[2025-02-17] MEDS: levETIRAcetam ORAL SOL 500 MG/5 ML UDC 2000 MG FEED TUBE (09:06)
[2025-02-17] MEDS: PANTOPRAZOLE SODIUM IV 40 MG VIAL IV PUSH (09:07)
[2025-02-17] MEDS: INSULIN GLARGINE (*BKC) 100 UNITS/ML 8 UNITS SUB-Q (09:08)
[2025-02-17] MEDS: ASPIRIN 81 MG CHEWABLE TABLET PO (09:08)
[2025-02-17] MEDS: ENOXAPARIN 40 MG/0.4 ML SYRINGE SUB-Q (09:08)
[2025-02-17] MEDS: AMPICILLIN SODIUM/SULBACTAM 3 GM in SODIUM CHLORIDE 0.9% IV 100 ML 200 ML IVPB ×3 (09:28→20:46)
[2025-02-17] MEDS: LACOSAMIDE IVPB ×2 (09:31→20:46)
[2025-02-17] MEDS: SODIUM CHLORIDE 0.9% IVPB ×2 (09:31→20:46)
[2025-02-17] MEDS: FUROSEMIDE INJ 40 MG/4 ML VIAL IV PUSH (10:50)
--- NOTE | 2025-02-17 11:13 | PCFNICU ---
ICU Rounding Note: Pt current nutrition is Vital AF 1.2 at 65 ml/hr. Last recorded weight is 108.2 kg, up from 107.5 kg on admit. Bowel Motility: +BM reported 02/15 Labs Reviewed: Glu 266, PO4 2.3. Alb 2.7 Meds Noted: Lantus, Precedex, Keppra, Protonix, Lovenox. Skin: WNL Additional Notes:Patient remains on mechanical vent. Tube feeding are being tolerated of Vital AF 1.2 at 65 ml/hr with free water flush of 30 ml q 4 hours. Plans to extubate. Agree with diet orders at this time. Following daily in ICU rounds. Will monitor weight, labs, skin, diet orders, meds every Friday and Friday.
--- NOTE | 2025-02-17 12:29 | WPDINTPN ---
Progress Note: A&P Assessment and Plan (1) Seizure: Code(s): R56.9 - Unspecified convulsions Status: Acute Assessment and Plan: Patient presented with altered mental status likely related to seizure activity and possible postictal state -has a history of seizures, does take Keppra and lacosamide at the shelter -patient was loaded with Keppra in the ER -continue Keppra and lacosamide -appreciate urology evaluation recommendations -EEG per Neurology 02/15: CT brain did not show any acute intracranial process except left occipital encephalomalacia 02/15: CT cervical spine did not show any fracture, traumatic malalignment omegaly (2) Acute respiratory failure with hypoxia and hypercapnia: Code(s): J96.01 - Acute respiratory failure with hypoxia; J96.02 - Acute respiratory failure with hypercapnia Status: Acute Assessment and Plan: Acute respiratory failure likely related to altered mental status, airway protection and possible aspiration along with fevers 104F current night which have abated -02/15: intubated in the ER -remains on mechanical ventilation, CMV mode, peep of 5 and 35% FiO2 -chest x-ray and ABGs reviewed, ventilator adjusted -continue bronchodilators -sedated with propofol and Versed infusion, maintain RASS of 0--2, daily SBT and SAT -have asked the bedside RN to start Precedex and wean off propofol and Versed infusion -once patient is more awake will place him on SBT and evaluate for extubation -will diurese with Lasix 02/15: CT chest abdomen and pelvis showed no evidence of acute pulmonary embolism. Segmental bilateral median dependent consolidations may represent pneumonia. A component of aspiration may be present based on its distribution. Lateral urinary bladder wall thickening where represent cystitis or chronic outlet obstruction from marked prostat (3) Septic shock: Code(s): A41.9 - Sepsis, unspecified organism; R65.21 - Severe sepsis with septic shock Status: Acute Assessment and Plan: Post intubation, patient dropped his blood pressures, could be related to sedation, positive-pressure ventilation and/OR infection secondary to COVID-19 pneumonia, UTI -initial lactic acid was 2.2, patient received 3 L IV fluid bolus -repeat lactic acid was 1.3 -02/15: Left subclavian line inserted in the ER -has been off Levophed for greater than 24 hours, blood pressures are stable -DC cefepime and vancomycin 02/16 -02/16: started on Unasyn and doxycycline -02/15: Blood cultures have been obtained and pending -02/15: Urine cultures have been obtained and pending -02/15: Sputum cultures have been obtained and pending (4) Pneumonia due to COVID-19 virus: Code(s): U07.1 - COVID-19; J12.82 - Pneumonia due to coronavirus disease 2019 Status: Acute Assessment and Plan: Patient with COVID pneumonia, Continue dexamethasone (02/15) and remdesivir (02/15) -CRP was 1.8 -contact and droplet isolation and precautions (5) UTI (urinary tract infection): Qualifiers: Hematuria presence: with hematuria Urinary tract infection type: acute cystitis Qualified Code(s): N30.01 - Acute cystitis with hematuria Code(s): N39.0 - Urinary tract infection, site not specified Status: Acute Assessment and Plan: UA revealed possible UTI -cultures have been obtained and pending -continue antibiotics as above Plan DVT prophylaxis: Lovenox Stress ulcer prophylaxis: Protonix Nutrition: Tolerating tube feed Code Status: Full code Critical Care Time Spent: 33 minutes Due to a high probability of clinically significant, life threatening deterioration, the patient required my highest level of preparedness to intervene emergently and I personally spent this critical care time directly and personally managing the patient. This critical care time included obtaining a history; examining the patient; pulse oximetry; ordering and review of studies; arranging urgent treatment with development of a management plan; evaluation of patient's response to treatment; frequent reassessment; and discussions with other providers. It was exclusive of separately billable procedures and treating other patients and teaching time. Please see Assessment and Plan section and the rest of the note for further information on patient assessment and treatment This dictation may have been done utilizing a voice recognition system. Attempts have been made to correct errors. However, there may be uncorrected grammatical, spelling, and recognitions errors present. Subjective Date/time seen: 02/17/25 12:29 Interval history: Reason for consult: Seizures, intubated for airway protection in possible aspiration, hypotension/shock, COVID pneumonia, UTI 02/17/2025: Patient seen and examined the ICU, remains intubated on CMV mode of ventilation, peep of 5, 35% FiO2. Sedated with propofol and midazolam infusion. No seizures overnight. Hemodynamically stable, adequate urine output, afebrile, patient opens eyes, follows simple commands in all extremities Review of Systems Review of Systems: ROS unobtainable: Yes unobtainable due to endotracheal tube and unobtainable due to medical condition Exam Narrative: General: Patient is intubated, sedated in no acute distress HEENT:? Pupils equal and reactive, sclera is clear, ETT in place, no nystagmus noted Neck:? Supple Respiratory:? Coarse breath sounds at bases Rt > Lt, no wheezing, adequate air entry Cardiac:? S1-S2 normal, regular rate and rhythm Abdomen:? Soft, nontender, nondistended, obese, hypoactive bowel sounds Extremities:? Trace edema, palpable pedal pulses Neuro:? Patient is intubated, sedated, opens his eyes, follows simple commands in all extremities and nods to questions Skin:? No skin lesions were noted, Psych:? Unable to assess at this time Objective Data Vital Signs Vital Signs: Vital Signs - 24 hr 02/16/25 14:00 02/16/25 14:00 02/16/25 14:00 Temperature 97.1 F L Pulse Rate 80 80 79 Respiratory Rate 20 20 Blood Pressure 93/56 L Pulse Oximetry 93 Oxygen Delivery Fraction of Inspired Oxygen 02/16/25 14:00 02/16/25 14:00 02/16/25 14:55 Temperature Pulse Rate 79 79 80 Respiratory Rate 20 Blood Pressure 93/56 L Pulse Oximetry 97 Oxygen Delivery Mechanical Ventilation Fraction of Inspired Oxygen 35 02/16/25 14:55 02/16/25 15:05 02/16/25 16:00 Temperature Pulse Rate 80 83 99 Respiratory Rate 20 20 20 Blood Pressure Pulse Oximetry Oxygen Delivery Fraction of Inspired Oxygen 02/16/25 16:00 02/16/25 16:00 02/16/25 16:00 Temperature Pulse Rate 99 99 Respiratory Rate 20 Blood Pressure 97/50 L Pulse Oximetry Oxygen Delivery Mechanical Ventilation Fraction of Inspired Oxygen 35 02/16/25 16:00 02/16/25 16:00 02/16/25 16:00 Temperature 97.6 F Pulse Rate 99 99 Respiratory Rate 20 Blood Pressure 97/50 L Pulse Oximetry 96 Oxygen Delivery Fraction of Inspired Oxygen 35 02/16/25 16:46 02/16/25 16:46 02/16/25 17:39 Temperature Pulse Rate 96 96 92 Respiratory Rate 20 20 Blood Pressure Pulse Oximetry 97 Oxygen Delivery Mechanical Ventilation Fraction of Inspired Oxygen 35 02/16/25 17:51 02/16/25 18:00 02/16/25 18:00 Temperature Pulse Rate 96 91 91 Respiratory Rate 23 H 20 20 Blood Pressure Pulse Oximetry Oxygen Delivery Fraction of Inspired Oxygen 02/16/25 18:00 02/16/25 18:00 02/16/25 18:00 Temperature 97.8 F Pulse Rate 91 91 91 Respiratory Rate 20 Blood Pressure 109/59 L 109/59 L Pulse Oximetry 98 Oxygen Delivery Fraction of Inspired Oxygen 02/16/25 19:32 02/16/25 19:37 02/16/25 19:51 Temperature Pulse Rate 85 85 Respiratory Rate 22 H Blood Pressure Pulse Oximetry 96 Oxygen Delivery Mechanical Ventilation Fraction of Inspired Oxygen 35 35 02/16/25 19:52 02/16/25 20:00 02/16/25 20:00 Temperature Pulse Rate 85 100 100 Respiratory Rate 22 H 18 20 Blood Pressure Pulse Oximetry 96 Oxygen Delivery Mechanical Ventilation Fraction of Inspired Oxygen 35 02/16/25 20:00 02/16/25 20:00 02/16/25 20:00 Temperature 97.9 F Pulse Rate 100 99 99 Respiratory Rate 20 Blood Pressure 110/54 L 110/54 L Pulse Oximetry 100 Oxygen Delivery Fraction of Inspired Oxygen 02/16/25 21:15 02/16/25 21:18 02/16/25 22:00 Temperature Pulse Rate 107 H 108 H 99 Respiratory Rate 21 H 22 H Blood Pressure Pulse Oximetry Oxygen Delivery Fraction of Inspired Oxygen 02/16/25 22:00 02/16/25 22:00 02/16/25 22:00 Temperature 98.8 F Pulse Rate 99 99 99 Respiratory Rate 20 20 20 Blood Pressure 92/52 L Pulse Oximetry 94 Oxygen Delivery Fraction of Inspired Oxygen 02/16/25 22:00 02/16/25 22:30 02/16/25 22:30 Temperature Pulse Rate 99 95 95 Respiratory Rate 20 20 Blood Pressure 92/52 L Pulse Oximetry Oxygen Delivery Fraction of Inspired Oxygen 02/16/25 22:33 02/16/25 23:31 02/17/25 00:00 Temperature Pulse Rate 90 90 83 Respiratory Rate 20 20 Blood Pressure Pulse Oximetry 95 Oxygen Delivery Mechanical Ventilation Fraction of Inspired Oxygen 35 02/17/25 00:00 02/17/25 00:00 02/17/25 00:00 Temperature 97.7 F Pulse Rate 85 84 84 Respiratory Rate 20 20 20 Blood Pressure 102/55 L Pulse Oximetry 97 97 Oxygen Delivery Mechanical Ventilation Fraction of Inspired Oxygen 35 02/17/25 00:00 02/17/25 00:00 02/17/25 00:00 Temperature Pulse Rate 93 86 Respiratory Rate 20 Blood Pressure 102/55 L Pulse Oximetry Oxygen Delivery Fraction of Inspired Oxygen 35 02/17/25 00:06 02/17/25 01:29 02/17/25 01:34 Temperature Pulse Rate 86 84 82 Respiratory Rate 20 Blood Pressure Pulse Oximetry 96 Oxygen Delivery Mechanical Ventilation Fraction of Inspired Oxygen 35 02/17/25 02:00 02/17/25 02:00 02/17/25 02:00 Temperature 97.3 F L Pulse Rate 97 97 93 Respiratory Rate 20 20 Blood Pressure 113/54 L Pulse Oximetry 96 Oxygen Delivery Fraction of Inspired Oxygen 02/17/25 02:00 02/17/25 04:00 02/17/25 04:00 Temperature 96.7 F L Pulse Rate 93 86 86 Respiratory Rate 20 Blood Pressure 113/54 L 104/53 L Pulse Oximetry 97 Oxygen Delivery Fraction of Inspired Oxygen 02/17/25 04:00 02/17/25 04:10 02/17/25 04:20 Temperature Pulse Rate 80 86 Respiratory Rate 20 20 Blood Pressure Pulse Oximetry 97 Oxygen Delivery Mechanical Ventilation Fraction of Inspired Oxygen 35 35 02/17/25 05:26 02/17/25 06:00 02/17/25 06:00 Temperature Pulse Rate 78 78 76 Respiratory Rate 20 Blood Pressure Pulse Oximetry 97 Oxygen Delivery Mechanical Ventilation Fraction of Inspired Oxygen 35 02/17/25 06:00 02/17/25 06:14 02/17/25 06:15 Temperature 96.3 F L Pulse Rate 75 80 80 Respiratory Rate 20 20 20 Blood Pressure 96/50 L Pulse Oximetry 96 Oxygen Delivery Fraction of Inspired Oxygen 02/17/25 07:16 02/17/25 07:37 02/17/25 08:00 Temperature 96.6 F L Pulse Rate 85 80 78 Respiratory Rate 26 H 20 21 H Blood Pressure 126/61 Pulse Oximetry 98 Oxygen Delivery Fraction of Inspired Oxygen 02/17/25 08:00 02/17/25 08:00 02/17/25 08:00 Temperature Pulse Rate 78 75 Respiratory Rate 21 H 20 Blood Pressure Pulse Oximetry 97 Oxygen Delivery Mechanical Ventilation Fraction of Inspired Oxygen 30 35 02/17/25 08:00 02/17/25 08:08 02/17/25 08:08 Temperature Pulse Rate 76 98 95 Respiratory Rate 20 Blood Pressure Pulse Oximetry 95 Oxygen Delivery Mechanical Ventilation Fraction of Inspired Oxygen 35 02/17/25 08:28 02/17/25 09:01 02/17/25 09:45 Temperature Pulse Rate 90 106 H 94 Respiratory Rate 20 23 H 20 Blood Pressure Pulse Oximetry Oxygen Delivery Fraction of Inspired Oxygen 02/17/25 09:47 02/17/25 10:00 02/17/25 10:00 Temperature Pulse Rate 95 88 88 Respiratory Rate 20 20 20 Blood Pressure Pulse Oximetry Oxygen Delivery Fraction of Inspired Oxygen 02/17/25 10:00 02/17/25 10:00 02/17/25 10:00 Temperature 97.1 F L Pulse Rate 87 91 65 Respiratory Rate 20 18 Blood Pressure 143/65 H Pulse Oximetry 99 Oxygen Delivery Fraction of Inspired Oxygen 02/17/25 10:30 02/17/25 10:37 02/17/25 10:46 Temperature Pulse Rate 89 88 93 Respiratory Rate 20 20 Blood Pressure Pulse Oximetry 98 Oxygen Delivery Mechanical Ventilation Fraction of Inspired Oxygen 30 02/17/25 10:57 02/17/25 11:00 02/17/25 11:30 Temperature Pulse Rate 91 93 100 Respiratory Rate 20 19 19 Blood Pressure Pulse Oximetry Oxygen Delivery Fraction of Inspired Oxygen 02/17/25 12:00 02/17/25 12:00 02/17/25 12:00 Temperature 96.7 F L Pulse Rate 68 80 66 Respiratory Rate 20 19 20 Blood Pressure 137/67 Pulse Oximetry 96 Oxygen Delivery Fraction of Inspired Oxygen 02/17/25 12:00 02/17/25 12:24 Temperature Pulse Rate 68 85 Respiratory Rate 19 Blood Pressure 115/59 L Pulse Oximetry Oxygen Delivery Fraction of Inspired Oxygen Intake/Output Intake/Output: Intake & Output 02/14/25 02/15/25 02/16/25 02/17/25 23:59 23:59 23:59 23:59 Intake Total 4045.5 3866.6 2146.8 Output Total 2400 900 Balance 4045.5 1466.6 1246.8 Meds/Results Medications: Active Medications Generic Name Dose Route Start Last Admin Trade Name Freq PRN Reason Stop Dose Admin Acetaminophen 650 mg 02/15/25 21:52 Acetaminophen Elixir 325 Mg/10.15 Ml Udc FEED TUBE Q4H PRN Mild Pain (1-3) or Fever Albuterol/Ipratropium 3 ml 02/16/25 02:00 02/17/25 08:07 Ipratropium 0.5 Mg/Albuterol Sulfate 2.5 Mg Ampul.Neb 3 Ml INHALATION 3 ml Q6HRT EMIL Administration Aspirin 81 mg 02/16/25 09:00 02/17/25 09:08 Aspirin 81 Mg Chewable Tablet PO 81 mg DAILY EMIL Administration Atorvastatin Calcium 80 mg 02/16/25 21:00 02/16/25 20:46 Atorvastatin 40 Mg Tablet PO 80 mg HS EMIL Administration Dexamethasone Sodium Phosphate 6 mg 02/15/25 21:45 02/16/25 20:45 Dexamethasone Sod Phos Inj 10 Mg/Ml 1 Ml Vial IV PUSH 02/24/25 21:01 6 mg HS EMIL Administration Dextrose 12.5 gm 02/15/25 22:39 Dextrose 50% 25 Gm/50 Ml Syringe IV PUSH PRN PRN Hypoglycemia Protocol Enoxaparin Sodium 40 mg 02/16/25 09:00 02/17/25 09:08 Enoxaparin 40 Mg/0.4 Ml Syringe SUB-Q 40 mg DAILY EMIL Administration Glucagon 1 mg 02/15/25 22:39 Glucagon For Inj 1 Mg Vial IM PRN PRN Hypoglycemia Protocol Glucose 15 gm 02/15/25 22:39 Glucose Oral Gel 15 Gm Of Glucse In 37.5 Gm Tube PO PRN PRN Hypoglycemia Protocol Propofol 100 mls @ 0 mls/hr 02/15/25 17:50 02/17/25 12:00 Diprivan IV CONT 0 mcg/kg/min .Q0M EMIL 0 mls/hr Titration Protocol Midazolam HCl 100 mg in 100 mls @ 0 mls/hr 02/15/25 20:05 02/17/25 12:00 Versed 100 Mg/Ns 100 Ml IV CONT 0 mg/hr .Q0M EMIL 0 mls/hr Titration Protocol 0 MG/HR Norepinephrine Bitartrate 8 mg in 250 mls @ 0 mls/hr 02/15/25 21:10 02/17/25 12:24 Levophed 8 Mg/D5w 250 Ml IV CONT Infused .Q0M EMIL Titration Protocol Remdesivir 100 mg in 250 mls @ 250 mls/hr 02/16/25 22:00 02/16/25 23:30 IVPB 02/19/25 22:59 Infused Q24H EMIL Infusion Dextrose 1,000 mls @ 100 mls/hr 02/15/25 22:39 Dextrose 5% 1,000 Ml IVPB PRN PRN Hypoglycemia Protocol Doxycycline Hyclate 100 mg/ 100 mls @ 100 mls/hr 02/16/25 10:00 02/17/25 10:06 Sodium Chloride IVPB 02/20/25 22:59 Infused Q12H EMIL Infusion Ampicillin Sodium/Sulbactam 100 mls @ 200 mls/hr 02/17/25 08:00 02/17/25 09:58 Sodium 3 gm/ Sodium Chloride IVPB 02/21/25 20:29 Infused Q6H EMIL Infusion Dexmedetomidine HCl 400 mcg in 100 mls @ 24.345 mls/hr 02/17/25 08:40 02/17/25 12:00 Precedex 400 Mcg/100 Ml IV CONT 0.9 mcg/kg/hr .Q4H7M EMIL 24.35 mls/hr Titration Protocol 0.9 MCG/KG/HR Lacosamide 200 mg/ Sodium 100 mls @ 190.476 mls/hr 02/17/25 21:00 Chloride IVPB Q12HR EMIL Insulin Aspart 4 - 8 units 02/16/25 12:00 02/17/25 12:22 Insulin Aspart (*Bkc) 100 Units/Ml SUB-Q 6 units Q6HR EMIL Administration Protocol Insulin Glargine 8 units 02/17/25 09:00 02/17/25 09:08 Insulin Glargine (*Bkc) 100 Units/Ml SUB-Q 8 units DAILY EMIL Administration Levetiracetam 2,000 mg 02/16/25 09:00 02/17/25 09:06 Levetiracetam Oral Flor 500 Mg/5 Ml Udc FEED TUBE 2,000 mg Q12HR EMIL Administration Multi-Ingred Cream/Lotion/Oil/Oint 1 applic 02/15/25 21:00 02/17/25 09:06 Mineral Oil/White Petrolatum Ointment EACH EYE 1 applic Q12HR EMIL Administration Pantoprazole Sodium 40 mg 02/16/25 09:00 02/17/25 09:07 Pantoprazole Sodium Iv 40 Mg Vial IV PUSH 40 mg DAILY EMIL Administration Sodium Chloride 10 ml 02/16/25 14:00 02/17/25 06:16 Central Line Flush IV PUSH 10 ml Q8HR EMIL Administration Sodium Chloride 20 ml 02/16/25 06:05 Central Line Flush IV PUSH PRN PRN after blood draws Radiology Results: ITS Impressions Head CT 02/15/25 19:38 IMPRESSION: No acute intracranial process. Cervical Spine CT 02/15/25 19:47 IMPRESSION: No acute fracture or traumatic malalignment in the cervical spine. Partially visualized endotracheal and nasogastric tubes. The nasogastric tube coils in the oropharynx. Chest/Abdomen/Pelvis CTA 02/15/25 20:05 IMPRESSION: Endotracheal tube terminates 1.7 cm above the geovani. Shallow positioned NG tube, consider advancing. Coiling of the tube noted in the oropharynx in the prior C-spine CT. Motion limited evaluation of the segmental and subsegmental bilateral lower lobe pulmonary arteries. No CT evidence of acute pulmonary embolus in the remaining adequately visualized vessels. Segmental bilateral medial and dependent consolidations, may represent pneumonia. A component of aspiration may be present based on distribution. Lateral urinary bladder wall thickening may represent cystitis or chronic outlet obstruction from marked prostatomegaly. Abdomen X-Ray 02/15/25 20:27 IMPRESSION: NG tube, in good position. Chest X-Ray 02/17/25 06:55 Impression: 1: Cardiomegaly with mild interstitial edema without significant change. 2: Focal consolidation left lung base may relate to edema, pneumonia and/or atelectasis. 3: Small left pleural effusion. Labs Labs: Laboratory Results - last 24 hr 02/15/25 02/16/25 02/16/25 18:09 17:50 23:28 WBC RBC Hgb Hct MCV MCH MCHC RDW Plt Count MPV Immature Gran % (Auto) Neut % (Auto) Lymph % (Auto) Carroll % (Auto) Eos % (Auto) Baso % (Auto) Lymph # (Auto) Carroll # (Auto) Eos # (Auto) Baso # (Auto) Abs Immat Gran (auto) Absolute Neuts (auto) Absolute Nucleated RBC Nucleated RBC % PT INR Puncture Site ABG pH ABG pCO2 ABG pO2 ABG PO2/FiO2 Ratio ABG HCO3 ABG O2 Saturation ABG O2 Content ABG Base Excess A-a Gradient Oxyhemoglobin Carboxyhemoglobin Methemoglobin Reduced Hemoglobin Total Hemoglobin O2 Delivery Device O2 Liters/Min Minute Volume Vent Rate Vent Mode FiO2 Tidal Volume PEEP Peak Inspir Pressure Pressure Support Sodium Potassium Chloride Carbon Dioxide Anion Gap BUN Creatinine Estim Creat Clear Calc Estimated GFR Glucose POC Capillary Glucose 222 H 208 H Calcium Phosphorus Magnesium Total Bilirubin AST ALT Alkaline Phosphatase Total Protein Albumin Levetiracetam 02/17/25 02/17/25 02/17/25 04:43 05:07 06:14 WBC 7.8 RBC 3.64 L Hgb 10.5 L Hct 32.5 L MCV 89.3 MCH 28.8 MCHC 32.3 RDW 12.7 Plt Count 117 L MPV 12.0 H Immature Gran % (Auto) 0.6 H Neut % (Auto) 87.5 H Lymph % (Auto) 7.3 L Carroll % (Auto) 4.5 Eos % (Auto) 0.0 Baso % (Auto) 0.1 L Lymph # (Auto) 0.57 L Carroll # (Auto) 0.4 Eos # (Auto) 0.0 Baso # (Auto) 0.0 Abs Immat Gran (auto) 0.05 H Absolute Neuts (auto) 6.8 H Absolute Nucleated RBC 0.000 Nucleated RBC % 0.0 PT 16.7 H INR 1.4 Puncture Site Right radial ABG pH 7.389 ABG pCO2 37.3 ABG pO2 79.1 L ABG PO2/FiO2 Ratio 2.26 ABG HCO3 22.0 ABG O2 Saturation 95.7 ABG O2 Content 15.8 L ABG Base Excess -2.5 A-a Gradient 127.1 Oxyhemoglobin 94.7 Carboxyhemoglobin 0.4 Methemoglobin 0.1 Reduced Hemoglobin 4.8 Total Hemoglobin 11.8 L O2 Delivery Device Ventilator O2 Liters/Min Not Reportable Minute Volume Not Reportable Vent Rate 20 Vent Mode Cmv FiO2 35 Tidal Volume 400 PEEP 5 Peak Inspir Pressure Not Reportable Pressure Support Not Reportable Sodium 138 Potassium 4.4 Chloride 111 H Carbon Dioxide 21 L Anion Gap 6 BUN 20 Creatinine 0.80 Estim Creat Clear Calc 96 Estimated GFR > 60 Glucose 266 H POC Capillary Glucose 272 H Calcium 8.3 L Phosphorus 2.3 L Magnesium 2.0 Total Bilirubin 0.2 AST 23 ALT 18 Alkaline Phosphatase 58 Total Protein 5.1 L Albumin 2.7 L Levetiracetam 02/17/25 11:47 WBC RBC Hgb Hct MCV MCH MCHC RDW Plt Count MPV Immature Gran % (Auto) Neut % (Auto) Lymph % (Auto) Carroll % (Auto) Eos % (Auto) Baso % (Auto) Lymph # (Auto) Carroll # (Auto) Eos # (Auto) Baso # (Auto) Abs Immat Gran (auto) Absolute Neuts (auto) Absolute Nucleated RBC Nucleated RBC % PT INR Puncture Site ABG pH ABG pCO2 ABG pO2 ABG PO2/FiO2 Ratio ABG HCO3 ABG O2 Saturation ABG O2 Content ABG Base Excess A-a Gradient Oxyhemoglobin Carboxyhemoglobin Methemoglobin Reduced Hemoglobin Total Hemoglobin O2 Delivery Device O2 Liters/Min Minute Volume Vent Rate Vent Mode FiO2 Tidal Volume PEEP Peak Inspir Pressure Pressure Support Sodium Potassium Chloride Carbon Dioxide Anion Gap BUN Creatinine Estim Creat Clear Calc Estimated GFR Glucose POC Capillary Glucose 320 H Calcium Phosphorus Magnesium Total Bilirubin AST ALT Alkaline Phosphatase Total Protein Albumin Levetiracetam Quality VTE Prophylaxis VTE prophylaxis: pharmacologic ordered
[2025-02-17 15:08] LABS: Alveolar/Arterial O2 Gradient 104.0 mmHg; Fractional Inspired Oxygen 30 %; HCO3 ABG 24.8 mEq/l (22.0-26.0); Oxygen Content ABG 16.8 %vol (16.0-22.0); Oxygen Saturation ABG 93.6 % (95.0-100.0); PCO2 ABG 37.7 mmHg (35.0-45.0); PO2 ABG 65.6 mmHg (80.0-100.0); PO2 FiO2 Ratio Arterial Blood 2.19 %
[2025-02-17 15:09] LABS: Liters per Minute 0.0 LPM; Modified Allen's Test Pass; Site Drawn LEFT RADIAL
[2025-02-17 15:10] LABS: Arterial Blood Gas Pressure Support 8 cmH2O
[2025-02-17 18:39] LABS: Triglycerides 54 mg/dL (<150)
--- NOTE | 2025-02-17 18:42 | P.CONNEU_ITS ---
Assessment and Plan Assessment and plan (1) Breakthrough seizure: Code(s): G40.919 - Epilepsy, unspecified, intractable, without status epilepticus Status: Acute (2) Unresponsive state: Code(s): R41.89 - Other symptoms and signs involving cognitive functions and awareness Status: Acute (3) Hemiplegia affecting right dominant side: Code(s): G81.91 - Hemiplegia, unspecified affecting right dominant side Status: Acute (4) Pneumonia due to COVID-19 virus: Code(s): U07.1 - COVID-19; J12.82 - Pneumonia due to coronavirus disease 2018 Status: Acute (5) Acute respiratory failure with hypoxia and hypercapnia: Code(s): J96.01 - Acute respiratory failure with hypoxia; J96.02 - Acute respiratory failure with hypercapnia Status: Acute Plan CT scan of brain shows a fairly large area of encephalomalacia in the left occipital area. I reviewed the CT scan of the brain myself and agree with the findings. Patient is currently on Keppra 4000 mg a day and Vimpat 300 mg a day. We can increase the dose of acute Vimpat to 400 mg a day in view of the he has had breakthrough seizures. White cell count was high at 15,000 thousand on admission and and has now improved normal range. Hemoglobin is low at 10.5.Other supportive measures and treatment of COVID pneumonia and cardiac condition are being done by the meter calibrator. I shall be glad to follow up from neurologic point of view. Consult date: 02/17/25 HPI: Maldonado Schuler is a 69 year old male brought in from the custodial where a code sonal was called in. Patient apparently lost consciousness and had a seizure. He has prior history of seizures and also history of status epilepticus. He has been on Keppra 4000 mg a day and Vimpat 300 mg a day. Now he has been found to have COVID positive state with pneumonia. He has history of CVA with residual right higinio plegia and atrial fibrillation. Patient is currently intubated unable to offer any history. I have reviewed the records and discuss the findings with ICU physician and nursing staff. Seizures are controlled with current medications. Patient is also on sedation. Review of Systems 2 Review of Systems: ROS unobtainable: Yes unobtainable due to endotracheal tube PMFSH Past Medical History Medical History BPH (benign prostatic hyperplasia) Noted on imaging Paroxysmal A-fib Vitamin D deficiency Depression Hypertension Cerebrovascular accident left occipital lobe stroke with right hemiparesis Epilepsy Hyperlipidemia Surgical History Surgical History Surgical history unknown Family History Family History Other Unknown family medical history Social History Social History Social History: Surrogate medical decision maker: Aisha Macedo, daughter ([phone]). Code status: Full code. Smoking packs per day: 0.5 Smoking cigarettes per day: 10.0 Years smoked: 55 Smoking pack-years: 27.50 Smoking status: Unknown if ever smoked Alcohol intake: former Substance use: unknown Substance use type: unknown Lack of Transportation: No Lack of Food: Never True Current Housing: I Have Housing Concerned About Future Housing: No Difficulty Paying Gas/Electric Bills: No Difficulty Paying for Meds: No Currently Unemployed: No Education: Don't Know Difficulty w/ Childcare or Family Care: No Living arrangements: custodial Additional living arrangements comments: [facility]. Spiritual care concerns: No Meds Home Medications and Allergies Home Medications ?Medication ?Instructions ?Recorded ?Confirmed ?Type atorvastatin 80 mg tablet 80 mg PO HS 12/05/21 02/15/25 History calcitriol 0.25 mcg capsule 0.25 mcg PO WEEKLY 12/05/21 02/15/25 History levetiracetam 1,000 mg tablet 2,000 mg PO BID 12/05/21 02/15/25 History lisinopril 10 mg tablet 10 mg PO DAILY 12/05/21 02/15/25 History aspirin 81 mg chewable tablet 81 mg PO DAILY 11/17/22 02/15/25 History cholecalciferol (vitamin D3) 125 125 mcg PO DAILY 11/17/22 02/15/25 History mcg (5,000 unit) tablet lacosamide 150 mg tablet (Vimpat) 150 mg PO Q12HR #60 tabs 12/29/24 02/15/25 Rx lorazepam 2 mg/mL injection 1 mg IM ONCE PRN seizure 02/15/25 02/15/25 History solution (Ativan) Allergies Allergy/AdvReac Type Severity Reaction Status Date / Time No Known Allergies Allergy Verified 12/27/24 19:03 Vital Signs Vital Signs - 24 hr 02/16/25 19:32 02/16/25 19:37 02/16/25 19:51 Temperature Pulse Rate 85 85 Respiratory Rate 22 H Blood Pressure Pulse Oximetry 96 Oxygen Delivery Mechanical Ventilation Oxygen Flow Rate Fraction of Inspired Oxygen 35 35 02/16/25 19:52 02/16/25 20:00 02/16/25 20:00 Temperature Pulse Rate 85 100 100 Respiratory Rate 22 H 18 20 Blood Pressure Pulse Oximetry 96 Oxygen Delivery Mechanical Ventilation Oxygen Flow Rate Fraction of Inspired Oxygen 35 02/16/25 20:00 02/16/25 20:00 02/16/25 20:00 Temperature 97.9 F Pulse Rate 100 99 99 Respiratory Rate 20 Blood Pressure 110/54 L 110/54 L Pulse Oximetry 100 Oxygen Delivery Oxygen Flow Rate Fraction of Inspired Oxygen 02/16/25 21:15 02/16/25 21:18 02/16/25 22:00 Temperature Pulse Rate 107 H 108 H 99 Respiratory Rate 21 H 22 H Blood Pressure Pulse Oximetry Oxygen Delivery Oxygen Flow Rate Fraction of Inspired Oxygen 02/16/25 22:00 02/16/25 22:00 02/16/25 22:00 Temperature 98.8 F Pulse Rate 99 99 99 Respiratory Rate 20 20 20 Blood Pressure 92/52 L Pulse Oximetry 94 Oxygen Delivery Oxygen Flow Rate Fraction of Inspired Oxygen 02/16/25 22:00 02/16/25 22:30 02/16/25 22:30 Temperature Pulse Rate 99 95 95 Respiratory Rate 20 20 Blood Pressure 92/52 L Pulse Oximetry Oxygen Delivery Oxygen Flow Rate Fraction of Inspired Oxygen 02/16/25 22:33 02/16/25 23:31 02/17/25 00:00 Temperature Pulse Rate 90 90 83 Respiratory Rate 20 20 Blood Pressure Pulse Oximetry 95 Oxygen Delivery Mechanical Ventilation Oxygen Flow Rate Fraction of Inspired Oxygen 35 02/17/25 00:00 02/17/25 00:00 02/17/25 00:00 Temperature 97.7 F Pulse Rate 85 84 84 Respiratory Rate 20 20 20 Blood Pressure 102/55 L Pulse Oximetry 97 97 Oxygen Delivery Mechanical Ventilation Oxygen Flow Rate Fraction of Inspired Oxygen 35 02/17/25 00:00 02/17/25 00:00 02/17/25 00:00 Temperature Pulse Rate 93 86 Respiratory Rate 20 Blood Pressure 102/55 L Pulse Oximetry Oxygen Delivery Oxygen Flow Rate Fraction of Inspired Oxygen 35 02/17/25 00:06 02/17/25 01:29 02/17/25 01:34 Temperature Pulse Rate 86 84 82 Respiratory Rate 20 Blood Pressure Pulse Oximetry 96 Oxygen Delivery Mechanical Ventilation Oxygen Flow Rate Fraction of Inspired Oxygen 35 02/17/25 02:00 02/17/25 02:00 02/17/25 02:00 Temperature 97.3 F L Pulse Rate 97 97 93 Respiratory Rate 20 20 Blood Pressure 113/54 L Pulse Oximetry 96 Oxygen Delivery Oxygen Flow Rate Fraction of Inspired Oxygen 02/17/25 02:00 02/17/25 04:00 02/17/25 04:00 Temperature 96.7 F L Pulse Rate 93 86 86 Respiratory Rate 20 Blood Pressure 113/54 L 104/53 L Pulse Oximetry 97 Oxygen Delivery Oxygen Flow Rate Fraction of Inspired Oxygen 02/17/25 04:00 02/17/25 04:10 02/17/25 04:20 Temperature Pulse Rate 80 86 Respiratory Rate 20 20 Blood Pressure Pulse Oximetry 97 Oxygen Delivery Mechanical Ventilation Oxygen Flow Rate Fraction of Inspired Oxygen 35 35 02/17/25 05:26 02/17/25 06:00 02/17/25 06:00 Temperature Pulse Rate 78 78 76 Respiratory Rate 20 Blood Pressure Pulse Oximetry 97 Oxygen Delivery Mechanical Ventilation Oxygen Flow Rate Fraction of Inspired Oxygen 35 02/17/25 06:00 02/17/25 06:14 02/17/25 06:15 Temperature 96.3 F L Pulse Rate 75 80 80 Respiratory Rate 20 20 20 Blood Pressure 96/50 L Pulse Oximetry 96 Oxygen Delivery Oxygen Flow Rate Fraction of Inspired Oxygen 02/17/25 07:16 02/17/25 07:37 02/17/25 08:00 Temperature 96.6 F L Pulse Rate 85 80 78 Respiratory Rate 26 H 20 21 H Blood Pressure 126/61 Pulse Oximetry 98 Oxygen Delivery Oxygen Flow Rate Fraction of Inspired Oxygen 02/17/25 08:00 02/17/25 08:00 02/17/25 08:00 Temperature Pulse Rate 78 75 Respiratory Rate 21 H 20 Blood Pressure Pulse Oximetry 97 Oxygen Delivery Mechanical Ventilation Oxygen Flow Rate Fraction of Inspired Oxygen 30 35 02/17/25 08:00 02/17/25 08:08 02/17/25 08:08 Temperature Pulse Rate 76 98 95 Respiratory Rate 20 Blood Pressure Pulse Oximetry 95 Oxygen Delivery Mechanical Ventilation Oxygen Flow Rate Fraction of Inspired Oxygen 35 02/17/25 08:28 02/17/25 09:01 02/17/25 09:45 Temperature Pulse Rate 90 106 H 94 Respiratory Rate 20 23 H 20 Blood Pressure Pulse Oximetry Oxygen Delivery Oxygen Flow Rate Fraction of Inspired Oxygen 02/17/25 09:47 02/17/25 10:00 02/17/25 10:00 Temperature Pulse Rate 95 88 88 Respiratory Rate 20 20 20 Blood Pressure Pulse Oximetry Oxygen Delivery Oxygen Flow Rate Fraction of Inspired Oxygen 02/17/25 10:00 02/17/25 10:00 02/17/25 10:00 Temperature 97.1 F L Pulse Rate 87 91 65 Respiratory Rate 20 18 Blood Pressure 143/65 H Pulse Oximetry 99 Oxygen Delivery Oxygen Flow Rate Fraction of Inspired Oxygen 02/17/25 10:30 02/17/25 10:37 02/17/25 10:46 Temperature Pulse Rate 89 88 93 Respiratory Rate 20 20 Blood Pressure Pulse Oximetry 98 Oxygen Delivery Mechanical Ventilation Oxygen Flow Rate Fraction of Inspired Oxygen 30 02/17/25 10:57 02/17/25 11:00 02/17/25 11:30 Temperature Pulse Rate 91 93 100 Respiratory Rate 20 19 19 Blood Pressure Pulse Oximetry Oxygen Delivery Oxygen Flow Rate Fraction of Inspired Oxygen 02/17/25 12:00 02/17/25 12:00 02/17/25 12:00 Temperature 96.7 F L Pulse Rate 68 80 66 Respiratory Rate 20 19 20 Blood Pressure 137/67 Pulse Oximetry 96 Oxygen Delivery Oxygen Flow Rate Fraction of Inspired Oxygen 02/17/25 12:00 02/17/25 12:00 02/17/25 12:00 Temperature Pulse Rate 70 68 Respiratory Rate 18 19 Blood Pressure Pulse Oximetry 94 Oxygen Delivery Mechanical Ventilation Oxygen Flow Rate Fraction of Inspired Oxygen 30 30 02/17/25 12:00 02/17/25 12:24 02/17/25 12:30 Temperature Pulse Rate 66 85 68 Respiratory Rate 18 Blood Pressure 115/59 L Pulse Oximetry Oxygen Delivery Oxygen Flow Rate Fraction of Inspired Oxygen 02/17/25 12:36 02/17/25 13:00 02/17/25 13:30 Temperature Pulse Rate 56 L 53 L 56 L Respiratory Rate 18 20 18 Blood Pressure Pulse Oximetry Oxygen Delivery Oxygen Flow Rate Fraction of Inspired Oxygen 02/17/25 13:38 02/17/25 13:38 02/17/25 13:54 Temperature Pulse Rate 82 54 L 75 Respiratory Rate 20 14 Blood Pressure Pulse Oximetry 98 Oxygen Delivery Mechanical Ventilation Oxygen Flow Rate Fraction of Inspired Oxygen 30 02/17/25 13:57 02/17/25 14:00 02/17/25 14:00 Temperature Pulse Rate 83 81 81 Respiratory Rate 16 16 Blood Pressure Pulse Oximetry 93 Oxygen Delivery Mechanical Ventilation Oxygen Flow Rate Fraction of Inspired Oxygen 30 02/17/25 14:00 02/17/25 14:00 02/17/25 14:00 Temperature 96.7 F L Pulse Rate 81 81 81 Respiratory Rate 16 16 Blood Pressure 139/62 Pulse Oximetry 94 Oxygen Delivery Oxygen Flow Rate Fraction of Inspired Oxygen 02/17/25 15:30 02/17/25 15:37 02/17/25 15:38 Temperature Pulse Rate 77 81 Respiratory Rate 17 17 Blood Pressure Pulse Oximetry 95 Oxygen Delivery Nasal Cannula Oxygen Flow Rate 3 Fraction of Inspired Oxygen 02/17/25 15:49 02/17/25 16:00 02/17/25 16:00 Temperature 96.8 F L Pulse Rate 89 87 96 Respiratory Rate 21 H 17 16 Blood Pressure 96/54 L Pulse Oximetry 96 99 Oxygen Delivery Nasal Cannula Oxygen Flow Rate 3 Fraction of Inspired Oxygen 02/17/25 16:00 02/17/25 16:00 02/17/25 18:00 Temperature Pulse Rate 87 87 89 Respiratory Rate 15 16 Blood Pressure Pulse Oximetry Oxygen Delivery Oxygen Flow Rate Fraction of Inspired Oxygen 02/17/25 18:00 02/17/25 18:00 Temperature 97.2 F L Pulse Rate 72 72 Respiratory Rate 16 Blood Pressure 123/75 Pulse Oximetry 98 Oxygen Delivery Oxygen Flow Rate Fraction of Inspired Oxygen Exam 2 Narrative: Patient currently on ventilator support. He is unable cooperate for formal examination however no decorticate or decerebrate posturing was noted. Respond to mild stimulation around the supra trochlear notch. I am unable to see his fundi. the muscle tone did not show any significant asymmetry. No seizure-like activity was observed during the course of this examination. Results Labs 02/17/25 04:43 02/17/25 04:43 Labs: Short CBC 02/17/25 Range/Units 04:43 WBC 7.8 (4.5-10.0) K/mm3 Hgb 10.5 L (14.0-18.0) g/dL Hct 32.5 L (42.0-52.0) % Plt Count 117 L (150-375) k/mm3 BMP 02/17/25 04:43 Sodium 138 Potassium 4.4 Chloride 111 H Carbon Dioxide 21 L BUN 20 Creatinine 0.80 Glucose 266 H Calcium 8.3 L Liver Function 02/17/25 Range/Units 04:43 Total Bilirubin 0.2 (0.2-1.3) mg/dL AST 23 (17-59) U/L ALT 18 (6-50) U/L Alkaline Phosphatase 58 (38-126) U/L Albumin 2.7 L (3.5-5.1) g/dL
[2025-02-17] MEDS: levETIRAcetam IV 2,000 MG in DEXTROSE 5% 100 ML 400 MG IVPB (20:49)
[2025-02-17] MEDS: dexAMETHasone SOD PHOS INJ 10 MG/ML 1 ML VIAL 6 MG IV PUSH (20:52)
[2025-02-17] MEDS: REMDESIVIR 100 MG/NS 250 ML 100 MG/250 ML BAG 250 MG IVPB (22:28)
[2025-02-18] VITALS (19 sets, daily range): BP systolic 112–140; BP diastolic 61–70; PULSE 63–92; RESP 15–27; TEMP 36.2–36.8; O2SAT 91–100
[2025-02-18] MEDS: AMPICILLIN SODIUM/SULBACTAM 3 GM in SODIUM CHLORIDE 0.9% IV 100 ML 200 ML IVPB ×4 (02:28→20:13)
[2025-02-18] MEDS: IPRATROPIUM 0.5 MG/ALBUTEROL SULFATE 2.5 MG AMPUL.NEB 3 ML INHALATION ×4 (02:48→20:55)
[2025-02-18] MEDS: CENTRAL LINE FLUSH 10 ML IV PUSH ×3 (05:33→20:14)
[2025-02-18 05:51] LABS: Hematocrit 33.5 % (42.0-52.0); Hemoglobin 10.9 g/dL (14.0-18.0); Immature Granulocyte Percent A 0.7 % (0-0.5); Lymphocytes Absolute Auto 0.66 K/mm3 (0.9-3.2); Mean Corpuscular HGB Conc 32.5 g/dl (32-36); Mean Corpuscular Hemoglobin 28.6 pg (26-34); Mean Corpuscular Volume 87.9 fl (80-100); Nucleated Red Blood Cells Absolute Auto 0.000 K/mm3 (0.0-0.012); Nucleated Red Blood Cells Perc 0.0 % (0.0-0.2); Platelet Count Result 133 k/mm3 (150-375); Red Blood Count 3.81 M/mm3 (4.6-6.20); White Blood Count 8.0 K/mm3 (4.5-10.0)
[2025-02-18 06:16] LABS: Alanine Aminotransferase 17 U/L (6-50); Albumin Level 2.9 g/dL (3.5-5.1); Alkaline Phosphatase 74 U/L (38-126); Anion Gap 6 mmol/L (4-12); Aspartate Amino Transferase 23 U/L (17-59); Bilirubin,Total 0.2 mg/dL (0.2-1.3); Blood Urea Nitrogen 27 mg/dL (9-20); Calcium 8.5 mg/dL (8.4-10.2); Carbon Dioxide 26 mmol/L (22-30); Chloride 110 mmol/L (98-107); Estimated CRCL calculation 83 ml/min; Estimated Glomerular Filt Rate > 60; Glucose 203 mg/dL (65-110); Magnesium 1.9 mg/dL (1.6-2.3); Potassium 4.1 mmol/L (3.4-5.0); Sodium 142 mmol/L (137-145); Total Protein 5.4 g/dL (6.3-8.2)
[2025-02-18] MEDS: INSULIN ASPART (*BKC) 100 UNITS/ML SUB-Q ×3 (06:21→16:50)
--- NOTE | 2025-02-18 09:24 | P.PNINT_ITS ---
Progress Note: A&P Assessment and Plan (1) Seizure: Code(s): R56.9 - Unspecified convulsions Status: Acute Assessment and Plan: Patient presented with altered mental status likely related to seizure activity and possible postictal state -has a history of seizures, does take Keppra [facility] lacosamide at the [facility] -patient was loaded with Keppra in the ER -continue Keppra and lacosamide -appreciate urology evaluation recommendations -EEG per Neurology 02/15: CT brain did not show any acute intracranial process except left occipital encephalomalacia 02/15: CT cervical spine did not show any fracture, traumatic malalignment omegaly (2) Acute respiratory failure with hypoxia and hypercapnia: Code(s): J96.01 - Acute respiratory failure with hypoxia; J96.02 - Acute respiratory failure with hypercapnia Status: Acute Assessment and Plan: Acute respiratory failure likely related to altered mental status, airway protection and possible aspiration along with fevers 104F current night which have abated -02/15: intubated in the ER -02/17: Extubated Currently on 2 L nasal cannula is adequate O2 sats -patient passed a swallow test per speech therapy -physical therapy and occupational therapy has been ordered, up in chair 02/15: CT chest abdomen and pelvis showed no evidence of acute pulmonary embolism. Segmental bilateral median dependent consolidations may represent pneumonia. A component of aspiration may be present based on its distribution. Lateral urinary bladder wall thickening where represent cystitis or chronic outlet obstruction from marked prostat (3) Septic shock: Code(s): A41.9 - Sepsis, unspecified organism; R65.21 - Severe sepsis with septic shock Status: Acute Assessment and Plan: Post intubation, patient dropped his blood pressures, could be related to sedation, positive-pressure ventilation and/OR infection secondary to COVID-19 pneumonia, UTI -initial lactic acid was 2.2, patient received 3 L IV fluid bolus -repeat lactic acid was 1.3 -02/15: Left subclavian line inserted in the ER -has been off Levophed , blood pressures are stable -DC cefepime and vancomycin 02/16 -02/16: started on Unasyn and doxycycline -02/15: Blood cultures pending -02/15: Urine cultures with no growth -02/15: Sputum cultures pending (4) Pneumonia due to COVID-19 virus: Code(s): U07.1 - COVID-19; J12.82 - Pneumonia due to coronavirus disease 2018 Status: Acute Assessment and Plan: Patient with COVID pneumonia, Continue dexamethasone (02/15) and remdesivir (02/15) -CRP was 1.8 -contact and droplet isolation and precautions (5) UTI (urinary tract infection): Qualifiers: Hematuria presence: with hematuria Urinary tract infection type: acute cystitis Qualified Code(s): N30.01 - Acute cystitis with hematuria Code(s): N39.0 - Urinary tract infection, site not specified Status: Acute Assessment and Plan: UA revealed possible UTI -urine cultures with no growth -continue antibiotics as above Plan DVT prophylaxis: Lovenox Stress ulcer prophylaxis: Protonix Nutrition: Will start heart healthy diet Code Status: Full code Critical Care Time Spent: 31 minutes Patient may be transferred out of the ICU Due to a high probability of clinically significant, life threatening deterioration, the patient required my highest level of preparedness to intervene emergently and I personally spent this critical care time directly and personally managing the patient. This critical care time included obtaining a history; examining the patient; pulse oximetry; ordering and review of studies; arranging urgent treatment with development of a management plan; evaluation of patient's response to treatment; frequent reassessment; and discussions with other providers. It was exclusive of separately billable procedures and treating other patients and teaching time. Please see Assessment and Plan section and the rest of the note for further information on patient assessment and treatment This dictation may have been done utilizing a voice recognition system. Attempts have been made to correct errors. However, there may be uncorrected grammatical, spelling, and recognitions errors present. Subjective Date/time seen: 02/18/25 09:24 Interval history: Reason for consult: Seizures, intubated for airway protection in possible aspiration, hypotension/shock, COVID pneumonia, UTI 02/18: Extubated 02/18/2025: Patient seen and examined the ICU, remains extubated since yesterday, on 2 L nasal cannula with adequate O2 sats, patient feels well, denies any chest pain, shortness a breath abdominal pain, nausea vomiting. No seizures overnight. Hemodynamically stable, adequate urine output, afebrile Review of Systems Review of Systems: All systems reviewed & are unremarkable except as noted in HPI and below Exam Narrative: General: Present gentleman in no acute distress HEENT:? Pupils equal and reactive, sclera is clear Neck:? Supple Respiratory:? Clear to auscultation bilaterally decreased air entry at bases otherwise adequate air entry Cardiac:? S1-S2 normal, regular rate and rhythm Abdomen:? Soft, nontender, nondistended, obese, normoactive bowels Extremities:? Trace edema, palpable pedal pulses Neuro:? Patient is awake, alert, oriented, nonfocal Skin:? No skin lesions were noted, Psych:? Normal mentation and affect Objective Data Vital Signs Vital Signs: Vital Signs - 24 hr 02/17/25 09:45 02/17/25 09:47 02/17/25 10:00 Temperature Pulse Rate 94 95 88 Respiratory Rate 20 20 20 Blood Pressure Pulse Oximetry Oxygen Delivery Oxygen Flow Rate Fraction of Inspired Oxygen 02/17/25 10:00 02/17/25 10:00 02/17/25 10:00 Temperature 97.1 F L Pulse Rate 88 87 91 Respiratory Rate 20 20 Blood Pressure 143/65 H Pulse Oximetry 99 Oxygen Delivery Oxygen Flow Rate Fraction of Inspired Oxygen 02/17/25 10:00 02/17/25 10:30 02/17/25 10:37 Temperature Pulse Rate 65 89 88 Respiratory Rate 18 20 20 Blood Pressure Pulse Oximetry Oxygen Delivery Oxygen Flow Rate Fraction of Inspired Oxygen 02/17/25 10:46 02/17/25 10:57 02/17/25 11:00 Temperature Pulse Rate 93 91 93 Respiratory Rate 20 19 Blood Pressure Pulse Oximetry 98 Oxygen Delivery Mechanical Ventilation Oxygen Flow Rate Fraction of Inspired Oxygen 30 02/17/25 11:30 02/17/25 12:00 02/17/25 12:00 Temperature Pulse Rate 100 68 80 Respiratory Rate 19 20 19 Blood Pressure Pulse Oximetry Oxygen Delivery Oxygen Flow Rate Fraction of Inspired Oxygen 02/17/25 12:00 02/17/25 12:00 02/17/25 12:00 Temperature 96.7 F L Pulse Rate 66 70 Respiratory Rate 20 18 Blood Pressure 137/67 Pulse Oximetry 96 94 Oxygen Delivery Mechanical Ventilation Oxygen Flow Rate Fraction of Inspired Oxygen 30 30 02/17/25 12:00 02/17/25 12:00 02/17/25 12:24 Temperature Pulse Rate 68 66 85 Respiratory Rate 19 Blood Pressure 115/59 L Pulse Oximetry Oxygen Delivery Oxygen Flow Rate Fraction of Inspired Oxygen 02/17/25 12:30 02/17/25 12:36 02/17/25 13:00 Temperature Pulse Rate 68 56 L 53 L Respiratory Rate 18 18 20 Blood Pressure Pulse Oximetry Oxygen Delivery Oxygen Flow Rate Fraction of Inspired Oxygen 02/17/25 13:30 02/17/25 13:38 02/17/25 13:38 Temperature Pulse Rate 56 L 82 54 L Respiratory Rate 18 20 Blood Pressure Pulse Oximetry 98 Oxygen Delivery Mechanical Ventilation Oxygen Flow Rate Fraction of Inspired Oxygen 30 02/17/25 13:54 02/17/25 13:57 02/17/25 14:00 Temperature Pulse Rate 75 83 81 Respiratory Rate 14 16 Blood Pressure Pulse Oximetry 93 Oxygen Delivery Mechanical Ventilation Oxygen Flow Rate Fraction of Inspired Oxygen 30 02/17/25 14:00 02/17/25 14:00 02/17/25 14:00 Temperature Pulse Rate 81 81 81 Respiratory Rate 16 16 Blood Pressure Pulse Oximetry Oxygen Delivery Oxygen Flow Rate Fraction of Inspired Oxygen 02/17/25 14:00 02/17/25 15:30 02/17/25 15:37 Temperature 96.7 F L Pulse Rate 81 77 Respiratory Rate 16 17 Blood Pressure 139/62 Pulse Oximetry 94 95 Oxygen Delivery Nasal Cannula Oxygen Flow Rate 3 Fraction of Inspired Oxygen 02/17/25 15:38 02/17/25 15:49 02/17/25 16:00 Temperature Pulse Rate 81 89 87 Respiratory Rate 17 21 H 17 Blood Pressure Pulse Oximetry 96 Oxygen Delivery Nasal Cannula Oxygen Flow Rate 3 Fraction of Inspired Oxygen 02/17/25 16:00 02/17/25 16:00 02/17/25 16:00 Temperature 96.8 F L Pulse Rate 96 87 87 Respiratory Rate 16 15 Blood Pressure 96/54 L Pulse Oximetry 99 Oxygen Delivery Oxygen Flow Rate Fraction of Inspired Oxygen 02/17/25 18:00 02/17/25 18:00 02/17/25 18:00 Temperature 97.2 F L Pulse Rate 89 72 72 Respiratory Rate 16 16 Blood Pressure 123/75 Pulse Oximetry 98 Oxygen Delivery Oxygen Flow Rate Fraction of Inspired Oxygen 02/17/25 19:45 02/17/25 20:00 02/17/25 20:00 Temperature 97.5 F L Pulse Rate 73 66 66 Respiratory Rate 28 H 16 Blood Pressure 124/71 Pulse Oximetry 98 98 Oxygen Delivery Nasal Cannula Oxygen Flow Rate 3 Fraction of Inspired Oxygen 02/17/25 21:20 02/17/25 21:20 02/17/25 21:30 Temperature Pulse Rate 76 83 Respiratory Rate 18 19 Blood Pressure Pulse Oximetry 98 Oxygen Delivery Nasal Cannula Oxygen Flow Rate 3 Fraction of Inspired Oxygen 02/17/25 22:00 02/17/25 22:00 02/17/25 23:35 Temperature 98.2 F Pulse Rate 82 85 85 Respiratory Rate 20 20 Blood Pressure 139/68 Pulse Oximetry 99 99 Oxygen Delivery Nasal Cannula Oxygen Flow Rate 2 Fraction of Inspired Oxygen 02/18/25 00:00 02/18/25 00:00 02/18/25 02:00 Temperature 98.1 F Pulse Rate 74 74 67 Respiratory Rate 15 Blood Pressure 115/62 Pulse Oximetry 100 Oxygen Delivery Oxygen Flow Rate Fraction of Inspired Oxygen 02/18/25 02:00 02/18/25 02:49 02/18/25 02:59 Temperature 98 F Pulse Rate 68 75 72 Respiratory Rate 20 20 20 Blood Pressure 112/66 Pulse Oximetry 97 Oxygen Delivery Oxygen Flow Rate Fraction of Inspired Oxygen 02/18/25 04:00 02/18/25 04:00 02/18/25 04:14 Temperature 97.8 F Pulse Rate 63 70 64 Respiratory Rate 16 16 Blood Pressure 119/63 Pulse Oximetry 98 97 Oxygen Delivery Nasal Cannula Oxygen Flow Rate 2 Fraction of Inspired Oxygen 02/18/25 06:00 02/18/25 06:00 02/18/25 07:56 Temperature 98.0 F 98.2 F Pulse Rate 65 70 92 Respiratory Rate 18 27 H Blood Pressure 116/64 115/64 Pulse Oximetry 98 100 Oxygen Delivery Oxygen Flow Rate Fraction of Inspired Oxygen 02/18/25 08:24 02/18/25 08:24 02/18/25 08:40 Temperature Pulse Rate 83 83 83 Respiratory Rate 20 20 20 Blood Pressure Pulse Oximetry 97 Oxygen Delivery Nasal Cannula Oxygen Flow Rate 2 Fraction of Inspired Oxygen Intake/Output Intake/Output: Intake & Output 02/15/25 02/16/25 02/17/25 02/18/25 23:59 23:59 23:59 23:59 Intake Total 4045.5 3866.6 3439.6 100 Output Total 2400 5050 650 Balance 4045.5 1466.6 -1610.4 -550 Meds/Results Medications: Active Medications Generic Name Dose Route Start Last Admin Trade Name Freq PRN Reason Stop Dose Admin Acetaminophen 650 mg 02/15/25 21:52 Acetaminophen Elixir 325 Mg/10.15 Ml Udc FEED TUBE Q4H PRN Mild Pain (1-3) or Fever Albuterol/Ipratropium 3 ml 02/16/25 02:00 02/18/25 08:24 Ipratropium 0.5 Mg/Albuterol Sulfate 2.5 Mg Ampul.Neb 3 Ml INHALATION 3 ml Q6HRT EMIL Administration Aspirin 81 mg 02/16/25 09:00 02/17/25 09:08 Aspirin 81 Mg Chewable Tablet PO 81 mg DAILY EMIL Administration Atorvastatin Calcium 80 mg 02/16/25 21:00 02/17/25 20:35 Atorvastatin 40 Mg Tablet PO Not Given HS EMIL Dexamethasone Sodium Phosphate 6 mg 02/15/25 21:45 02/17/25 20:52 Dexamethasone Sod Phos Inj 10 Mg/Ml 1 Ml Vial IV PUSH 02/24/25 21:01 6 mg HS EMIL Administration Dextrose 12.5 gm 02/15/25 22:39 Dextrose 50% 25 Gm/50 Ml Syringe IV PUSH PRN PRN Hypoglycemia Protocol Enoxaparin Sodium 40 mg 02/16/25 09:00 02/17/25 09:08 Enoxaparin 40 Mg/0.4 Ml Syringe SUB-Q 40 mg DAILY EMIL Administration Glucagon 1 mg 02/15/25 22:39 Glucagon For Inj 1 Mg Vial IM PRN PRN Hypoglycemia Protocol Glucose 15 gm 02/15/25 22:39 Glucose Oral Gel 15 Gm Of Glucse In 37.5 Gm Tube PO PRN PRN Hypoglycemia Protocol Remdesivir 100 mg in 250 mls @ 250 mls/hr 02/16/25 22:00 02/17/25 22:28 IVPB 02/19/25 22:59 250 mls/hr Q24H EMIL Administration Dextrose 1,000 mls @ 100 mls/hr 02/15/25 22:39 Dextrose 5% 1,000 Ml IVPB PRN PRN Hypoglycemia Protocol Doxycycline Hyclate 100 mg/ 100 mls @ 100 mls/hr 02/16/25 10:00 02/17/25 23:30 Sodium Chloride IVPB 02/20/25 22:59 Infused Q12H EMIL Infusion Ampicillin Sodium/Sulbactam 100 mls @ 200 mls/hr 02/17/25 08:00 02/18/25 02:58 Sodium 3 gm/ Sodium Chloride IVPB 02/21/25 20:29 Infused Q6H EMIL Infusion Lacosamide 200 mg/ Sodium 100 mls @ 190.476 mls/hr 02/17/25 21:00 02/17/25 21 :18 Chloride IVPB Infused Q12HR EMIL Infusion Levetiracetam 2,000 mg/ 120 mls @ 400 mls/hr 02/17/25 20:05 02/17/25 21:10 Dextrose IVPB Infused Q12HR EMIL Infusion Insulin Aspart 4 - 8 units 02/16/25 12:00 02/18/25 06:21 Insulin Aspart (*Bkc) 100 Units/Ml SUB-Q 4 units Q6HR EMIL Administration Protocol Insulin Glargine 14 units 02/18/25 09:00 Insulin Glargine (*Bkc) 100 Units/Ml SUB-Q DAILY EMIL Pantoprazole Sodium 40 mg 02/16/25 09:00 02/17/25 09:07 Pantoprazole Sodium Iv 40 Mg Vial IV PUSH 40 mg DAILY EMIL Administration Sodium Chloride 10 ml 02/16/25 14:00 02/18/25 05:33 Central Line Flush IV PUSH 10 ml Q8HR EMIL Administration Sodium Chloride 20 ml 02/16/25 06:05 Central Line Flush IV PUSH PRN PRN after blood draws Radiology Results: ITS Impressions Head CT 02/15/25 19:38 IMPRESSION: No acute intracranial process. Cervical Spine CT 02/15/25 19:47 IMPRESSION: No acute fracture or traumatic malalignment in the cervical spine. Partially visualized endotracheal and nasogastric tubes. The nasogastric tube coils in the oropharynx. Chest/Abdomen/Pelvis CTA 02/15/25 20:05 IMPRESSION: Endotracheal tube terminates 1.7 cm above the geovani. Shallow positioned NG tube, consider advancing. Coiling of the tube noted in the oropharynx in the prior C-spine CT. Motion limited evaluation of the segmental and subsegmental bilateral lower lobe pulmonary arteries. No CT evidence of acute pulmonary embolus in the remaining adequately visualized vessels. Segmental bilateral medial and dependent consolidations, may represent pneumonia. A component of aspiration may be present based on distribution. Lateral urinary bladder wall thickening may represent cystitis or chronic outlet obstruction from marked prostatomegaly. Abdomen X-Ray 07/22/25 20:27 IMPRESSION: NG tube, in good position. Chest X-Ray 02/18/25 05:59 Impression: 1: Stable chest. No significant interval change. Labs Labs: Laboratory Results - last 24 hr 02/15/25 02/17/25 02/17/25 18:09 04:40 05:07 WBC RBC Hgb Hct MCV MCH MCHC RDW Plt Count MPV Immature Gran % (Auto) Neut % (Auto) Lymph % (Auto) [place] % (Auto) Eos % (Auto) Baso % (Auto) Lymph # (Auto) [place] # (Auto) Eos # (Auto) Baso # (Auto) Abs Immat Gran (auto) Absolute Neuts (auto) Absolute Nucleated RBC Nucleated RBC % Puncture Site ABG pH ABG pCO2 ABG pO2 ABG PO2/FiO2 Ratio ABG HCO3 ABG O2 Saturation ABG O2 Content ABG Base Excess A-a Gradient Oxyhemoglobin Total Hemoglobin O2 Delivery Device O2 Liters/Min Minute Volume Vent Rate 20 Vent Mode Cmv FiO2 Tidal Volume 400 PEEP 5 Peak Inspir Pressure Pressure Support Sodium Potassium Chloride Carbon Dioxide Anion Gap BUN Creatinine Estim Creat Clear Calc Estimated GFR Glucose POC Capillary Glucose Calcium Phosphorus Magnesium Total Bilirubin AST ALT Alkaline Phosphatase Total Protein Albumin Triglycerides 54 Levetiracetam 02/17/25 02/17/25 02/17/25 11:47 15:05 17:30 WBC RBC Hgb Hct MCV MCH MCHC RDW Plt Count MPV Immature Gran % (Auto) Neut % (Auto) Lymph % (Auto) [place] % (Auto) Eos % (Auto) Baso % (Auto) Lymph # (Auto) [place] # (Auto) Eos # (Auto) Baso # (Auto) Abs Immat Gran (auto) Absolute Neuts (auto) Absolute Nucleated RBC Nucleated RBC % Puncture Site Left radial ABG pH 7.436 ABG pCO2 37.7 ABG pO2 65.6 L ABG PO2/FiO2 Ratio 2.19 ABG HCO3 24.8 ABG O2 Saturation 93.6 L ABG O2 Content 16.8 ABG Base Excess 0.8 A-a Gradient 104.0 Oxyhemoglobin 92.6 Total Hemoglobin 12.9 O2 Delivery Device Ventilator O2 Liters/Min 0.0 Minute Volume Not Reportable Vent Rate Not Reportable Vent Mode Spontaneous FiO2 30 Tidal Volume Not Reportable PEEP 5 Peak Inspir Pressure Not Reportable Pressure Support 8 Sodium Potassium Chloride Carbon Dioxide Anion Gap BUN Creatinine Estim Creat Clear Calc Estimated GFR Glucose POC Capillary Glucose 320 H 363 H Calcium Phosphorus Magnesium Total Bilirubin AST ALT Alkaline Phosphatase Total Protein Albumin Triglycerides Levetiracetam 02/17/25 02/18/25 23:32 05:38 WBC 8.0 RBC 3.81 L Hgb 10.9 L Hct 33.5 L MCV 87.9 MCH 28.6 MCHC 32.5 RDW 12.7 Plt Count 133 L MPV 11.6 H Immature Gran % (Auto) 0.7 H Neut % (Auto) 87.5 H Lymph % (Auto) 8.2 L [place] % (Auto) 3.6 Eos % (Auto) 0.0 Baso % (Auto) 0.0 L Lymph # (Auto) 0.66 L [place] # (Auto) 0.3 Eos # (Auto) 0.0 Baso # (Auto) 0.0 Abs Immat Gran (auto) 0.06 H Absolute Neuts (auto) 7.0 H Absolute Nucleated RBC 0.000 Nucleated RBC % 0.0 Puncture Site ABG pH ABG pCO2 ABG pO2 ABG PO2/FiO2 Ratio ABG HCO3 ABG O2 Saturation ABG O2 Content ABG Base Excess A-a Gradient Oxyhemoglobin Total Hemoglobin O2 Delivery Device O2 Liters/Min Minute Volume Vent Rate Vent Mode FiO2 Tidal Volume PEEP Peak Inspir Pressure Pressure Support Sodium 142 Potassium 4.1 Chloride 110 H Carbon Dioxide 26 Anion Gap 6 BUN 27 H Creatinine 0.92 Estim Creat Clear Calc 83 Estimated GFR > 60 Glucose 203 H POC Capillary Glucose 174 H Calcium 8.5 Phosphorus 3.3 Magnesium 1.9 Total Bilirubin 0.2 AST 23 ALT 17 Alkaline Phosphatase 74 Total Protein 5.4 L Albumin 2.9 L Triglycerides Levetiracetam Quality VTE Prophylaxis VTE prophylaxis: pharmacologic ordered
[2025-02-18] MEDS: DOXYCYCLINE IV 100 MG in SODIUM CHLORIDE 0.9% IV 100 ML IVPB ×2 (09:36→20:14)
[2025-02-18] MEDS: ASPIRIN 81 MG CHEWABLE TABLET PO (09:37)
[2025-02-18] MEDS: LACOSAMIDE IVPB ×2 (09:37→21:42)
[2025-02-18] MEDS: levETIRAcetam IV 2,000 MG in DEXTROSE 5% 100 ML 400 MG IVPB ×2 (09:37→21:00)
[2025-02-18] MEDS: ENOXAPARIN 40 MG/0.4 ML SYRINGE SUB-Q (09:37)
[2025-02-18] MEDS: SODIUM CHLORIDE 0.9% IVPB ×2 (09:37→21:42)
[2025-02-18] MEDS: PANTOPRAZOLE SODIUM IV 40 MG VIAL IV PUSH (09:38)
[2025-02-18] MEDS: INSULIN GLARGINE (*BKC) 100 UNITS/ML 14 UNITS SUB-Q (09:46)
--- NOTE | 2025-02-18 10:08 | PCSTNOTE ---
Please refer to the Bedside Swallow Evaluation in the EMR. Please note, silent aspiration cannot be ruled out at bedside. 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 Orders received to complete a BSE. Oral Motor Exam: Functional Lingual/labial ROM for speech and swallowing. The patient was positioned upright at 90 degrees and provided the following consistencies 5cc/tsp thin liquid, cup drinks thin liquid, puree/pudding, and solid/cracker consistency. Oral Stage: The patient is presently edentulous/dentures not present but able to to complete timely oral preparation and transit for all consistencies presented. Extra time for cracker trials due to dentition. Pharyngeal Stage: Timely swallow initiation observed without noted coughing, choking, or changes in vocal quality for all consistencies presented. Swallow function appears within normal limits. No further speech services recommended at this time.
--- NOTE | 2025-02-18 13:47 | PC.NURSE ---
Vascular access nurse unable to obtain peripheral IV. Ok to keep central line from Dr. Long.
[2025-02-18] MEDS: ACETAMINOPHEN 325 MG TABLET 650 MG PO (20:13)
[2025-02-18] MEDS: ATORVASTATIN 40 MG TABLET 80 MG PO (20:13)
[2025-02-18] MEDS: dexAMETHasone SOD PHOS INJ 10 MG/ML 1 ML VIAL 6 MG IV PUSH (20:14)
--- NOTE | 2025-02-18 21:30 | PC.NURSE ---
This patient, Maldonado Schuler, was transferred to [ 257] on 02/18/25 at 2130. Personal belongings sent with patient. Report given to [Carmen MARQUEZ]. Appropriate documentation sent with patient.
[2025-02-18] MEDS: REMDESIVIR 100 MG/NS 250 ML 100 MG/250 ML BAG 250 MG IVPB (22:31)
[2025-02-19] VITALS (11 sets, daily range): BP systolic 132–155; BP diastolic 53–77; PULSE 66–84; RESP 14–20; TEMP 36.2–36.9; O2SAT 94–100
[2025-02-19] MEDS: AMPICILLIN SODIUM/SULBACTAM 3 GM in SODIUM CHLORIDE 0.9% IV 100 ML 200 ML IVPB ×4 (01:47→20:32)
[2025-02-19] MEDS: IPRATROPIUM 0.5 MG/ALBUTEROL SULFATE 2.5 MG AMPUL.NEB 3 ML INHALATION ×3 (02:40→20:42)
[2025-02-19 05:04] LABS: Hematocrit 32.5 % (42.0-52.0); Hemoglobin 10.7 g/dL (14.0-18.0); Immature Granulocyte Percent A 0.8 % (0-0.5); Lymphocytes Absolute Auto 0.68 K/mm3 (0.9-3.2); Mean Corpuscular HGB Conc 32.9 g/dl (32-36); Mean Corpuscular Hemoglobin 28.9 pg (26-34); Mean Corpuscular Volume 87.8 fl (80-100); Nucleated Red Blood Cells Absolute Auto 0.000 K/mm3 (0.0-0.012); Nucleated Red Blood Cells Perc 0.0 % (0.0-0.2); Platelet Count Result 130 k/mm3 (150-375); Red Blood Count 3.70 M/mm3 (4.6-6.20); White Blood Count 5.3 K/mm3 (4.5-10.0)
[2025-02-19 05:15] LABS: Alanine Aminotransferase 17 U/L (6-50); Albumin Level 3.0 g/dL (3.5-5.1); Alkaline Phosphatase 53 U/L (38-126); Anion Gap 6 mmol/L (4-12); Aspartate Amino Transferase 20 U/L (17-59); Bilirubin,Total 0.2 mg/dL (0.2-1.3); Blood Urea Nitrogen 34 mg/dL (9-20); Calcium 8.6 mg/dL (8.4-10.2); Carbon Dioxide 25 mmol/L (22-30); Chloride 111 mmol/L (98-107); Estimated CRCL calculation 91 ml/min; Estimated Glomerular Filt Rate > 60; Glucose 237 mg/dL (65-110); Magnesium 1.8 mg/dL (1.6-2.3); Potassium 4.1 mmol/L (3.4-5.0); Sodium 142 mmol/L (137-145); Total Protein 5.5 g/dL (6.3-8.2)
[2025-02-19] MEDS: CENTRAL LINE FLUSH 10 ML IV PUSH ×2 (05:31→22:20)
[2025-02-19] MEDS: DOXYCYCLINE IV 100 MG in SODIUM CHLORIDE 0.9% IV 100 ML IVPB ×2 (08:32→22:15)
[2025-02-19] MEDS: ASPIRIN 81 MG CHEWABLE TABLET PO (08:32)
[2025-02-19] MEDS: ENOXAPARIN 40 MG/0.4 ML SYRINGE SUB-Q (08:33)
[2025-02-19] MEDS: PANTOPRAZOLE SODIUM IV 40 MG VIAL IV PUSH (08:33)
[2025-02-19] MEDS: INSULIN GLARGINE (*BKC) 100 UNITS/ML 14 UNITS SUB-Q (08:44)
[2025-02-19] MEDS: INSULIN ASPART (*BKC) 100 UNITS/ML SUB-Q (08:46)
[2025-02-19] MEDS: levETIRAcetam IV 2,000 MG in DEXTROSE 5% 100 ML 400 MG IVPB ×2 (10:24→22:11)
[2025-02-19] MEDS: LACOSAMIDE IVPB ×2 (10:43→20:37)
[2025-02-19] MEDS: SODIUM CHLORIDE 0.9% IVPB ×2 (10:43→20:37)
--- NOTE | 2025-02-19 14:28 | P.PNIM_ITS ---
Progress Note: A&P Assessment and Plan (1) Septic shock: Code(s): A41.9 - Sepsis, unspecified organism; R65.21 - Severe sepsis with septic shock Status: Acute (2) Acute respiratory failure with hypoxia and hypercapnia: Code(s): J96.01 - Acute respiratory failure with hypoxia; J96.02 - Acute respiratory failure with hypercapnia Status: Acute (3) Pneumonia: Qualifiers: Laterality: bilateral Lung location: lower lobe of lung Pneumonia type: due to unspecified organism Qualified Code(s): J18.9 - Pneumonia, unspecified organism Code(s): J18.9 - Pneumonia, unspecified organism Status: Acute (4) Pneumonia due to COVID-19 virus: Code(s): U07.1 - COVID-19; J12.82 - Pneumonia due to coronavirus disease 2018 Status: Acute (5) UTI (urinary tract infection): Qualifiers: Hematuria presence: with hematuria Urinary tract infection type: acute cystitis Qualified Code(s): N30.01 - Acute cystitis with hematuria Code(s): N39.0 - Urinary tract infection, site not specified Status: Acute (6) Breakthrough seizure: Code(s): G40.919 - Epilepsy, unspecified, intractable, without status epilepticus Status: Acute Plan Patient presents with acute hypoxic hypercapnic respiratory failure due to pneumonia resulting in septic shock. Patient been placed on empiric antibiotic therapy with cefepime and vancomycin. Patient's pneumonia is likely multifactorial due due to a component of aspiration and COVID. Will add Remdesivir and Decadron per protocol. Will monitor inflammatory markers and repeat CBC and CMP in a.m.. Will trend liver enzymes and monitor coag panel Q 48 hours per protocol. Patient is on ventilator. Initial ABG post intubation demonstrated hypoxia and mild hypercapnia with respiratory acidosis. I made ventilator changes and repeat ABG is pending. Will use low tidal volume strategy is to reduce barotrauma. Daily ABGs and chest x-rays have been ordered. Will add scheduled DuoNebs. Sputum culture with Gram stain has been ordered. Will continue antibiotic therapy with cefepime and vancomycin. Blood cultures have been obtained and are pending. Patient also has a abnormal ur inalysis and bladder findings on CT to suggest possible UTI. Urine specimen had moderate squamous cells subsequently a separate urine culture has been ordered. The patient's urine specimen came from the Spencer catheter that was placed in the ER. Patient did receive 2 L fluid bolus in the ER I at in an additional L to meet the patient's 30 mL/kilos fluid requirement. Will continue maintenance IV fluids thereafter. Will monitor strict I&O's. Patient likely had a breakthrough seizure due to fever and sepsis. Will switch patient's Keppra to liquid formulation per G tube. The patients Vimpat cannot be crushed for NG administration. Pharmacy states that it will take 2 days to get liquid formulation which has been ordered. Patient is on propofol for sedation. Patient is admitted in ICU and currently sedated as patient is post ictal. he is positive for COVID was started on Remdesivir and Dexamethasone, patient will be seen by chemical dependency counselor and neurologist and further recommendation to follow. patient is out of ICU and now medsurg, he is on RA and not requiring any oxygen, patient has competed Remdesivir 4 doses, patient is stats he is feeling much better and wants to go home, patient is clinically stable no recent seizure activities. currently taking Keppra 2g BID, lacisamide, patient will take his last dose of Remdesivir tomorrow, and will PT/OT evaluate the patient, patient will benefit going to rehab, will monitor and plan. Protonix ordered for GI prophylaxis. Subjective Date/time seen: 02/19/25 14:28 Interval history: H&P-narrative Patient presents with acute hypoxic hypercapnic respiratory failure due to pn eumonia resulting in septic shock. Patient been placed on empiric antibiotic therapy with cefepime and vancomycin. Patient's pneumonia is likely multifactorial due due to a component of aspiration and COVID. Will add Remdesivir and Decadron per protocol. Will monitor inflammatory markers and repeat CBC and CMP in a.m.. Will trend liver enzymes and monitor coag panel Q 48 hours per protocol. Patient is on ventilator. Initial ABG post intubation demonstrated hypoxia and mild hypercapnia with respiratory acidosis. I made ventilator changes and repeat ABG is pending. Will use low tidal volume strategy is to reduce barotrauma. Daily ABGs and chest x-rays have been ordered. Will add scheduled DuoNebs. Sputum culture with Gram stain has been ordered. Will continue antibiotic therapy with cefepime and vancomycin. Blood cultures have been obtained and are pending. Patient also has a abnormal urinalysis and bladder findings on CT to suggest possible UTI. Urine specimen had moderate squamous cells subsequently a separate urine culture has been ordered. The patient's urine specimen came from the Spencer catheter that was placed in the ER. Patient did receive 2 L fluid bolus in the ER I at in an additional L to meet the patient's 30 mL/kilos fluid requirement. Will continue maintenance IV fluids thereafter. Will monitor strict I&O's. Patient likely had a breakthrough seizure due to fever and sepsis. Will switch patient's Keppra to liquid formulation per G tube. The patients Vimpat cannot be crushed for NG administration. Pharmacy states that it will take 2 days to get liquid formulation which has been ordered. Patient is on propofol for sedation. Patient was admitted in ICU and currently sedated as patient is post ictal. he is positive for COVID was started on Remdesivir and Dexamethasone, patient will be seen by chemical dependency counselor and neurologist and further recommendation to follow. patient is out of ICU and now medsurg, he is on RA and not requiring any oxygen, patient has competed Remdesivir 4 doses, patient is stats he is feeling much better and wants to go home, patient is clinically stable no recent seizure activities. currently taking Keppra 2g BID, lacisamide, patient will take his last dose of Remdesivir tomorrow, and will PT/OT evaluate the patient, patient will benefit going to rehab, will monitor and plan. Review of Systems Review of Systems: All systems reviewed & are unremarkable except as noted in HPI and below ROS unobtainable: Yes unobtainable due to endotracheal tube and unobtainable due to medical condition Exam Narrative: Patient is comfortable, NAD HEENT: eyes are clear and none icteric LUNGS:no retraction ABD: distended Lower: edema SKIN: nonjaundiced Neuro: sedated Objective Data Vital Signs Vital Signs: Vital Signs - 24 hr 02/18/25 15:37 02/18/25 15:37 02/18/25 15:48 Temperature Pulse Rate 75 75 78 Respiratory Rate 20 20 20 Blood Pressure Pulse Oximetry 91 Oxygen Delivery Nasal Cannula Oxygen Flow Rate 1 02/18/25 16:00 02/18/25 20:00 02/18/25 20:55 Temperature 36.8 C Pulse Rate 85 75 Respiratory Rate 22 H 20 Blood Pressure 118/70 Pulse Oximetry 99 97 Oxygen Delivery Nasal Cannula Oxygen Flow Rate 1 02/18/25 21:08 02/18/25 21:09 02/18/25 22:46 Temperature 36.2 C L Pulse Rate 78 78 68 Respiratory Rate 20 18 Blood Pressure 140/61 Pulse Oximetry 93 97 Oxygen Delivery Nasal Cannula Oxygen Flow Rate 1 02/19/25 02:40 02/19/25 02:52 02/19/25 06:33 Temperature 36.9 C Pulse Rate 74 76 84 Respiratory Rate 20 20 20 Blood Pressure 132/77 Pulse Oximetry 94 Oxygen Delivery Oxygen Flow Rate 02/19/25 08:26 02/19/25 08:32 02/19/25 10:51 Temperature 36.2 C L Pulse Rate 66 68 Respiratory Rate 16 18 Blood Pressure 155/65 H Pulse Oximetry 100 99 Oxygen Delivery Room Air Oxygen Flow Rate 02/19/25 14:00 Temperature 36.7 C Pulse Rate 81 Respiratory Rate 14 Blood Pressure 145/65 H Pulse Oximetry 98 Oxygen Delivery Oxygen Flow Rate Intake/Output Intake/Output: Intake & Output 02/16/25 02/17/25 02/18/25 02/19/25 23:59 23:59 23:59 23:59 Intake Total 3866.6 3689.6 1580 640 Output Total 2400 5050 1400 425 Balance 1466.6 -1360.4 180 215 Meds/Results Medications: Active Medications Generic Name Dose Route Start Last Admin Trade Name Freq PRN Reason Stop Dose Admin Acetaminophen 650 mg 02/18/25 19:58 02/18/25 20:13 Acetaminophen 325 Mg Tablet PO 650 mg Q4H PRN Administration Pain 1-3 or Fever Albuterol/Ipratropium 3 ml 02/16/25 02:00 02/19/25 10:49 Ipratropium 0.5 Mg/Albuterol Sulfate 2.5 Mg Ampul.Neb 3 Ml INHALATION 3 ml Q6HRT EMIL Administration Aspirin 81 mg 02/16/25 09:00 02/19/25 08:32 Aspirin 81 Mg Chewable Tablet PO 81 mg DAILY EMIL Administration Atorvastatin Calcium 80 mg 02/16/25 21:00 02/18/25 20:13 Atorvastatin 40 Mg Tablet PO 80 mg HS EMIL Administration Dexamethasone Sodium Phosphate 6 mg 02/15/25 21:45 02/18/25 20:14 Dexamethasone Sod Phos Inj 10 Mg/Ml 1 Ml Vial IV PUSH 02/24/25 21:01 6 mg HS EMIL Administration Dextrose 12.5 gm 02/15/25 22:39 Dextrose 50% 25 Gm/50 Ml Syringe IV PUSH PRN PRN Hypoglycemia Protocol Enoxaparin Sodium 40 mg 02/16/25 09:00 02/19/25 08:33 Enoxaparin 40 Mg/0.4 Ml Syringe SUB-Q 40 mg DAILY EMIL Administration Glucagon 1 mg 02/15/25 22:39 Glucagon For Inj 1 Mg Vial IM PRN PRN Hypoglycemia Protocol Glucose 15 gm 02/15/25 22:39 Glucose Oral Gel 15 Gm Of Glucse In 37.5 Gm Tube PO PRN PRN Hypoglycemia Protocol Remdesivir 100 mg in 250 mls @ 250 mls/hr 02/16/25 22:00 02/18/25 23:34 IVPB 02/19/25 22:59 Infused Q24H EMIL Infusion Dextrose 1,000 mls @ 100 mls/hr 02/15/25 22:39 Dextrose 5% 1,000 Ml IVPB PRN PRN Hypoglycemia Protocol Doxycycline Hyclate 100 mg/ 100 mls @ 100 mls/hr 02/16/25 10:00 02/19/25 09:32 Sodium Chloride IVPB 02/20/25 22:59 Infused Q12H EMIL Infusion Ampicillin Sodium/Sulbactam 100 mls @ 200 mls/hr 02/17/25 08:00 02/19/25 13:43 Sodium 3 gm/ Sodium Chloride IVPB 02/21/25 20:29 200 mls/hr Q6H EMIL Administration Lacosamide 200 mg/ Sodium 100 mls @ 190.476 mls/hr 02/17/25 21:00 02/19/25 10:43 Chloride IVPB 190.48 mls/hr Q12HR EMIL Administration Levetiracetam 2,000 mg/ 120 mls @ 400 mls/hr 02/17/25 20:05 02/19/25 10:24 Dextrose IVPB 400 mls/hr Q12HR EMIL Administration Insulin Aspart 3 - 6 units 02/19/25 08:45 02/19/25 12:32 Insulin Aspart (*Bkc) 100 Units/Ml SUB-Q Not Given TIDWM EMIL Protocol Insulin Glargine 14 units 02/18/25 09:00 02/19/25 08:44 Insulin Glargine (*Bkc) 100 Units/Ml SUB-Q 14 units DAILY EMIL Administration Pantoprazole Sodium 40 mg 02/16/25 09:00 02/19/25 08:33 Pantoprazole Sodium Iv 40 Mg Vial IV PUSH 40 mg DAILY EMIL Administration Sodium Chloride 10 ml 02/16/25 14:00 02/19/25 05:31 Central Line Flush IV PUSH 10 ml Q8HR EMIL Administration Sodium Chloride 20 ml 02/16/25 06:05 Central Line Flush IV PUSH PRN PRN after blood draws Radiology Results: ITS Impressions Head CT 02/15/25 19:38 IMPRESSION: No acute intracranial process. Cervical Spine CT 02/15/25 19:47 IMPRESSION: No acute fracture or traumatic malalignment in the cervical spine. Partially visualized endotracheal and nasogastric tubes. The nasogastric tube coils in the oropharynx. Chest/Abdomen/Pelvis CTA 02/15/25 20:05 IMPRESSION: Endotracheal tube terminates 1.7 cm above the geovani. Shallow positioned NG tube, consider advancing. Coiling of the tube noted in the oropharynx in the prior C-spine CT. Motion limited evaluation of the segmental and subsegmental bilateral lower lobe pulmonary arteries. No CT evidence of acute pulmonary embolus in the remaining adequately visualized vessels. Segmental bilateral medial and dependent consolidations, may represent pneumonia. A component of aspiration may be present based on distribution. Lateral urinary bladder wall thickening may represent cystitis or chronic outlet obstruction from marked prostatomegaly. Abdomen X-Ray 02/15/25 20:27 IMPRESSION: NG tube, in good position. Chest X-Ray 02/18/25 05:59 Impression: 1: Stable chest. No significant interval change. Labs Labs: Laboratory Results - last 24 hr 02/18/25 02/18/25 02/19/25 16:50 20:37 04:56 WBC 5.3 RBC 3.70 L Hgb 10.7 L Hct 32.5 L MCV 87.8 MCH 28.9 MCHC 32.9 RDW 12.7 Plt Count 130 L MPV 10.9 H Immature Gran % (Auto) 0.8 H Neut % (Auto) 82.8 H Lymph % (Auto) 12.8 L Tyrrell % (Auto) 3.6 Eos % (Auto) 0.0 Baso % (Auto) 0.0 L Lymph # (Auto) 0.68 L Tyrrell # (Auto) 0.2 Eos # (Auto) 0.0 Baso # (Auto) 0.0 Abs Immat Gran (auto) 0.04 H Absolute Neuts (auto) 4.4 Absolute Nucleated RBC 0.000 Nucleated RBC % 0.0 Sodium 142 Potassium 4.1 Chloride 111 H Carbon Dioxide 25 Anion Gap 6 BUN 34 H Creatinine 0.84 Estim Creat Clear Calc 91 Estimated GFR > 60 Glucose 237 H POC Capillary Glucose 201 H 240 H Calcium 8.6 Phosphorus 3.3 Magnesium 1.8 Total Bilirubin 0.2 AST 20 ALT 17 Alkaline Phosphatase 53 Total Protein 5.5 L Albumin 3.0 L 02/19/25 02/19/25 08:02 12:00 WBC RBC Hgb Hct MCV MCH MCHC RDW Plt Count MPV Immature Gran % (Auto) Neut % (Auto) Lymph % (Auto) Tyrrell % (Auto) Eos % (Auto) Baso % (Auto) Lymph # (Auto) Tyrrell # (Auto) Eos # (Auto) Baso # (Auto) Abs Immat Gran (auto) Absolute Neuts (auto) Absolute Nucleated RBC Nucleated RBC % Sodium Potassium Chloride Carbon Dioxide Anion Gap BUN Creatinine Estim Creat Clear Calc Estimated GFR Glucose POC Capillary Glucose 219 H 162 H Calcium Phosphorus Magnesium Total Bilirubin AST ALT Alkaline Phosphatase Total Protein Albumin Quality VTE Prophylaxis VTE prophylaxis: pharmacologic ordered
[2025-02-19] MEDS: ATORVASTATIN 40 MG TABLET 80 MG PO (20:27)
[2025-02-19] MEDS: dexAMETHasone SOD PHOS INJ 10 MG/ML 1 ML VIAL 6 MG IV PUSH (20:28)
[2025-02-19] MEDS: REMDESIVIR 100 MG/NS 250 ML 100 MG/250 ML BAG 250 MG IVPB (22:34)
[2025-02-20] VITALS (13 sets, daily range): BP systolic 134–161; BP diastolic 62–68; PULSE 72–82; RESP 16–20; TEMP 36.6–36.8; O2SAT 93–99
[2025-02-20] MEDS: IPRATROPIUM 0.5 MG/ALBUTEROL SULFATE 2.5 MG AMPUL.NEB 3 ML INHALATION ×4 (01:29→21:27)
[2025-02-20] MEDS: AMPICILLIN SODIUM/SULBACTAM 3 GM in SODIUM CHLORIDE 0.9% IV 100 ML 200 ML IVPB ×4 (01:50→20:17)
[2025-02-20 05:26] LABS: Hematocrit 33.0 % (42.0-52.0); Hemoglobin 10.5 g/dL (14.0-18.0); Immature Granulocyte Percent A 4.2 % (0-0.5); Lymphocytes Absolute Auto 0.71 K/mm3 (0.9-3.2); Mean Corpuscular HGB Conc 31.8 g/dl (32-36); Mean Corpuscular Hemoglobin 28.6 pg (26-34); Mean Corpuscular Volume 89.9 fl (80-100); Nucleated Red Blood Cells Absolute Auto 0.000 K/mm3 (0.0-0.012); Nucleated Red Blood Cells Perc 0.0 % (0.0-0.2); Platelet Count Result 145 k/mm3 (150-375); Red Blood Count 3.67 M/mm3 (4.6-6.20); White Blood Count 5.0 K/mm3 (4.5-10.0)
[2025-02-20 05:54] LABS: Alanine Aminotransferase 18 U/L (6-50); Albumin Level 2.9 g/dL (3.5-5.1); Alkaline Phosphatase 53 U/L (38-126); Anion Gap 7 mmol/L (4-12); Aspartate Amino Transferase 24 U/L (17-59); Bilirubin,Total 0.2 mg/dL (0.2-1.3); Blood Urea Nitrogen 25 mg/dL (9-20); Calcium 8.4 mg/dL (8.4-10.2); Carbon Dioxide 25 mmol/L (22-30); Chloride 107 mmol/L (98-107); Estimated CRCL calculation 94 ml/min; Estimated Glomerular Filt Rate > 60; Glucose 266 mg/dL (65-110); Magnesium 1.8 mg/dL (1.6-2.3); Potassium 4.2 mmol/L (3.4-5.0); Sodium 139 mmol/L (137-145); Total Protein 5.4 g/dL (6.3-8.2)
[2025-02-20] MEDS: CENTRAL LINE FLUSH 10 ML IV PUSH ×3 (08:29→21:30)
[2025-02-20] MEDS: INSULIN ASPART (*BKC) 100 UNITS/ML SUB-Q ×2 (08:29→12:19)
[2025-02-20] MEDS: ASPIRIN 81 MG CHEWABLE TABLET PO (08:30)
[2025-02-20] MEDS: ENOXAPARIN 40 MG/0.4 ML SYRINGE SUB-Q (08:31)
[2025-02-20] MEDS: DOXYCYCLINE IV 100 MG in SODIUM CHLORIDE 0.9% IV 100 ML IVPB ×2 (08:36→20:20)
[2025-02-20] MEDS: levETIRAcetam IV 2,000 MG in DEXTROSE 5% 100 ML 400 MG IVPB ×2 (08:47→21:30)
[2025-02-20] MEDS: INSULIN GLARGINE (*BKC) 100 UNITS/ML 14 UNITS SUB-Q (08:49)
[2025-02-20] MEDS: PANTOPRAZOLE SODIUM IV 40 MG VIAL IV PUSH (08:55)
[2025-02-20] MEDS: SODIUM CHLORIDE 0.9% IVPB ×2 (09:28→20:10)
[2025-02-20] MEDS: LACOSAMIDE IVPB ×2 (09:28→20:10)
--- NOTE | 2025-02-20 11:57 | PM.IMPN ---
Progress Note: A&P Assessment and Plan (1) Septic shock: Code(s): A41.9 - Sepsis, unspecified organism; R65.21 - Severe sepsis with septic shock Status: Acute (2) Acute respiratory failure with hypoxia and hypercapnia: Code(s): J96.01 - Acute respiratory failure with hypoxia; J96.02 - Acute respiratory failure with hypercapnia Status: Acute (3) Pneumonia: Qualifiers: Laterality: bilateral Lung location: lower lobe of lung Pneumonia type: due to unspecified organism Qualified Code(s): J18.9 - Pneumonia, unspecified organism Code(s): J18.9 - Pneumonia, unspecified organism Status: Acute (4) Pneumonia due to COVID-19 virus: Code(s): U07.1 - COVID-19; J12.82 - Pneumonia due to coronavirus disease 2018 Status: Acute (5) UTI (urinary tract infection): Qualifiers: Hematuria presence: with hematuria Urinary tract infection type: acute cystitis Qualified Code(s): N30.01 - Acute cystitis with hematuria Code(s): N39.0 - Urinary tract infection, site not specified Status: Acute (6) Breakthrough seizure: Code(s): G40.919 - Epilepsy, unspecified, intractable, without status epilepticus Status: Acute Plan Patient presents with acute hypoxic hypercapnic respiratory failure due to pneumonia resulting in septic shock. Patient been placed on empiric antibiotic therapy with cefepime and vancomycin. Patient's pneumonia is likely multifactorial due due to a component of aspiration and COVID. Will add Remdesivir and Decadron per protocol. Will monitor inflammatory markers and repeat CBC and CMP in a.m.. Will trend liver enzymes and monitor coag panel Q 48 hours per protocol. Patient is on ventilator. Initial ABG post intubation demonstrated hypoxia and mild hypercapnia with respiratory acidosis. I made ventilator changes and repeat ABG is pending. Will use low tidal volume strategy is to reduce barotrauma. Daily ABGs and chest x-rays have been ordered. Will add scheduled DuoNebs. Sputum culture with Gram stain has been ordered. Will continue antibiotic therapy with cefepime and vancomycin. Blood cultures have been obtained and are pending. Patient also has a abnormal urinalysis and bladder findings on CT to suggest possible UTI. Urine specimen had moderate squamous cells subsequently a separate urine culture has been ordered. The patient's urine specimen came from the Spencer catheter that was placed in the ER. Patient did receive 2 L fluid bolus in the ER I at in an additional L to meet the patient's 30 mL/kilos fluid requirement. Will continue maintenance IV fluids thereafter. Will monitor strict I&O's. Patient likely had a breakthrough seizure due to fever and sepsis. Will switch patient's Keppra to liquid formulation per G tube. The patients Vimpat cannot be crushed for NG administration. Pharmacy states that it will take 2 days to get liquid formulation which has been ordered. Patient is on propofol for sedation. Patient is admitted in ICU and currently sedated as patient is post ictal. he is positive for COVID was started on Remdesivir and Dexamethasone, patient will be seen by livestock caretaker and neurologist and further recommendation to follow. patient was transferred out of ICU and now [facility], he is on RA and not requiring any oxygen, patient has competed Remdesivir 5 doses, and will complete remaining antibiotics tomorrow, however patient all culture no growth so far, patient is stats he is feeling much better and wants to go home, patient is clinically stable no recent seizure activities. currently taking Keppra 2g BID, lacisamide, patient will take his last dose of Remdesivir today, and will have PT/OT evaluate the patient, patient will benefit going to rehab, will monitor and plan. Protonix ordered for GI prophylaxis. Subjective Date/time seen: 02/20/25 11:57 Interval history: H&P-narrative Patient presents with acute hypoxic hypercapnic respiratory failure due to pneumonia resulting in septic shock. Patient been placed on empiric antibiotic therapy with cefepime and vancomycin. Patient's pneumonia is likely multifactorial due due to a component of aspiration and COVID. Will add Remdesivir and Decadron per protocol. Will monitor inflammatory markers and repeat CBC and CMP in a.m.. Will trend liver enzymes and monitor coag panel Q 48 hours per protocol. Patient is on ventilator. Initial ABG post intubation demonstrated hypoxia and mild hypercapnia with respiratory acidosis. I made ventilator changes and repeat ABG is pending. Will use low tidal volume strategy is to reduce barotrauma. Daily ABGs and chest x-rays have been ordered. Will add scheduled DuoNebs. Sputum culture with Gram stain has been ordered. Will continue antibiotic therapy with cefepime and vancomycin. Blood cultures have been obtained and are pending. Patient also has a abnormal urinalysis and bladder findings on CT to suggest possible UTI. Urine specimen had moderate squamous cells subsequently a separate urine culture has been ordered. The patient's urine specimen came from the Spencer catheter that was placed in the ER. Patient did receive 2 L fluid bolus in the ER I at in an additional L to meet the patient's 30 mL/kilos fluid requirement. Will continue maintenance IV fluids thereafter. Will monitor strict I&O's. Patient likely had a breakthrough seizure due to fever and sepsis. Will switch patient's Keppra to liquid formulation per G tube. The patients Vimpat cannot be crushed for NG administration. Pharmacy states that it will take 2 days to get liquid formulation which has been ordered. Patient is on propofol for sedation. Patient was admitted in ICU and currently sedated as patient is post ictal. he is positive for COVID was started on Remdesivir and Dexamethasone, patient will be seen by livestock caretaker and neurologist and further recommendation to follow. patient was transferred out of ICU and now [facility], he is on RA and not requiring any oxygen, patient has competed Remdesivir 5 doses, and will complete remaining antibiotics tomorrow, however patient all culture no growth so far, patient is stats he is feeling much better and wants to go home, patient is clinically stable no recent seizure activities. currently taking Keppra 2g BID, lacisamide, patient will take his last dose of Remdesivir today, and will have PT/OT evaluate the patient, patient will benefit going to rehab, will monitor and plan. Review of Systems Review of Systems: All systems reviewed & are unremarkable except as noted in HPI and below ROS unobtainable: Yes unobtainable due to endotracheal tube and unobtainable due to medical condition Exam Narrative: Patient is comfortable, NAD HEENT: eyes are clear and none icteric LUNGS:no retraction ABD: distended Lower: edema SKIN: nonjaundiced Neuro: sedated Objective Data Vital Signs Vital Signs: Vital Signs - 24 hr 02/19/25 14:00 02/19/25 15:36 02/19/25 20:00 Temperature 36.7 C Pulse Rate 81 Respiratory Rate 14 Blood Pressure 145/65 H Pulse Oximetry 98 Oxygen Delivery Room Air Room Air 02/19/25 20:40 02/19/25 20:41 02/19/25 20:43 Temperature 36.7 C Pulse Rate 81 76 Respiratory Rate 16 16 Blood Pressure 137/53 L Pulse Oximetry 99 98 Oxygen Delivery Room Air 02/19/25 20:48 02/20/25 01:30 02/20/25 01:41 Temperature Pulse Rate 81 81 81 Respiratory Rate 16 16 16 Blood Pressure Pulse Oximetry Oxygen Delivery 02/20/25 06:00 02/20/25 09:05 02/20/25 09:16 Temperature 36.7 C Pulse Rate 73 Respiratory Rate 20 16 Blood Pressure 146/68 H Pulse Oximetry 98 93 93 Oxygen Delivery Room Air Room Air 02/20/25 09:16 02/20/25 09:26 Temperature Pulse Rate 72 82 Respiratory Rate 16 16 Blood Pressure Pulse Oximetry Oxygen Delivery Intake/Output Intake/Output: Intake & Output 02/17/25 02/18/25 02/19/25 02/20/25 23:59 23:59 23:59 23:59 Intake Total 3689.6 1580 2270 1260 Output Total 5050 1400 1125 1050 Balance -1360.4 180 1145 210 Meds/Results Medications: Active Medications Generic Name Dose Route Start Last Admin Trade Name Freq PRN Reason Stop Dose Admin Acetaminophen 650 mg 02/18/25 19:58 02/18/25 20:13 Acetaminophen 325 Mg Tablet PO 650 mg Q4H PRN Administration Pain 1-3 or Fever Albuterol/Ipratropium 3 ml 02/16/25 02:00 02/20/25 09:15 Ipratropium 0.5 Mg/Albuterol Sulfate 2.5 Mg Ampul.Neb 3 Ml INHALATION 3 ml Q6HRT EMIL Administration Aspirin 81 mg 02/16/25 09:00 02/20/25 08:30 Aspirin 81 Mg Chewable Tablet PO 81 mg DAILY EMIL Administration Atorvastatin Calcium 80 mg 02/16/25 21:00 02/19/25 20:27 Atorvastatin 40 Mg Tablet PO 80 mg HS EMIL Administration Dexamethasone Sodium Phosphate 6 mg 02/15/25 21:45 02/19/25 20:28 Dexamethasone Sod Phos Inj 10 Mg/Ml 1 Ml Vial IV PUSH 02/24/25 21:01 6 mg HS EMIL Administration Dextrose 12.5 gm 02/15/25 22:39 Dextrose 50% 25 Gm/50 Ml Syringe IV PUSH PRN PRN Hypoglycemia Protocol Enoxaparin Sodium 40 mg 02/16/25 09:00 02/20/25 08:31 Enoxaparin 40 Mg/0.4 Ml Syringe SUB-Q 40 mg DAILY EMIL Administration Glucagon 1 mg 02/15/25 22:39 Glucagon For Inj 1 Mg Vial IM PRN PRN Hypoglycemia Protocol Glucose 15 gm 02/15/25 22:39 Glucose Oral Gel 15 Gm Of Glucse In 37.5 Gm Tube PO PRN PRN Hypoglycemia Protocol Dextrose 1,000 mls @ 100 mls/hr 02/15/25 22:39 Dextrose 5% 1,000 Ml IVPB PRN PRN Hypoglycemia Protocol Doxycycline Hyclate 100 mg/ 100 mls @ 100 mls/hr 02/16/25 10:00 02/20/25 09:35 Sodium Chloride IVPB 02/20/25 22:59 Infused Q12H EMIL Infusion Ampicillin Sodium/Sulbactam 100 mls @ 200 mls/hr 02/17/25 08:00 02/20/25 09:00 Sodium 3 gm/ Sodium Chloride IVPB 02/21/25 20:29 Infused Q6H EMIL Infusion Lacosamide 200 mg/ Sodium 100 mls @ 190.476 mls/hr 02/17/25 21:00 02/20/25 09:59 Chloride IVPB Infused Q12HR EMIL Infusion Levetiracetam 2,000 mg/ 120 mls @ 400 mls/hr 02/17/25 20:05 02/20/25 09:05 Dextrose IVPB Infused Q12HR EMIL Infusion Insulin Aspart 3 - 6 units 02/19/25 08:45 02/20/25 08:29 Insulin Aspart (*Bkc) 100 Units/Ml SUB-Q 3 units TIDWM EMIL Administration Protocol Insulin Glargine 14 units 02/18/25 09:00 02/20/25 08:49 Insulin Glargine (*Bkc) 100 Units/Ml SUB-Q 14 units DAILY EMIL Administration Pantoprazole Sodium 40 mg 02/16/25 09:00 02/20/25 08:55 Pantoprazole Sodium Iv 40 Mg Vial IV PUSH 40 mg DAILY EMIL Administration Sodium Chloride 10 ml 02/16/25 14:00 02/20/25 08:29 Central Line Flush IV PUSH 10 ml Q8HR EMIL Administration Sodium Chloride 20 ml 02/16/25 06:05 Central Line Flush IV PUSH PRN PRN after blood draws Radiology Results: ITS Impressions Head CT 02/15/25 19:38 IMPRESSION: No acute intracranial process. Cervical Spine CT 02/15/25 19:47 IMPRESSION: No acute fracture or traumatic malalignment in the cervical spine. Partially visualized endotracheal and nasogastric tubes. The nasogastric tube coils in the oropharynx. Chest/Abdomen/Pelvis CTA 02/15/25 20:05 IMPRESSION: Endotracheal tube terminates 1.7 cm above the geovani. Shallow positioned NG tube, consider advancing. Coiling of the tube noted in the oropharynx in the prior C-spine CT. Motion limited evaluation of the segmental and subsegmental bilateral lower lobe pulmonary arteries. No CT evidence of acute pulmonary embolus in the remaining adequately visualized vessels. Segmental bilateral medial and dependent consolidations, may represent pneumonia. A component of aspiration may be present based on distribution. Lateral urinary bladder wall thickening may represent cystitis or chronic outlet obstruction from marked prostatomegaly. Abdomen X-Ray 02/15/25 20:27 IMPRESSION: NG tube, in good position. Chest X-Ray 02/18/25 05:59 Impression: 1: Stable chest. No significant interval change. Labs Labs: Laboratory Results - last 24 hr 02/19/25 02/19/25 02/19/25 12:00 16:54 20:03 WBC RBC Hgb Hct MCV MCH MCHC RDW Plt Count MPV Immature Gran % (Auto) Neut % (Auto) Lymph % (Auto) [place] % (Auto) Eos % (Auto) Baso % (Auto) Lymph # (Auto) [place] # (Auto) Eos # (Auto) Baso # (Auto) Abs Immat Gran (auto) Absolute Neuts (auto) Absolute Nucleated RBC Nucleated RBC % Sodium Potassium Chloride Carbon Dioxide Anion Gap BUN Creatinine Estim Creat Clear Calc Estimated GFR Glucose POC Capillary Glucose 162 H 183 H 284 H Calcium Phosphorus Magnesium Total Bilirubin AST ALT Alkaline Phosphatase Total Protein Albumin 02/20/25 02/20/25 02/20/25 05:19 07:45 11:40 WBC 5.0 RBC 3.67 L Hgb 10.5 L Hct 33.0 L MCV 89.9 MCH 28.6 MCHC 31.8 L RDW 12.5 Plt Count 145 L MPV 11.2 H Immature Gran % (Auto) 4.2 H Neut % (Auto) 77.3 H Lymph % (Auto) 14.1 L [place] % (Auto) 4.0 Eos % (Auto) 0.0 Baso % (Auto) 0.4 Lymph # (Auto) 0.71 L [place] # (Auto) 0.2 Eos # (Auto) 0.0 Baso # (Auto) 0.0 Abs Immat Gran (auto) 0.21 H Absolute Neuts (auto) 3.9 Absolute Nucleated RBC 0.000 Nucleated RBC % 0.0 Sodium 139 Potassium 4.2 Chloride 107 Carbon Dioxide 25 Anion Gap 7 BUN 25 H Creatinine 0.81 Estim Creat Clear Calc 94 Estimated GFR > 60 Glucose 266 H POC Capillary Glucose 218 H 274 H Calcium 8.4 Phosphorus 3.3 Magnesium 1.8 Total Bilirubin 0.2 AST 24 ALT 18 Alkaline Phosphatase 53 Total Protein 5.4 L Albumin 2.9 L Quality VTE Prophylaxis VTE prophylaxis: pharmacologic ordered
[2025-02-20] MEDS: ATORVASTATIN 40 MG TABLET 80 MG PO (20:11)
[2025-02-20] MEDS: dexAMETHasone SOD PHOS INJ 10 MG/ML 1 ML VIAL 6 MG IV PUSH (20:11)
[2025-02-20] MEDS: ACETAMINOPHEN 325 MG TABLET 650 MG PO (20:44)
[2025-02-21] VITALS (7 sets, daily range): BP systolic 126–132; BP diastolic 53–63; PULSE 70–76; RESP 16–20; TEMP 36.7; O2SAT 95–98
[2025-02-21] MEDS: AMPICILLIN SODIUM/SULBACTAM 3 GM in SODIUM CHLORIDE 0.9% IV 100 ML 200 ML IVPB ×3 (01:23→12:59)
[2025-02-21] MEDS: IPRATROPIUM 0.5 MG/ALBUTEROL SULFATE 2.5 MG AMPUL.NEB 3 ML INHALATION ×3 (01:38→15:09)
[2025-02-21] MEDS: CENTRAL LINE FLUSH 10 ML IV PUSH (05:34)
[2025-02-21 05:45] LABS: Hematocrit 33.8 % (42.0-52.0); Hemoglobin 10.7 g/dL (14.0-18.0); Mean Corpuscular HGB Conc 31.7 g/dl (32-36); Mean Corpuscular Hemoglobin 28.7 pg (26-34); Mean Corpuscular Volume 90.6 fl (80-100); Platelet Count Result 144 k/mm3 (150-375); Red Blood Count 3.73 M/mm3 (4.6-6.20); White Blood Count 6.2 K/mm3 (4.5-10.0)
[2025-02-21 06:02] LABS: Anion Gap 5 mmol/L (4-12); Blood Urea Nitrogen 21 mg/dL (9-20); Calcium 8.6 mg/dL (8.4-10.2); Carbon Dioxide 26 mmol/L (22-30); Chloride 105 mmol/L (98-107); Estimated CRCL calculation 94 ml/min; Estimated Glomerular Filt Rate > 60; Glucose 251 mg/dL (65-110); Magnesium 1.7 mg/dL (1.6-2.3); Potassium 4.3 mmol/L (3.4-5.0); Sodium 136 mmol/L (137-145)
[2025-02-21] MEDS: ASPIRIN 81 MG CHEWABLE TABLET PO (08:50)
[2025-02-21] MEDS: levETIRAcetam IV 2,000 MG in DEXTROSE 5% 100 ML 400 MG IVPB (08:53)
[2025-02-21] MEDS: ENOXAPARIN 40 MG/0.4 ML SYRINGE SUB-Q (08:53)
[2025-02-21] MEDS: PANTOPRAZOLE SODIUM IV 40 MG VIAL IV PUSH (08:53)
[2025-02-21] MEDS: INSULIN GLARGINE (*BKC) 100 UNITS/ML 14 UNITS SUB-Q (09:01)
[2025-02-21] MEDS: SODIUM CHLORIDE 0.9% IVPB (09:06)
[2025-02-21] MEDS: LACOSAMIDE IVPB (09:06)
--- NOTE | 2025-02-21 13:43 | P.DS_ITS ---
DS: Admitting Diagnosis Discharge Date 02/21/25 Admitting Diagnosis Seizure. DS: Discharge Diagnosis Discharge Diagnosis (1) Septic shock: Code(s): A41.9 - Sepsis, unspecified organism; R65.21 - Severe sepsis with septic shock Status: Acute (2) Acute respiratory failure with hypoxia and hypercapnia: Code(s): J96.01 - Acute respiratory failure with hypoxia; J96.02 - Acute respiratory failure with hypercapnia Status: Acute (3) Pneumonia: Qualifiers: Laterality: bilateral Lung location: lower lobe of lung Pneumonia type: due to unspecified organism Qualified Code(s): J18.9 - Pneumonia, unspecified organism Code(s): J18.9 - Pneumonia, unspecified organism Status: Acute (4) Pneumonia due to COVID-19 virus: Code(s): U07.1 - COVID-19; J12.82 - Pneumonia due to coronavirus disease 2019 Status: Acute (5) UTI (urinary tract infection): Qualifiers: Hematuria presence: with hematuria Urinary tract infection type: acute cystitis Qualified Code(s): N30.01 - Acute cystitis with hematuria Code(s): N39.0 - Urinary tract infection, site not specified Status: Acute (6) Breakthrough seizure: Code(s): G40.919 - Epilepsy, unspecified, intractable, without status epilepticus Status: Acute Plan Patient presents with acute hypoxic hypercapnic respiratory failure due to pneumonia resulting in septic shock. Patient been placed on empiric antibiotic therapy with cefepime and vancomycin. Patient's pneumonia is likely multifactorial due due to a component of aspiration and COVID. Will add Remdesivir and Decadron per protocol. Will monitor inflammatory markers and repeat CBC and CMP in a.m.. Will trend liver enzymes and monitor coag panel Q 48 hours per protocol. Patient is on ventilator. Initial ABG post intubation demonstrated hypoxia and mild hypercapnia with respiratory acidosis. I made ventilator changes and repeat ABG is pending. Will use low tidal volume strategy is to reduce barotrauma. Daily ABGs and chest x-rays have been ordered. Will add scheduled DuoNebs. Sputum culture with Gram stain has been ordered. Will continue antibiotic therapy with cefepime and vancomycin. Blood cultures have been obtained and are pending. Patient also has a abnormal urinalysis and bladder findings on CT to suggest possible UTI. Urine specimen had moderate squamous cells subsequently a separate urine culture has been ordered. The patient's urine specimen came from the Spencer catheter that was placed in the ER. Patient did receive 2 L fluid bolus in the ER I at in an additional L to meet the patient's 30 mL/kilos fluid requirement. Will continue maintenance IV fluids thereafter. Will monitor strict I&O's. Patient likely had a breakthrough seizure due to fever and sepsis. Will switch patient's Keppra to liquid formulation per G tube. The patients Vimpat cannot be crushed for NG administration. Pharmacy states that it will take 2 days to get liquid formulation which has been ordered. Patient is on propofol for sedation. Patient is admitted in ICU and currently sedated as patient is post ictal. he is positive for COVID was started on Remdesivir and Dexamethasone, patient will be seen by sand tester and neurologist and further recommendation to follow. patient was transferred out of ICU and now [facility], he is on RA and not requiring any oxygen, patient has competed Remdesivir 5 doses, and will complete remaining antibiotics tomorrow, however patient all culture no growth so far, patient is stats he is feeling much better and wants to go home, patient is clinically stable no recent seizure activities. currently taking Keppra 2g BID, lacisamide, patient will take his last dose of Remdesivir today, and will have PT/OT evaluate the patient, patient will benefit going to rehab, will monitor and plan. Protonix ordered for GI prophylaxis. DS: Summary Hospital Course Hospital Course: Patient likely had a breakthrough seizure due to fever and sepsis. Will switch patient's Keppra to liquid formulation per G tube. The patients Vimpat cannot be crushed for NG administration. Pharmacy states that it will take 2 days to get liquid formulation which has been ordered. Patient is on propofol for sedation. Patient is admitted in ICU and currently sedated as patient is post ictal. he is positive for COVID was started on Remdesivir and Dexamethasone, patient will be seen by sand tester and neurologist and further recommendation to follow. patient was transferred out of ICU and now [facility], he is on RA and not requiring any oxygen, patient has competed Remdesivir 5 doses, and will complete remaining antibiotics tomorrow, however patient all culture no growth so far, patient is stats he is feeling much better and wants to go home, patient is clinically stable no recent seizure activities. currently taking Keppra 2g BID, lacisamide, patient will take his last dose of Remdesivir today, and will have PT/OT evaluate the patient, patient will benefit going to rehab, will monitor and plan. Patient is clinically stable did not have any seizures while in the hospital. will discharge patient today. Protonix ordered for GI prophylaxis. Time Spent with Patient Time attestation: Total time spent providing and/or coordinating discharge services: Exam Narrative: Patient is comfortable, NAD HEENT: eyes are clear and none icteric LUNGS:no retraction ABD: distended Lower: edema SKIN: nonjaundiced Neuro: sedated DS: Data Data Completed and Pending Labs on day of discharge: Labs from last 24 hours 02/21/25 02/21/25 02/21/25 11:52 07:31 05:21 WBC 6.2 RBC 3.73 L Hgb 10.7 L Hct 33.8 L MCV 90.6 MCH 28.7 MCHC 31.7 L RDW 12.3 Plt Count 144 L MPV 11.6 H Sodium 136 L Potassium 4.3 Chloride 105 Carbon Dioxide 26 Anion Gap 5 BUN 21 H Creatinine 0.81 Estim Creat Clear Calc 94 Estimated GFR > 60 Glucose 251 H POC Capillary Glucose 163 H 200 H Calcium 8.6 Magnesium 1.7 Levetiracetam 02/20/25 02/20/25 02/17/25 21:26 17:07 13:18 WBC RBC Hgb Hct MCV MCH MCHC RDW Plt Count MPV Sodium Potassium Chloride Carbon Dioxide Anion Gap BUN Creatinine Estim Creat Clear Calc Estimated GFR Glucose POC Capillary Glucose 184 H 153 H Calcium Magnesium Levetiracetam 41.0 H Preliminary micro results at discharge 02/15/25 18:33 Blood Culture - Preliminary Blood 02/15/25 18:33 Blood Culture - Preliminary Blood Discharge Plan Discharge Attending physician on discharge: Enedina Arellano Consulting providers: Arturo Long; Lorena Leach; Connor Espinoza; Jose Trivedi; Jill Sloan; Andrew Tao; Rory Ramirez Discharging Clinician: Rohit Parekh Patient Disposition: NH Fdc/Asst Living Activity: as tolerated Diet: heart healthy Discharge Instructions: patient to follow up with his primary care provider as soon as possible, patient is instructed if any symptoms worsen to go to nearest ER Patient Instructions: Antibiotic Form, Enoxaparin (By injection), Heart Failure (GEN), Non-tunneled Central Lines (GEN) Patient Language: Lebanese Stand Alone Forms: General Discharge Information Follow-up/Referrals: Freddy Severino MD [Primary Care Provider] - Discharge Medications: New prednisone 10 mg tablet 10 mg PO DAILY Qty: 63 0RF Rx Instructions: 6Tx3d, 5Tx3d, 4Tx3d, 3Tx3d, 2Tx3d, 1Tx3d Continued aspirin 81 mg Tablet,Chewable 81 mg PO DAILY cholecalciferol (vitamin D3) 125 mcg (5,000 unit) Tablet 125 mcg PO DAILY lorazepam [Ativan] 2 mg/mL solution 1 mg IM ONCE PRN (Reason: seizure) lisinopril 10 mg Tablet 10 mg PO DAILY calcitriol 0.25 mcg Capsule 0.25 mcg PO WEEKLY Rx Instructions: administer on Friday atorvastatin 80 mg Tablet 80 mg PO HS levetiracetam 1,000 mg Tablet 2,000 mg PO BID lacosamide [Vimpat] 150 mg tablet 150 mg PO Q12HR Qty: 60 0RF Date of admission: 02/15/25 21:38 Primary Care Provider: Freddy Severino Admitting Provider: Enedina Arellano Attending physician on admission: Rohit Parekh Condition: Stable
== END 2025-02-21 16:45 | DRG 871 ==
LOC: ANHED 20:15 → ANHICU 21:51 → ANH2MED 02-21 13:35 → ANHICU 02-22 09:05
PROVIDERS: Internal Medicine; Student in an Organized Health Care Education/Training Program; Admitting Provider Internal Medicine; Emergency Provider Student in an Organized Health Care Education/Training Program; PCP Pediatrics Neonatal-Perinatal Medicine; Visit Provider Family Medicine
DX: A41.89 Other specified sepsis (principal); J12.82 Pneumonia due to coronavirus disease 2019; J96.01 Acute respiratory failure with hypoxia; U07.1 COVID-19; R65.21 Severe sepsis with septic shock; J96.02 Acute respiratory failure with hypercapnia; J69.0 Pneumonitis due to inhalation of food and vomit; N39.0 Urinary tract infection, site not specified; I69.351 Hemiplegia and hemiparesis following cerebral infarction affecting right dominant side; G40.909 Epilepsy, unspecified, not intractable, without status epilepticus; E78.5 Hyperlipidemia, unspecified; E55.9 Vitamin D deficiency, unspecified; I10 Essential (primary) hypertension; F32.A Depression, unspecified; I48.0 Paroxysmal atrial fibrillation; G93.89 Other specified disorders of brain; N40.0 Benign prostatic hyperplasia without lower urinary tract symptoms; Z87.891 Personal history of nicotine dependence; Z79.82 Long term (current) use of aspirin
CPT/HCPCS: 31500; 36415; 36556; 36600; 70450; 71045; 71275; 72125; 74177; 80048; 80053; 80143; 80177; 80179; 80235; 80307; 81001; 82140; 82375; 82550; 82728; 82805; 82948; 83050; 83605; 83690; 83735; 83880; 84100; 84443; 84478; 84484; 85018; 85025; 85027; 85055; 85610; 85730; 86140; 87040; 87070; 87086; 87205; 87637; 87641; 92610; 93005; 94002; 94003; 94640; 96365; 96366; 96367; 96375; 97161; 97165; 99291; A9270; C1751; C9254; J0248; J0295; J0612; J0692; J1100; J1650; J1741; J1815; J1938; J1953; J2060; J2250; J2470; J2704; J3373; J3475; J7030; J7120; Q9967

== ENCOUNTER 2025-05-19 19:52 | Inpatient (IN) | payer OTHER, SELFPAY ==
[2025-05-19] VITALS (15 sets, daily range): BP systolic 120–147; BP diastolic 69–83; PULSE 90–112; RESP 17–22; TEMP 37; O2SAT 2–100
--- NOTE | ~2025-05-19 | CT_ITS ---
CT brain wo con HISTORY:sz COMPARISON: None. TECHNIQUE: Axial images were obtained of the head without intravenous contrast. FINDINGS: No acute intracranial hemorrhage, mass effect or midline shift. No extra-axial fluid collections. Encephalomalacia changes within the left occipital lobe reflective of remote infarct is again noted.Visualized paranasal sinuses and mastoid air cells are clear. IMPRESSION: No acute intracranial hemorrhage or extra axial fluid collections. Encephalomalacia changes within the left occipital lobe reflective of remote infarct. All CT scans at this facility are performed using low dose modulation techniques as appropriate to perform exam including the following: automated exposure control; use of iterative reconstruction technique; adjustment of the mA and/or kV according to patient size (this includes techniques or standardized protocols for targeted exams where dose is matched to indication/reason for exam). Reviewed, dictated and finalized at location S. IMPRESSION: No acute intracranial hemorrhage or extra axial fluid collections. Encephalomalacia changes within the left occipital lobe reflective of remote in farct. All CT scans at this facility are performed using low dose modulation techniqu es as appropriate to perform exam including the following: automated exposure c ontrol; use of iterative reconstruction technique; adjustment of the mA and/or kV according to patient size (this includes techniques or standardized protocol s for targeted exams where dose is matched to indication/reason for exam).
--- NOTE | 2025-05-19 20:10 | ECG_ITS ---
Test Date: 2025-05-19 20:22:39 Measurements Intervals [place] Rate: 113 P: 80 [place]: 191 QRS: -58 QRSD: 110 T: 59 QT: 339 QTc: 466 Interpretive Statements SINUS TACHYCARDIA WITH OCCASIONAL VENTRICULAR PREMATURE COMPLEXES INCOMPLETE RIGHT BUNDLE BRANCH BLOCK LEFT ANTERIOR FASCICULAR BLOCK LOW QRS VOLTAGE IN PRECORDIAL LEADS ANTEROLATERAL INFARCT, AGE INDETERMINATE INFERIOR INFARCT, AGE INDETERMINATE BORDERLINE ST-T WAVE ABNORMALITY- HIGH LATERAL LEADS BASELINE ARTIFACT- I, II, III, AVR, AVL, AVF, V1-V2 ABNORMAL ECG Compared to ECG 02/15/2025 17:09:45 ATRIAL FLUTTER/TACHYCARDIA NO LONGER PRESENT Electronically Signed On 05-19-2025 21:06:41 CDT by Ric Ratliff D.O.
[2025-05-19] MEDS: MIDAZOLAM HCL (*CRX) 2 MG/2 ML VIAL 5 MG IV PUSH (20:12)
[2025-05-19 20:19] LABS: Hematocrit 43.4 % (42.0-52.0); Hemoglobin 13.8 g/dL (14.0-18.0); Immature Granulocyte Percent A 0.6 % (0-0.5); Lymphocytes Absolute Auto 1.77 K/mm3 (0.9-3.2); Mean Corpuscular HGB Conc 31.8 g/dl (32-36); Mean Corpuscular Hemoglobin 28.3 pg (26-34); Mean Corpuscular Volume 88.9 fl (80-100); Nucleated Red Blood Cells Absolute Auto 0.000 K/mm3 (0.0-0.012); Nucleated Red Blood Cells Perc 0.0 % (0.0-0.2); Platelet Count Result 195 k/mm3 (150-375); Red Blood Count 4.88 M/mm3 (4.6-6.20); White Blood Count 9.9 K/mm3 (4.5-10.0)
[2025-05-19 20:36] LABS: Alanine Aminotransferase 21 U/L (6-50); Albumin Level 4.5 g/dL (3.5-5.1); Alkaline Phosphatase 93 U/L (38-126); Anion Gap 11 mmol/L (4-12); Aspartate Amino Transferase 24 U/L (17-59); Bilirubin,Total 0.6 mg/dL (0.2-1.3); Blood Urea Nitrogen 20 mg/dL (9-20); Calcium 9.4 mg/dL (8.4-10.2); Carbon Dioxide 31 mmol/L (22-30); Chloride 98 mmol/L (98-107); Estimated CRCL calculation 84 ml/min; Estimated Glomerular Filt Rate > 60; Glucose 205 mg/dL (65-110); Potassium 4.6 mmol/L (3.4-5.0); Sodium 140 mmol/L (137-145); Total Protein 7.3 g/dL (6.3-8.2)
--- NOTE | 2025-05-19 21:09 | ED_ITS ---
HPI - General Adult General Chief complaint: Seizure Stated complaint: seizure Time Seen by Provider: 05/19/25 20:06 Source: EMS Mode of arrival: EMS Limitations: altered mental status History of Present Illness HPI narrative: 69-year-old with a history of CVA, seizure disorder [facility] from [facility] with a complaint of having seizure. Patient had a prolonged history of seizures even after regard to the ER. As per EMS patient has these episodes quite frequently but not this long. Onset (ago): hour(s) (1) Related Data Home Medications ?Medication ?Instructions ?Recorded ?Confirmed ?Last Taken ?Type atorvastatin 80 mg tablet 80 mg PO HS 12/05/21 5 Unknown History calcitriol 0.25 mcg capsule 0.25 mcg PO WEEKLY 2 02/15/25 02/09/25 History levetiracetam 1,000 mg tablet 2,000 mg PO BID 12/05/21 02/15/25 Unknown History lisinopril 10 mg tablet 10 mg PO DAILY 12/05/2101/26 Unknown History aspirin 81 mg chewable tablet 81 mg PO DAILY 11/17/22 02/15/25 Unknown History cholecalciferol (vitamin D3) 125 125 mcg PO DAILY 10/2702/15/25 Unknown History mcg (5,000 unit) tablet lorazepam 2 mg/mL injection 1 mg IM ONCE PRN seizure 0 02/15/25 02/15/25 Unknown History solution (Ativan) Allergies Allergy/AdvReac Type Severity Reaction Status Date / Time No Known Allergies Allergy Verified 05/19/25 20:03 Review of Systems 2 Review of Systems: ROS unobtainable: Yes unobtainable due to medical condition (Postictal state) COUNT INCLUDES THE [facility] Past Medical History Medical History BPH (benign prostatic hyperplasia) Noted on imaging Paroxysmal A-fib Vitamin D deficiency Depression Hypertension Cerebrovascular accident 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 Code status: Full code. Smoking packs per day: 0.5 Smoking cigarettes per day: 10.0 Years smoked: 55 Smoking pack-years: 27.50 Smoking status: Unknown if ever smoked Alcohol intake: former Substance use: unknown Substance use type: unknown Lack of Transportation: No Lack of Food: Never True Current Housing: I Have Housing Concerned About Future Housing: No Difficulty Paying Gas/Electric Bills: No Difficulty Paying for Meds: No Currently Unemployed: No Education: Don't Know Difficulty w/ Childcare or Family Care: No Living arrangements: [facility] Additional living arrangements comments: [facility]. Spiritual care concerns: No Exam 2 Narrative: GENERAL: , well-nourished,having active seizure and unresponsive HEAD: Normocephalic, atraumatic. EYES: PERRLA and EOMI. right quiroz gaze eye twitching ENT: Nares clear, no rhinorrhea or epistaxis. Mucous membranes moist. NECK: Supple. CHEST: Clear to auscultation. No respiratory distress. HEART: Regular rate and rhythm. No murmur heard. Normal peripheral pulses. ABDOMEN: Soft, nontender, nondistended, normal active bowel sounds. EXTREMITIES: Normal range of motion. No edema. SKIN: Warm, dry, no rash. NEURO: No focal deficits. Alert and oriented x3. PSYCH: Normal mood and affect. Course Course Emergency Course: pt is now alert , feeling good i did inform him about his lab and CT findings , wants to go back home Vital Signs Vital signs: Vital Signs Temperature 37.0 C 05/19/25 19:56 Pulse Rate 97 05/19/25 19:56 Respiratory Rate 20 05/19/25 19:56 Blood Pressure 147/69 H 05/19/25 19:56 Pulse Oximetry 93 05/19/25 19:56 Oxygen Delivery Room Air 05/19/25 19:56 Temperature 37.0 C 05/19/25 19:56 Pulse Rate 102 H 05/19/25 21:30 Respiratory Rate 17 05/19/25 21:30 Blood Pressure 142/80 H 05/19/25 21:21 Pulse Oximetry 100 05/19/25 21:30 Oxygen Delivery Nasal Cannula 05/19/25 20:51 Medical Decision Making Differential Diagnosis Differential Diagnosis: cva , status epilepticus Medical Records Medical records reviewed: Yes I reviewed the external patient's medical records. Vital Signs Vital Signs: Vital Signs Temperature 37.0 C 05/19/25 19:56 Pulse Rate 97 05/19/25 19:56 Respiratory Rate 20 05/19/25 19:56 Blood Pressure 147/69 H 05/19/25 19:56 Pulse Oximetry 93 05/19/25 19:56 Oxygen Delivery Room Air 05/19/25 19:56 Temperature 37.0 C 05/19/25 19:56 Pulse Rate 102 H 05/19/25 21:30 Respiratory Rate 17 05/19/25 21:30 Blood Pressure 142/80 H 05/19/25 21:21 Pulse Oximetry 100 05/19/25 21:30 Oxygen Delivery Nasal Cannula 05/19/25 20:51 Lab Data Lab results reviewed: Yes I reviewed the patient's lab results. 05/19/25 20:15 05/19/25 20:15 Labs: Lab Results 05/19/25 Range/Units 20:15 WBC 9.9 (4.5-10.0) K/mm3 RBC 4.88 (4.6-6.20) M/mm3 Hgb 13.8 L D (14.0-18.0) g/dL Hct 43.4 (42.0-52.0) % MCV 88.9 (80-100) fl MCH 28.3 (26-34) pg MCHC 31.8 L (32-36) g/dl RDW 12.5 (11.5-14.5) % Plt Count 195 (150-375) k/mm3 MPV 11.0 H (7.4-10.4) fl Immature Gran % (Auto) 0.6 H (0-0.5) % Neut % (Auto) 73.2 H (45.5-73.1) % Lymph % (Auto) 17.9 L (18.3-44.2) % Taylor % (Auto) 5.3 (2.6-8.5) % Eos % (Auto) 2.6 (0-4.4) % Baso % (Auto) 0.4 (0.2-1.2) % Lymph # (Auto) 1.77 (0.9-3.2) K/mm3 Taylor # (Auto) 0.5 (0.1-0.6) K/mm3 Eos # (Auto) 0.3 (0-0.3) K/mm3 Baso # (Auto) 0.0 (0.0-0.1) K/mm3 Abs Immat Gran (auto) 0.06 H (0.00-0.031) K/mm3 Absolute Neuts (auto) 7.2 H (1.3-6.7) K/mm3 Absolute Nucleated RBC 0.000 (0.0-0.012) K/mm3 Nucleated RBC % 0.0 (0.0-0.2) % Sodium 140 (137-145) mmol/L Potassium 4.6 (3.4-5.0) mmol/L Chloride 98 (98-107) mmol/L Carbon Dioxide 31 H (22-30) mmol/L Anion Gap 11 (4-12) mmol/L BUN 20 (9-20) mg/dL Creatinine 0.86 (0.7-1.3) mg/dL Estim Creat Clear Calc 84 ml/min Estimated GFR > 60 (59 - ) Glucose 205 H (65-110) mg/dL Lactic Acid 4.6 H* (0.7-2.0) mmol/L Calcium 9.4 (8.4-10.2) mg/dL Total Bilirubin 0.6 (0.2-1.3) mg/dL AST 24 (17-59) U/L ALT 21 (6-50) U/L Alkaline Phosphatase 93 (38-126) U/L Total Protein 7.3 (6.3-8.2) g/dL Albumin 4.5 (3.5-5.1) g/dL Imaging Data Radiologist's impression: ITS Impressions Head CT 05/19/25 21:13 IMPRESSION: No acute intracranial hemorrhage or extra axial fluid collections. Encephalomalacia changes within the left occipital lobe reflective of remote infarct. All CT scans at this facility are performed using low dose modulation techniques as appropriate to perform exam including the following: automated exposure control; use of iterative reconstruction technique; adjustment of the mA and/or kV according to patient size (this includes techniques or standardized protocols for targeted exams where dose is matched to indication/reason for exam). ECG Data EKG #1: ECG completion date: 05/19/25 ECG completion time: 21:34 EKG Interpretation: tachycardia (113), no ectopy, no ST changes, normal QRS and normal QT Discharge Plan Discharge Clinical Impression: Recurrent seizures Patient Disposition: Still a Patient Condition: Stable Patient Language: [place] Prescriptions: No Action aspirin 81 mg Tablet,Chewable 81 mg PO DAILY cholecalciferol (vitamin D3) 125 mcg (5,000 unit) Tablet 125 mcg PO DAILY lorazepam [Ativan] 2 mg/mL solution 1 mg IM ONCE PRN (Reason: seizure) prednisone 10 mg tablet 10 mg PO DAILY Qty: 63 0RF Rx Instructions: 6Tx3d, 5Tx3d, 4Tx3d, 3Tx3d, 2Tx3d, 1Tx3d lisinopril 10 mg Tablet 10 mg PO DAILY calcitriol 0.25 mcg Capsule 0.25 mcg PO WEEKLY Rx Instructions: administer on Friday atorvastatin 80 mg Tablet 80 mg PO HS levetiracetam 1,000 mg Tablet 2,000 mg PO BID lacosamide [Vimpat] 150 mg tablet 150 mg PO Q12HR Qty: 60 0RF Follow-up/Referrals: Mere,Freddy Lopes MD [Primary Care Provider, Pediatric Emergency Medicine] Time of Disposition: 21:51
--- OUTSIDE RECORDS SUMMARY | 2025-05-19 21:11 | XMS_ITS | Data Portability ---
Author Organization [facility] Address [address] [place] [address] Assessment Encounter Date Assessment Date Assessment LastModified by Organization Details LastModified Time 05/17/2020 05/17/2020 pt got flu shot in hospital. [email or web address] Not available 05/17/2020 12:17:33 Plan of Treatment Reminders Order Date Submit Date Provider Last Modified By Organization Details Last Modified Time Details Appointments None recorded. Lab albumin/cr eatinine, mass ratio, urine 2021 022 [facility], [address] [place] [address], [address], [place], [address], 16:32:55 CMP, serum or plasma 2021 022 [facility], [address] [place] [address], [address], [place], [address], 16:32:55 vitamin D, 25-hydroxy , total, serum 2020 021 [facility], [address] [place] [address], [address], [place], [address], 08:10:31 HbA1c (hemoglobi n A1c), blood 2020 021 [facility], [address] [place] [address], [address], [place], [address], 08:10:30 CMP, serum or plasma 2020 021 [facility], [address], [address], [place], [address], 1 08:10:28 albumin/cr eatinine, mass ratio, urine 2020 021 [facility], [address] [place], [place] [address]lis[address] Jevon, [address], [place], [address], 1 08:10:30 lipid panel, serum 2020 021 [facility], [address] [address], [address], [place], [address], 1 08:10:29 levetirace gonsalves, serum 2019 020 [facility], [address] [place], [place] [address]lis[address] [place]on, [address], [place], [address], 0 12:17:33 Referral None recorded. Procedures None recorded. Surgeries None recorded. Imaging US, head + neck, soft tissue 2021 022 [facility], [facility] [facility] [address], [place], [address], 2 09:34:47 XR, shoulder, 2 or more view 2021 022 [facility], [facility] [address], [place], [address], 2 14:16:48 CT, neck, soft tissue, w/o contrast [address] ([employer]), [address] [place], [address], 2 16:33:07 CT, neck, soft tissue, w/o contrast [address] ([employer]), [address] [facility], [place], [address], 12:29:30 Medication Orders citalopram 20 mg tablet 2019 020 [id number], [address] [place], [place], [id number], 0 12:17:28 levetirace gonsalves 750 mg tablet 2019 020 [id number], [address] [facility], [place], [place], [id number], 11:54:46 Patient TargetsNo targets recorded. Patient Instructions Encounter Date Encounter Id Patient Instructions Last Modified By Organization Details Last Modified Time 05/17/2020 [id number] epilepsy: care instructions [email or web address] Not available 05/17/2020 12:17:21 07/06/2021 [id number] learning about type 2 diabetes Not available 07/06/2021 12:28:40 type 2 diabetes: care instructions Not available 07/06/2021 12:28:39 learning about high blood pressure Not available 07/06/2021 12:28:39 epilepsy: care instructions Not available 07/06/2021 12:28:40 I have reviewed the provider's note and I agree with the documented assessment and plan. [email or web address] Not available 07/17/2021 11:52:34 Reason for Referral None Reported. Results Created Date Observation Date Name Description Value Unit Range Abnormal Flag Note LastModifiedBy Organization Detail LastModifiedTime 04/17/20 20 04/18/2020 urina lysis compl ete, refle x cultu re specific gravity 1.015 1.005- 1.030 Not Available [facility] ([facility]) [address] [facility], [place], [address], 04/20/2020 06:08:38 04/17/20 20 04/18/2020 urina lysis compl ete, refle x cultu re pH 6.5 5.0-7. 5 Not Available [facility] ([facility]) [address] [place], [address], 04/20/2020 06:08:38 04/17/20 20 04/18/2020 urina lysis compl ete, refle x cultu re urine-color YELLOW yellow Not Available [facility] ([facility]) [address] [place], [address], 04/20/2020 06:08:38 04/17/20 20 04/18/2020 urina lysis compl ete, refle x cultu re appearance CLEAR clear Not Available [facility] ([facility]) [address] [place], [address], 04/20/2020 06:08:38 04/17/20 20 04/18/2020 urina lysis compl ete, refle x cultu re WBC esterase TRACE negati ve abnormal Not Available [facility] ([facility]) [address] [place], [address], 04/20/2020 06:08:38 04/17/20 20 04/18/2020 urina lysis compl ete, refle x cultu re protein 1+ negati ve/tra ce abnormal Not Available [facility] ([facility]) [address] [place], [address], 04/20/2020 06:08:38 04/17/20 20 04/18/2020 urina lysis compl ete, refle x cultu re glucose NEGATI VE negati ve Not Available [facility] ([facility]) [address] [place], [address], 04/20/2020 06:08:38 04/17/20 20 04/18/2020 urina lysis compl ete, refle x cultu re ketones 2+ negati ve abnormal Not Available [facility] ([facility]) [address] [place], [address], 04/20/2020 06:08:38 04/17/20 20 04/18/2020 urina lysis compl ete, refle x cultu re occult blood NEGATI VE negati ve Not Available [facility] ([facility]) [address] [place], [address], 04/20/2020 06:08:38 04/17/20 20 04/18/2020 urina lysis compl ete, refle x cultu re bilirubin NEGATI VE negati ve Not Available [facility] ([facility]) [address] [place], [address], 04/20/2020 06:08:38 04/17/20 20 04/18/2020 urina lysis compl ete, refle x cultu re urobilinogen ,semi-qn 0.2 mg/dL 0.2-1. 0 Not Available [facility] ([facility]) [address] [place], [address], 04/20/2020 06:08:38 04/17/20 20 04/18/2020 urina lysis compl ete, refle x cultu re nitrite, urine NEGATI VE negati ve Not Available [facility] ([facility]) [address] [place], [address], 04/20/2020 06:08:38 04/17/20 20 04/18/2020 urina lysis compl ete, refle x cultu re microscopic examination SEE BELOW: Micro scopi c was indic ated and was perfo rmed. Not Available [facility] ([facility]) [address] [place], [address], 04/20/2020 06:08:38 04/17/2004/18/2020 urina lysis compl ete, refle x cultu re WBC 6-10 /hpf 0 - 5 abnormal Not Available [facility] ([facility]) [address] [place], [address], 04/20/2020 06:08:38 04/17/20 04/18/2020 urina lysis compl ete, refle x cultu re RBC 3-10 /hpf 0 - 2 abnormal Not Available [facility] ([facility]) [address] [place], [address], 04/20/2020 06:08:38 04/17/20 20 04/18/2020 urina lysis compl ete, refle x cultu re epithelial cells (non renal) 0-10 /hpf 0 - 10 Not Available [facility] ([facility]) [address] [place], [address], 04/20/2020 06:08:38 04/17/20 20 04/18/2020 urina lysis compl ete, refle x cultu re epithelial cells (renal) 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 Not Available [facility] ([facility]) [address] [place], [address], 04/20/2020 06:08:38 04/17/20 20 04/18/2020 urina lysis compl ete, refle x cultu re casts 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 Not Available [facility] ([facility]) [address] [place], [address], 04/20/2020 06:08:38 04/17/20 20 04/18/2020 urina lysis compl ete, refle x cultu re cast type 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 Not Available [facility] ([facility]) [address] [place], [address], 04/20/2020 06:08:38 04/17/20 20 04/18/2020 urina lysis compl ete, refle x cultu re crystals 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 Not Available [facility] ([facility]) [address] [place], [address], 04/20/2020 06:08:38 04/17/20 20 04/18/2020 urina lysis compl ete, refle x cultu re trichomonas 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 Not Available [facility] ([facility]) [address] [place], [address], 04/20/2020 06:08:38 04/17/20 20 04/18/2020 urina lysis compl ete, refle x cultu re comment 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 Not Available [facility] ([facility]) [address] [place], [address], 04/20/2020 06:08:38 04/17/20 20 04/18/2020 urina lysis compl ete, refle x cultu re microscopic examination 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 Not Available [facility] ([facility]) [address] [facility], [place], [address], 04/20/2020 06:08:38 04/17/20 20 04/19/2020 urina lysis compl ete, refle x cultu re urine culture, routine FINAL REPORT Not Available [facility] ([facility]) [address] [facility], [place], [address], 04/20/2020 06:08:38 04/17/20 20 04/19/2020 urina lysis compl ete, refle x cultu re result 1 COMMEN T Mixed uroge nital ginger 25,00 0-50, 000 colon y formi ng units per mL Not Available [facility] ([facility]) [address] [facility], [place], [address], 04/20/2020 06:08:38 04/17/20 20 04/18/2020 album in/cr eatin ine, mass ratio , urine creatinine, urine 143.4 mg/dL not estab. Not Available [facility] ([facility]) [address] [facility], [place], [address], 04/20/2020 06:08:39 04/17/20 20 04/18/2020 album in/cr eatin ine, mass ratio , urine albumin, urine 160.0 ug/mL not estab. Not Available [facility] ([facility]) [address] [place], [address], 04/20/2020 06:08:39 04/17/20 20 04/18/2020 album in/cr eatin ine, mass ratio , urine alb/creat ratio 112 mg/g_ creat 0-29 above high normal Margret l: 0 - 29 Moder ately incre ased: 30 - 300 Sever chapo incre ased: >300 Ple ase note refer ence inter fuad mitchell e Not Available [facility] ([facility]) [address] [place], [address], 04/20/2020 06:08:39 04/18/20 20 04/18/2020 HbA1c (hemo globi n A1c), blood HbA1c 5.1 Not Available In-Office Order Internal Use Only DO Not Attach Compendium DO Not Attach Compendium, Do Not Delete/merge, [id number] 04/17/2020 15:56:00 07/06/20 21 07/08/2021 COMP. METAB OLIC PANEL (14) glucose 89 mg/dL 65-99 Not Available [facility] ([facility]) [address] [place], [address], 07/08/2021 08:10:28 07/06/20 21 07/08/2021 COMP. METAB OLIC PANEL (14) BUN 20 mg/dL 8-27 Not Available [facility] ([facility]) [address] [place], [address], 07/08/2021 08:10:28 07/06/20 21 07/08/2021 COMP. METAB OLIC PANEL (14) creatinine 0.96 mg/dL 0.76-1 .27 Not Available [facility] ([facility]) [address] [place], [address], 07/08/2021 08:10:28 07/06/20 21 07/08/2021 COMP. METAB OLIC PANEL (14) eGFR if nonafricn AM 83 mL/mi n/1.7 3 >59 Not Available [facility] ([facility]) [address] [place], [address], 07/08/2021 08:10:28 07/06/20 21 07/08/2021 COMP. METAB OLIC PANEL (14) eGFR if africn AM 96 mL/mi n/1.7 3 >59 In accor dance with recom menda tions from the NKF-A SN Task force , [facility] its eGFR calcu latio n to the 2020 CKD-E PI creat inine equat ion that estim ates kidne y funct ion witho ut a race varia ble. Not Available [facility] ([facility]) [address] [facility], [place], [address], 07/08/2021 08:10:28 07/06/20 21 07/08/2021 COMP. METAB OLIC PANEL (14) BUN/creatini ne ratio 21 - Not Available [facility] ([facility]) [address] [place], [address], 07/08/2021 08:10:28 07/06/20 21 07/08/2021 COMP. METAB OLIC PANEL (14) sodium 144 mmol/ L 134-14 4 Not Available [facility] ([facility]) [address] [facility], [place], [address], 07/08/2021 08:10:28 07/06/20 21 07/08/2021 COMP. METAB OLIC PANEL (14) potassium 4.2 mmol/ L 3.5-5. 2 Not Available [facility] ([facility]) [address] [place], [address], 07/08/2021 08:10:28 07/06/20 21 07/08/2021 COMP. METAB OLIC PANEL (14) chloride 109 mmol/ L 96-106 above high normal Not Available [facility] ([facility]) [address] [place], [address], 07/08/2021 08:10:28 07/06/20 21 07/08/2021 COMP. METAB OLIC PANEL (14) carbon dioxide, total 23 mmol/ L 20-29 Not Available [facility] ([facility]) [address] [place], [address], 07/08/2021 08:10:28 07/06/20 21 07/08/2021 COMP. METAB OLIC PANEL (14) calcium 9.3 mg/dL 8.6-10 .2 Not Available [facility] ([facility]) [address] [place], [place], [address], 07/08/2021 08:10:28 07/06/20 21 07/08/2021 COMP. METAB OLIC PANEL (14) protein, total 6.2 g/dL 6.0-8. 5 Not Available [facility] ([facility]) [address] [place], [place], [address], 07/08/2021 08:10:28 07/06/20 21 07/08/2021 COMP. METAB OLIC PANEL (14) albumin 4.1 g/dL 3.8-4. 8 Not Available [facility] ([facility]) [address] [place], [place], [address], 07/08/2021 08:10:28 07/06/20 21 07/08/2021 COMP. METAB OLIC PANEL (14) globulin, total 2.1 g/dL 1.5-4. 5 Not Available [facility] ([facility]) [address] [place], [place], [address], 07/08/2021 08:10:28 07/06/20 21 07/08/2021 COMP. METAB OLIC PANEL (14) A/G ratio 2.0 1.2-2. 2 Not Available [facility] ([facility]) [address] [place], [place], [address], 07/08/2021 08:10:28 07/06/20 21 07/08/2021 COMP. METAB OLIC PANEL (14) bilirubin, total 0.4 mg/dL 0.0-1. 2 Not Available [facility] ([facility]) [address] [place], [address], 07/08/2021 08:10:28 07/06/20 21 07/08/2021 COMP. METAB OLIC PANEL (14) alkaline phosphatase 98 IU/L 44-121 Ple ase note refer ence inter fuad mitchell e Not Available [facility] ([facility]) [address] [place], [address], 07/08/2021 08:10:28 07/06/20 21 07/08/2021 COMP. METAB OLIC PANEL (14) AST (SGOT) 46 IU/L 0-40 above high normal Not Available [facility] ([facility]) [address] [place], [address], 07/08/2021 08:10:28 07/06/20 21 07/08/2021 COMP. METAB OLIC PANEL (14) ALT (SGPT) 82 IU/L 0-44 above high normal Not Available [facility] ([facility]) [address] [place], [address], 07/08/2021 08:10:28 07/06/20 21 07/08/2021 LIPID PANEL cholesterol, total 136 mg/dL 100-19 9 Not Available [facility] ([facility]) [address] [place], [address], 07/08/2021 08:10:29 07/06/20 21 07/08/2021 LIPID PANEL triglyceride s 38 mg/dL 0-149 Not Available [facility] ([facility]) [address] [place], [address], 07/08/2021 08:10:29 07/06/20 21 07/08/2021 LIPID PANEL HDL cholesterol 59 mg/dL >39 Not Available [facility] ([facility]) [address] [place], [address], 07/08/2021 08:10:29 07/06/20 21 07/08/2021 LIPID PANEL VLDL cholesterol darrel 9 mg/dL 5-40 Not Available [facility] ([facility]) [address] [place], [address], 07/08/2021 08:10:29 07/06/20 21 07/08/2021 LIPID PANEL LDL chol calc (nih) 68 mg/dL 0-99 Not Available [facility] ([facility]) [address] [facility], [place], [address], 07/08/2021 08:10:29 07/06/20 21 07/08/2021 LIPID PANEL 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 Not Available [facility] ([facility]) [address] [facility], [place], [address], 07/08/2021 08:10:30 07/06/20 21 07/07/2021 ALBUM IN/CR EATIN INE RATIO ,URIN E albumin, urine 137.0 ug/mL not estab. Not Available [facility] ([facility]) [address] [facility], [place], [address], 07/08/2021 08:10:30 07/06/2007/07/2021 ALBUM IN/CR EATIN INE RATIO ,URIN E alb/creat ratio 97 mg/g_ creat 0-29 above high normal Margret l: 0 - 29 Moder ately incre ased: 30 - 300 Sever chapo incre ased: >300 Not Available [facility] ([facility]) [address] [facility], [place], [address], 07/08/2021 08:10:30 07/06/2007/07/2021 HEMOG LOBIN A1C hemoglobin A1C 5.0 % 4.8-5. 6 Predi abete s: 5.7 - 6.4 Diabe angelika: >6.4 Glyce nancy contr ol for adult s with diabe angelika: <7.0 Not Available [facility] ([facility]) [address] [facility], [place], [address], 07/08/2021 08:10:30 07/06/20 21 07/08/2021 VITAM IN D, 25-HY DROXY vitamin D, 25-hydroxy 56.4 NG/mL 30.0-1 00.0 Vitam in D defic iency has been defin ed by the Insti tute of Medic ine and an Endoc rine Socie ty pract ice guide line as a level of serum 25-OH vitam in D less than 20 ng/mL (1,2) . The Endoc rine Socie ty went on to furth er defin e vitam in D insuf ficie ncy as a level betwe en 21 and 29 ng/mL (2). 1. IOM (Inst itute of Medic ine). 2009. Michelle ry refer ence intamerico es for calci um and D. Guevara lantigua [place]: The [facility] . 2. Kim wolf [place], Nicolás horan [place], Anand off-F errar i GONZALEZ, et al. Evalu ation , treat ment, and preve ntion of vitam in D defic iency : an Endoc rine Socie ty clini darrel pract ice guide line. EM. 2010; 96(7) :1911 -30. Not Available [facility] ([facility]) [address] [place], [address], 07/08/2021 08:10:31 09/30/19 22 09/30/2021 COMP. METAB OLIC PANEL (14) glucose 87 mg/dL 65-99 Not Available [facility] ([facility]) [address] [place], [address], 09/30/2021 08:11:25 09/30/19 22 09/30/2021 COMP. METAB OLIC PANEL (14) BUN 16 mg/dL 8-27 Not Available [facility] ([facility]) [address] [place], [address], 09/30/2021 08:11:25 09/30/19 22 09/30/2021 COMP. METAB OLIC PANEL (14) creatinine 0.99 mg/dL 0.76-1 .27 Not Available [facility] ([facility]) [address] [facility], [place], [address], 09/30/2021 08:11:25 09/30/19 22 09/30/2021 COMP. METAB OLIC PANEL (14) eGFR 85 mL/mi n/1.7 3 >59 In accor dance with recom menda tipeace from the NKF-A SN Task force , [facility] has updat ed its eGFR calcu latio n to the 2020 CKD-E PI creat inine equat ion that estim ates kidne y funct ion witho ut a race varia ble. Not Available [facility] ([facility]) [address] [facility], [place], [address], 09/30/2021 08:11:25 09/30/19 22 09/30/2021 COMP. METAB OLIC PANEL (14) BUN/creatini ne ratio 16 10-24 Not Available [facility] ([facility]) [address] [facility], [place], [address], 09/30/2021 08:11:25 09/30/19 22 09/30/2021 COMP. METAB OLIC PANEL (14) sodium 142 mmol/ L 134-14 4 Not Available [facility] ([facility]) [address] [place], [address], 09/30/2021 08:11:25 09/30/19 22 09/30/2021 COMP. METAB OLIC PANEL (14) potassium 4.4 mmol/ L 3.5-5. 2 Not Available [facility] ([facility]) [address] [place], [address], 09/30/2021 08:11:25 09/30/19 22 09/30/2021 COMP. METAB OLIC PANEL (14) chloride 107 mmol/ L 96-106 above high normal Not Available [facility] ([facility]) [address] [place], [address], 09/30/2021 08:11:25 09/30/19 22 09/30/2021 COMP. METAB OLIC PANEL (14) carbon dioxide, total 21 mmol/ L 20-29 Not Available [facility] ([facility]) [address] [facility], [place], [address], 09/30/2021 08:11:25 09/30/19 22 09/30/2021 COMP. METAB OLIC PANEL (14) calcium 9.4 mg/dL 8.6-10 .2 Not Available [facility] ([facility]) [address] [facility], [place], [address], 09/30/2021 08:11:25 09/30/19 22 09/30/2021 COMP. METAB OLIC PANEL (14) protein, total 6.2 g/dL 6.0-8. 5 Not Available [facility] ([facility]) [address] [facility], [place], [address], 09/30/2021 08:11:25 09/30/19 22 09/30/2021 COMP. METAB OLIC PANEL (14) albumin 4.2 g/dL 3.8-4. 8 Not Available [facility] ([facility]) [address] [facility], [place], [address], 09/30/2021 08:11:25 09/30/19 22 09/30/2021 COMP. METAB OLIC PANEL (14) globulin, total 2.0 g/dL 1.5-4. 5 Not Available [facility] ([facility]) [address] [facility] [place], [address], 09/30/2021 08:11:25 09/30/19 22 09/30/2021 COMP. METAB OLIC PANEL (14) A/G ratio 2.1 1.2-2. 2 Not Available [facility] ([facility]) [address] [facility] [place], [address], 09/30/2021 08:11:25 09/30/19 22 09/30/2021 COMP. METAB OLIC PANEL (14) bilirubin, total 0.5 mg/dL 0.0-1. 2 Not Available [facility] ([facility]) [address] [place], [address], 09/30/2021 08:11:25 09/30/19 22 09/30/2021 COMP. METAB OLIC PANEL (14) alkaline phosphatase 91 IU/L 44-121 Not Available [facility] ([facility]) [address] [place], [address], 09/30/2021 08:11:25 09/30/19 22 09/30/2021 COMP. METAB OLIC PANEL (14) AST (SGOT) 33 IU/L 0-40 Not Available [facility] ([facility]) [address] [place], [address], 09/30/2021 08:11:25 09/30/19 22 09/30/2021 COMP. METAB OLIC PANEL (14) ALT (SGPT) 70 IU/L 0-44 above high normal Not Available [facility] ([facility]) [address] [place], [address], 09/30/2021 08:11:25 09/30/19 22 09/30/2021 LIPID PANEL cholesterol, total 108 mg/dL 100-19 9 Not Available [facility] ([facility]) [address] [place], [address], 09/30/2021 08:11:25 09/30/19 22 09/30/2021 LIPID PANEL triglyceride s 52 mg/dL 0-149 Not Available [facility] ([facility]) [address] [place], [address], 09/30/2021 08:11:25 09/30/19 22 09/30/2021 LIPID PANEL HDL cholesterol 52 mg/dL >39 Not Available [facility] ([facility]) [address] [place], [address], 09/30/2021 08:11:25 09/30/19 22 09/30/2021 LIPID PANEL VLDL cholesterol darrel 12 mg/dL 5-40 Not Available [facility] ([facility]) [address] [place], [address], 09/30/2021 08:11:25 09/30/19 22 09/30/2021 LIPID PANEL LDL chol calc ([facility]) 44 mg/dL 0-99 Not Available [facility] ([facility]) [address] [place], [address], 09/30/2021 08:11:25 09/30/19 22 09/30/2021 LIPID PANEL 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 Not Available [facility] ([facility]) [address] [place], [place], [id number], 09/30/2021 08:11:26 09/30/19 22 09/30/2021 ALBUM IN/CR EATIN INE RATIO ,URIN E albumin, urine 245.2 ug/mL not estab. Not Available [facility] ([facility]) [address] [place], [address], 09/30/2021 08:11:26 09/30/19 22 09/30/2021 ALBUM IN/CR EATIN INE RATIO ,URIN E alb/creat ratio 164 mg/g_ creat 0-29 above high normal Margret l: 0 - 29 Moder ately incre ased: 30 - 300 Sever chapo incre ased: >300 Not Available [facility] ([facility]) [address] [place], [address], 09/30/2021 08:11:26 09/30/19 22 09/30/2021 HEMOG LOBIN A1C hemoglobin A1C 5.3 % 4.8-5. 6 Predi abete s: 5.7 - 6.4 Diabe angelika: >6.4 Glyce nancy contr ol for adult s with diabe angelika: <7.0 Not Available [facility] ([facility]) [address] [facility], [place], [address], 09/30/2021 08:11:26 09/30/19 22 09/30/2021 VITAM IN D, 25-HY DROXY vitamin D, 25-hydroxy 54.7 NG/mL 30.0-1 00.0 Vitam in D defic iency has been defin ed by the Insti tute of Medic ine and an Endoc rine Socie ty pract ice guide line as a level of serum 25-OH vitam in D less than 20 ng/mL (1,2) . The Endoc rine Socie ty went on to furth er defin e vitam in D insuf ficie ncy as a level betwe en 21 and 29 ng/mL (2). 1. IOM (Inst itute of Medic ine). 2009. Dieta ry refer ence intak es for calci um and D. Guevara lantigua [place]: The [facility] . 2. Kim wolf MF, Nicolás horan [place], Anand off-F rosalbaar i GONZALEZ, et al. Evalu ation , treat ment, and preve ntion of vitam in D defic iency : an Endoc rine Socie ty clini darrel pract ice guide line. JCEM. 2010; 96(7) :1911 -30. Not Available [facility] ([facility]) [address] [facility], [place], [address], 09/30/2021 08:11:27 11/10/19 25 11/10/2024 Bacte humaira ident ified in Urine by Cultu re bacteria identified in specimen by culture No growth at 24 hours Not Available Not Available 12:47:46 11/10/19 25 11/10/2024 Bacte humaira ident ified in Urine by Cultu re interpretati on and review of laboratory results Normal Not Available Not Available 02/2025 12:47:46 11/10/19 25 11/09/2024 CBC W Auto Diffe renti al panel - Blood leukocytes [#/volume] in blood 6 K/uL low: 4K/uLh igh: 9.8K/u L Not Available Not Available 03/04/2025 12:47:46 11/10/19 25 11/09/2024 CBC W Auto Diffe renti al panel - Blood erythrocytes [#/volume] in blood by automated count 3.08 text: 4.50 - 5.40 M/uL low Not Available Not Available 03/04/2025 12:47:46 11/10/19 25 11/09/2024 CBC W Auto Diffe renti al panel - Blood hemoglobin [mass/volume ] in blood 9.3 g/dL low: 13.6g/ dLhigh : 16.5g/ dL low Not Available Not Available 03/04/2025 12:47:46 11/10/19 25 11/09/2024 CBC W Auto Diffe renti al panel - Blood hematocrit [volume fraction] of blood by automated count 29.4 % low: 40%hig h: 48% low Not Available Not Available 03/04/2025 12:47:46 11/10/1911/09/2024 CBC W Auto Diffe renti al panel - Blood MCV [entitic mean volume] in red blood cells by automated count 95.5 fL low: 82fLhi gh: 99fL Not Available Not Available 03/04/2025 12:47:46 11/10/19 25 11/09/2024 CBC W Auto Diffe renti al panel - Blood MCH [entitic mass] by automated count 30.2 pg low: 27.2pg high: 32.6pg Not Available Not Available 03/04/2025 12:47:46 11/10/19 25 11/09/2024 CBC W Auto Diffe renti al panel - Blood MCHC [entitic mass/volume] in red blood cells by automated count 31.6 g/dL low: 31.5g/ dLhigh : 35.5g/ dL Not Available Not Available 03/04/2025 12:47:46 11/10/19 25 11/09/2024 CBC W Auto Diffe renti al panel - Blood RDW 12.9 % low: 11.5%h igh: 14.5% Not Available Not Available 03/04/2025 12:47:46 11/10/19 25 11/09/2024 CBC W Auto Diffe renti al panel - Blood RDW-stdev 45.1 fL low: 37.1fL high: 48.7fL Not Available Not Available 03/04/2025 12:47:46 11/10/19 25 11/09/2024 CBC W Auto Diffe renti al panel - Blood platelets [#/volume] in blood by automated count 113 K/uL low: 140K/u Lhigh: 350K/u L low Not Available Not Available 03/04/2025 12:47:46 11/10/19 25 11/09/2024 CBC W Auto Diffe renti al panel - Blood platelet [entitic mean volume] in blood by automated count 11.3 fL low: 9.3fLh igh: 12.4fL Not Available Not Available 03/04/2025 12:47:46 11/10/19 25 11/09/2024 CBC W Auto Diffe renti al panel - Blood neutrophils 62 % Not Available Not Av ailable 03/04/2025 12:47:46 11/10/19 25 11/09/2024 CBC W Auto Diffe renti al panel - Blood lymphocytes/ leukocytes in blood by automated count 28 % Not Available Not Available 02/2025 12:47:46 11/10/19 25 11/09/2024 CBC W Auto Diffe renti al panel - Blood monocytes 7 % Not Available Not Avai lable 03/04/2025 12:47:46 11/10/19 25 11/09/2024 CBC W Auto Diffe renti al panel - Blood eosinophils 3 % Not Available Not Av ailable 03/04/2025 12:47:46 11/10/19 25 11/09/2024 CBC W Auto Diffe renti al panel - Blood basophils 0 % Not Available Not Avai lable 03/04/2025 12:47:46 11/10/19 25 11/09/2024 CBC W Auto Diffe renti al panel - Blood immature granulocytes 1 % IG (Arianna ture Granu locyt e) count inclu vic Metam yeloc ytes, Myelo cytes , and Promy elocy angelika Not Available Not Available 03/04/2025 12:47:46 11/10/19 25 11/09/2024 CBC W Auto Diffe renti al panel - Blood neutrophils [#/volume] in blood by automated count 3.73 K/uL low: 1.9K/u Lhigh: 7K/uL Not Available Not Available 03/04/2025 12:47:46 11/10/19 25 11/09/2024 CBC W Auto Diffe renti al panel - Blood lymphocytes [#/volume] in blood by automated count 1.66 K/uL low: 0.7K/u Lhigh: 4.5K/u L Not Available Not Available 03/04/2025 12:47:46 11/10/19 25 11/09/2024 CBC W Auto Diffe renti al panel - Blood monocytes [#/volume] in blood by automated count 0.42 K/uL low: 0.1K/u Lhigh: 1.3K/u L Not Available Not Available 03/04/2025 12:47:46 11/10/19 25 11/09/2024 CBC W Auto Diffe renti al panel - Blood eosinophils [#/volume] in blood by automated count 0.18 K/uL low: 0K/uLh igh: 0.7K/u L Not Available Not Available 03/04/2025 12:47:46 11/10/19 25 11/09/2024 CBC W Auto Diffe renti al panel - Blood basophils [#/volume] in blood by automated count 0.02 K/uL low: 0K/uLh igh: 0.2K/u L Not Available Not Available 03/04/2025 12:47:46 11/10/19 25 11/09/2024 CBC W Auto Diffe renti al panel - Blood immature granulocytes absolute 0.03 K/uL low: 0K/uLh igh: 0.03K/ uL Not Available Not Available 03/04/2025 12:47:46 11/10/19 25 11/09/2024 CBC W Auto Diffe renti al panel - Blood interpretati on and review of laboratory results Abnorm al Not Available Not Available 12:47:46 11/10/19 25 11/09/2024 Compr ehens ghassan metab olic 1999 panel - Serum or Plasm a sodium [moles/volum e] in serum or plasma 139 mmol/ L low: 136mmo l/Lhig h: 145mmo l/L Not Available Not Available 03/04/2025 12:47:46 11/10/19 25 11/09/2024 Compr ehens ghassan metab olic 1999 panel - Serum or Plasm a potassium [moles/volum e] in serum or plasma 3.5 mmol/ L low: 3.5mmo l/Lhig h: 5mmol/ L Not Available Not Available 03/04/2025 12:47:46 11/10/19 25 11/09/2024 Compr ehens ghassan metab olic 1999 panel - Serum or Plasm a chloride [moles/volum e] in serum or plasma 112 mmol/ L low: 98mmol /Lhigh : 107mmo l/L high Not Available Not Available 03/04/2025 12:47:46 11/10/19 25 11/09/2024 Compr ehens ghassan metab olic 1999 panel - Serum or Plasm a carbon dioxide, total [moles/volum e] in serum or plasma 18 mmol/ L low: 22mmol /Lhigh : 29mmol /L low Not Available Not Available 03/04/2025 12:47:46 11/10/19 25 11/09/2024 Compr ehens ghassan metab olic 1999 panel - Serum or Plasm a calcium [mass/volume ] in serum or plasma 7.6 mg/dL low: 8.6mg/ dLhigh : 10.2mg /dL low Not Available Not Available 03/04/2025 12:47:46 11/10/19 25 11/09/2024 Compr ehens ghassan metab olic 1999 panel - Serum or Plasm a urea nitrogen [mass/volume ] in serum or plasma 15 mg/dL low: 8mg/dL high: 23mg/d L Not Available Not Available 03/04/2025 12:47:46 11/10/19 25 11/09/2024 Compr ehens ghassan metab olic 2000 panel - Serum or Plasm a creatinine [mass/volume ] in serum or plasma 0.72 mg/dL low: 0.67mg /dLhig h: 1.17mg /dL Not Available Not Available 03/04/2025 12:47:46 11/10/19 25 11/09/2024 [place] [address] panel - Serum or Plasm a glucose [mass/volume ] in serum or plasma 96 mg/dL low: 74mg/d Lhigh: 99mg/d L Not Available Not Available 03/04/2025 12:47:46 11/10/19 25 11/09/2024 [place] 1999 panel - Serum or Plasm a protein [mass/volume ] in serum or plasma 5.2 g/dL low: 6.7g/d Lhigh: 8.6g/d L low Not Available Not Available 03/04/2025 12:47:46 11/10/19 25 11/09/2024 [place] [address] panel - Serum or Plasm a albumin [mass/volume ] in serum or plasma 3.2 g/dL low: 3.5g/d Lhigh: 5.2g/d L low Not Available Not Available 03/04/2025 12:47:46 11/10/19 25 11/09/2024 [place] 1999 panel - Serum or Plasm a bilirubin.to ever [mass/volume ] in serum or plasma 0.4 mg/dL low: 0.2mg/ dLhigh : 1.1mg/ dL Not Available Not Available 03/04/2025 12:47:46 11/10/19 25 11/09/2024 [place] [address] panel - Serum or Plasm a alkaline phosphatase [enzymatic activity/vol ume] in serum or plasma 55 U/L low: 40U/Lh igh: 129U/L Not Available Not Available 03/04/2025 12:47:46 11/10/19 25 11/09/2024 [place] [address] panel - Serum or Plasm a aspartate aminotransfe rase [enzymatic activity/vol ume] in serum or plasma 25 U/L high: 41U/L Not Available Not Available 03/04/2025 12:47:46 11/10/19 25 11/09/2024 Compr ehens ghassan metab olic 2000 panel - Serum or Plasm a alanine aminotransfe rase [enzymatic activity/vol ume] in blood 16 U/L high: 42U/L Not Available Not Available 03/04/2025 12:47:46 11/10/19 25 11/09/2024 Compr ehens ghassan metab olic 2000 panel - Serum or Plasm a glomerular filtration rate [volume rate/area] in serum, plasma or blood by creatinine-b ased formula (CKD-epi 2020)/1.73 sq M text: >=60 mL/min /1.73 sq meter eGFR calcu lated with 2020 CKD-E PI equat ion. Veget kvng diet, extre blaine high or low muscl e mass, and pregn marianna may affec t resul ts. Cysta tin C with Glome rular Filtr ation Rate is a suita ble alter nativ e for these patie nts. Not Available Not Available 03/04/2025 12:47:46 11/10/1911/09/2024 Compr ehens ghassan metab olic 2000 panel - Serum or Plasm a anion gap in serum or plasma by calculation 9 mmol/ L low: 8mmol/ Lhigh: 16mmol /L Not Available Not Available 03/04/2025 12:47:46 11/10/19 25 11/09/2024 Compr ehens ghassan metab olic 2000 panel - Serum or Plasm a samples containing indocyanine green cause interference s on total and/or direct bilirubin and must not BE measured. Sample s contai filomena indocy anine green cause interf erence s on Total and/or Direct Biliru bin and must not be measur ed. Not Available Not Available 12:47:46 11/10/1911/09/2024 Compr ehens ghassan metab olic 2000 panel - Serum or Plasm a interpretati on and review of laboratory results Abnorm al Not Available Not Available 12:47:46 11/10/19 25 11/09/2024 Basic metab olic 2000 panel - Serum or Plasm a sodium [moles/volum e] in serum or plasma 138 mmol/ L low: 136mmo l/Lhig h: 145mmo l/L Not Available Not Available 03/04/2025 12:47:46 11/10/19 25 11/09/2024 Basic metab olic 1999 panel - Serum or Plasm a potassium [moles/volum e] in serum or plasma 3.8 mmol/ L low: 3.5mmo l/Lhig h: 5mmol/ L Hemol ysis prese nt. Resul t may be false ly eleva rissa. Not Available Not Available 03/04/2025 12:47:46 11/10/19 25 11/09/2024 Basic metab olic 1999 panel - Serum or Plasm a chloride [moles/volum e] in serum or plasma 109 mmol/ L low: 98mmol /Lhigh : 107mmo l/L high Not Available Not Available 03/04/2025 12:47:46 11/10/19 25 11/09/2024 Basic metab olic 1999 panel - Serum or Plasm a carbon dioxide, total [moles/volum e] in serum or plasma 18 mmol/ L low: 22mmol /Lhigh : 29mmol /L low Not Available Not Available 03/04/2025 12:47:46 11/10/19 25 11/09/2024 Basic metab olic 1999 panel - Serum or Plasm a calcium [mass/volume ] in serum or plasma 7.5 mg/dL low: 8.6mg/ dLhigh : 10.2mg /dL low Not Available Not Available 03/04/2025 12:47:46 11/10/19 25 11/09/2024 Basic metab olic 1999 panel - Serum or Plasm a urea nitrogen [mass/volume ] in serum or plasma 16 mg/dL low: 8mg/dL high: 23mg/d L Not Available Not Available 03/04/2025 12:47:46 11/10/19 25 11/09/2024 Basic metab olic 1999 panel - Serum or Plasm a creatinine [mass/volume ] in serum or plasma 0.74 mg/dL low: 0.67mg /dLhig h: 1.17mg /dL Not Available Not Available 03/04/2025 12:47:46 11/10/19 25 11/09/2024 Basic metab olic 1999 panel - Serum or Plasm a glucose [mass/volume ] in serum or plasma 104 mg/dL low: 74mg/d Lhigh: 99mg/d L high Not Available Not Available 03/04/2025 12:47:46 11/10/19 25 11/09/2024 Basic metab olic 2000 panel - Serum or Plasm a glomerular filtration rate [volume rate/area] in serum, plasma or blood by creatinine-b ased formula (CKD-epi 2020)/1.73 sq M text: >=60 mL/min /1.73 sq meter eGFR calcu lated with 2020 CKD-E PI equat ion. Veget kvng diet, extre blaine high or low muscl e mass, and pregn marianna may affec t resul ts. Cysta tin C with Glome rular Filtr ation Rate is a suita ble alter nativ e for these patie nts. Not Available Not Available 03/04/2025 12:47:46 11/10/1911/09/2024 Basic metab olic 2000 panel - Serum or Plasm a anion gap in serum or plasma by calculation 11 mmol/ L low: 8mmol/ Lhigh: 16mmol /L Not Available Not Available 03/04/2025 12:47:46 11/10/19 25 11/09/2024 Basic metab olic 2000 panel - Serum or Plasm a interpretati on and review of laboratory results Abnorm al Not Available Not Available 12:47:46 11/10/1911/09/2024 CBC W Auto Diffe renti al panel - Blood leukocytes [#/volume] in blood 7.3 K/uL low: 4K/uLh igh: 9.8K/u L Not Available Not Available 03/04/2025 12:47:46 11/10/1911/09/2024 CBC W Auto Diffe renti al panel - Blood erythrocytes [#/volume] in blood by automated count 3.81 text: 4.50 - 5.40 M/uL low Not Available Not Available 03/04/2025 12:47:46 11/10/19 25 11/09/2024 CBC W Auto Diffe renti al panel - Blood hemoglobin [mass/volume ] in blood 11.5 g/dL low: 13.6g/ dLhigh : 16.5g/ dL low Not Available Not Available 03/04/2025 12:47:46 11/10/19 25 11/09/2024 CBC W Auto Diffe renti al panel - Blood hematocrit [volume fraction] of blood by automated count 36.2 % low: 40%hig h: 48% low Not Available Not Available 03/04/2025 12:47:46 11/10/19 25 11/09/2024 CBC W Auto Diffe renti al panel - Blood MCV [entitic mean volume] in red blood cells by automated count 95 fL low: 82fLhi gh: 99fL Not Available Not Available 03/04/2025 12:47:46 11/10/19 25 11/09/2024 CBC W Auto Diffe renti al panel - Blood MCH [entitic mass] by automated count 30.2 pg low: 27.2pg high: 32.6pg Not Available Not Available 03/04/2025 12:47:46 11/10/19 25 11/09/2024 CBC W Auto Diffe renti al panel - Blood MCHC [entitic mass/volume] in red blood cells by automated count 31.8 g/dL low: 31.5g/ dLhigh : 35.5g/ dL Not Available Not Available 03/04/2025 12:47:46 11/10/19 25 11/09/2024 CBC W Auto Diffe renti al panel - Blood RDW 13 % low: 11.5%h igh: 14.5% Not Available Not Available 03/04/2025 12:47:46 11/10/19 25 11/09/2024 CBC W Auto Diffe renti al panel - Blood RDW-stdev 45.7 fL low: 37.1fL high: 48.7fL Not Available Not Available 03/04/2025 12:47:46 11/10/1911/09/2024 CBC W Auto Diffe renti al panel - Blood platelets [#/volume] in blood by automated count 143 K/uL low: 140K/u Lhigh: 350K/u L Not Available Not Available 03/04/2025 12:47:46 11/10/19 25 11/09/2024 CBC W Auto Diffe renti al panel - Blood platelet [entitic mean volume] in blood by automated count 11.6 fL low: 9.3fLh igh: 12.4fL Not Available Not Available 03/04/2025 12:47:46 11/10/19 25 11/09/2024 CBC W Auto Diffe renti al panel - Blood neutrophils 62 % Not Available Not Av ailable 03/04/2025 12:47:46 11/10/19 25 11/09/2024 CBC W Auto Diffe renti al panel - Blood lymphocytes/ leukocytes in blood by automated count 28 % Not Available Not Available 02/2025 12:47:46 11/10/19 25 11/09/2024 CBC W Auto Diffe renti al panel - Blood monocytes 7 % Not Available Not Avai lable 03/04/2025 12:47:46 11/10/19 25 11/09/2024 CBC W Auto Diffe renti al panel - Blood eosinophils 3 % Not Available Not Av ailable 03/04/2025 12:47:46 11/10/19 25 11/09/2024 CBC W Auto Diffe renti al panel - Blood basophils 0 % Not Available Not Avai lable 03/04/2025 12:47:46 11/10/19 25 11/09/2024 CBC W Auto Diffe renti al panel - Blood immature granulocytes 1 % IG (Arianna ture Granu locyt e) count inclu vic Metam yeloc ytes, Myelo cytes , and Promy elocy angelika Not Available Not Available 03/04/2025 12:47:46 11/10/19 25 11/09/2024 CBC W Auto Diffe renti al panel - Blood neutrophils [#/volume] in blood by automated count 4.49 K/uL low: 1.9K/u Lhigh: 7K/uL Not Available Not Available 03/04/2025 12:47:46 11/10/19 25 11/09/2024 CBC W Auto Diffe renti al panel - Blood lymphocytes [#/volume] in blood by automated count 2.02 K/uL low: 0.7K/u Lhigh: 4.5K/u L Not Available Not Available 03/04/2025 12:47:46 11/10/19 25 11/09/2024 CBC W Auto Diffe renti al panel - Blood monocytes [#/volume] in blood by automated count 0.49 K/uL low: 0.1K/u Lhigh: 1.3K/u L Not Available Not Available 03/04/2025 12:47:46 11/10/19 25 11/09/2024 CBC W Auto Diffe renti al panel - Blood eosinophils [#/volume] in blood by automated count 0.21 K/uL low: 0K/uLh igh: 0.7K/u L Not Available Not Available 03/04/2025 12:47:46 11/10/19 25 11/09/2024 CBC W Auto Diffe renti al panel - Blood basophils [#/volume] in blood by automated count 0.02 K/uL low: 0K/uLh igh: 0.2K/u L Not Available Not Available 03/04/2025 12:47:46 11/10/19 25 11/09/2024 CBC W Auto Diffe renti al panel - Blood immature granulocytes absolute 0.05 K/uL low: 0K/uLh igh: 0.03K/ uL high Not Available Not Available 03/04/2025 12:47:46 11/10/19 25 11/09/2024 CBC W Auto Diffe renti al panel - Blood interpretati on and review of laboratory results Abnorm al Not Available Not Available 12:47:46 11/10/19 25 11/09/2024 DRUG SCREE N, URINE amphetamines [presence] in urine Negati ve text: negati ve Not Available Not Available 03/04/2025 12:47:46 11/10/19 25 11/09/2024 DRUG SCREE N, URINE barbiturates [presence] in urine Negati ve text: negati ve Not Available Not Available 03/04/2025 12:47:46 11/10/19 25 11/09/2024 DRUG SCREE N, URINE benzodiazepi orestes [presence] in urine Presum ptive Positi ve text: negati ve abnormal Not Available Not Available 03/04/2025 12:47:46 11/10/19 25 11/09/2024 DRUG SCREE N, URINE cocaine [presence] in urine Negati ve text: negati ve Not Available Not Available 03/04/2025 12:47:46 11/10/19 25 11/09/2024 DRUG SCREE N, URINE opiates [presence] in urine by screen method Negati ve text: negati ve Not Available Not Available 03/04/2025 12:47:46 11/10/1911/09/2024 DRUG SCREE N, URINE cannabinoids [presence] in urine by screen method Negati ve text: negati ve Not Available Not Available 03/04/2025 12:47:46 11/10/19 25 11/09/2024 DRUG SCREE N, URINE phencyclidin e [presence] in urine by screen method Negati ve text: negati ve Not Available Not Available 03/04/2025 12:47:46 11/10/19 25 11/09/2024 DRUG SCREE N, URINE oxycodone [presence] in urine by screen method Negati ve text: negati ve Not Available Not Available 03/04/2025 12:47:46 11/10/19 25 11/09/2024 DRUG SCREE N, URINE methadone [presence] in urine by screen method Negati ve text: negati ve Not Available Not Available 03/04/2025 12:47:46 11/10/19 25 11/09/2024 DRUG SCREE N, URINE fentanyl [presence] in urine Presum ptive Positi ve text: negati ve abnormal Not Available Not Available 03/04/2025 12:47:46 11/10/19 25 11/09/2024 DRUG SCREE N, URINE creatinine [mass/volume ] in urine 152 mg/dL low: 40mg/d Lhigh: 278mg/ dL Refer ence Range varie s with fluid intak e and diet. Not Available Not Available 03/04/2025 12:47:46 11/10/1911/09/2024 DRUG SCREE N, URINE this test IS A qualitative screen. the presumptive positive results should not BE used for legal purposes. if confirmation of results IS desired, the lab must BE contacted without delay. drug ref. range screening threshold amphetamines negative 500 NG/mL barbiturates negative 200 NG/mL benzodiazepi orestes negative 100 NG/mL cannabinoids negative 50 NG/mL cocaine negative 150 NG/mL methadone negative 300 NG/mL opiates negative 300 NG/mL oxycodone negative 100 NG/mL phencyclidin e negative 25 NG/mL fentanyl negative 5 NG/mL This test is a qualit ative screen . The presum ptive positi ve result s should not be used for legal purpos es. If confir mation of result s is desire d, the lab must be contac rissa withou t delay. Drug Ref. Range Screen ing Thresh old Amphet amines Negati ve 500 ng/mL Barbit urates Negati ve 200 ng/mL Benzod iazepi orestes Negati ve 100 ng/mL Cannab inoids Negati ve 50 ng/mL Cocain e Negati ve 150 ng/mL Methad one Negati ve 300 ng/mL Opiate s Negati ve 300 ng/mL Oxycod one Negati ve 100 ng/mL Phency clidin e Negati ve 25 ng/mL Fentan yl Negati ve 5 ng/mL Not Available Not Available 12:47:46 11/10/1911/09/2024 DRUG SCREE N, URINE interpretati on and review of laboratory results Abnorm al Not Available Not Available 12:47:46 11/10/1911/09/2024 Urina lysis compl ete panel - Urine color UA Yellow text: pale to dark yellow Not Available Not Available 03/04/2025 12:47:45 11/10/19 25 11/09/2024 Urina lysis compl ete panel - Urine clarity UA Slight ly Cloudy text: clear abnormal Not Available Not Available 03/04/2025 12:47:45 11/10/1911/09/2024 Urina lysis compl ete panel - Urine specific gravity UA 1.023 low: 1.003h igh: 1.035 Not Available Not Available 03/04/2025 12:47:45 11/10/1911/09/2024 Urina lysis compl ete panel - Urine pH UA 5 low: 5high: 8 Not Available Not Available 03/04/2025 12:47:45 11/10/1911/09/2024 Urina lysis compl ete panel - Urine leukocyte esterase UA 1+ text: negati ve abnormal Not Available Not Available 03/04/2025 12:47:45 11/10/19 25 11/09/2024 Urina lysis compl ete panel - Urine nitrite UA Negati ve text: negati ve Not Available Not Available 03/04/2025 12:47:45 11/10/19 25 11/09/2024 Urina lysis compl ete panel - Urine protein [presence] in urine 2+ text: negati ve abnormal Not Available Not Available 03/04/2025 12:47:45 11/10/19 25 11/09/2024 Urina lysis compl ete panel - Urine glucose UA Negati ve text: negati ve Not Available Not Available 03/04/2025 12:47:45 11/10/19 25 11/09/2024 Urina lysis compl ete panel - Urine ketones UA Trace text: negati ve abnormal Not Available Not Available 03/04/2025 12:47:45 11/10/19 25 11/09/2024 Urina lysis compl ete panel - Urine urobilinogen UA Normal high: 2mg/dL Not Available Not Available 03/04/2025 12:47:45 11/10/19 25 11/09/2024 Urina lysis compl ete panel - Urine bilirubin UA Negati ve text: negati ve Not Available Not Available 03/04/2025 12:47:45 11/10/19 25 11/09/2024 Urina lysis compl ete panel - Urine blood UA 3+ text: negati ve abnormal Not Available Not Available 03/04/2025 12:47:45 11/10/19 25 11/09/2024 Urina lysis compl ete panel - Urine leukocytes [#/area] in urine sediment by microscopy high power field 11-25 text: 0 - 2 /hpf abnormal Not Available Not Available 03/04/2025 12:47:45 11/10/19 25 11/09/2024 Urina lysis compl ete panel - Urine erythrocytes [#/area] in urine sediment by microscopy high power field >100 text: 0 - 2 /hpf abnormal Resul ts confi rmed by 2nd metho dolog y. Not Available Not Available 03/04/2025 12:47:45 11/10/19 25 11/09/2024 Urina lysis compl ete panel - Urine bacteria [#/area] in urine sediment by microscopy high power field Negati ve text: negati ve /hpf Not Available Not Available 03/04/2025 12:47:45 11/10/19 25 11/09/2024 Urina lysis compl ete panel - Urine ascorbate [mass/volume ] in urine by test strip Positi ve text: negati ve abnormal Not Available Not Available 03/04/2025 12:47:45 11/10/19 25 11/09/2024 Urina lysis compl ete panel - Urine interpretati on and review of laboratory results Abnorm al Not Available Not Available 12:47:45 11/11/19 25 11/10/2024 Clost ridio ides diffi cile toxin genes [Pres ence] in Stool by JENIFFER with probe detec tion clostridioid es difficile toxin genes [presence] in stool by JENIFFER with probe detection NOT DETECT ED text: not detect ed Not Available Not Available 03/04/2025 12:47:46 11/11/19 25 11/10/2024 Clost ridio ides diffi cile toxin genes [Pres ence] in Stool by JENIFFER with probe detec tion this assay IS used to detect toxigenic C. difficile target(B gene) DNA sequences in unformed stool specimens. if toxigenic C. difficile IS not detected, but clinical suspicion IS high please consult id for consultation and potential repeat testing. this test should not BE used A test of cure. This assay is used to detect Toxige natalie C. diffic ile target (B gene) DNA sequen rocio in unform ed stool specim ens. If toxige natalie C. diffic ile is not detect ed, but clinic al suspic ion is high please consul t ID for consul tation and potent ial repeat testin g. This test should not be used as a test of cure. Not Available Not Available 12:47:46 11/11/1911/10/2024 Clost ridio ides diffi cile toxin genes [Pres ence] in Stool by JENIFFER with probe detec tion interpretati on and review of laboratory results Normal Not Available Not Available 02/2025 12:47:46 11/11/19 25 11/10/2024 CBC W Auto Diffe renti al panel - Blood leukocytes [#/volume] in blood 6.7 K/uL low: 4K/uLh igh: 9.8K/u L Not Available Not Available 03/04/2025 12:47:46 11/11/19 25 11/10/2024 CBC W Auto Diffe renti al panel - Blood erythrocytes [#/volume] in blood by automated count 3.59 text: 4.50 - 5.40 M/uL low Not Available Not Available 03/04/2025 12:47:46 11/11/19 25 11/10/2024 CBC W Auto Diffe renti al panel - Blood hemoglobin [mass/volume ] in blood 10.7 g/dL low: 13.6g/ dLhigh : 16.5g/ dL low Not Available Not Available 03/04/2025 12:47:46 11/11/19 25 11/10/2024 CBC W Auto Diffe renti al panel - Blood hematocrit [volume fraction] of blood by automated count 34.2 % low: 40%hig h: 48% low Not Available Not Available 03/04/2025 12:47:46 11/11/19 25 11/10/2024 CBC W Auto Diffe renti al panel - Blood MCV [entitic mean volume] in red blood cells by automated count 95.3 fL low: 82fLhi gh: 99fL Not Available Not Available 03/04/2025 12:47:46 11/11/19 25 11/10/2024 CBC W Auto Diffe renti al panel - Blood MCH [entitic mass] by automated count 29.8 pg low: 27.2pg high: 32.6pg Not Available Not Available 03/04/2025 12:47:46 11/11/19 25 11/10/2024 CBC W Auto Diffe renti al panel - Blood MCHC [entitic mass/volume] in red blood cells by automated count 31.3 g/dL low: 31.5g/ dLhigh : 35.5g/ dL low Not Available Not Available 03/04/2025 12:47:46 11/11/19 25 11/10/2024 CBC W Auto Diffe renti al panel - Blood RDW 12.7 % low: 11.5%h igh: 14.5% Not Available Not Available 03/04/2025 12:47:46 11/11/19 25 11/10/2024 CBC W Auto Diffe renti al panel - Blood RDW-stdev 43.7 fL low: 37.1fL high: 48.7fL Not Available Not Available 03/04/2025 12:47:46 11/11/19 25 11/10/2024 CBC W Auto Diffe renti al panel - Blood platelets [#/volume] in blood by automated count 125 K/uL low: 140K/u Lhigh: 350K/u L low Not Available Not Available 03/04/2025 12:47:46 11/11/19 25 11/10/2024 CBC W Auto Diffe renti al panel - Blood platelet [entitic mean volume] in blood by automated count 11.4 fL low: 9.3fLh igh: 12.4fL Not Available Not Available 03/04/2025 12:47:46 11/11/19 25 11/10/2024 CBC W Auto Diffe renti al panel - Blood neutrophils 61 % Not Available Not Av ailable 03/04/2025 12:47:46 11/11/19 25 11/10/2024 CBC W Auto Diffe renti al panel - Blood lymphocytes/ leukocytes in blood by automated count 26 % Not Available Not Available 02/2025 12:47:46 11/11/19 25 11/10/2024 CBC W Auto Diffe renti al panel - Blood monocytes 7 % Not Available Not Avai lable 03/04/2025 12:47:46 11/11/19 25 11/10/2024 CBC W Auto Diffe renti al panel - Blood eosinophils 5 % Not Available Not Av ailable 03/04/2025 12:47:46 11/11/19 25 11/10/2024 CBC W Auto Diffe renti al panel - Blood basophils 0 % Not Available Not Avai lable 03/04/2025 12:47:46 11/11/19 25 11/10/2024 CBC W Auto Diffe renti al panel - Blood immature granulocytes 1 % IG (Arianna ture Granu locyt e) count inclu vic Metam yeloc ytes, Myelo cytes , and Promy elocy angelika Not Available Not Available 03/04/2025 12:47:46 11/11/19 25 11/10/2024 CBC W Auto Diffe renti al panel - Blood neutrophils [#/volume] in blood by automated count 4.13 K/uL low: 1.9K/u Lhigh: 7K/uL Not Available Not Available 03/04/2025 12:47:46 11/11/19 25 11/10/2024 CBC W Auto Diffe renti al panel - Blood lymphocytes [#/volume] in blood by automated count 1.76 K/uL low: 0.7K/u Lhigh: 4.5K/u L Not Available Not Available 03/04/2025 12:47:46 11/11/19 25 11/10/2024 CBC W Auto Diffe renti al panel - Blood monocytes [#/volume] in blood by automated count 0.47 K/uL low: 0.1K/u Lhigh: 1.3K/u L Not Available Not Available 03/04/2025 12:47:46 11/11/19 25 11/10/2024 CBC W Auto Diffe renti al panel - Blood eosinophils [#/volume] in blood by automated count 0.32 K/uL low: 0K/uLh igh: 0.7K/u L Not Available Not Available 03/04/2025 12:47:46 11/11/19 25 11/10/2024 CBC W Auto Diffe renti al panel - Blood basophils [#/volume] in blood by automated count 0.01 K/uL low: 0K/uLh igh: 0.2K/u L Not Available Not Available 03/04/2025 12:47:46 11/11/19 25 11/10/2024 CBC W Auto Diffe renti al panel - Blood immature granulocytes absolute 0.05 K/uL low: 0K/uLh igh: 0.03K/ uL high Not Available Not Available 03/04/2025 12:47:46 11/11/19 25 11/10/2024 CBC W Auto Diffe renti al panel - Blood interpretati on and review of laboratory results Abnorm al Not Available Not Available 12:47:46 11/11/19 25 11/10/2024 Compr ehens ghassan metab olic 1999 panel - Serum or Plasm a sodium [moles/volum e] in serum or plasma 138 mmol/ L low: 136mmo l/Lhig h: 145mmo l/L Not Available Not Available 03/04/2025 12:47:46 11/11/19 25 11/10/2024 Compr ehens ghassan metab olic 2000 panel - Serum or Plasm a potassium [moles/volum e] in serum or plasma 3.8 mmol/ L low: 3.5mmo l/Lhig h: 5mmol/ L Not Available Not Available 03/04/2025 12:47:46 11/11/19 25 11/10/2024 [facility] [email or web address] olic 1999 panel - Serum or Plasm a chloride [moles/volum e] in serum or plasma 109 mmol/ L low: 98mmol /Lhigh : 107mmo l/L high Not Available Not Available 03/04/2025 12:47:46 11/11/19 25 11/10/2024 [facility] [employer] metab olic 1999 panel - Serum or Plasm a carbon dioxide, total [moles/volum e] in serum or plasma 22 mmol/ L low: 22mmol /Lhigh : 29mmol /L Not Available Not Available 03/04/2025 12:47:46 11/11/19 25 11/10/2024 [facility] [email or web address] olic 1999 panel - Serum or Plasm a calcium [mass/volume ] in serum or plasma 8 mg/dL low: 8.6mg/ dLhigh : 10.2mg /dL low Not Available Not Available 03/04/2025 12:47:46 11/11/19 25 11/10/2024 [facility] [email or web address] olic 1999 panel - Serum or Plasm a urea nitrogen [mass/volume ] in serum or plasma 9 mg/dL low: 8mg/dL high: 23mg/d L Not Available Not Available 03/04/2025 12:47:46 11/11/19 25 11/10/2024 [facility] [email or web address] olic 1999 panel - Serum or Plasm a creatinine [mass/volume ] in serum or plasma 0.75 mg/dL low: 0.67mg /dLhig h: 1.17mg /dL Not Available Not Available 03/04/2025 12:47:46 11/11/19 25 11/10/2024 Compr [email or web address] olic 1999 panel - Serum or Plasm a glucose [mass/volume ] in serum or plasma 107 mg/dL low: 74mg/d Lhigh: 99mg/d L high Not Available Not Available 03/04/2025 12:47:46 11/11/19 25 11/10/2024 [facility] [email or web address] olic 1999 panel - Serum or Plasm a protein [mass/volume ] in serum or plasma 5.3 g/dL low: 6.7g/d Lhigh: 8.6g/d L low Not Available Not Available 03/04/2025 12:47:46 11/11/19 25 11/10/2024 [facility] [email or web address] [facility] 1999 panel - Serum or Plasm a albumin [mass/volume ] in serum or plasma 3.3 g/dL low: 3.5g/d Lhigh: 5.2g/d L low Not Available Not Available 03/04/2025 12:47:46 11/11/19 25 11/10/2024 [facility] [email or web address] [facility] 1999 panel - Serum or Plasm a bilirubin.to ever [mass/volume ] in serum or plasma 0.5 mg/dL low: 0.2mg/ dLhigh : 1.1mg/ dL Not Available Not Available 03/04/2025 12:47:46 11/11/19 25 11/10/2024 [facility] [email or web address] [facility] 1999 panel - Serum or Plasm a alkaline phosphatase [enzymatic activity/vol ume] in serum or plasma 59 U/L low: 40U/Lh igh: 129U/L Not Available Not Available 03/04/2025 12:47:46 11/11/19 25 11/10/2024 [facility] [email or web address] [facility] 1999 panel - Serum or Plasm a aspartate aminotransfe rase [enzymatic activity/vol ume] in serum or plasma 46 U/L high: 41U/L high Not Available Not Available 03/04/2025 12:47:46 11/11/19 25 11/10/2024 [facility] [email or web address] [facility] 1999 panel - Serum or Plasm a alanine aminotransfe rase [enzymatic activity/vol ume] in blood 18 U/L high: 42U/L Not Available Not Available 03/04/2025 12:47:46 11/11/19 25 11/10/2024 [facility] [email or web address] [facility] 1999 panel - Serum or Plasm a glomerular filtration rate [volume rate/area] in serum, plasma or blood by creatinine-b ased formula (CKD-epi 2020)/1.73 sq M text: >=60 mL/min /1.73 sq meter eGFR calcu lated with 2020 CKD-E PI equat ion. Veget kvng diet, extre blaine high or low muscl e mass, and pregn marianna may affec t resul ts. Cysta tin C with Glome rular Filtr ation Rate is a suita ble alter nativ e for these patie nts. Not Available Not Available 03/04/2025 12:47:46 11/11/19 25 11/10/2024 Compr ehens ghassan metab olic 2000 panel - Serum or Plasm a anion gap in serum or plasma by calculation 7 mmol/ L low: 8mmol/ Lhigh: 16mmol /L low Not Available Not Available 03/04/2025 12:47:46 11/11/19 25 11/10/2024 Compr ehens ghass[employer] metab olic 2000 panel - Serum or Plasm a samples containing indocyanine green cause interference s on total and/or direct bilirubin and must not BE measured. Sample s contai filomena indocy anine green cause interf erence s on Total and/or Direct Biliru bin and must not be measur ed. Not Available Not Available 12:47:46 11/11/19 25 11/10/2024 Compr ehens ghassan metab olic 2000 panel - Serum or Plasm a interpretati on and review of laboratory results Abnorm al Not Available Not Available 12:47:46 11/12/19 25 11/11/2024 CBC W Auto Diffe renti al panel - Blood leukocytes [#/volume] in blood 6.1 K/uL low: 4K/uLh igh: 9.8K/u L Not Available Not Available 03/04/2025 12:47:47 11/12/19 25 11/11/2024 CBC W Auto Diffe renti al panel - Blood erythrocytes [#/volume] in blood by automated count 3.9 text: 4.50 - 5.40 M/uL low Not Available Not Available 03/04/2025 12:47:47 11/12/19 25 11/11/2024 CBC W Auto Diffe renti al panel - Blood hemoglobin [mass/volume ] in blood 11.6 g/dL low: 13.6g/ dLhigh : 16.5g/ dL low Not Available Not Available 03/04/2025 12:47:47 0411/11/2024 CBC W Auto Diffe renti al panel - Blood hematocrit [volume fraction] of blood by automated count 35.7 % low: 40%hig h: 48% low Not Available Not Available 03/04/2025 12:47:47 11/12/1911/11/2024 CBC W Auto Diffe renti al panel - Blood MCV [entitic mean volume] in red blood cells by automated count 91.5 fL low: 82fLhi gh: 99fL Not Available Not Available 03/04/2025 12:47:47 11/12/1911/11/2024 CBC W Auto Diffe renti al panel - Blood MCH [entitic mass] by automated count 29.7 pg low: 27.2pg high: 32.6pg Not Available Not Available 03/04/2025 12:47:47 11/12/1911/11/2024 CBC W Auto Diffe renti al panel - Blood MCHC [entitic mass/volume] in red blood cells by automated count 32.5 g/dL low: 31.5g/ dLhigh : 35.5g/ dL Not Available Not Available 03/04/2025 12:47:47 11/12/1911/11/2024 CBC W Auto Diffe renti al panel - Blood RDW 12.9 % low: 11.5%h igh: 14.5% Not Available Not Available 03/04/2025 12:47:47 11/12/1911/11/2024 CBC W Auto Diffe renti al panel - Blood RDW-stdev 42.3 fL low: 37.1fL high: 48.7fL Not Available Not Available 03/04/2025 12:47:47 11/12/1911/11/2024 CBC W Auto Diffe renti al panel - Blood platelets [#/volume] in blood by automated count 143 K/uL low: 140K/u Lhigh: 350K/u L Not Available Not Available 03/04/2025 12:47:47 11/12/19 25 11/11/2024 CBC W Auto Diffe renti al panel - Blood platelet [entitic mean volume] in blood by automated count 11.4 fL low: 9.3fLh igh: 12.4fL Not Available Not Available 03/04/2025 12:47:47 11/12/19 25 11/11/2024 CBC W Auto Diffe renti al panel - Blood neutrophils 60 % Not Available Not Av ailable 03/04/2025 12:47:47 11/12/19 25 11/11/2024 CBC W Auto Diffe renti al panel - Blood lymphocytes/ leukocytes in blood by automated count 26 % Not Available Not Available 02/2025 12:47:47 11/12/19 25 11/11/2024 CBC W Auto Diffe renti al panel - Blood monocytes 7 % Not Available Not Avai lable 03/04/2025 12:47:47 11/12/19 25 11/11/2024 CBC W Auto Diffe renti al panel - Blood eosinophils 6 % Not Available Not Av ailable 03/04/2025 12:47:47 11/12/19 25 11/11/2024 CBC W Auto Diffe renti al panel - Blood basophils 0 % Not Available Not Avai lable 03/04/2025 12:47:47 11/12/19 25 11/11/2024 CBC W Auto Diffe renti al panel - Blood immature granulocytes 1 % IG (Arianna ture Granu locyt e) count inclu vic Metam yeloc ytes, Myelo cytes , and Promy elocy angelika Not Available Not Available 03/04/2025 12:47:47 11/12/19 25 11/11/2024 CBC W Auto Diffe renti al panel - Blood neutrophils [#/volume] in blood by automated count 3.67 K/uL low: 1.9K/u Lhigh: 7K/uL Not Available Not Available 03/04/2025 12:47:47 11/12/19 25 11/11/2024 CBC W Auto Diffe renti al panel - Blood lymphocytes [#/volume] in blood by automated count 1.61 K/uL low: 0.7K/u Lhigh: 4.5K/u L Not Available Not Available 03/04/2025 12:47:47 11/12/19 25 11/11/2024 CBC W Auto Diffe renti al panel - Blood monocytes [#/volume] in blood by automated count 0.45 K/uL low: 0.1K/u Lhigh: 1.3K/u L Not Available Not Available 03/04/2025 12:47:47 11/12/19 25 11/11/2024 CBC W Auto Diffe renti al panel - Blood eosinophils [#/volume] in blood by automated count 0.34 K/uL low: 0K/uLh igh: 0.7K/u L Not Available Not Available 03/04/2025 12:47:47 11/12/19 25 11/11/2024 CBC W Auto Diffe renti al panel - Blood basophils [#/volume] in blood by automated count 0.01 K/uL low: 0K/uLh igh: 0.2K/u L Not Available Not Available 03/04/2025 12:47:47 11/12/19 25 11/11/2024 CBC W Auto Diffe renti al panel - Blood immature granulocytes absolute 0.03 K/uL low: 0K/uLh igh: 0.03K/ uL Not Available Not Available 03/04/2025 12:47:47 11/12/1911/11/2024 CBC W Auto Diffe renti al panel - Blood interpretati on and review of laboratory results Abnorm al Not Available Not Available 12:47:47 11/12/19 25 11/11/2024 Compr ehens [employer]ass[employer] metab olic 1999 panel - Serum or Plasm a sodium [moles/volum e] in serum or plasma 140 mmol/ L low: 136mmo l/Lhig h: 145mmo l/L Not Available Not Available 03/04/2025 12:47:46 11/12/1911/11/2024 Compr ehens ghass[employer] metab olic 1999 panel - Serum or Plasm a potassium [moles/volum e] in serum or plasma 3.9 mmol/ L low: 3.5mmo l/Lhig h: 5mmol/ L Not Available Not Available 03/04/2025 12:47:46 11/12/19 25 11/11/2024 Compr ehens ghassan metab olic 1999 panel - Serum or Plasm a chloride [moles/volum e] in serum or plasma 106 mmol/ L low: 98mmol /Lhigh : 107mmo l/L Not Available Not Available 03/04/2025 12:47:46 11/12/19 25 11/11/2024 [facility] [email or web address] ol 1999 panel - Serum or Plasm a carbon dioxide, total [moles/volum e] in serum or plasma 23 mmol/ L low: 22mmol /Lhigh : 29mmol /L Not Available Not Available 03/04/2025 12:47:46 11/12/19 25 11/11/2024 [facility] [email or web address] olic 1999 panel - Serum or Plasm a calcium [mass/volume ] in serum or plasma 9.1 mg/dL low: 8.6mg/ dLhigh : 10.2mg /dL Not Available Not Available 03/04/2025 12:47:46 11/12/19 25 11/11/2024 [facility] [email or web address] olic 1999 panel - Serum or Plasm a urea nitrogen [mass/volume ] in serum or plasma 9 mg/dL low: 8mg/dL high: 23mg/d L Not Available Not Available 03/04/2025 12:47:46 11/12/19 25 11/11/2024 [facility] [email or web address] [facility] 1999 panel - Serum or Plasm a creatinine [mass/volume ] in serum or plasma 0.77 mg/dL low: 0.67mg /dLhig h: 1.17mg /dL Not Available Not Available 03/04/2025 12:47:46 11/12/19 25 11/11/2024 [facility] [email or web address] ic 1999 panel - Serum or Plasm a glucose [mass/volume ] in serum or plasma 102 mg/dL low: 74mg/d Lhigh: 99mg/d L high Not Available Not Available 03/04/2025 12:47:46 11/12/19 25 11/11/2024 [facility] [email or web address] ic 1999 panel - Serum or Plasm a protein [mass/volume ] in serum or plasma 6.2 g/dL low: 6.7g/d Lhigh: 8.6g/d L low Not Available Not Available 03/04/2025 12:47:46 11/12/19 25 11/11/2024 [facility] [email or web address] ic 1999 panel - Serum or Plasm a albumin [mass/volume ] in serum or plasma 3.9 g/dL low: 3.5g/d Lhigh: 5.2g/d L Not Available Not Available 03/04/2025 12:47:46 11/12/19 25 11/11/2024 Compr ehens ghass[employer] metab olic 1999 panel - Serum or Plasm a bilirubin.to ever [mass/volume ] in serum or plasma 0.4 mg/dL low: 0.2mg/ dLhigh : 1.1mg/ dL Not Available Not Available 03/04/2025 12:47:46 11/12/19 25 11/11/2024 Compr ehens [employer] metab olic 1999 panel - Serum or Plasm a alkaline phosphatase [enzymatic activity/vol ume] in serum or plasma 63 U/L low: 40U/Lh igh: 129U/L Not Available Not Available 03/04/2025 12:47:46 11/12/19 25 11/11/2024 Compr ehens [employer] metab olic 2000 panel - Serum or Plasm a aspartate aminotransfe rase [enzymatic activity/vol ume] in serum or plasma 35 U/L high: 41U/L Not Available Not Available 03/04/2025 12:47:46 11/12/19 25 11/11/2024 Compr ehens [employer] metab olic 2000 panel - Serum or Plasm a alanine aminotransfe rase [enzymatic activity/vol ume] in blood 19 U/L high: 42U/L Not Available Not Available 03/04/2025 12:47:46 11/12/19 25 11/11/2024 Compr ehens [employer] metab olic 2000 panel - Serum or Plasm a glomerular filtration rate [volume rate/area] in serum, plasma or blood by creatinine-b ased formula (CKD-epi 2020)/1.73 sq M text: >=60 mL/min /1.73 sq meter eGFR calcu lated with 2020 CKD-E PI equat ion. Veget kvng diet, extre blaine high or low muscl e mass, and pregn mairanna may affec t resul ts. Cysta tin C with Glome rular Filtr ation Rate is a suita ble alter nativ e for these patie nts. Not Available Not Available 03/04/2025 12:47:46 11/12/19 25 11/11/2024 Compr ehens [employer] metab olic 2000 panel - Serum or Plasm a anion gap in serum or plasma by calculation 11 mmol/ L low: 8mmol/ Lhigh: 16mmol /L Not Available Not Available 03/04/2025 12:47:46 11/12/19 25 11/11/2024 Compr ehens [employer] metab olic 2000 panel - Serum or Plasm a samples containing indocyanine green cause interference s on total and/or direct bilirubin and must not BE measured. Sample s alden butt indocy anine green cause interf erence s on Total and/or Direct Biliru bin and must not be measur ed. Not Available Not Available 12:47:46 11/12/19 25 11/11/2024 Compr ehens [employer] metab olic 2000 panel - Serum or Plasm a interpretati on and review of laboratory results Abnorm al Not Available Not Available 12:47:46 03/11/2003/11/2025 Compr ehens [employer] metab [employer]lic 2000 panel - Serum or Plasm a glucose [mass/volume ] in serum or plasma 298 text: 70 - 99 mg/dL high Not Available Not Available 03/18/2025 13:51:00 03/11/20 25 03/11/2025 Compr ehens [employer] metab olic 2000 panel - Serum or Plasm a urea nitrogen [mass/volume ] in serum or plasma 14 text: 7 - 18 mg/dL Not Available Not Available 03/18/2025 13:51:00 03/11/20 25 03/11/2025 Compr ehens [employer] metab olic 2000 panel - Serum or Plasm a creatinine [mass/volume ] in serum or plasma 1.07 text: 0.7 - 1.3 mg/dL Not Available Not Available 03/18/2025 13:51:00 03/11/20 25 03/11/2025 Compr ehens [employer] metab olic 2000 panel - Serum or Plasm a sodium [moles/volum e] in serum or plasma 135 text: 136 - 145 mmol/L low Not Available Not Available 03/18/2025 13:51:00 03/11/20 25 03/11/2025 Compr ehens [employer] metab [employer]lic 2000 panel - Serum or Plasm a potassium [moles/volum e] in serum or plasma 4.3 text: 3.5 - 5.1 mmol/L Not Available Not Available 03/18/2025 13:51:00 03/11/20 25 03/11/2025 Compr ehens [employer] metab olic 2000 panel - Serum or Plasm a chloride [moles/volum e] in serum or plasma 104 text: 97 - 115 mmol/L Not Available Not Available 03/18/2025 13:51:00 03/11/20 25 03/11/2025 Compr ehens [employer] metab olic 2000 panel - Serum or Plasm a carbon dioxide, total [moles/volum e] in serum or plasma 26.2 text: 21 - 32 mmol/L Not Available Not Available 03/18/2025 13:51:00 03/11/20 25 03/11/2025 Compr ehens [employer] metab olic 2000 panel - Serum or Plasm a calcium [mass/volume ] in serum or plasma 9.3 text: 8.5 - 10.1 mg/dL Not Available Not Available 03/18/2025 13:51:00 03/11/20 25 03/11/2025 Compr ehens [employer] metab olic 2000 panel - Serum or Plasm a bilirubin.to ever [mass/volume ] in serum or plasma 1 text: 0.2 - 1.2 mg/dL THIS ASSAY IS NOT RECOM LYLE D FOR PATIE NTS UNDER GOING TREAT MENT WITH ELTRO MBOPA G DUE TO THE POTEN TIAL FOR FALSE LY ELEVA RISSA RESUL TS. Not Available Not Available 03/18/2025 13:51:00 03/11/20 25 03/11/2025 Compr ehens [employer] metab [employer]lic 1999 panel - Serum or Plasm a protein [mass/volume ] in serum or plasma 6.9 text: 6.4 - 8.2 g/dL Not Available Not Available 03/18/2025 13:51:00 03/11/20 25 03/11/2025 Compr ehens [employer] metab [employer]lic 2000 panel - Serum or Plasm a albumin [mass/volume ] in serum or plasma 3.5 text: 3.4 - 5.0 g/dL Not Available Not Available 03/18/2025 13:51:00 03/11/20 25 03/11/2025 Compr ehens [employer] metab olic 2000 panel - Serum or Plasm a aspartate aminotransfe rase [enzymatic activity/vol ume] in serum or plasma 15 U/L low: 15U/Lh igh: 37U/L Not Available Not Available 03/18/2025 13:51:00 03/11/20 25 03/11/2025 [facility] [email or web address] 1999 panel - Serum or Plasm a alanine aminotransfe rase [enzymatic activity/vol ume] in serum or plasma 38 U/L low: 16U/Lh igh: 60U/L Not Available Not Available 03/18/2025 13:51:00 03/11/20 25 03/11/2025 [facility] [email or web address] 1999 panel - Serum or Plasm a alkaline phosphatase [enzymatic activity/vol ume] in serum or plasma 82 U/L low: 50U/Lh igh: 136U/L Not Available Not Available 03/18/2025 13:51:00 03/11/2003/11/2025 [facility] [email or web address] panel - Serum or Plasm a anion gap in serum or plasma by calculation 4.8 text: 2 - 10 mmol/L Not Available Not Available 03/18/2025 13:51:00 03/11/20 25 03/11/2025 [facility] [email or web address] 1999 panel - Serum or Plasm a urea nitrogen/cre atinine [mass ratio] in serum or plasma 13.1 low: 6high: 26 Not Available Not Available 03/18/2025 13:51:00 03/11/20 25 03/11/2025 [facility] [email or web address] [facility] 1999 panel - Serum or Plasm a albumin/glob ulin [mass ratio] in serum or plasma 1 text: 1.0 - 2.0 ratio Not Available Not Available 03/18/2025 13:51:00 03/11/20 25 03/11/2025 [facility] [email or web address] panel - Serum or Plasm a glomerular filtration rate [volume rate/area] in serum, plasma or blood by creatinine-b ased formula (CKD-epi 2020)/1.73 sq M 76 text: >90 mL/min /1.73 M2 low NOTE: eGFR is not calcu lated for patie nts <18 years of age or gende r unkno wn. This is an estim ated GFR calcu latio n using the new CKD EPI creat inine equat ion witho ut race and so does not requi re a corre ction facto r for race. This estim ated GFR shoul d not be used for calcu latin g drug doses . Not Available Not Available 03/18/2025 13:51:00 03/11/2003/11/2025 Compr ehens ghassan metab olic 2000 panel - Serum or Plasm a interpretati on and review of laboratory results Abnorm al Not Available Not Available 13:51:00 03/11/2003/11/2025 CBC W Auto Diffe renti al panel - Blood leukocytes [#/volume] in blood by automated count 8.06 text: 4.5 - 11.0 x10'3/ uL Not Available Not Available 03/18/2025 13:50:59 03/11/2003/11/2025 CBC W Auto Diffe renti al panel - Blood erythrocytes [#/volume] in blood by automated count 4.98 text: 4.70 - 6.10 x10'6/ uL Not Available Not Available 03/18/2025 13:50:59 03/11/2003/11/2025 CBC W Auto Diffe renti al panel - Blood hemoglobin [mass/volume ] in blood 14.1 text: 14.0 - 18.0 g/dL Not Available Not Available 03/18/2025 13:50:59 03/11/2003/11/2025 CBC W Auto Diffe renti al panel - Blood hematocrit [volume fraction] of blood by calculation 43.2 % low: 43%hig h: 54% Not Available Not Available 03/18/2025 13:50:59 03/11/2003/11/2025 CBC W Auto Diffe renti al panel - Blood MCV [entitic mean volume] in red blood cells 86.7 text: 80.0 - 94.0 fL Not Available Not Available 03/18/2025 13:50:59 03/11/2003/11/2025 CBC W Auto Diffe renti al panel - Blood MCH [entitic mass] 28.3 pg low: 27pghi gh: 31pg Not Available Not Available 03/18/2025 13:50:59 03/11/20 25 03/11/2025 CBC W Auto Diffe renti al panel - Blood MCHC [entitic mass/volume] in red blood cells 32.6 text: 32.0 - 36.0 g/dL Not Available Not Available 03/18/2025 13:50:59 03/11/20 25 03/11/2025 CBC W Auto Diffe renti al panel - Blood RDW 13.4 % low: 11.5%h igh: 14.5% Not Available Not Available 03/18/2025 13:50:59 03/11/20 25 03/11/2025 CBC W Auto Diffe renti al panel - Blood platelets [#/volume] in blood 138 text: 130 - 400 x10'3/ uL Not Available Not Available 03/18/2025 13:50:59 03/11/20 25 03/11/2025 CBC W Auto Diffe renti al panel - Blood platelet [entitic mean volume] in blood 11.6 text: 9.3 - 12.2 fL Not Available Not Available 03/18/2025 13:50:59 03/11/20 25 03/11/2025 CBC W Auto Diffe renti al panel - Blood differential cell count method - blood AUTOMA RISSA DIFFER ENTIAL Not Available Not Available 13:50:59 03/11/20 25 03/11/2025 CBC W Auto Diffe renti al panel - Blood neutrophils/ leukocytes in blood by automated count 58.6 % Not Available Not Available 02/26 13:50:59 03/11/20 25 03/11/2025 CBC W Auto Diffe renti al panel - Blood lymphocytes/ leukocytes in blood by automated count 29.2 % Not Available Not Available 02/26 13:50:59 03/11/20 25 03/11/2025 CBC W Auto Diffe renti al panel - Blood monocytes/le ukocytes in blood by automated count 6.2 % Not Available Not Available 02/26 13:50:59 03/11/20 25 03/11/2025 CBC W Auto Diffe renti al panel - Blood eosinophils/ leukocytes in blood by automated count 3.5 % Not Available Not Available 02/26 13:50:59 03/11/20 25 03/11/2025 CBC W Auto Diffe renti al panel - Blood basophils/le ukocytes in blood by automated count 0.4 % Not Available Not Available 02/26 13:50:59 03/11/20 25 03/11/2025 CBC W Auto Diffe renti al panel - Blood immature granulocytes /leukocytes in blood by automated count 2.1 % Not Available Not Available 02/26 13:50:59 03/11/20 25 03/11/2025 CBC W Auto Diffe renti al panel - Blood neutrophils [#/volume] in blood 4.73 text: 1.80 - 7.70 x10'3/ uL Not Available Not Available 03/18/2025 13:50:59 03/11/20 25 03/11/2025 CBC W Auto Diffe renti al panel - Blood lymphocytes [#/volume] in blood 2.35 text: 1.00 - 4.80 x10'3/ uL Not Available Not Available 03/18/2025 13:50:59 03/11/20 25 03/11/2025 CBC W Auto Diffe renti al panel - Blood monocytes [#/volume] in blood 0.5 text: 0.30 - 0.82 x10'3/ uL Not Available Not Available 03/18/2025 13:50:59 03/11/20 25 03/11/2025 CBC W Auto Diffe renti al panel - Blood eosinophils [#/volume] in blood 0.28 text: 0.04 - 0.54 x10'3/ uL Not Available Not Available 03/18/2025 13:50:59 03/11/20 25 03/11/2025 CBC W Auto Diffe renti al panel - Blood basophils [#/volume] in blood 0.03 text: 0.01 - 0.08 x10'3/ uL Not Available Not Available 03/18/2025 13:50:59 03/11/20 25 03/11/2025 CBC W Auto Diffe renti al panel - Blood immature granulocytes [#/volume] in blood 0.17 text: 0.00 - 0.49 x10'3/ uL Not Available Not Available 03/18/2025 13:50:59 03/11/20 25 03/15/2025 levET IRAce gonsalves [Mass /volu me] in Serum or Plasm a levetiraceta m [mass/volume ] in serum or plasma 35.8 text: 6.0 - 46.0 mcg/mL Briva racet am (Briv iact( R), Rikel ta(R) ) exhib its signi fican t cross -reac tivit y in the Levet irace gonsalves (Kepp ra(R) , Sprit am(R) ) immun oassa y. If Briva racet am has been presc ribed , order test code 91967 Levet irace gonsalves by [facility] S. Test Perfo rmed by [facility] , [facility], [facility], [address] [facility] , [facility], [place] Debra Levi M.D., Ph.D. , [facility] [employer] [facility] , CLIA [id number] Not Available Not Available 03/18/2025 13:50:59 05/01/20 20 05/01/2020 CT, head, w/o contr ast No observ ation record ed. [email or web address] [facility] (Imaging) [address] [place], [address], 05/27/2020 00:09:11 05/01/20 20 05/01/2020 imagi ng/di agnos tic resul t No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
[2025-05-19] MEDS: levETIRAcetam 1000MG/NACL100ML 1,000 MG/100 ML BAG 400 MG IVPB (21:21)
--- NOTE | 2025-05-19 22:19 | P.HP_ITS ---
H&P: HPI History of Present Illness Date/Time: 05/19/25 22:19 Chief Complaint: Seizure Narrative: 69-year-old male with PMH seizure disorder, history of CVA with resultant right- sided hemiparesis, hyperlipidemia, paroxysmal atrial fibrillation, vitamin-D deficiency, hypertension, depression, diabetes without current long-term use of insulin, presenting from [facility] with seizure. EMS gave 10 mg V ersed intranasally in route. In the ER he eventually received 5 mg Versed IV x1 after a peripheral IV could be established. Reportedly length of seizure was 50 minutes. Afterwards patient postictal. Laboratory evaluation reveals glucose 205, lactic acid 4.6. CT brain without contrast demonstrates encephalomalacia within the left occipital lobe, otherwise no acute findings. Given Keppra 1000 mg IV x1. Review of Systems Review of Systems: All systems reviewed & are unremarkable except as noted in HPI and below (Subjective) PMFSH Past Medical History Medical History BPH (benign prostatic hyperplasia) Noted on imaging Paroxysmal A-fib Vitamin D deficiency Depression Hypertension Cerebrovascular accident left occipital lobe stroke with right hemiparesis Epilepsy Hyperlipidemia Surgical History Surgical History Surgical history unknown Family History Family History Other Unknown family medical history Social History Social History Social History: Surrogate medical decision maker: Aisha Macedo, daughter ([phone]). Code status: Full code. Smoking packs per day: 0.5 Smoking cigarettes per day: 10.0 Years smoked: 55 Smoking pack-years: 27.50 Smoking status: Unknown if ever smoked Alcohol intake: former Substance use: unknown Substance use type: unknown Lack of Transportation: No Lack of Food: Never True Current Housing: I Have Housing Concerned About Future Housing: No Difficulty Paying Gas/Electric Bills: No Difficulty Paying for Meds: No Currently Unemployed: No Education: Don't Know Difficulty w/ Childcare or Family Care: No Living arrangements: [facility] Additional living arrangements comments: [facility]. Spiritual care concerns: No Meds Home Medications and Allergies Home Medications ?Medication ?Instructions ?Recorded ?Confirmed ?Type atorvastatin 80 mg tablet 80 mg PO HS 12/05/21 5 History calcitriol 0.25 mcg capsule 0.25 mcg PO WEEKLY 2 02/15/25 History levetiracetam 1,000 mg tablet 2,000 mg PO BID 12/05/21 02/15/25 History lisinopril 10 mg tablet 10 mg PO DAILY 12/05/2101/26 History aspirin 81 mg chewable tablet 81 mg PO DAILY 11/17/22 02/15/25 History cholecalciferol (vitamin D3) 125 125 mcg PO DAILY 10/2702/15/25 History mcg (5,000 unit) tablet lacosamide 150 mg tablet (Vimpat) 150 mg PO Q12HR #60 tabs 12/29/24 02/15/25 Rx lorazepam 2 mg/mL injection 1 mg IM ONCE PRN seizure 0 02/15/25 02/15/25 History solution (Ativan) prednisone 10 mg tablet 10 mg PO DAILY #63 tabs 01/26 03/21 Rx Allergies Allergy/AdvReac Type Severity Reaction Status Date / Time No Known Allergies Allergy Verified 05/19/25 20:03 Vital Signs Vital Signs - 24 hr 05/19/25 19:56 05/19/25 20:14 05/19/25 20:15 Temperature 98.6 F Pulse Rate 97 112 H 112 H Respiratory Rate 20 21 H Blood Pressure 147/69 H Pulse Oximetry 93 96 Oxygen Delivery Room Air 05/19/25 20:16 05/19/25 20:21 05/19/25 20:40 Temperature Pulse Rate 109 H 108 H 107 H Respiratory Rate 22 H 21 H 22 H Blood Pressure 147/81 H 129/81 Pulse Oximetry 97 99 Oxygen Delivery 05/19/25 20:41 05/19/25 20:45 05/19/25 20:51 Temperature Pulse Rate 104 H 106 H Respiratory Rate 21 H 22 H Blood Pressure 137/83 Pulse Oximetry 100 2 L Oxygen Delivery Nasal Cannula 05/19/25 21:04 05/19/25 21:05 05/19/25 21:11 Temperature Pulse Rate 90 90 96 Respiratory Rate 18 18 18 Blood Pressure 120/77 122/77 Pulse Oximetry 100 100 100 Oxygen Delivery 05/19/25 21:15 05/19/25 21:21 05/19/25 21:30 Temperature Pulse Rate 97 104 H 102 H Respiratory Rate 19 19 17 Blood Pressure 142/80 H Pulse Oximetry 100 100 100 Oxygen Delivery Exam Const: General: comfortable and no acute distress Other: Incoherent. 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 Left hand 5/5 motor strength, right hand 3/5 motor strength. Extrem: General: no edema H&P: Results Labs Labs: Short CBC 05/19/25 Range/Units 20:15 WBC 9.9 (4.5-10.0) K/mm3 Hgb 13.8 L D (14.0-18.0) g/dL Hct 43.4 (42.0-52.0) % Plt Count 195 (150-375) k/mm3 BMP 05/19/25 20:15 Sodium 140 Potassium 4.6 Chloride 98 Carbon Dioxide 31 H BUN 20 Creatinine 0.86 Glucose 205 H Calcium 9.4 Liver Function 05/19/25 Range/Units 20:15 Total Bilirubin 0.6 (0.2-1.3) mg/dL AST 24 (17-59) U/L ALT 21 (6-50) U/L Alkaline Phosphatase 93 (38-126) U/L Albumin 4.5 (3.5-5.1) g/dL Assessment and Plan Assessment and plan (1) Breakthrough seizure: Code(s): G40.919 - Epilepsy, unspecified, intractable, without status epilepticus Status: Acute (2) Lactic acidosis: Code(s): E87.20 - Acidosis, unspecified Status: Acute Plan 69-year-old male with PMH seizure disorder, history of CVA with resultant right- sided hemiparesis, hyperlipidemia, paroxysmal atrial fibrillation, vitamin-D deficiency, hypertension, depression, diabetes without current long-term use of insulin, presenting from [facility] with seizure. EMS gave 10 mg Versed intranasally in route. In the ER he eventually received 5 mg Versed IV x1 after a peripheral IV could be established. Reportedly length of seizure was 50 minutes. Afterwards patient postictal. Laboratory evaluation reveals glucose 205, lactic acid 4.6. CT brain without contrast demonstrates encephalomalacia within the left occipital lobe, otherwise no acute findings. Given Keppra 1000 mg IV x1. ----- I reviewed the patient's chart. At the local nursing facility he was last administered his Keppra 1000 mg p.o. b.i.d. and lacosamide 150 mg p.o. b.i.d. in the a.m. with 05/19/2025, day of admission. He is currently postictal, will be admitted with seizure precautions, fall precautions, telemetry. Normal saline at 75 cc/hour. I spoke with Neurology Dr. Leach. Advised to increase his Keppra to 1500 mg p.o. b.i.d. and lacosamide to [address] Leach available to take calls on 05/20/25. Pending lacosamide and Keppra levels. Check urine drugs of abuse. Repeat lactic acid now. Versed p.r.n. History of CVA with documented right-sided hemiparesis. 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 CT head without acute findings. Old infarct in left occipital lobe. Resume CLINICAL ACADEMIC ALLERGIST aspirin and atorvastatin. Hold CLINICAL ACADEMIC ALLERGIST lisinopril 10 mg p.o. q.day. Monitor blood pressure. Accu-Cheks a.c. HS with low-dose insulin sliding scale. Patient has documented history [facility] of [facility]. He does not appear to be on an anticoagulant. At this time he is in normal sinus rhythm. ----- Full code. Sodium chloride infusion SCDs. Fall precautions, seizure precautions. Neurology consultation. Hospitalist MIPS Advance Care Plan I have confirmed that the patient's Advanced Care Plan is present, code status is documented, or surrogate decision maker is listed in patient medical record.: Yes Medication Reconciliation I have utilized all available resources to obtain, update and review the patients current medications (includes all prescriptions, OTC, herbals, cannabis, and nutritional supplements).: Yes
[2025-05-19] MEDS: levETIRAcetam 500MG/NACL 100ML 500 MG/100 ML BAG 400 MG IVPB (22:27)
--- NOTE | 2025-05-19 23:48 | ADMGEN ---
This patient, Maldonado Schuler, was admitted to IMU Room 206-02 at 2333. Patient/family oriented to hospital policies and general routines including ID bracelet, bed and alarms, visiting hours, pain management, procedures, bathroom and other care routines, personal items, smoking policy, room service/diet, and visiting hours. Information on how to activate the Rapid Response Team has been discussed. Patient/Family are encouraged to report perceived risks to care and to ask questions if they do not understand what they are told or what they should do.
[2025-05-20] VITALS: BP 116/62; PULSE 82; PULSE 84; RESP 17; TEMP 36.6; O2SAT 100
[2025-05-20 00:08] VITALS: BMI 30.4
--- NOTE | 2025-05-20 00:22 | PC.NURSE ---
Attempted to call [facility], [place], operated by [facility] at to get history on pt since pt can not answer for himself. Facility did not answer will try again later to get accurate hx on pt.
[2025-05-20] MEDS: LACOSAMIDE (*CRX) 200 MG TABLET PO ×2 (01:06→08:31)
[2025-05-20] MEDS: SODIUM CHLORIDE 0.9% IV 1,000 ML 75 ML IV CONT (01:07)
[2025-05-20 02:00] VITALS: PULSE 80
[2025-05-20 04:00] VITALS: BP 118/60; PULSE 80; PULSE 82; RESP 18; TEMP 36.6; O2SAT 99
[2025-05-20 04:17] LABS: Cannabinoid Screen Urine Negative (Negative)
[2025-05-20 04:21] LABS: Hematocrit 38.5 % (42.0-52.0); Hemoglobin 12.4 g/dL (14.0-18.0); Immature Granulocyte Percent A 0.6 % (0-0.5); Lymphocytes Absolute Auto 2.52 K/mm3 (0.9-3.2); Mean Corpuscular HGB Conc 32.2 g/dl (32-36); Mean Corpuscular Hemoglobin 28.4 pg (26-34); Mean Corpuscular Volume 88.3 fl (80-100); Nucleated Red Blood Cells Absolute Auto 0.000 K/mm3 (0.0-0.012); Nucleated Red Blood Cells Perc 0.0 % (0.0-0.2); Platelet Count Result 172 k/mm3 (150-375); Red Blood Count 4.36 M/mm3 (4.6-6.20); White Blood Count 8.0 K/mm3 (4.5-10.0)
[2025-05-20 04:41] LABS: Anion Gap 4 mmol/L (4-12); Blood Urea Nitrogen 17 mg/dL (9-20); Calcium 8.9 mg/dL (8.4-10.2); Carbon Dioxide 27 mmol/L (22-30); Chloride 104 mmol/L (98-107); Estimated CRCL calculation 95 ml/min; Estimated Glomerular Filt Rate > 60; Glucose 166 mg/dL (65-110); Magnesium 1.7 mg/dL (1.6-2.3); Potassium 3.7 mmol/L (3.4-5.0); Sodium 135 mmol/L (137-145)
[2025-05-20 06:00] VITALS: PULSE 80
[2025-05-20 08:00] VITALS: BP 122/62; PULSE 84; PULSE 90; RESP 20; TEMP 37.1; O2SAT 97
--- NOTE | 2025-05-20 13:51 | P.DS_ITS ---
DS: Admitting Diagnosis Discharge Date 05/20/25 Admitting Diagnosis Seizure DS: Discharge Diagnosis Discharge Diagnosis (1) Breakthrough seizure: Code(s): G40.919 - Epilepsy, unspecified, intractable, without status epilepticus Status: Acute (2) Lactic acidosis: Code(s): E87.20 - Acidosis, unspecified Status: Acute (3) Hypertension: Code(s): I10 - Essential (primary) hypertension Status: Acute (4) Hyperlipidemia: Code(s): E78.5 - Hyperlipidemia, unspecified Status: Acute (5) Paroxysmal A-fib: Code(s): I48.0 - Paroxysmal atrial fibrillation Status: Acute (6) Hx of completed stroke: Code(s): Z86.73 - Personal history of transient ischemic attack (TIA), and cerebral infarction without residual deficits Status: Acute DS: Summary Hospital Course Reason for hospitalization: 69yo male with PMH seizure disorder, history of CVA with resultant right-sided hemiparesis, hyperlipidemia, paroxysmal atrial fibrillation, vitamin-D deficiency, hypertension, depression, diabetes without current long-term use of insulin, presenting from [facility] with seizure. Please see H&P for details. Hospital Course: EMS gave 10 mg Versed intranasally in route. In the ER he eventually received 5 mg Versed IV x1 after a peripheral IV could be established. Reportedly length of seizure was 50 minutes. Afterwards patient postictal. Laboratory evaluation reveals glucose 205, lactic acid 4.6. CT brain without contrast demonstrates encephalomalacia within the left occipital lobe, otherwise no acute findings. He was given Keppra 1000 mg IV x1. Neurology was consulted and they advised to increase his Keppra to 1500 mg Q12hr and lacosamide to 200 mg Q12hr. Pending lacosamide and Keppra levels. UDS was positive for benzodiazepines. Repeat lactic acid normal. Patient became awake and alert but remained pleasantly confused. Patient actually takes Keppra 2grams Q12hr. Neurology was called and they recommended advancing Keppra to his home dose and continue the higher dose of Vimpat. Other home medications resumed. He was eating and tolerating. Neurology did not feel the patient needed further monitoring in the hospital setting. He overall did well and was able to be discharged back to the residential on 05/20/25. Status at Discharge Cognitive/behavioral status at discharge: stable Time Spent with Patient Time attestation: Total time spent providing and/or coordinating discharge services: 34 minutes Time spent: Greater than 30 minutes Exam Narrative: AF 98.8 122/62 84 20 97% ra Gen - NARD Chest - bibasilar crackles o/w clear. CV - RRR S1/S2. Abd - Soft, NT/ND, Positive BS Ext - No pedal edema Neuro - Alert but confused. Right hemiparesis. Psych - Nml mood and affect. Skin - Warm and dry DS: Data Data Completed and Pending Labs on day of discharge: Labs from last 24 hours 05/20/25 05/20/25 05/20/25 23:04 11:51 07:18 WBC RBC Hgb Hct MCV MCH MCHC RDW Plt Count MPV Immature Gran % (Auto) Neut % (Auto) Lymph % (Auto) Newberry % (Auto) Eos % (Auto) Baso % (Auto) Lymph # (Auto) Newberry # (Auto) Eos # (Auto) Baso # (Auto) Abs Immat Gran (auto) Absolute Neuts (auto) Absolute Nucleated RBC Nucleated RBC % Sodium Potassium Chloride Carbon Dioxide Anion Gap BUN Creatinine Estim Creat Clear Calc Estimated GFR Glucose POC Capillary Glucose 180 H 164 H Lactic Acid Calcium Magnesium Total Bilirubin AST ALT Alkaline Phosphatase Total Protein Albumin Urine Opiates Screen Urine Methadone Screen Ur Barbiturates Screen Lacosamide Level Ur Phencyclidine Scrn Ur Amphetamine Screen U Benzodiazepines Scrn Urine Cocaine Screen U Cannabinoids Screen Miscellaneous Test Pending 05/20/25 05/20/25 05/19/25 03:55 03:47 23:04 WBC 8.0 RBC 4.36 L Hgb 12.4 L Hct 38.5 L MCV 88.3 MCH 28.4 MCHC 32.2 RDW 12.5 Plt Count 172 MPV 11.3 H Immature Gran % (Auto) 0.6 H Neut % (Auto) 56.4 Lymph % (Auto) 31.5 Newberry % (Auto) 7.6 Eos % (Auto) 3.5 Baso % (Auto) 0.4 Lymph # (Auto) 2.52 Newberry # (Auto) 0.6 Eos # (Auto) 0.3 Baso # (Auto) 0.0 Abs Immat Gran (auto) 0.05 H Absolute Neuts (auto) 4.5 Absolute Nucleated RBC 0.000 Nucleated RBC % 0.0 Sodium 135 L Potassium 3.7 Chloride 104 Carbon Dioxide 27 Anion Gap 4 BUN 17 Creatinine 0.80 Estim Creat Clear Calc 95 Estimated GFR > 60 Glucose 166 H POC Capillary Glucose Lactic Acid 1.4 Calcium 8.9 Magnesium 1.7 Total Bilirubin AST ALT Alkaline Phosphatase Total Protein Albumin Urine Opiates Screen Negative Urine Methadone Screen Negative Ur Barbiturates Screen Negative Lacosamide Level Cancelled Ur Phencyclidine Scrn Negative Ur Amphetamine Screen Negative U Benzodiazepines Scrn Positive A Urine Cocaine Screen Negative U Cannabinoids Screen Negative Miscellaneous Test 05/19/25 20:15 WBC 9.9 RBC 4.88 Hgb 13.8 L D Hct 43.4 MCV 88.9 MCH 28.3 MCHC 31.8 L RDW 12.5 Plt Count 195 MPV 11.0 H Immature Gran % (Auto) 0.6 H Neut % (Auto) 73.2 H Lymph % (Auto) 17.9 L Newberry % (Auto) 5.3 Eos % (Auto) 2.6 Baso % (Auto) 0.4 Lymph # (Auto) 1.77 Newberry # (Auto) 0.5 Eos # (Auto) 0.3 Baso # (Auto) 0.0 Abs Immat Gran (auto) 0.06 H Absolute Neuts (auto) 7.2 H Absolute Nucleated RBC 0.000 Nucleated RBC % 0.0 Sodium 140 Potassium 4.6 Chloride 98 Carbon Dioxide 31 H Anion Gap 11 BUN 20 Creatinine 0.86 Estim Creat Clear Calc 84 Estimated GFR > 60 Glucose 205 H POC Capillary Glucose Lactic Acid 4.6 H* Calcium 9.4 Magnesium Total Bilirubin 0.6 AST 24 ALT 21 Alkaline Phosphatase 93 Total Protein 7.3 Albumin 4.5 Urine Opiates Screen Urine Methadone Screen Ur Barbiturates Screen Lacosamide Level Ur Phencyclidine Scrn Ur Amphetamine Screen U Benzodiazepines Scrn Urine Cocaine Screen U Cannabinoids Screen Miscellaneous Test Discharge Plan Discharge Attending physician on discharge: Bartolome Cain Discharging Clinician: Bartolome Cani Anticipated Discharge Date/Time: 05/20/25 14:03 Patient Disposition: [place] Intermediate/Asst Living Activity: no driving and as tolerated Diet: diabetic Discharge Instructions: Please check glucose before meals and before bed. Record for the doctor's review. Check blood pressure 1 to 2 times a day. Record for the doctor's review. Take precautions to avoid falls. Seizure precautions. Rise slowly from a lying or sitting position. Pause before standing or walking. Contact the doctor if the patient has any type of trauma, lightheadedness with standing or other worrisome symptoms. Avoid NSAIDs (ibuprofen, naproxen, Aleve). Tylenol is safe to take. Follow-up with the provider at the facility. Follow-up with Neurology in 4-6 weeks. Thank you for using [facility] for your health care needs. Patient Instructions: Antibiotic Form, Epilepsy (DC) Patient Language: German Stand Alone Forms: General Discharge Information Discharge Medications: New lacosamide [Vimpat] 200 mg Tablet 200 mg PO Q12HR Qty: 60 0RF Continued aspirin 81 mg Tablet,Chewable 81 mg PO DAILY cholecalciferol (vitamin D3) 125 mcg (5,000 unit) Tablet 125 mcg PO DAILY lisinopril 10 mg Tablet 10 mg PO DAILY calcitriol 0.25 mcg Capsule 0.25 mcg PO WEEKLY Rx Instructions: administer on Friday atorvastatin 80 mg Tablet 80 mg PO HS Changed levetiracetam 1,000 mg Tablet 2,000 mg PO Q12H Qty: 60 0RF Discontinued lacosamide [Vimpat] 150 mg tablet 150 mg PO Q12HR Qty: 60 0RF Date of admission: 05/19/25 21:52 Primary Care Provider: MereFreddy Admitting Provider: Jane Resendiz Attending physician on admission: Jane Resendiz Condition: Stable Hospitalist MIPS Heart Failure (Exclusion) Patient has history of Heart Transplant or Left Ventricular Assistive Device?: No IF YES, STOP HERE Heart Failure (Qualifier) Patient has current or prior documentation of LVEF less than or equal to 40%, or mod/servere depressed LVSF?: No IF NO, STOP HERE
[2025-05-20] MEDS: ASPIRIN 81 MG CHEWABLE TABLET PO (14:11)
[2025-05-20] MEDS: CHOLECALCIFEROL (VITAMIN D3) 125 MCG (5,000 UNITS) TABLET PO (14:11)
--- NOTE | 2025-05-20 16:58 | PC.NURSE ---
On 05/20/25, the ENVIRONMENTAL SUSTAINABILITY MANAGER, [Balta Amor], provided care and completed [facility] documentation on this patient. I have reviewed the ENVIRONMENTAL SUSTAINABILITY MANAGER's documentation and agree with the findings.
--- NOTE | 2025-05-23 07:29 | PC.NURSE ---
Kera level is 8.1. (5-10). Dr. Ant lin.
== END 2025-05-20 15:18 | DRG 101 ==
LOC: ANHED 21:51 → ANHIMU 23:43
PROVIDERS: Admitting Provider General Practice; Emergency Provider Family Medicine; PCP Pediatrics Neonatal-Perinatal Medicine; Visit Provider Internal Medicine
DX: G40.919 Epilepsy, unspecified, intractable, without status epilepticus (principal); I69.351 Hemiplegia and hemiparesis following cerebral infarction affecting right dominant side; E87.20 Acidosis, unspecified; E78.5 Hyperlipidemia, unspecified; E11.9 Type 2 diabetes mellitus without complications; E55.9 Vitamin D deficiency, unspecified; F32.A Depression, unspecified; I48.0 Paroxysmal atrial fibrillation; I10 Essential (primary) hypertension; N40.0 Benign prostatic hyperplasia without lower urinary tract symptoms; Z79.82 Long term (current) use of aspirin
CPT/HCPCS: 36415; 70450; 80048; 80053; 80235; 80307; 82948; 83605; 83735; 85025; 93005; 96365; 96366; 96375; 99285; A9270; J1953; J2250; J7030